=== PATIENT | female | born 1980 | race American Indian/Alaskan Native ===

== ENCOUNTER 2021-11-05 14:17 | Outpatient (REF) | payer OTHER, SELFPAY ==
[2021-11-05 14:33] LABS: MANUAL DIFF FLAG NO
[2021-11-05 15:00] LABS: Basophils Percent Auto 0.4 % (0-2); Eosinophils Absolute Auto 0.1 X10*3/uL (0.0-0.4); Eosinophils Percent Auto 1.6 % (0-4); Hematocrit 37.1 % (37.0-47.0); Hemoglobin 11.9 g/dl (12.0-16.0); Imm Gran Abs Auto 0.01 X10*3/uL (0.00-0.03); Imm Gran Pct Auto 0.1 % (0.0-0.4); Lymphocytes Absolute Auto 2.3 X10*3/uL (1.2-4.9); Lymphocytes Percent Auto 32.8 % (20-40); Mean Corpuscular HGB Conc 32.1 g/dl (31.0-35.0); Mean Corpuscular Hemoglobin 27.5 pg (27.0-33.0); Mean Corpuscular Volume 85.9 fL (80.0-98.0); Mean Platelet Volume 8.7 fL (9.4-12.3); Monocytes Absolute Auto 0.5 X10*3/uL (0.1-1.2); Neutrophils Absolute Auto 4.1 x10*3/uL (2.0-8.3); Neutrophils Percent Auto 58.1 % (45-73); Platelet Count 364 X10*3/uL (160-400); Red Blood Count 4.32 X10*6/uL (4.20-5.50); Red Cell Distribution Width 12.5 % (11.0-16.0)
[2021-11-05 15:28] LABS: Alanine Aminotransferase 18 U/L (0-31); Albumin Level 3.9 g/dL (3.5-5.0); Alkaline Phosphatase 60 U/L (39-117); Anion Gap 13 (12-20); Aspartate Amino Transferase 18 U/L (5-31); Bilirubin Total 0.3 mg/dL (0.0-1.0); Blood Urea Nitrogen 16 mg/dL (9-16); Calcium 9.5 mg/dL (8.4-10.2); Carbon Dioxide 23 mmol/L (22-29); Chloride 106 mmol/L (96-108); Cholesterol 212 mg/dL; Estimated Glomerular Filt Rate > 60; Glucose Fasting 78 mg/dL (60-99); HDL Cholesterol 56 mg/dL; LDL Cholesterol Calculated 119 mg/dl; Potassium 4.4 mmol/L (3.3-5.1); Sodium 138 mmol/L (135-145); Total Protein 7.1 g/dL (6.5-8.0); Triglycerides 185 mg/dL
[2021-11-05 15:41] LABS: TSH reflex Free T4 1.13 uIU/mL (0.32-4.0); Vitamin D 25-OH Total 27.8 ng/mL (>30)
== END 2021-11-05 14:18 | disposition home or self-care (01) ==
LOC: HO.LAB 14:17
PROVIDERS: PCP Internal Medicine; Visit Provider Nurse Practitioner Family
DX: I10 Essential (primary) hypertension (principal); E78.00 Pure hypercholesterolemia, unspecified; F32.A Depression, unspecified; J30.89 Other allergic rhinitis; Z76.89 Persons encountering health services in other specified circumstances; Z86.39 Personal history of other endocrine, nutritional and metabolic disease
CPT/HCPCS: 36415; 80053; 80061; 82306; 84443; 85025

== ENCOUNTER 2022-01-04 12:57 | Outpatient (REF) | payer OTHER, SELFPAY ==
[2022-01-05 04:27] LABS: CT PCR NOT DETECTED (Not Detect.); NG PCR NOT DETECTED (Not Detect.)
[2022-01-05 09:31] LABS: BV Int Neg Control Negative (Negative); BV Int Pos Control Positive (Positive)
[2022-01-10 00:02] LABS: HPV mRNA E6/E7 rflx Not Detected (Not Detected)
== END 2022-01-04 12:58 | disposition home or self-care (01) ==
LOC: HO.LAB 12:57
PROVIDERS: PCP Nurse Practitioner Family; Visit Provider Advanced Practice Midwife
DX: O99.211 Obesity complicating pregnancy, first trimester (principal); E66.01 Morbid (severe) obesity due to excess calories; O34.219 Maternal care for unspecified type scar from previous cesarean delivery; Z11.51 Encounter for screening for human papillomavirus (HPV); Z3A.00 Weeks of gestation of pregnancy not specified; Z64.0 Problems related to unwanted pregnancy
CPT/HCPCS: 81025; 87480; 87491; 87510; 87591; 87624; 87660; 88142; 99202

== ENCOUNTER 2022-01-04 14:53 | Outpatient (REF) | payer OTHER, SELFPAY ==
--- NOTE | ~2022-01-04 | US_ITS ---
EXAMINATION: US OBSTETRICAL ULTRASOUND CLINICAL INFORMATION: Morbid/severe obesity. Frequent and heavy periods. COMPARISON: None. LMP: Not known. Gestational age by maternal dates is not available. Estimated date of delivery by maternal dates is not available. TECHNIQUE: Transabdominal imaging of pelvis is performed. FINDINGS: There is a single intrauterine gestational sac with visible yolk sac, embryo/fetus, and cardiac activity. There is no significant subchorionic hemorrhage or hematoma. HR: 133 beats per minute. CRL (crown rump length): 0.43 cm which corresponds to (6 weeks and 1 day +/- 4 days). YAZ (estimated date of delivery): 08/29/2022 +/- 4 days. MATERNAL ADNEXA: The right maternal ovary measures 2.2 x 2.2 x 2.4 cm. No cyst or solid lesion. The left maternal ovary measures 3.8 x 2.0 x 2.4 cm. No cyst or solid lesion. There is no significant maternal adnexal mass. No maternal pelvic ascites. US/US OB <= 14 weeks fetus IMPRESSION: 1. Single intrauterine gestation with ultrasound gestational age of 6 weeks and 1 day +/- 4 days. 2. Estimated date of delivery is 08/29/2022 +/- 4 days. 3. No maternal adnexal mass or pelvic ascites.
== END 2022-01-04 14:54 | disposition home or self-care (01) ==
LOC: HO.US 14:53
PROVIDERS: PCP Nurse Practitioner Family; Visit Provider Advanced Practice Midwife
DX: O09.511 Supervision of elderly primigravida, first trimester (principal); O26.891 Other specified pregnancy related conditions, first trimester; D25.9 Leiomyoma of uterus, unspecified; O34.219 Maternal care for unspecified type scar from previous cesarean delivery; O99.211 Obesity complicating pregnancy, first trimester; E66.01 Morbid (severe) obesity due to excess calories; Z3A.01 Less than 8 weeks gestation of pregnancy
CPT/HCPCS: 36415; 76801; 84702

== ENCOUNTER 2022-02-21 09:00 | Outpatient (RCR) | payer OTHER, SELFPAY | END 2022-03-07 15:06 | disposition home or self-care (01) | LOC: HO.PT 09:00 | PROVIDERS: Visit Provider Nurse Practitioner Family | DX: M25.561 Pain in right knee (principal); G89.29 Other chronic pain; M25.511 Pain in right shoulder | CPT/HCPCS: 97014; 97033; 97110; 97140; 97162; 97530 ==

== ENCOUNTER 2022-04-22 08:50 | Emergency (ER) | payer OTHER, SELFPAY ==
--- NOTE | ~2022-04-22 | CT_ITS ---
EXAMINATION: CT ABDOMEN AND PELVIS WITHOUT CONTRAST CLINICAL INFORMATION: Left lower quadrant pain COMPARISON: None TECHNIQUE: Multidetector volumetric imaging was performed from the superior aspect of the liver through the pubic symphysis. Sagittal and coronal reformatted images were obtained on the technologist's workstation. This CT examination was performed using dose optimization techniques as appropriate, variously including the following: *Automated exposure control *Adjustment of mA and/or kV according to patient size (this includes techniques or standardized protocols for targeted exams where dose is matched to indication/reason for exam; i.e. extremities or head) *Use of iterative reconstruction technique DLP: 1080 mGy-cm FINDINGS: LUNG BASES: The lung bases are clear. The heart size is normal. LIVER, GALLBLADDER, AND BILIARY TREE: The liver is normal in size, shape, and attenuation. No focal hepatic lesion or biliary ductal dilatation is present. The gallbladder is unremarkable with no evidence of radiopaque gallstones, gallbladder wall thickening, or obvious pericholecystic inflammatory changes. PANCREAS: Unremarkable. SPLEEN: Unremarkable. ADRENAL GLANDS: Unremarkable. KIDNEYS AND URETERS: The kidneys are normal in size, shape, and attenuation. No hydronephrosis, hydroureter, or calculi seen. No perinephric stranding. BLADDER: Unremarkable. GASTROINTESTINAL TRACT: There is diffuse colonic diverticulosis with scattered stool and gas without distention. There is mild perinephric colic fat stranding in the distal descending colon with mild mural thickening suggestive of diverticulitis. There is no free air or air-fluid levels. The small bowel loops are normal caliber. Appendix is not seen. The stomach is nondistended. ABDOMINAL WALL: A small lumbar canal hernia containing fat is noted. LYMPH NODES: Normal. VASCULAR: Unremarkable. PELVIC VISCERA: The uterus Vein appears unremarkable. There is no free fluid. No abnormal lymph nodes. No hernia seen. OSSEOUS STRUCTURES: Unremarkable. CT/CT abdomen pelvis wo con IMPRESSION: Colonic diverticulosis with left descending colon diverticulitis. There is no free air or abscess. No proximal bowel obstruction. Mild constipation. Fleischner guidelines were followed.
[2022-04-22 08:57] VITALS: BP 149/91; PULSE 91; RESP 18; TEMP 36.8; O2SAT 98; BMI 44.6
--- NOTE | 2022-04-22 08:59 | ECG_ITS ---
Test Reason : sharp l side pain Blood Pressure : / mmHG Vent. Rate : 094 BPM Atrial Rate : 094 BPM P-R Int : 150 ms QRS Dur : 080 ms QT Int : 360 ms P-R-T Axes : 021 047 003 degrees QTc Int : 450 ms Normal sinus rhythm with sinus arrhythmia Nonspecific ST and T wave abnormality Borderline ECG No previous ECGs available Referred By: Generic ED Physician Electronically Signed By:NAT JULIO
--- NOTE | 2022-04-22 10:14 | ED.ABDPAIN ---
HPI - Abdominal Pain General Chief Complaint: Abdominal Pain Stated Complaint: sharp pain l rib Time Seen by Provider: 04/22/22 10:01 Source: patient Mode of arrival: ambulatory History of Present Illness HPI narrative: 41-year-old female who presents with left-sided flank pain that is sharp in nature and radiates into the anterior abdomen the patient noted on self palpation that is tender and states that she has chronic urinary frequency but denies pain or burning. Patient does report that she has had some associated nausea as well as a measure temperature 101 degrees last night for which she took an antipyretic. Otherwise she denies shortness of breath/chest pain/palpitations/diarrhea. She has no history of diverticulitis or renal colic. Related Data Previous Rx's Medication Instructions Recorded albuterol sulfate 90 mcg/actuation 2 puff INHALATION Q4-6H PRN #8.5 g 11/20/21 aerosol inhaler cetirizine 10 mg tablet (Zyrtec) 10 mg PO DAILY PRN #90 tab 11/20/21 cholecalciferol (vitamin D3) 25 25 mcg PO DAILY #90 cap 11/20/21 mcg (1,000 unit) capsule famotidine 20 mg tablet 20 mg PO DAILY #90 tab 11/20/21 multivitamin 1 tab PO DAILY #90 tab 11/20/21 vitamin E 200 unit capsule 200 unit PO DAILY #90 cap 11/20/21 benzonatate 100 mg capsule 100 mg PO Q6H PRN #20 cap 02/26/22 bupropion HCl 100 mg tablet,12 hr 100 mg PO DAILY #30 tab 02/26/22 sustained-release (Wellbutrin SR) doxycycline monohydrate 100 mg 100 mg PO BID 7 Days #14 cap 02/26/22 capsule amoxicillin 875 mg-potassium 1 tab PO Q12H 10 Days #20 tab 04/22/22 clavulanate 125 mg tablet Allergies Allergy/AdvReac Type Severity Reaction Status Date / Time bee pollen [BEE STINGS] Allergy Unknown ANAPHYLAXIS Verified 02/26/22 11:45 morphine [MORPHINE] Allergy Unknown ANAPHYLAXIS Verified 02/26/22 11:45 oxycodone [From PERCOCET] Allergy Unknown RASH Verified 02/26/22 11:45 strawberry [STRAWBERRY] Allergy Unknown ANAPHYLAXIS Verified 02/26/22 11:45 Review of Systems Review of Systems Pertinent positives and negatives as stated in HPI 10 point review of systems otherwise negative. [facility] Past Medical History Source: nursing notes reviewed Medical History Fibroid, uterine History of uterine fibroid Polyp of cervix Surgical History History of delivery History of surgery on right wrist Family History Family History Mother No problems noted. Father Mental health disorder Substance use disorder Social History Social History Housing: House Alcohol intake: current Alcohol intake frequency: a few times a month Patient Tobacco Use Status: Former Tobacco user Tobacco use type: Cigarette e-Cigarette/Vaping Use: Never Used Second Hand Smoke Exposure: No Advance Directives: No Advance Directives Information Provided: No Current occupational status: employed Cognitive needs: No Hearing needs: No Vision needs: No Physical Exam ED Vital Signs: Vital Signs - 24 hr 04/22/22 08:57 04/22/22 12:41 Temperature 98.2 F 98.9 F Pulse Rate 91 82 Respiratory Rate 18 16 Blood Pressure 149/91 H 141/80 H Pulse Oximetry 98 98 BMI result Body Mass Index 44.6 VITAL SIGNS: Reviewed. GENERAL: Elevated BMI Well developed, well nourished, in no acute distress. HEAD: Normocephalic/atraumatic EYES: PERRLA, EOMI EARS: Ext canals without abnormality OROPHARYNX: no oral lesions noted, posterior pharynx clear LUNGS: Normal breath sounds. No adventitious sounds or accessory muscle use. SpO2<98> CARDIOVASCULAR: Regular rate and rhythm without noted murmurs ABDOMEN: Soft, left lower quadrant pain, non-distended with bowel sounds. MUSCULOSKELETAL: No tenderness, deformities, or effusions noted on gross inspection. EXTREMITIES: No cyanosis, clubbing or edema. SKIN: Inspection of the skin reveals no rashes NEUROLOGIC: Alert and oriented x 4. Course Course Course Narrative: 41-year-old female with history and clinical presentation suggestive possible diverticulitis given the clinical exam but will evaluate for UTI, ectopic, renal colic. Patient's LMP was February. Review of all investigations with a noted leukocytosis and CT findings consistent with uncomplicated diverticulitis. Patient will receive initial antibiotics here in then be discharged with remaining course and instructions to follow-up with a primary care provider. MDM - Abdominal Pain Lab Data Result diagrams: 04/22/22 10:20 04/22/22 10:20 Labs: Lab Results 04/22/22 04/22/22 04/22/22 Range/Units 10:16 10:16 10:20 WBC 10.8 (4.8-10.8) X10*3/uL RBC 4.42 (4.20-5.50) X10*6/uL Hgb 12.1 (12.0-16.0) g/dl Hct 37.8 (37.0-47.0) % MCV 85.5 (80.0-98.0) fL MCH 27.4 (27.0-33.0) pg MCHC 32.0 (31.0-35.0) g/dl RDW 13.5 (11.0-16.0) % Plt Count 297 (160-400) X10*3/uL MPV 9.0 L (9.4-12.3) fL Absolute Nucleated RBC 0.000 (0.0-0.012) X10*3/uL Nucleated RBC % (auto) 0.0 (0.0-0.2) /100WBC Sodium (135-145) mmol/L Potassium (3.3-5.1) mmol/L Chloride (96-108) mmol/L Carbon Dioxide (22-29) mmol/L Anion Gap (12-20) BUN (9-16) mg/dL Creatinine (0.5-1.4) mg/dL Estim Creat Clear Calc Estimated GFR Random Glucose (60-115) mg/dL Calcium (8.4-10.2) mg/dL Lipase (8-78) U/L Urine Color YELLOW Urine Appearance HAZY Urine pH 6.0 (5.0-8.0) Ur Specific [place] >= 1.030 H (1.005-1.025) Urine Protein TRACE (NEG-TRACE) MG/DL Urine Glucose (UA) NEG (NEG) MG/DL Urine Ketones NEG (NEG) MG/DL Urine Blood NEG (NEG) Urine Nitrite NEG (NEG) Ur Leukocyte Esterase NEG (NEG) Urine Test NEGATIVE (NEGATIVE) COVID-19 (EVE) (Negative) COVID-19 Clin Com 04/22/22 04/22/22 Range/Units 10:20 10:20 WBC (4.8-10.8) X10*3/uL RBC (4.20-5.50) X10*6/uL Hgb (12.0-16.0) g/dl Hct (37.0-47.0) % MCV (80.0-98.0) fL MCH (27.0-33.0) pg MCHC (31.0-35.0) g/dl RDW (11.0-16.0) % Plt Count (160-400) X10*3/uL MPV (9.4-12.3) fL Absolute Nucleated RBC (0.0-0.012) X10*3/uL Nucleated RBC % (auto) (0.0-0.2) /100WBC Sodium 137 (135-145) mmol/L Potassium 4.8 (3.3-5.1) mmol/L Chloride 104 (96-108) mmol/L Carbon Dioxide 24 (22-29) mmol/L Anion Gap 14 (12-20) BUN 18 H (9-16) mg/dL Creatinine 0.89 (0.5-1.4) mg/dL Estim Creat Clear Calc 107.1 Estimated GFR > 60 Random Glucose 102 (60-115) mg/dL Calcium 9.3 (8.4-10.2) mg/dL Lipase 22 (8-78) U/L Urine Color Urine Appearance Urine pH (5.0-8.0) Ur Specific [place] (1.005-1.025) Urine Protein (NEG-TRACE) MG/DL Urine Glucose (UA) (NEG) MG/DL Urine Ketones (NEG) MG/DL Urine Blood (NEG) Urine Nitrite (NEG) Ur Leukocyte Esterase (NEG) Urine Test (NEGATIVE) COVID-19 (EVE) Negative (Negative) COVID-19 Clin [employer] See Note Discharge Plan Discharge Clinical Impression: Diverticulitis Patient Disposition: Home, Self-Care Instructions: Diverticulitis (ED), Diverticulitis Diet (ED) Additional Instructions: 1. Resume all home medications as prescribed. 2. Complete the entire course of antibiotics as prescribed. 3. Recommend [id number] Tylenol/ibuprofen as needed for pain control. 4. Follow-up with your primary care provider in the next 1-2 days for re-evaluation further outpatient management. You will need to follow-up with gastroenterology in 6 weeks for possible colonoscopy. Return to the ER for worsening symptoms. Prescriptions: New amoxicillin-pot clavulanate 875-125 mg tablet 1 tab PO Q12H 10 Days Qty: 20 0RF No Action albuterol sulfate 90 mcg/actuation HFA aerosol inhaler 2 puff inhalation Q4-6H PRN (Reason: shortness of breath or wheezing) Qty: 8.5 3RF cetirizine [Zyrtec] 10 mg tablet 10 mg PO DAILY PRN (Reason: allergy symptoms) Qty: 90 1RF cholecalciferol (vitamin D3) 25 mcg (1,000 unit) capsule 25 mcg PO DAILY Qty: 90 1RF famotidine 20 mg tablet 20 mg PO DAILY Qty: 90 1RF multivitamin Tablet 1 tab PO DAILY Qty: 90 1RF vitamin E 200 unit capsule 200 unit PO DAILY Qty: 90 1RF doxycycline monohydrate 100 mg capsule 100 mg PO BID 7 Days Qty: 14 0RF benzonatate 100 mg capsule 100 mg PO Q6H PRN (Reason: cough) Qty: 20 0RF bupropion HCl [Wellbutrin SR] 100 mg tablet sustained-release 12 hr 100 mg PO DAILY Qty: 30 0RF Referrals: Consuelo Bolaños FNP-C [Primary Care Provider] -
[2022-04-22 10:24] LABS: Hematocrit 37.8 % (37.0-47.0); Hemoglobin 12.1 g/dl (12.0-16.0); Mean Corpuscular Hemoglobin 27.4 pg (27.0-33.0); Mean Corpuscular Volume 85.5 fL (80.0-98.0); Platelet Count 297 X10*3/uL (160-400); Red Blood Count 4.42 X10*6/uL (4.20-5.50); Red Cell Distribution Width 13.5 % (11.0-16.0); White Blood Count 10.8 X10*3/uL (4.8-10.8)
[2022-04-22 10:26] LABS: Appearance Urine HAZY; Color Urine YELLOW; Glucose Urine UA NEG (NEG); Leukocyte Esterase Urine NEG (NEG); Nitrite Urine NEG (NEG); Specific Gravity - Urine >= 1.030 (1.005-1.025); Urine Blood NEG (NEG); Urine Ketones NEG (NEG); Urine Protein TRACE MG/DL (NEG-TRACE)
[2022-04-22 10:28] LABS: UPreg QC Valid YES; Urine Pregnancy NEGATIVE (NEGATIVE)
[2022-04-22 10:53] LABS: Anion Gap 14 (12-20); Blood Urea Nitrogen 18 mg/dL (9-16); Calcium 9.3 mg/dL (8.4-10.2); Carbon Dioxide 24 mmol/L (22-29); Chloride 104 mmol/L (96-108); Creatinine Clr Calc Pharmacy 107.1; Estimated Glomerular Filt Rate > 60; Glucose Random 102 mg/dL (60-115); Lipase 22 U/L (8-78); Potassium 4.8 mmol/L (3.3-5.1); Sodium 137 mmol/L (135-145)
[2022-04-22 10:56] LABS: COVID-19 Test Negative (Negative); IDNOW Serial# 16C4AD1C
[2022-04-22 12:41] VITALS: BP 141/80; PULSE 82; RESP 16; TEMP 37.2; O2SAT 98
[2022-04-22] MEDS: Amoxicillin/Potassium Clav 875 MG TABLET PO (13:51)
== END 2022-04-22 13:58 | disposition home or self-care (01) ==
PROVIDERS: Emergency Provider Student in an Organized Health Care Education/Training Program; PCP Nurse Practitioner Family
DX: K57.92 Diverticulitis of intestine, part unspecified, without perforation or abscess without bleeding (principal); Z20.822 Contact with and (suspected) exposure to COVID-19
CPT/HCPCS: 74176; 80048; 81003; 81025; 83690; 85027; 87635; 93005; 99284

== ENCOUNTER 2022-05-06 10:56 | Outpatient (REF) | payer OTHER, SELFPAY ==
[2022-05-08 01:41] LABS: Lyme Abs Screen <0.90 index
== END 2022-05-06 10:57 | disposition home or self-care (01) ==
LOC: HO.LAB 10:56
PROVIDERS: PCP Nurse Practitioner Family; Visit Provider Nurse Practitioner Family
DX: M25.50 Pain in unspecified joint (principal); T14.8XXA Other injury of unspecified body region, initial encounter; W57.XXXA Bitten or stung by nonvenomous insect and other nonvenomous arthropods, initial encounter
CPT/HCPCS: 36415; 86617; 86618

== ENCOUNTER 2022-05-08 11:00 | Outpatient (REF) | payer OTHER, SELFPAY ==
--- NOTE | ~2022-05-08 | XR_ITS ---
EXAMINATION: XR KNEE, RIGHT CLINICAL INFORMATION: M25.561 - Pain in right knee COMPARISON: None TECHNIQUE: AP and lateral views of the right knee. FINDINGS: No fracture, dislocation, destructive process. No joint narrowing or erosive change or chondrocalcinosis. Normal bony mineralization. No periostitis. There is questionable small suprapatellar effusion. Hoffa's fat pad appears normal. There are 3 small benign-appearing circumscribed calcifications anterior medial soft tissues 6 cm proximal to the joint, outside the area expected for suprapatellar bursa. XR/XR knee RT 2V IMPRESSION: -Question small suprapatellar effusion. -No fracture, joint narrowing, or erosive change.
== END 2022-05-08 11:01 | disposition home or self-care (01) ==
LOC: HO.XRAY 11:00
PROVIDERS: PCP Nurse Practitioner Family; Visit Provider Internal Medicine
DX: M25.561 Pain in right knee (principal)
CPT/HCPCS: 73560

== ENCOUNTER 2022-05-29 00:07 | Emergency (ER) | payer OTHER, SELFPAY ==
[2022-05-29 01:47] VITALS: BP 111/85; PULSE 108; RESP 22; TEMP 37.7; O2SAT 97; BMI 43.7
[2022-05-29 02:01] LABS: Hematocrit 34.8 % (37.0-47.0); Hemoglobin 11.4 g/dl (12.0-16.0); Mean Corpuscular HGB Conc 32.8 g/dl (31.0-35.0); Mean Corpuscular Hemoglobin 27.3 pg (27.0-33.0); Mean Corpuscular Volume 83.5 fL (80.0-98.0); Mean Platelet Volume 8.5 fL (9.4-12.3); Platelet Count 321 X10*3/uL (160-400); Red Blood Count 4.17 X10*6/uL (4.20-5.50); Red Cell Distribution Width 13.2 % (11.0-16.0); White Blood Count 11.7 X10*3/uL (4.8-10.8)
[2022-05-29 02:14] LABS: COVID-19 Test Negative (Negative); IDNOW Serial# 16C4AD1C; Influenza A Negative (Negative); Influenza B2 Negative (Negative)
[2022-05-29 02:27] LABS: Alanine Aminotransferase 19 U/L (0-31); Albumin Level 3.9 g/dL (3.5-5.0); Alkaline Phosphatase 82 U/L (39-117); Anion Gap 12 (12-20); Aspartate Amino Transferase 22 U/L (5-31); Bilirubin Total 0.3 mg/dL (0.0-1.0); Blood Urea Nitrogen 14 mg/dL (9-16); Calcium 9.1 mg/dL (8.4-10.2); Carbon Dioxide 22 mmol/L (22-29); Chloride 104 mmol/L (96-108); Creatinine Clr Calc Pharmacy 97.2; Estimated Glomerular Filt Rate > 60; Glucose Random 118 mg/dL (60-115); Lipase 38 U/L (8-78); Potassium 4.4 mmol/L (3.3-5.1); Sodium 134 mmol/L (135-145); Total Protein 7.1 g/dL (6.5-8.0)
== END 2022-05-29 06:42 | disposition left against medical advice (07) ==
PROVIDERS: Emergency Provider Emergency Medicine
DX: R50.9 Fever, unspecified (principal); Z20.822 Contact with and (suspected) exposure to COVID-19; R11.2 Nausea with vomiting, unspecified; R19.7 Diarrhea, unspecified; E66.01 Morbid (severe) obesity due to excess calories; Z68.41 Body mass index [BMI] 40.0-44.9, adult
CPT/HCPCS: 36415; 80053; 83690; 85027; 87502; 87635; 99281; 99283

== ENCOUNTER 2022-07-02 15:49 | Outpatient (REF) | payer OTHER, SELFPAY ==
[2022-07-02 17:18] LABS: TSH reflex Free T4 1.02 uIU/mL (0.32-4.0); Vitamin D 25-OH Total 32.5 ng/mL (>30)
[2022-07-02 17:30] LABS: Folate 10.5 ng/mL (> or = 4.0); Vitamin B12 388 pg/mL (200-900)
== END 2022-07-02 15:50 | disposition home or self-care (01) ==
LOC: HO.LAB 15:49
PROVIDERS: PCP Nurse Practitioner Family; Visit Provider Nurse Practitioner Family
DX: F32.A Depression, unspecified (principal)
CPT/HCPCS: 36415; 82306; 82607; 82746; 84443

== ENCOUNTER 2022-11-26 11:23 | Outpatient (REF) | payer OTHER, SELFPAY ==
--- NOTE | ~2022-11-26 | XR_ITS ---
EXAMINATION: XR FOOT, RIGHT CLINICAL INFORMATION: M79.671 - Pain in right foot COMPARISON: Radiographs right foot/great toe 07/25/2018 TECHNIQUE: AP, lateral, and oblique views of the right foot. FINDINGS: No visible acute or healing fracture, dislocation, destructive process. Subtalar joint unremarkable. There are bulky posterior and small plantar calcaneal spurs. There is mild dorsal spurring from the first metatarsal head. The midfoot and forefoot shows no focal joint narrowing or erosive change. XR/XR foot RT min 3V IMPRESSION: -Posterior and plantar calcaneal spurs. -No visible fracture or dislocation or destructive process. -Mild spurring first metatarsal head. No joint narrowing or erosive change.
== END 2022-11-26 11:24 | disposition home or self-care (01) ==
LOC: HO.XRAY 11:23
PROVIDERS: PCP Nurse Practitioner Family; Visit Provider Nurse Practitioner Family
DX: M79.671 Pain in right foot (principal)
CPT/HCPCS: 73630

== ENCOUNTER 2023-02-11 09:00 | Outpatient (RCR) | payer OTHER, SELFPAY ==
--- NOTE | 2022-12-26 16:17 | MHC.PT.EP ---
[facility] [place] [facility] [place] Office [place] Office [address] [phone] F: [phone] F: [phone] F: [phone] F: [phone] Physical Therapy Plan of Care Date of Evaluation: Date of Surgery: Diagnosis: RIGHT knee pain (MD Dx) Right knee bursitis (PT Dx) Assessment: Patient is a 42 y.o. who is referred to PT by CARLOS Walsh with Dx of RIGHT knee pain. PT diagnosis is right knee bursitis due to areas of calcifications seen on imaging. Patient impairments include pain, limited ROM, weakness. Patient current functional limitations are running, squatting, asencd/descend stairs. Patient will benefit from skilled PT to address aforementioned impairments and functional limitations to meet established goals. Frequency and Duration: The patient will be seen 2x/week for 4 weeks Short Term Goals: 2 weeks Patient demonstrates consistency and independence with HEP to self manage symptoms. Patient presents with increased R ankle DF 0 degrees to normalize gait pattern. Sterilization Technician Goals: 4 weeks Patient presents with increased R knee flexion 115 degrees to be able to perform sit to stand from low surfaces. Patient presents with increased R knee extension 5/5 to be able to ascend/descend stairs. Treatment Plan: Modalities to reduce pain, spasms and effusion. Manual therapy to restore motion and function. Therapeutic exercise to improve strength and flexibility. Neuromuscular re-education for posture and balance. Therapeutic activities to return to functional activities of daily living. Electronically signed by: Mariann Diaz, PT, DPT Please sign and return to therapist. Thank you for your referral.
--- NOTE | 2023-03-26 10:51 | MHC.PT.DC ---
[facility] [place] Office [place] Office [place] Office [address] Fermin Levin [address] [phone] F: [phone] F: [phone] F: [phone] F: [phone] Physical Therapy Discharge Report Diagnosis: RIGHT knee pain (MD Dx) Right knee bursitis (PT Dx) Date of Surgery: Date of Evaluation: 12/26/22 Date of Discharge: 02/11/23 Treatments to Date: 6 Cancellations to Date: 2 No Shows to Date: 2 Discharge Status: Visit Non-compliance Discharge Summary: Pt last treatment assessment, Pt with decreased antalgic gait today, reported some relief from taping last session. Pt with some increased abd cramping today so having decreased brayden for exercises d/t increased pain. She ceased attending PT on her own accord and is discharged at this time. Electronically signed by: Mariann Diaz, PT, DPT Please sign and return to therapist. Thank you for your referral.
== END 2023-03-26 10:51 | disposition home or self-care (01) ==
LOC: HO.PT 09:00
PROVIDERS: PCP Nurse Practitioner Family; Visit Provider Nurse Practitioner Family
DX: M25.561 Pain in right knee (principal)
CPT/HCPCS: 97110; 97112; 97140; 97161

== ENCOUNTER 2023-02-22 09:40 | Emergency (ER) | payer OTHER, SELFPAY ==
--- NOTE | ~2023-02-22 | CT_ITS ---
EXAMINATION: CT abdomen pelvis w IV con CLINICAL INFORMATION: Reason for Exam RLQ pain COMPARISON: No prior CT available for comparison. TECHNIQUE: Multidetector volumetric imaging was performed from the superior aspect of the liver through the pubic symphysis 85 mL of Omnipaque 350 injected Sagittal and coronal reformatted images were obtained on the technologist's workstation. This CT examination was performed using dose optimization techniques as appropriate, variously including the following: *Automated exposure control *Adjustment of mA and/or kV according to patient size (this includes techniques or standardized protocols for targeted exams where dose is matched to indication/reason for exam; i.e. extremities or head) *Use of iterative reconstruction technique DLP: 1159 mGy-cm FINDINGS: LOWER THORAX: Included lung bases are clear. HEPATOBILIARY: No focal hepatic lesions. No biliary ductal dilatation. GALLBLADDER: Gallbladder unremarkable. SPLEEN: Spleen is normal in size. PANCREAS: No focal mass or ductal dilatation. STOMACH AND GASTROINTESTINAL TRACT: There is fullness at the the gastroesophageal junction although nonspecific, commonly found to be nondistended sliding hiatal hernia, this can be further evaluated with barium esophagogram if clinically indicated. Stomach is grossly unremarkable. There is no bowel distention or thickening. Proximal portion of the appendix is normal, the tip of the appendix is in the pelvis obscured by fat stranding/adnexal fluid, this could be sequela of recently ruptured ovarian follicle, cannot entirely rule out the possibility of appendicitis. ADRENALS: No adrenal nodules. KIDNEYS/URETERS: No hydronephrosis, stones or solid mass lesions. URINARY BLADDER: Partially decompressed. PELVIC VISCERA: Uterus is bulky, there is possibly thickening of the endometrium and/or endometrial mass 2.7 cm, [place] image,, these were not well visualized by CT scan. There is also fluid/fat stranding around the right adnexa and small periadnexal fluid. These may require correlation with follow-up ultrasound. PERITONEUM: No free air or fluid. LYMPH NODES: No lymphadenopathy. VASCULAR:Abdominal aorta normal in size, no aneurysm found. BONES, ABDOMINAL WALL AND SOFT TISSUES: Small anterior abdominal wall periumbilical hernia containing fat only. Age-appropriate changes of the spine and skeletal system, no destructive osteolytic or osteosclerotic bone lesion found CT/CT abdomen pelvis w IV con IMPRESSION: * The proximal portion of the appendix is normal, the tip of the appendix is in the pelvis obscured by fat stranding/adnexal fluid, this could be sequela of recently ruptured ovarian follicle, ovarian or adnexal inflammatory or infection process, and although less likely cannot entirely rule out the possibility of appendicitis. Surgical evaluation and follow-up recommended. * Bulky uterus, there is possibly thickening of the endometrium and/or ENDOMETRIAL MASS, these were not well visualized by CT scan. Attention to follow-up more advanced imaging with pelvic ultrasound and/or contrast-enhanced pelvic MRI. * Fullness at the gastroesophageal junction probably a hiatal hernia. * Anterior abdominal wall periumbilical hernia containing fat only. (Referring physician staff is being called, by physician staff assistance, to be alerted of the above critical findings and recommendations.) LUCY 02/22/2023 1:06 PM
--- NOTE | ~2023-02-22 | US_ITS ---
EXAMINATION:US pelvic ovarian doppler, US pelvic and transvaginal CLINICAL INFORMATION: Reason for Exam right pelvic pain, abnormal CT COMPARISON: No priors available. LMP: 02/08/2023 FINDINGS: UTERUS: The uterus is anteverted. Size: 12 x 7 x 8 cm. Uterine mass: There are no uterine fibroids. Cervix: Grossly unremarkable. Endometrium: There is a complex solid vascular heterogeneously echogenic mass within the endometrium measures 3.8 x 2.9 x 2.8 cm concerning for possible large polyp versus endometrial carcinoma among other pathologic processes. ADNEXA: There is a free fluid around the right ovary and in the right adnexa. Right ovary: Multiple follicles the largest 3 x 2 x 2.7 cm an exophytic cyst 1.6 x 1.7 x 2 cm. Left ovary: There are multiple follicles. Doppler exam: Normal Doppler flow identified in both ovaries. OTHER FINDINGS: None US/US pelvic and transvaginal IMPRESSION: * Ultrasound confirm heterogeneous solid vascular mass within the endometrium 3.8 x 2.9 x 2.8 cm concerning for possible large polyp versus neoplasm such as endometrial carcinoma among other pathologic processes. 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 * There are multiple bilateral ovarian follicles, simple cystic structure in the right ovary, in this patient age group considered physiologic. No follow-up would be required. * There is free fluid around the right ovary and in the right adnexa uncertain etiology. (Referring physician staff is being called, by physician staff assistance, to be alerted of the above critical findings and recommendations.) 02/22/2023 5:02 PM
--- NOTE | ~2023-02-22 | US_ITS ---
EXAMINATION:US pelvic ovarian doppler, US pelvic and transvaginal CLINICAL INFORMATION: Reason for Exam right pelvic pain, abnormal CT COMPARISON: No priors available. LMP: 02/08/2023 FINDINGS: UTERUS: The uterus is anteverted. Size: 12 x 7 x 8 cm. Uterine mass: There are no uterine fibroids. Cervix: Grossly unremarkable. Endometrium: There is a complex solid vascular heterogeneously echogenic mass within the endometrium measures 3.8 x 2.9 x 2.8 cm concerning for possible large polyp versus endometrial carcinoma among other pathologic processes. ADNEXA: There is a free fluid around the right ovary and in the right adnexa. Right ovary: Multiple follicles the largest 3 x 2 x 2.7 cm an exophytic cyst 1.6 x 1.7 x 2 cm. Left ovary: There are multiple follicles. Doppler exam: Normal Doppler flow identified in both ovaries. OTHER FINDINGS: None US/US pelvic ovarian doppler IMPRESSION: * Ultrasound confirm heterogeneous solid vascular mass within the endometrium 3.8 x 2.9 x 2.8 cm concerning for possible large polyp versus neoplasm such as endometrial carcinoma among other pathologic processes. 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 * There are multiple bilateral ovarian follicles, simple cystic structure in the right ovary, in this patient age group considered physiologic. No follow-up would be required. * There is free fluid around the right ovary and in the right adnexa uncertain etiology. (Referring physician staff is being called, by physician staff assistance, to be alerted of the above critical findings and recommendations.) 02/22/2023 5:02 PM
--- NOTE | 2023-02-22 10:05 | ED.ABDPAIN ---
HPI - Abdominal Pain General Chief Complaint: Abdominal Pain Stated Complaint: right side abd pain Time Seen by Provider: 02/22/23 09:48 Source: patient and RN notes reviewed Mode of arrival: ambulatory Limitations: no limitations History of Present Illness HPI narrative: This is a 42-year-old female, with a past medical history of asthma, diverticulitis, and anxiety who presents emergency department today with right lower quadrant abdominal pain x4 days. Patient reports she initially felt her right lower quadrant pain develop while she was cleaning in her home four days ago. She reports that the pain was intermittent but reports since last night the pain has been constant and more severe. She reports intermittent nausea and vomited once yesterday morning as well as once this morning. No fevers, chills, diarrhea. She reports today is day 15 of her menses, reports that this is typical of her menses, she has had an uterine ablation and a tubal ligation in November. She is followed by her REFRIGERATOR TESTER, Dr. Levy at [facility]. She has had a , no other abdominal surgeries. No other complaints or concerns at this time. MD elicited complaint: abdominal pain Onset (ago): day(s) Pain Consistency: intermittent Location: RLQ Severity: moderate Quality: aching Radiation: none Migration to: no migration Exacerbating factors: nothing Relieving factors: nothing Associated symptoms: nausea and vomiting Related Data Home Medications Medication Instructions Recorded Confirmed ibuprofen 800 mg tablet 0 mg PO 07/02/22 11/26/22 Previous Rx's Medication Instructions Recorded albuterol sulfate 90 mcg/actuation 2 puff inhalation Q4-6H PRN 11/20/21 aerosol inhaler shortness of breath or wheezing #8.5 grams multivitamin 1 tab PO DAILY #90 tabs 11/20/21 vitamin E 200 unit capsule 200 unit PO DAILY #90 caps 11/20/21 epinephrine 0.3 mg/0.3 mL 0.3 mg (0.3 mL) IM Q10M PRN 04/29/22 injection, auto-injector (EpiPen) anaphylaxis #2 ea famotidine 20 mg tablet 20 mg PO BID 90 days #180 tabs 04/29/22 ondansetron HCl 4 mg tablet 4 mg PO Q12H PRN nausea and 07/02/22 vomiting #10 tabs simethicone 80 mg chewable tablet 80 mg PO TID-QID PRN abdominal 07/02/22 (Gas Relief (simethicone)) distention #20 tabs cetirizine 10 mg tablet (Zyrtec) 10 mg PO DAILY PRN allergy 11/01/22 symptoms #90 tabs prednisone 20 mg tablet 40 mg PO DAILY 5 days #10 tabs 11/26/22 trazodone 50 mg tablet 25 mg PO BEDTIME PRN insomnia #30 11/26/22 tabs hydromorphone 2 mg tablet 2 mg PO Q6H PRN severe pain (scale 02/22/23 score 7-10) #7 tabs ibuprofen 600 mg tablet 600 mg PO Q6H PRN pain #45 tabs 02/22/23 Allergies Allergy/AdvReac Type Severity Reaction Status Date / Time bee pollen [BEE STINGS] Allergy Unknown ANAPHYLAXIS Verified 11/26/22 10:14 morphine [MORPHINE] Allergy Unknown ANAPHYLAXIS Verified 11/26/22 10:14 oxycodone [From PERCOCET] Allergy Unknown RASH Verified 11/26/22 10:14 strawberry [STRAWBERRY] Allergy Unknown ANAPHYLAXIS Verified 11/26/22 10:14 Review of Systems Review of Systems Yes all other systems are reviewed and are negative [facility] Past Medical History Medical History (Updated 02/22/23 @ 17:44 by YU Palumbo) COVID-19 Fibroid, uterine History of uterine fibroid Polyp of cervix test positive Tick bite Unplanned unwanted Surgical History History of delivery History of surgery on right wrist Family History Family History Mother No problems noted. Father Mental health disorder Substance use disorder Social History Social History Housing: House Alcohol intake: current Alcohol intake frequency: a few times a month Patient Tobacco Use Status: Former Tobacco user Tobacco use type: Cigarette e-Cigarette/Vaping Use: Never Used Second Hand Smoke Exposure: No Advance Directives: No Advance Directives Information Provided: Yes Current occupational status: employed Cognitive needs: No Hearing needs: No Vision needs: No Physical Exam ED Vital Signs: Vital Signs - 24 hr 02/22/23 10:18 02/22/23 11:59 02/22/23 14:06 Temperature 97.3 F Pulse Rate 83 65 60 Respiratory Rate 18 16 14 Blood Pressure 146/91 H 135/80 143/75 H Pulse Oximetry 99 100 98 Oxygen Delivery Method Room Air Room Air Room Air BMI result Body Mass Index 45.1 Appearance: Alert. Oriented X3. No acute distress. Eyes: Pupils equal, round and reactive to light. EOMI ENT: Pharynx normal. Moist mucus membranes. Neck: Normal inspection. Neck supple. CVS: Normal heart rate and rhythm. Pulses normal. S1S2 regular. Respiratory: No respiratory distress. Breath sounds normal. Lungs clear to auscultation bilaterally, no wheezes rhonchi or rales Abdomen: Obese abdomen is soft, nondistended, with tenderness palpation in the right lower quadrant with rebound tenderness. Right lower suprapubic tenderness with palpation. +BS x4 Skin: Skin warm and dry. Normal skin color. Normal skin turgor. No rashes. Extremities: No lower extremity edema. Neuro: Oriented X 3. No motor deficit. No sensory deficit. Course Reevaluation(s) Reevaluation #1: No leukocytosis, H&H . UA reveals moderate blood and RBCs, patient currently has her menses. CT abdomen pending. Time: 11:24 Reevaluation #2: CT abdomen returns, revealing a normal proximal portion of the appendix, tip of the appendix is obscured by fat stranding/adnexal fluid, could be sequela of recent ruptured ovarian follicule, ovarian or adenexal inflammatory or infection process. Cannot entirely rule out the possibility of appendicitis. Bulky uterus, there is possibly thickening of the endometrium and/or endometrial mass. Fullness at the GE junction a probable hiatal hernia. Anterior abdominal wall periumbilical hernia containing fat only. No leukocytosis. Will obtain pelvis ultrasound for better visualization. VSS, patient remains stable. Patient reporting continued RLQ pain, Toradol 30mg IV ordered. Time: 13:52 Reevaluation #3: US revealed a heterogeneous solid vascular mass within the endometrium 3.8 x 2.9 x 2.8 cm concerning for possible large polyp versus neoplasm such as endometrial carcinoma among other pathologic processes. CANDY COUNTER CLERK EVALUATION RECOMMENDED, CORRELATION WITH TISSUE BIOPSY. There are multiple bilateral ovarian follicles, simple cystic structure in the right ovary, in this patient age group considered physiologic. Free fluid around the right ovary and in the right adnexa uncertain etiology. Patient had some improvement with Toradol, rating her pain a persistent 6/[address] Faria, from surgery regarding patient's presentation and CT findings and US report. Discussed that due to the duration of her symptoms, she likely would have leukocytosis, fevers, and other signs of ruptured appendicitis. Her symptoms are likely due to the CANDY COUNTER CLERK findings on the reports. Discussed these results with patient. Urged the importance of following up with her REFRIGERATOR TESTER Dr. Levy as she likely will need to pursue an endometrial biopsy for further evaluation and management. Patient has significant reactions with morphine and oxycodone, but has tolerated Dilaudid without any reaction. Due to these reactions, only given several tablets of dilaudid to be taken for severe pain only. Discussed that if any of her symptoms worsen or change to immediately return to the emergency department. 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 Time: 18:12 Medical Decision Making Medical Decision Making [facility] Narrative: 42-year-old female presenting for evaluation of right lower quadrant pain x4 days. tenderness to palpation the right lower quadrant and right suprapubic region with rebound. Hypertensive at 146/91, all other VSS. Plan: Labs, UA, CT abdomen and pelvis w/ contrast. Pt declines pain medication and anti-emetics at this time. Differential Diagnosis Differential Diagnoses: The differential diagnosis associated with the presentation includes appendicitis, diverticulitis, diverticulosis, UTI Consult Healthcare Provider Management of the patient was discussed with: Rugby League Footballer Dr. Faria Lab Data [facility] Lab Attestation statement: I reviewed the patient's lab results. 02/22/23 10:40 02/22/23 10:40 Labs: Lab Results 02/22/23 02/22/23 02/22/23 Range/Units 10:24 10:40 10:40 WBC 7.0 (4.8-10.8) X10*3/uL RBC 4.34 (4.20-5.50) X10*6/uL Hgb 11.1 L (12.0-16.0) g/dl Hct 35.0 L (37.0-47.0) % MCV 80.6 (80.0-98.0) fL MCH 25.6 L (27.0-33.0) pg MCHC 31.7 (31.0-35.0) g/dl RDW 14.1 (11.0-16.0) % Plt Count 343 (160-400) X10*3/uL MPV 8.6 L (9.4-12.3) fL Immature Gran % (Auto) 0.1 (0.0-0.4) % Neut % (Auto) 65.8 (45-73) % Lymph % (Auto) 25.2 (20-40) % Bell % (Auto) 6.9 (2-11) % Eos % (Auto) 1.4 (0-4) % Baso % (Auto) 0.6 (0-2) % Lymph # (Auto) 1.8 (1.2-4.9) X10*3/uL Bell # (Auto) 0.5 (0.1-1.2) X10*3/uL Eos # (Auto) 0.1 (0.0-0.4) X10*3/uL Baso # (Auto) 0.0 (0.0-0.2) X10*3/uL Abs Immat Gran (auto) 0.01 (0.00-0.03) X10*3/uL Absolute Neuts (auto) 4.6 (2.0-8.3) x10*3/uL Absolute Nucleated RBC 0.000 (0.0-0.012) X10*3/uL Nucleated RBC % (auto) 0.0 (0.0-0.2) /100WBC Sodium 137 (135-145) mmol/L Potassium 4.7 (3.3-5.1) mmol/L Chloride 106 (96-108) mmol/L Carbon Dioxide 25 (22-29) mmol/L Anion Gap 11 L (12-20) BUN 13 (9-16) mg/dL Creatinine 0.69 (0.5-1.4) mg/dL Estim Creat Clear Calc 137.8 Estimated GFR > 60 Random Glucose 102 (60-115) mg/dL Calcium 9.1 (8.4-10.2) mg/dL Magnesium 1.8 (1.6-2.6) mg/dL Total Bilirubin 0.4 (0.0-1.0) mg/dL Direct Bilirubin < 0.2 (0.0-0.5) mg/dL AST 17 (5-31) U/L ALT 13 (0-31) U/L Alkaline Phosphatase 56 (39-117) U/L Total Protein 6.3 L (6.5-8.0) g/dL Albumin 3.5 (3.5-5.0) g/dL Lipase 47 (8-78) U/L Urine Color Yellow Urine Appearance Clear Urine pH 6.0 (5.0-9.0) Ur Specific [place] 1.020 (1.005-1.025) Urine Protein Negative (Neg-Trace) mg/dL Urine Glucose (UA) Negative (Negative) mg/dL Urine Ketones Negative (Negative) mg/dL Urine Blood Moderate (2+) H (Negative) Urine Nitrite Negative (Negative) Ur Leukocyte Esterase Negative (Negative) Urine RBC >20 H (0-2) /HPF Urine WBC 0-5 (0-5) /HPF Ur Squamous Epith Cells 0-2 (0-2) /HPF Urine Bacteria None Seen (None Seen) Hyaline Casts 0-2 (0-2) /LPF Urine Test (NEGATIVE) 02/22/23 Range/Units 10:40 WBC (4.8-10.8) X10*3/uL RBC (4.20-5.50) X10*6/uL Hgb (12.0-16.0) g/dl Hct (37.0-47.0) % MCV (80.0-98.0) fL MCH (27.0-33.0) pg MCHC (31.0-35.0) g/dl RDW (11.0-16.0) % Plt Count (160-400) X10*3/uL MPV (9.4-12.3) fL Immature Gran % (Auto) (0.0-0.4) % Neut % (Auto) (45-73) % Lymph % (Auto) (20-40) % Bell % (Auto) (2-11) % Eos % (Auto) (0-4) % Baso % (Auto) (0-2) % Lymph # (Auto) (1.2-4.9) X10*3/uL Bell # (Auto) (0.1-1.2) X10*3/uL Eos # (Auto) (0.0-0.4) X10*3/uL Baso # (Auto) (0.0-0.2) X10*3/uL Abs Immat Gran (auto) (0.00-0.03) X10*3/uL Absolute Neuts (auto) (2.0-8.3) x10*3/uL Absolute Nucleated RBC (0.0-0.012) X10*3/uL Nucleated RBC % (auto) (0.0-0.2) /100WBC Sodium (135-145) mmol/L Potassium (3.3-5.1) mmol/L Chloride (96-108) mmol/L Carbon Dioxide (22-29) mmol/L Anion Gap (12-20) BUN (9-16) mg/dL Creatinine (0.5-1.4) mg/dL Estim Creat Clear Calc Estimated GFR Random Glucose (60-115) mg/dL Calcium (8.4-10.2) mg/dL Magnesium (1.6-2.6) mg/dL Total Bilirubin (0.0-1.0) mg/dL Direct Bilirubin (0.0-0.5) mg/dL AST (5-31) U/L ALT (0-31) U/L Alkaline Phosphatase (39-117) U/L Total Protein (6.5-8.0) g/dL Albumin (3.5-5.0) g/dL Lipase (8-78) U/L Urine Color Urine Appearance Urine pH (5.0-9.0) Ur Specific [place] (1.005-1.025) Urine Protein (Neg-Trace) mg/dL Urine Glucose (UA) (Negative) mg/dL Urine Ketones (Negative) mg/dL Urine Blood (Negative) Urine Nitrite (Negative) Ur Leukocyte Esterase (Negative) Urine RBC (0-2) /HPF Urine WBC (0-5) /HPF Ur Squamous Epith Cells (0-2) /HPF Urine Bacteria (None Seen) Hyaline Casts (0-2) /LPF Urine Test NEGATIVE (NEGATIVE) Independent Interpretation I performed an independent interpretation of an: Ultrasound and CT Scan Radiology Impression Discussion of test interpretation with radiology: I have reviewed the radiologist's reading. Radiologist Impression: FINDINGS: UTERUS: The uterus is anteverted. Size: 12 x 7 x 8 cm. Uterine mass: There are no uterine fibroids. Cervix: Grossly unremarkable. Endometrium: There is a complex solid vascular heterogeneously echogenic mass within the endometrium measures 3.8 x 2.9 x 2.8 cm concerning for possible large polyp versus endometrial carcinoma among other pathologic processes. ADNEXA: There is a free fluid around the right ovary and in the right adnexa. Right ovary: Multiple follicles the largest 3 x 2 x 2.7 cm an exophytic cyst 1.6 x 1.7 x 2 cm. Left ovary: There are multiple follicles. Doppler exam: Normal Doppler flow identified in both ovaries. OTHER FINDINGS: None US/US pelvic and transvaginal IMPRESSION: ? *? Ultrasound confirm heterogeneous solid vascular mass within the endometrium 3.8 x 2.9 x 2.8 cm concerning for possible large polyp versus neoplasm such as endometrial carcinoma among other pathologic processes. CANDY COUNTER CLERK EVALUATION RECOMMENDED, CORRELATION WITH TISSUE BIOPSY. ? *? There are multiple bilateral ovarian follicles, simple cystic structure in the right ovary, in this patient age group considered physiologic. No follow-up would be required. ? *? There is free fluid around the right ovary and in the right adnexa uncertain etiology. ? (Referring physician staff is being called, by physician staff assistance, to be alerted of the above critical findings and recommendations.) 02/22/2023 5:02 PM Dictated By: Tabatha Karimi MD EXAMINATION: CT abdomen pelvis w IV con CLINICAL INFORMATION: Reason for Exam RLQ pain COMPARISON: No prior CT available for comparison. TECHNIQUE: Multidetector volumetric imaging was performed from the superior aspect of the liver through the pubic symphysis 85 mL of Omnipaque 350 injected? Sagittal and coronal reformatted images were obtained on the technologist's workstation. ? This CT examination was performed using dose optimization techniques as appropriate, variously including the following: *Automated exposure control *Adjustment of mA and/or kV according to patient size (this includes techniques or standardized protocols for targeted exams where dose is matched to indication/reason for exam; i.e. extremities or head) *Use of iterative reconstruction technique DLP: 1159 mGy-cm FINDINGS: LOWER THORAX: Included lung bases are clear. HEPATOBILIARY: No focal hepatic lesions. No biliary ductal dilatation. GALLBLADDER: Gallbladder unremarkable. SPLEEN: Spleen is normal in size. PANCREAS: No focal mass or ductal dilatation. STOMACH AND GASTROINTESTINAL TRACT: There is fullness at the the gastroesophageal junction although nonspecific, commonly found to be nondistended sliding hiatal hernia, this can be further evaluated with barium esophagogram if clinically indicated. Stomach is grossly unremarkable. There is no bowel distention or thickening. Proximal portion of the appendix is normal, the tip of the appendix is in the pelvis obscured by fat stranding/adnexal fluid, this could be sequela of recently ruptured ovarian follicle, cannot entirely rule out the possibility of appendicitis. ADRENALS: No adrenal nodules. KIDNEYS/URETERS: No hydronephrosis, stones or solid mass lesions. URINARY BLADDER: Partially decompressed. PELVIC VISCERA: Uterus is bulky, there is possibly thickening of the endometrium and/or endometrial mass 2.7 cm, [place] image,, these were not well visualized by CT scan. There is also fluid/fat stranding around the right adnexa and small periadnexal fluid. These may require correlation with follow-up ultrasound. PERITONEUM: No free air or fluid. LYMPH NODES: No lymphadenopathy. VASCULAR:Abdominal aorta normal in size, no aneurysm found. BONES, ABDOMINAL WALL AND SOFT TISSUES: Small anterior abdominal wall periumbilical hernia containing fat only. Age-appropriate changes of the spine and skeletal system, no destructive osteolytic or osteosclerotic bone lesion found CT/CT abdomen pelvis w IV con IMPRESSION: ? *? The proximal portion of the appendix is normal, the tip of the appendix is in the pelvis obscured by fat stranding/adnexal fluid, this could be sequela of recently ruptured ovarian follicle, ovarian or adnexal inflammatory or infection process, and although less likely cannot entirely rule out the possibility of appendicitis. Surgical evaluation and follow-up recommended. ? *? Bulky uterus, there is possibly thickening of the endometrium and/or ENDOMETRIAL MASS, these were not well visualized by CT scan. Attention to follow-up more advanced imaging with pelvic ultrasound and/or contrast-enhanced pelvic MRI. ? *? Fullness at the gastroesophageal junction probably a hiatal hernia. ? *? Anterior abdominal wall periumbilical hernia containing fat only. ? (Referring physician staff is being called, by physician staff assistance, to be alerted of the above critical findings and recommendations.) 02/22/2023 1:06 PM ? Dictated By: Tabatha Karimi MD Prescription Management I considered prescription management with: Pain Medication Medications Administered Discontinued Medications Generic Name Dose Route Start Last Admin Trade Name Freq PRN Reason Stop Dose Admin Famotidine 20 mg 02/22/23 16:26 02/22/23 16:33 Famotidine 20 Mg Tablet PO 02/22/23 16:27 20 mg ONCE ONE Administration Iohexol 100 ml 02/22/23 11:39 02/22/23 11:40 Iohexol 350 Mg/Ml 100 Ml Infus..Btl IV 02/22/23 11:40 85 ml ONCE ONE Administration Ketorolac Tromethamine 30 mg 02/22/23 13:34 02/22/23 14:02 Ketorolac Tromethamine 30 Mg/Ml Vial IVPUSH 02/22/23 13:35 30 mg ONCE ONE Administration Discharge Plan Discharge Clinical Impression: Abdominal pain Patient Disposition: Home, Self-Care Instructions: Abdominal Pain (ED) Additional Instructions: It is very important to follow up with your OBGYN regarding this visit. ONLY TAKE HYDROMORPHONE FOR SEVERE PAIN ONLY. Be aware this can cause drowsiness, do not drink alcohol or drive while taking this medication. Take Ibuprofen for mild to moderate pain. Please rest and drink plenty of fluids. If any new or worsening symptoms occur, including but not limited to fevers, chills, worsening abdominal pain, please return for re-evaluation. Prescriptions: New hydromorphone 2 mg tablet 2 mg PO Q6H PRN (Reason: severe pain (scale score 7-10)) Qty: 7 0RF Rx Instructions: Partial Fill upon patient request. ibuprofen 600 mg tablet 600 mg PO Q6H PRN (Reason: pain) Qty: 45 0RF No Action albuterol sulfate 90 mcg/actuation HFA aerosol inhaler 2 puff inhalation Q4-6H PRN (Reason: shortness of breath or wheezing) Qty: 8.5 3RF multivitamin Tablet 1 tab PO DAILY Qty: 90 1RF vitamin E 200 unit capsule 200 unit PO DAILY Qty: 90 1RF famotidine 20 mg tablet 20 mg PO BID 90 Days Qty: 180 0RF cetirizine [Zyrtec] 10 mg tablet 10 mg PO DAILY PRN (Reason: allergy symptoms) Qty: 90 1RF ibuprofen 800 mg tablet 0 mg PO ondansetron HCl 4 mg tablet 4 mg PO Q12H PRN (Reason: nausea and vomiting) Qty: 10 0RF simethicone [Gas Relief (simethicone)] 80 mg tablet,chewable 80 mg PO TID-QID PRN (Reason: abdominal distention) Qty: 20 0RF prednisone 20 mg tablet 40 mg PO DAILY 5 Days Qty: 10 0RF trazodone 50 mg tablet 25 mg PO BEDTIME PRN (Reason: insomnia) Qty: 30 0RF epinephrine [EpiPen] 0.3 mg/0.3 mL auto-injector 0.3 mg IM Q10M PRN (Reason: anaphylaxis) Qty: 2 0RF Rx Instructions: for 2 doses Interventions: ED Discharge Assessment Last Done: 02/22/23 18:11 Discharge Date/Time: 02/22/23 18:12
[2023-02-22 10:18] VITALS: BP 146/91; PULSE 83; RESP 18; TEMP 36.3; O2SAT 99; BMI 45.1
[2023-02-22 10:45] LABS: MANUAL DIFF FLAG NO
[2023-02-22 10:47] LABS: Basophils Percent Auto 0.6 % (0-2); Eosinophils Absolute Auto 0.1 X10*3/uL (0.0-0.4); Eosinophils Percent Auto 1.4 % (0-4); Hemoglobin 11.1 g/dl (12.0-16.0); Imm Gran Abs Auto 0.01 X10*3/uL (0.00-0.03); Imm Gran Pct Auto 0.1 % (0.0-0.4); Lymphocytes Absolute Auto 1.8 X10*3/uL (1.2-4.9); Lymphocytes Percent Auto 25.2 % (20-40); Mean Corpuscular HGB Conc 31.7 g/dl (31.0-35.0); Mean Corpuscular Hemoglobin 25.6 pg (27.0-33.0); Mean Corpuscular Volume 80.6 fL (80.0-98.0); Mean Platelet Volume 8.6 fL (9.4-12.3); Monocytes Absolute Auto 0.5 X10*3/uL (0.1-1.2); Monocytes Percent Auto 6.9 % (2-11); Neutrophils Absolute Auto 4.6 x10*3/uL (2.0-8.3); Neutrophils Percent Auto 65.8 % (45-73); Platelet Count 343 X10*3/uL (160-400); Red Blood Count 4.34 X10*6/uL (4.20-5.50); Red Cell Distribution Width 14.1 % (11.0-16.0)
[2023-02-22 10:57] LABS: UPreg QC Valid YES; Urine Pregnancy NEGATIVE (NEGATIVE)
[2023-02-22 10:58] LABS: Appearance Urine Clear; Color Urine Yellow; Glucose Urine UA Negative (Negative); Leukocyte Esterase Urine Negative (Negative); Nitrite Urine Negative (Negative); UMIC TRIGGER UACC YES; Urine Blood Moderate (2+) (Negative); Urine Ketones Negative (Negative); Urine Protein Negative (Neg-Trace)
[2023-02-22 11:00] LABS: Bacteria Urine None Seen (None Seen); Hyaline Casts Urine 0-2 /LPF (0-2); RBC Urine >20 /HPF (0-2); Squamous Epithelial Cell Urine 0-2 /HPF (0-2); WBC Urine 0-5 /HPF (0-5)
[2023-02-22 11:04] LABS: Alanine Aminotransferase 13 U/L (0-31); Albumin Level 3.5 g/dL (3.5-5.0); Alkaline Phosphatase 56 U/L (39-117); Anion Gap 11 (12-20); Aspartate Amino Transferase 17 U/L (5-31); Bilirubin Direct < 0.2 mg/dL (0.0-0.5); Bilirubin Total 0.4 mg/dL (0.0-1.0); Blood Urea Nitrogen 13 mg/dL (9-16); Calcium 9.1 mg/dL (8.4-10.2); Carbon Dioxide 25 mmol/L (22-29); Chloride 106 mmol/L (96-108); Creatinine Clr Calc Pharmacy 137.8; Estimated Glomerular Filt Rate > 60; Glucose Random 102 mg/dL (60-115); Lipase 47 U/L (8-78); Magnesium 1.8 mg/dL (1.6-2.6); Potassium 4.7 mmol/L (3.3-5.1); Sodium 137 mmol/L (135-145); Total Protein 6.3 g/dL (6.5-8.0)
[2023-02-22] MEDS: iohexoL 350 MG/ML 100 ML INFUS..BTL IV (11:40)
[2023-02-22 11:59] VITALS: BP 135/80; PULSE 65; RESP 16; O2SAT 100
[2023-02-22] MEDS: Ketorolac Tromethamine 30 MG/ML VIAL IVPUSH (14:02)
[2023-02-22 14:06] VITALS: BP 143/75; PULSE 60; RESP 14; O2SAT 98
[2023-02-22] MEDS: Famotidine 20 MG TABLET PO (16:33)
== END 2023-02-22 18:12 | disposition home or self-care (01) ==
PROVIDERS: Physician Assistant Medical; Emergency Provider Emergency Medicine
DX: R10.31 Right lower quadrant pain (principal); R19.03 Right lower quadrant abdominal swelling, mass and lump
CPT/HCPCS: 36415; 74177; 76830; 76856; 80048; 80076; 81001; 81025; 83690; 83735; 85025; 93975; 96374; 99284; J1885; Q9967

== ENCOUNTER 2023-06-03 09:42 | Outpatient (AMB) | payer OTHER, SELFPAY ==
[2023-06-03 09:43] VITALS: BP 142/86; PULSE 112; O2SAT 98
--- NOTE | 2023-06-03 09:43 | MHC.PC.OV ---
Vital Signs 06/03/23 09:43 Height 5 ft 4 in BMI Reason not done Patient refused/unable BP 142/86 H Blood Pressure Location Lt brachial Position Sitting Pulse 112 H Pulse Source Pulse Oximeter Temp Source Skin Pulse Oximetry (%) 98 Oxygen Delivery Method Room Air Intake Visit Reasons: Ongoing cough Intake Note: pt here for on going cough and SOB Respooler Required: No Allergies bee pollen [BEE STINGS] Allergy (Unknown, Verified 06/03/23 09:53) ANAPHYLAXIS morphine [MORPHINE] Allergy (Unknown, Verified 06/03/23 09:53) ANAPHYLAXIS oxycodone [From PERCOCET] Allergy (Unknown, Verified 06/03/23 09:53) RASH strawberry [STRAWBERRY] Allergy (Unknown, Verified 06/03/23 09:53) ANAPHYLAXIS Medication List - Last Reconciled 06/03/23 by CARLOS Walsh albuterol sulfate 90 mcg/actuation (Ventolin HFA) 2 puffs inhalation Q4-6H PRN cetirizine 10 mg PO DAILY PRN epinephrine (EpiPen) 0.3 mg (0.3 mL) IM Q10M PRN famotidine 20 mg PO DAILY hydromorphone 2 mg PO Q6H PRN ibuprofen 600 mg PO Q6H PRN ibuprofen 0 mg PO montelukast (Singulair) 10 mg PO DAILY multivitamin 1 tab PO DAILY ondansetron HCl 4 mg PO Q12H PRN simethicone (Gas Relief (simethicone)) 80 mg PO TID-QID PRN trazodone 50 mg PO BEDTIME PRN triamcinolone acetonide (Nasacort Allergy) 2 sprays intranasal DAILY vitamin E 200 units PO DAILY Tobacco use date assessed: 06/03/23 HPI Ongoing cough HPI Details Patient is a 42-year-old female who presents today for an office visit due to ongoing cough with green sputum production for the past 1 week. Medical history significant for intermittent asthma, acid reflux, anxiety, low back pain among others. Patient also reports shortness of breath and wheezing. She reports using albuterol inhaler with no much improvement. Reports negative COVID test x2 7 days ago and 4 days ago. No fever or chills. Also reports throat irritation from coughing. [facility] Medical History Allergic rhinitis COVID-19 Fibroid, uterine History of uterine fibroid Polyp of cervix test positive Tick bite Unplanned unwanted Surgical History History of delivery History of surgery on right wrist Family History Mother No problems noted. Father Mental health disorder Substance use disorder Social History Housing: House Alcohol intake: current Alcohol intake frequency: a few times a month Patient Tobacco Use Status: Former Tobacco user Tobacco use type: Cigarette e-Cigarette/Vaping Use: Never Used Second Hand Smoke Exposure: No Current occupational status: employed Cognitive needs: No Hearing needs: No Vision needs: No Female Reproductive History Menstrual Age of Menarche: 14 Questionnaire Thrive Questionnaire Date Thrive assessed: 11/26/22 AUDIT C Alcohol Use Questionnaire (AUDIT-C) 1. How often do you have a drink containing alcohol?: 2-4 times a month 2. How many drinks containing alcohol do you have on a typical day when you are drinking?: 1 or 2 3. How often do you have six or more drinks on one occasion?: Never Total Score: 2 Score Reviewed/Action Taken: Yes (reviewed, no action needed) JASSI-7 AMB Questionnaire JASSI-7 Date JASSI - 7 assessed: 11/26/22 (pt seeing therapist ) Source: Developed by Drs. Vishnu Ashton, Susana Walters, Freddy Og and colleagues, with an educational yaneth from [employer]. Review of Systems Const Denies body aches, Denies chills, Denies fever(s) and Denies headache(s) Eyes Denies change in vision ENT Denies dizziness, Denies otalgia, Denies headache(s), Denies nasal discharge, Denies sinus pain and Denies sore throat Card Denies chest pain, Denies edema, Denies lightheadedness and Reports dyspnea Resp Reports cough, Reports dyspnea and Reports wheezing GI Denies abdominal pain Denies dysuria Musc Denies myalgias Skin/Breast Denies rash Neuro Denies dizziness and Denies headache(s) Aller/Immun Reports wheezing Physical exam (Primary Care) Vital Signs: Last Vital Signs Pulse 112 H 06/03/23 09:43 BP 142/86 H 06/03/23 09:43 Pulse Ox 98 06/03/23 09:43 Oxygen Delivery Method Room Air 06/03/23 09:43 Tobacco/Smoking Status: Tobacco use Status Tobacco use date assessed 06/03/23 06/03/23 09:44 Patient Tobacco Use Status Former Tobacco user 06/03/23 09:44 Tobacco use type Cigarette 06/03/23 09:44 e-Cigarette/Vaping Use Never Used 06/03/23 09:44 Thrive Assessment: Date of Thrive Assessment Date Thrive assessed 11/26/22 06/03/23 09:44 Const General: cooperative and no acute distress Orientation/consciousness: patient oriented x3 HENMT Head: Yes normocephalic and Yes atraumatic Ears: TM's normal bilaterally Face and sinus: Yes sinuses nontender Mouth: oropharynx normal and moist mucous membranes Throat: Yes posterior oropharynx normal Eyes General: appearance normal, both eyes and all related structures Neck Neck: Yes normal visual inspection, Yes full ROM and Yes no lymphadenopathy Resp Effort & Inspection: audible wheezes and Actively coughing Quality: actively coughing Auscultation: no crackles, no rales, no rhonchi and wheezes (Fine throughout) Cardio Rate: regular rate Rhythm: regular rhythm Heart sounds: S1 normal heart sound present, S2 normal heart sound present and no murmurs GI Auscultation: normal bowel sounds Skin General skin exam: no rashes or lesions noted Neuro General: patient oriented x3 Gait exam (Neuro): Normal gait present Extrem General: Yes full ROM and No edema Assessment and Plan Assessment & Plan (1) Asthma exacerbation: Code(s): J45.901 - Unspecified asthma with (acute) exacerbation Plan: Patient presents with asthma exacerbation for the past 1 week. No much improvement with albuterol inhaler. Will treat with prednisone and Z-Truman. Will provide patient with albuterol nebulizer treatments p.r.n.. Follow-up if no improvement after finishing treatment. Signs and symptoms reviewed when to notify provider or go to the emergency department. Patient agreed with the plan. After nebulizer treatment in the office, wheezes slightly improved. Medications: New miscellaneous medical supply nebulizer machine with tubing 1 ea miscellaneous DAILY 1 ea 0RF J45.901 - Unspecified asthma with (acute) exacerbation albuterol sulfate 2.5 mg (3 mL) inhalation Q4-6H PRN 180 mL 0RF shortness of breath or wheezing J45.901 - Unspecified asthma with (acute) exacerbation prednisone 40 mg (2 x 20 mg) PO DAILY 10 tabs 0RF 5 days J45.901 - Unspecified asthma with (acute) exacerbation azithromycin take 500 mg today (day 1), then 250 mg for 4 days (days 2-5) PO 6 tabs 0RF J45.901 - Unspecified asthma with (acute) exacerbation Coding Level of Care Code Est Pt Level 3 (91429) Diagnoses Asthma exacerbation J45.901
== END 2023-06-03 11:02 | disposition home or self-care (01) ==
PROVIDERS: PCP Nurse Practitioner Family; Visit Provider Nurse Practitioner Family
DX: J45.901 Unspecified asthma with (acute) exacerbation (principal)
CPT/HCPCS: 99213

== ENCOUNTER 2023-07-10 10:55 | Outpatient (AMB) | payer OTHER, SELFPAY ==
--- NOTE | 2023-07-10 11:08 | A.OFFPC_ITS ---
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: No Accompanied by: Self / Same As Patient Allergies bee pollen [BEE STINGS] Allergy (Unknown, Verified 07/10/23 11:18) ANAPHYLAXIS morphine [MORPHINE] Allergy (Unknown, Verified 07/10/23 11:18) ANAPHYLAXIS oxycodone [From PERCOCET] Allergy (Unknown, Verified 07/10/23 11:18) RASH strawberry [STRAWBERRY] Allergy (Unknown, Verified 07/10/23 11:18) ANAPHYLAXIS Medication List - Last Reconciled 07/10/23 by CARLOS Walsh albuterol sulfate 90 mcg/actuation (Ventolin HFA) 2 puffs inhalation Q4-6H PRN albuterol sulfate 2.5 mg (3 mL) inhalation Q4-6H PRN cetirizine 10 mg PO DAILY PRN epinephrine (EpiPen) 0.3 mg (0.3 mL) IM Q10M PRN hydromorphone 2 mg PO Q6H PRN ibuprofen 600 mg PO Q6H PRN miscellaneous medical supply 1 ea miscellaneous DAILY montelukast (Singulair) 10 mg PO DAILY multivitamin 1 tab PO DAILY omeprazole 20 mg PO DAILY ondansetron HCl 4 mg PO Q12H PRN simethicone (Gas Relief (simethicone)) 80 mg PO TID-QID PRN trazodone 50 mg PO BEDTIME PRN triamcinolone acetonide (Nasacort Allergy) 2 sprays intranasal DAILY vitamin E 200 units PO DAILY Tobacco use date assessed: 06/03/23 Dental Screening Dental Screen Date: 07/10/23 Did you have a dental visit in the last 12 months?: Yes Did you have a dental problem in the last 6 months where you did not have access to dental care?: No Was dental information given to patient?: Patient has dentist HPI PE HPI Details Patient is a 42-year-old female who presents today for physical exam. Medical history significant for moderate depressive disorder, asthma, obesity uterine fibroids-followed by gynecology at [facility] - reports plan for hysterectomy, low back pain, insomnia, anxiety, allergic rhinitis. Pap smear normal 12/2021 with [facility]. Patient is due for mammogram, she will talk about this to her gynecology. Patient reports tetanus vaccine in the last 10 years. Colonoscopy 12/2022 with multiple diverticula-was done by Dr. Bess at [facility]. In regards to asthma patient reports shortness of breath and wheezing worse in the morning, she has intermittent dry cough for over 1 month now, she reports she was on 3 rounds of prednisone recently. Reports using albuterol inhaler couple times per day. Will hold off on pneumonia vaccine until patient feels better. She reports right cheek increased pigmentation area which have been increasing in size-interested in dermatology referral. No chest pain. In regard to obesity, patient is not interested in gastric surgery, she reports eating healthy and exercising, still unable to lose weight, will do a trial of wegovy injection. Denies eye problems, does not see eye doctor. Reports dental exam in the past year. [facility] Medical History (Updated 07/10/23 @ 12:50 by CARLOS Walsh) Allergic rhinitis COVID-19 Delivery with history of Encounter to establish care Fibroid, uterine History of uterine fibroid Polyp of cervix test positive Tick bite Unplanned unwanted Surgical History (Updated 07/10/23 @ 12:43 by CARLOS Walsh) History of delivery History of colonoscopy History of surgery on right wrist Family History Mother No problems noted. Father Mental health disorder Substance use disorder Social History Housing: House Alcohol intake: current Alcohol intake frequency: a few times a month Patient Tobacco Use Status: Former Tobacco user Tobacco use type: Cigarette e-Cigarette/Vaping Use: Never Used Second Hand Smoke Exposure: No service: No Current occupational status: employed Current occupational exposures/hazards: No Cognitive needs: No Hearing needs: No Vision needs: No Female Reproductive History Menstrual Age of Menarche: 14 Questionnaire Thrive Questionnaire Date Thrive assessed: 11/26/22 JASSI-7 AMB Questionnaire JASSI-7 Date JASSI - 7 assessed: 11/26/22 (pt seeing therapist ) Source: Developed by Susana Delacruz B.W. Romeo, Freddy Og and colleagues, with an educational yaneth from [employer]. Review of Systems Const Denies body aches, Denies chills, Denies fever(s) and Denies headache(s) Eyes Denies change in vision ENT Denies dizziness, Denies otalgia, Denies headache(s), Denies nasal discharge, Denies sinus pain and Denies sore throat Card Denies chest pain, Denies edema, Denies lightheadedness and Reports dyspnea Resp Reports as per HPI, Reports cough, Reports dyspnea and Reports wheezing GI Denies abdominal pain Denies dysuria Musc Denies myalgias Skin/Breast Reports as per HPI and Denies rash Neuro Denies dizziness and Denies headache(s) Aller/Immun Reports wheezing Physical exam (Primary Care) Vital Signs: Last Vital Signs Pulse 78 07/10/23 11:10 BP 130/90 H 07/10/23 11:10 Pulse Ox 97 07/10/23 11:10 Oxygen Delivery Method Room Air 07/10/23 11:10 BMI result Body Mass Index 47.5 Tobacco/Smoking Status: Tobacco use Status Tobacco use date assessed 06/03/23 07/10/23 11:14 Patient Tobacco Use Status Former Tobacco user 07/10/23 11:14 Tobacco use type Cigarette 07/10/23 11:14 e-Cigarette/Vaping Use Never Used 07/10/23 11:14 Thrive Assessment: Date of Thrive Assessment Date Thrive assessed 11/26/22 07/10/23 11:14 Const General: cooperative and no acute distress Orientation/consciousness: patient oriented x3 HENMT Head: Yes normocephalic and Yes atraumatic Ears: TM's normal bilaterally Face and sinus: Yes sinuses nontender Mouth: oropharynx normal and moist mucous membranes Throat: Yes posterior oropharynx normal Eyes General: appearance normal, both eyes and all related structures Pupils: Equal, round and reactive pupils present EOM: EOMs intact bilaterally Neck Neck: Yes normal visual inspection, Yes full ROM and Yes no lymphadenopathy Thyroid: Thyroid normal Resp Effort & Inspection: normal respiratory effort, able to speak in complete sentences and Actively coughing Quality: dry Auscultation: clear to auscultation bilaterally, no crackles, no rales, no rhonchi and no wheezes Cardio Rate: regular rate Rhythm: regular rhythm Heart sounds: S1 normal heart sound present, S2 normal heart sound present and no murmurs GI Palpation (GI): Soft to palpation, not firm, nontender, no guarding, not rigid and no hepatosplenomegaly Auscultation: normal bowel sounds General: No CVA tenderness Back/Spine/Pelvis Back: No CVA tenderness Skin Other: R cheek with flat increased pigmentation area about 1cm, no signs of infection noted Neuro General: patient oriented x3 Cranial nerves: Yes Equal, round and reactive pupils present Gait exam (Neuro): Normal gait present Extrem General: Yes full ROM and No edema Assessment and Plan Assessment & Plan (1) Skin lesion of cheek: Code(s): L98.9 - Disorder of the skin and subcutaneous tissue, unspecified Plan: Dermatology referral for an evaluation and treatment (2) Adult general medical exam: Comment: Tetanus Iz w/in 10 years. Code(s): Z00.00 - Encounter for general adult medical examination without abnormal findings Plan: Repeat in 1 year (3) Obesity, morbid, BMI 40.0-49.9: Code(s): E66.01 - Morbid (severe) obesity due to excess calories Plan: Recent blood work from 02/2023 reviewed with the patient Will check lipid panel and thyroid Patient is to continue healthy food choices and exercise as tolerated Start wegovy injection weekly on-possible adverse reactions reviewed with the patient when to notify provider Patient is not interested in gastric surgery (4) Acid reflux: Code(s): K21.9 - Gastro-esophageal reflux disease without esophagitis Plan: Continue omeprazole 20 mg daily Avoid GERD trigger foods Do not lay down 2-3 hours after evening meal (5) Intermittent asthma: Code(s): J45.20 - Mild intermittent asthma, uncomplicated Plan: Asthma is not well controlled Start Flovent 1 puff b.i.d.-patient is to rinse mouth after use Continue albuterol inhaler p.r.n. Continue montelukast daily Follow-up in 3 months or sooner as needed (6) Environmental and seasonal allergies: Code(s): J30.89 - Other allergic rhinitis Plan: Continue montelukast and cetirizine (7) Screening for breast cancer: Code(s): Z12.39 - Encounter for other screening for malignant neoplasm of breast Plan: Patient will talk to her gynecology in regards to mammogram, [facility] at [facility]. Plan Follow-up in 3 months or sooner as needed Orders: Orders Vitamin B12 and Folate Today Z00.00 - Encounter for general adult medical examination without abnormal findings Lipid Panel Today Z00.00 - Encounter for general adult medical examination without abnormal findings TSH reflex Free T4 Today Z00.00 - Encounter for general adult medical exam ination without abnormal findings Vitamin D 25-OH Total Today Z00.00 - Encounter for general adult medical examination without abnormal findings Referrals Dermatology Referral L98.9 - Disorder of the skin and subcutaneous tissue, unspecified Medications: New semaglutide (weight loss) (Wegovy) administer weeks 1 through 4 of therapy 0.25 mg (0.5 mL) subcut QWEEK 2 mL 0RF E66.01 - Morbid (severe) obesity due to excess calories fluticasone propionate 44 mcg/actuation (Flovent HFA) administer with spacer 1 puff inhalation BID 10.6 grams 1RF J45.20 - Mild intermittent asthma, uncomplicated Coding Level of Care Code Est Pt Prev Care 40-64y(35131) Diagnoses Skin lesion of cheek L98.9 Adult general medical exam Z00.00 Obesity, morbid, BMI 40.0-49.9 E66.01 Acid reflux K21.9 Intermittent asthma J45.20 Environmental and seasonal allergies J30.89 Screening for breast cancer Z12.39
[2023-07-10 11:10] VITALS: BP 130/90; PULSE 78; O2SAT 97; BMI 47.5
== END 2023-07-10 11:57 | disposition home or self-care (01) ==
PROVIDERS: PCP Nurse Practitioner Family; Visit Provider Nurse Practitioner Family
DX: Z00.00 Encounter for general adult medical examination without abnormal findings (principal); E66.01 Morbid (severe) obesity due to excess calories; Z68.42 Body mass index [BMI] 45.0-49.9, adult; J45.20 Mild intermittent asthma, uncomplicated; L98.9 Disorder of the skin and subcutaneous tissue, unspecified
CPT/HCPCS: 99396

== ENCOUNTER 2023-07-18 12:48 | Outpatient (REF) | payer OTHER, SELFPAY ==
[2023-07-18 14:43] LABS: Cholesterol 187 mg/dL (<200); HDL Cholesterol 64 mg/dL (>40); LDL Cholesterol Calculated 89 mg/dL (<100); Triglycerides 171 mg/dL (<150)
[2023-07-18 15:07] LABS: TSH reflex Free T4 1.81 uIU/mL (0.32-4.0); Vitamin D 25-OH Total 36.1 ng/mL (>30)
[2023-07-18 15:08] LABS: Folate 10.5 ng/mL (> or = 4.0); Vitamin B12 577 pg/mL (200-900)
== END 2023-07-18 12:49 | disposition home or self-care (01) ==
LOC: HO.LAB 12:48
PROVIDERS: PCP Nurse Practitioner Family; Visit Provider Nurse Practitioner Family
DX: Z00.00 Encounter for general adult medical examination without abnormal findings (principal)
CPT/HCPCS: 36415; 80061; 82306; 82607; 82746; 84443

== ENCOUNTER 2023-10-29 11:27 | Observation (INO) | payer OTHER, SELFPAY ==
--- NOTE | ~2023-10-29 | XR_ITS ---
EXAMINATION: XR CHEST CLINICAL INFORMATION: Cough COMPARISON: 02/04/2019 TECHNIQUE: 2 views of the chest were obtained. FINDINGS: The lung volumes are low. The heart size is normal. There is no gross pneumothorax. No pleural effusion. No focal consolidation to suggest pneumonia. Mild degenerative changes in the thoracic spine. XR/XR chest 2V IMPRESSION: Low lung volumes. No evidence of pneumonia.
--- NOTE | 2023-10-29 11:41 | ED.URI ---
HPI - URI/Sore Throat General Chief Complaint: Upper Respiratory Symptoms Stated Complaint: Upper resp infection Time Seen by Provider: 10/29/23 12:34 Source: patient Mode of arrival: ambulatory Limitations: no limitations History of Present Illness HPI Narrative: Patient is a 42 year old assigned female at with a history of asthma presenting to the emergency department today with a cough and persistent wheezing. Patient states that she has been sick for the last week, was given a zpack and prednisone that she finished yesterday and has not improved, only worsened. Patient states that she has been using her home inhaler and nebulizers but has not improved. Patient denies any dizziness, lightheadedness, abdominal pain, nausea, vomiting, fever, chills, blurry vision, double vision, loss of vision, chest pain, back pain, night sweats, pain with urination, increased urinary frequency, increased urinary urgency, blood in her urine or stool, syncope or a near syncopal episode, recent trauma or falls, bowel incontinence, bladder incontinence, bowel retention, bladder retention, or any other complaints at this time. MD elicited complaint: cough Pertinent past history: asthma Onset (ago): week(s) (1) Consistency: constant Severity: moderate Able to tolerate fluids by mouth: Yes Exacerbating factors: nothing Associated symptoms: cough Related Data Home Medications Medication Instructions Recorded Confirmed omeprazole 20 mg capsule,delayed 20 mg PO DAILY 07/10/23 07/10/23 release Previous Rx's Medication Instructions Recorded multivitamin 1 tab PO DAILY #90 tabs 11/20/21 vitamin E 200 unit capsule 200 unit PO DAILY #90 caps 11/20/21 epinephrine 0.3 mg/0.3 mL 0.3 mg (0.3 mL) IM Q10M PRN 04/29/22 injection, auto-injector (EpiPen) anaphylaxis #2 ea ondansetron HCl 4 mg tablet 4 mg PO Q12H PRN nausea and 07/02/22 vomiting #10 tabs simethicone 80 mg chewable tablet 80 mg PO TID-QID PRN abdominal 07/02/22 (Gas Relief (simethicone)) distention #20 tabs hydromorphone 2 mg tablet 2 mg PO Q6H PRN severe pain (scale 02/22/23 score 7-10) #7 tabs ibuprofen 600 mg tablet 600 mg PO Q6H PRN pain #45 tabs 02/22/23 montelukast 10 mg tablet 10 mg PO DAILY #30 tabs 02/25/23 (Singulair) trazodone 50 mg tablet 50 mg PO BEDTIME PRN insomnia #30 03/11/23 tabs triamcinolone acetonide 55 mcg 2 spray intranasal DAILY #16.9 mL 03/11/23 nasal spray aerosol (Nasacort Allergy) albuterol sulfate 90 mcg/actuation 2 puff inhalation Q4-6H PRN 03/23/23 aerosol inhaler (Ventolin HFA) shortness of breath or wheezing #8.5 grams cetirizine 10 mg tablet 10 mg PO DAILY PRN allergies #90 05/06/23 tabs albuterol sulfate 2.5 mg/3 mL 2.5 mg (3 mL) inhalation Q4-6H PRN 06/03/23 (0.083 %) solution for nebulization shortness of breath or wheezing #180 mL miscellaneous medical supply 1 ea miscellaneous DAILY #1 ea 06/03/23 fluticasone propionate 44 1 puff inhalation BID #10.6 grams 07/10/23 mcg/actuation HFA aerosol inhaler (Flovent HFA) semaglutide (weight loss) 0.25 0.25 mg (0.5 mL) subcut QWEEK #2 mL 07/10/23 mg/0.5 mL subcutaneous pen injector (Mariam) azithromycin 250 mg tablet See Rx Instructions PO .COMPLEX #6 10/22/23 tabs prednisone 20 mg tablet 40 mg (2 x 20 mg) PO DAILY 5 days 10/22/23 #10 tabs Allergies Allergy/AdvReac Type Severity Reaction Status Date / Time bee pollen [BEE STINGS] Allergy Unknown ANAPHYLAXIS Verified 10/29/23 11:42 morphine [MORPHINE] Allergy Unknown ANAPHYLAXIS Verified 07/10/23 11:18 oxycodone [From PERCOCET] Allergy Unknown RASH Verified 10/29/23 11:42 strawberry [STRAWBERRY] Allergy Unknown ANAPHYLAXIS Verified 07/10/23 11:18 Review of Systems Constitutional: Constitutional: Reports no additional constitutional complaints, Denies chills, Denies fever(s) and Denies night sweats Eyes: Eyes: Reports no additional eye complaints, Denies blurry vision, Denies change in vision, Denies diplopia, Denies eye discharge, Denies loss of vision and Denies eye pain ENT: Denies dizziness Cardiovascular: Cardiovascular: Reports no additional cardiovascular complaints, Denies chest pain, Denies lightheadedness and Denies Loss of Consciousness Respiratory: Respiratory: Reports no additional respiratory complaints, Reports cough and Reports wheezing Gastrointestinal: Gastrointestinal: Reports no additional gastrointestinal complaints, Denies abdominal pain, Denies melena, Denies hematochezia, Denies change in bowel habits and Denies change in stool character Genitourinary: Genitourinary: Denies hematuria, Denies urinary frequency, Denies dysuria, Denies urinary incontinence, Denies urinary hesitancy and Denies urinary urgency Musculoskeletal: Musculoskeletal: Reports no additional musculoskeletal complaints, Denies numbness and Denies tingling Neurologic: Denies dizziness, Denies loss of vision, Denies numbness and Denies tingling Psychiatric: Psychiatric: Reports no additional psychiatric complaints Endocrine: Endocrine: Reports no additional endocrine complaints Hematologic/Lymphatic: Hematologic/Lymphatic: Reports no additional hematologic/lymphatic complaints Allergic/Immunologic: Allergic/Immunologic: Reports no additional allergic/immunologic complaints and Reports wheezing PMFSH Past Medical History Attestation statement: The following information was validated with the patient. Source: old records reviewed and nursing notes reviewed Medical History Allergic rhinitis COVID-19 Tick bite Unplanned unwanted Delivery with history of test positive Polyp of cervix Fibroid, uterine History of uterine fibroid Encounter to establish care Surgical History History of colonoscopy History of surgery on right wrist History of delivery Family History Family History Mother No problems noted. Father Mental health disorder Substance use disorder Social History Social History Housing: House Alcohol intake: current Alcohol intake frequency: a few times a month Patient Tobacco Use Status: Former Tobacco user Tobacco use type: Cigarette e-Cigarette/Vaping Use: Never Used Second Hand Smoke Exposure: No Advance Directives: No Advance Directives Information Provided: No service: No Current occupational status: employed Current occupational exposures/hazards: No Cognitive needs: No Hearing needs: No Vision needs: No Physical Exam Vital Signs: Vital Signs: Last Vital Signs Temp 97.7 F 10/29/23 11:42 Pulse 87 10/29/23 12:27 Resp 20 10/29/23 12:27 BP 157/92 H 10/29/23 11:42 Pulse Ox 98 10/29/23 11:42 O2 Del Method Room Air 10/29/23 11:42 BMI result Body Mass Index 52.9 Const: General: cooperative, no acute distress, alert and awake Nutritional Appearance: well nourished Orientation/consciousness: patient oriented x3 Limitations: no limitations HEENT: Head: Yes normal to inspection and Yes atraumatic Ears: hearing grossly normal bilaterally and external ears normal General nose exam: Normal external nose present, no nasal discharge noted and no epistaxis Face and sinus: Yes normal facial exam, No abrasion and No laceration Mouth: Normal oral and palatal mucosa present, no drooling and no muffled voice Eyes: General: appearance normal, both eyes and all related structures Periorbital: periorbital findings normal Eyelids: Yes eyelids normal Conjunctivae: conjunctivae normal Pupils: Equal, round and reactive pupils present EOM: EOMs intact bilaterally Neck: Neck: Yes normal visual inspection, Yes full ROM and Yes no lymphadenopathy Chest: Chest palpation & inspection: normal inspection of the chest Resp: Effort & Inspection: able to speak in complete sentences and labored Auscultation: clear to auscultation bilaterally and wheezes scattered wheezes Cardio: Rate: regular rate Rhythm: regular rhythm GI: Inspection: Yes normal to inspection Palpation (GI): Soft to palpation, not firm, nontender and no guarding Neuro: General: patient oriented x3 and moves all extremities Cranial nerves: Yes Equal, round and reactive pupils present Cognition (Neuro): normal cognition Motor exam (neuro): 5/5 motor strength present throughout Sensory Exam: Normal double simultaneous stimulation for sensation Coordination: [id number] test normal Extrem: General: Yes normal to inspection, Yes full ROM and Yes capillary refill normal Psych: Appearance: grossly normal Mental Status: mental status grossly normal Affect: normal affect Attitude: cooperative Thought process: Normal thought process present Thought content: Normal thought content present Insight: Good insight present (Psych) Course Course Course Narrative: RME: 42-year-old female with past medical history sinusitis, insomnia, asthma, complaining of productive cough, SOB, wheezing, chest discomfort w/cough x1 week. Took Zpak and Prednisone which she finished yesterday Rx by PCP, sent to ED for further eval diffuse expiratory wheeze and persistent cough noted Viral testing, CXR, ED bronch protocol ordered Full HPI, ROS and PE to be performed by primary ED provider. Medications Administered Discontinued Medications Generic Name Dose Route Start Last Admin Trade Name Freq PRN Reason Stop Dose Admin Albuterol Sulfate 8 puff 10/29/23 12:23 10/29/23 12:26 Albuterol Sulfate 90 Mcg 8 Gm Inhaler INHALE 10/29/23 12:24 8 puff ONCE ONE Administration Magnesium Sulfate/Dextrose 1 gm in 100 mls @ 100 mls/hr 10/29/23 12:40 10/29/23 13:30 Magnesium Sulfate/D5w IV 10/29/23 13:39 100 mls/hr ONCE ONE Administration Methylprednisolone Sodium Succinate 60 mg 10/29/23 12:40 10/29/23 13:30 Methylprednisolone Sod Succ 125 Mg/2 Ml Vial IVPUSH 10/29/23 12:41 60 mg ONCE ONE Administration Medical Decision Making Medical Decision Making [facility] Narrative: Patient is a 42 year old assigned female at with a history of asthma presenting to the emergency department today with a cough and worsening shortness of breath. Patient's physical exam was as noted in the physical exam portion of this note. Patient's blood work was unremarkable. Patient's EKG was unremarkable. Patient's chest x-ray showed no acute process. Given the patient is failing outpatient management for asthma, patient will be admitted. Spoke to the hospitalist who agreed to admission. I explained my physical exam findings as well as all test results to the patient. I answered all questions asked by the patient. Patient verbalized agreement and understanding with this treatment plan and admission. Differential Diagnosis Differential Diagnoses: The differential diagnosis associated with the presentation includes Asthma exacerbation URI Admission/Observation Consideration of admission/observation: Escalation of care including admission/observation considered Patient to be admitted. Consult Healthcare Provider Management of the patient was discussed with: Hospitalist (Agreed to admission.) Lab Data [facility] Lab Attestation statement: I reviewed the patient's lab results. My interpretation of these studies and their corresponding values is that they are grossly normal. 10/29/23 13:02 10/29/23 13:02 Labs: Lab Results 10/29/23 10/29/23 Range/Units 12:03 13:02 WBC 11.3 H (4.8-10.8) X10*3/uL RBC 4.51 (4.20-5.50) X10*6/uL Hgb 12.5 (12.0-16.0) g/dl Hct 37.9 (37.0-47.0) % MCV 84.0 (80.0-98.0) fL MCH 27.7 (27.0-33.0) pg MCHC 33.0 (31.0-35.0) g/dl RDW 12.8 (11.0-16.0) % Plt Count 413 H (160-400) X10*3/uL MPV 8.4 L (9.4-12.3) fL Immature Gran % (Auto) 0.5 H (0.0-0.4) % Neut % (Auto) 59.4 (45-73) % Lymph % (Auto) 31.9 (20-40) % [place] % (Auto) 6.3 (2-11) % Eos % (Auto) 1.5 (0-4) % Baso % (Auto) 0.4 (0-2) % Lymph # (Auto) 3.6 (1.2-4.9) X10*3/uL [place] # (Auto) 0.7 (0.1-1.2) X10*3/uL Eos # (Auto) 0.2 (0.0-0.4) X10*3/uL Baso # (Auto) 0.0 (0.0-0.2) X10*3/uL Abs Immat Gran (auto) 0.06 H (0.00-0.03) X10*3/uL Absolute Neuts (auto) 6.7 (2.0-8.3) x10*3/uL Absolute Nucleated RBC 0.000 (0.0-0.012) X10*3/uL Nucleated RBC % (auto) 0.0 (0.0-0.2) /100WBC Sodium 139 (135-145) mmol/L Potassium 3.8 (3.3-5.1) mmol/L Chloride 102 (96-108) mmol/L Carbon Dioxide 28 (22-29) mmol/L Anion Gap 13 (12-20) BUN 15 (9-16) mg/dL Creatinine 0.74 (0.5-1.4) mg/dL Estim Creat Clear Calc 126.8 Estimated GFR > 60 Random Glucose 94 (60-115) mg/dL Calcium 9.9 D (8.4-10.2) mg/dL Magnesium 2.0 (1.6-2.6) mg/dL Total Bilirubin 0.4 (0.0-1.0) mg/dL AST 17 (5-31) U/L ALT 22 (0-31) U/L Alkaline Phosphatase 65 (39-117) U/L Troponin I High Sens < 2.7 (<3.5-17.0) ng/L Total Protein 7.4 (6.5-8.0) g/dL Albumin 3.9 (3.5-5.0) g/dL COVID-19 (EVE) Negative (Negative) COVID-19 Clin Com See Note Influenza Type A (ADITYA) Negative (Negative) Influenza Type B (ADITYA) Negative (Negative) Influenza A & B Note See Note Independent Interpretation I performed an independent interpretation of an: EKG and Plain X-Ray Interpretation: My interpretation is in agreement with the radiologist's impression of this imaging study. EXAMINATION: XR CHEST CLINICAL INFORMATION: Cough COMPARISON: 02/04/2019 TECHNIQUE: 2 views of the chest were obtained. FINDINGS: The lung volumes are low. The heart size is normal. There is no gross pneumothorax. No pleural effusion. No focal consolidation to suggest pneumonia. Mild degenerative changes in the thoracic spine. XR/XR chest 2V IMPRESSION: Low lung volumes. No evidence of pneumonia. Dictated By: Melissa Abel MD Signed By: Electronically signed by Melissa Abel MD 10/29/23 1330 Vent. Rate: 083 BPM Atrial Rate: 083 BPM P-R Int: 168 ms QRS Dur: 084 ms QT Int: 384 ms P-R-T Axes: 044 032 015 degrees QTc Int: 451 ms Normal sinus rhythm Low voltage QRS Cannot rule out Anterior infarct , age undetermined Abnormal ECG When compared with ECG of 22-APR-2022 08:56, No significant change was found DD/ 1253 Radiology Impression Discussion of test interpretation with radiology: I have reviewed the radiologist's reading. Chronic Conditions Patient?s care impacted by: Other (asthma) Critical Care Time Critical Care Time Critical Care Time: Yes Total Critical Care Time: 35 Attestation: I spent 35 minutes of Critical Care Time with this patient. This does not include time spent on separately reported billable procedures. Discharge Plan Discharge Clinical Impression: Asthma exacerbation Patient Disposition: Admitted As Inpatient Prescriptions: No Action multivitamin Tablet 1 tab PO DAILY Qty: 90 1RF vitamin E 200 unit capsule 200 unit PO DAILY Qty: 90 1RF montelukast [Singulair] 10 mg tablet 10 mg PO DAILY Qty: 30 0RF albuterol sulfate [Ventolin HFA] 90 mcg/actuation HFA aerosol inhaler 2 puff inhalation Q4-6H PRN (Reason: shortness of breath or wheezing) Qty: 8.5 3RF cetirizine 10 mg tablet 10 mg PO DAILY PRN (Reason: allergies) Qty: 90 2RF prednisone 20 mg tablet 40 mg PO DAILY 5 Days Qty: 10 0RF azithromycin 250 mg tablet See Rx Instructions PO .COMPLEX Qty: 6 0RF Rx Instructions: take 500 mg today (day 1), then 250 mg for 4 days (days 2-5) PO hydromorphone 2 mg tablet 2 mg PO Q6H PRN (Reason: severe pain (scale score 7-10)) Qty: 7 0RF Rx Instructions: Partial Fill upon patient request. ibuprofen 600 mg tablet 600 mg PO Q6H PRN (Reason: pain) Qty: 45 0RF ondansetron HCl 4 mg tablet 4 mg PO Q12H PRN (Reason: nausea and vomiting) Qty: 10 0RF simethicone [Gas Relief (simethicone)] 80 mg tablet,chewable 80 mg PO TID-QID PRN (Reason: abdominal distention) Qty: 20 0RF epinephrine [EpiPen] 0.3 mg/0.3 mL auto-injector 0.3 mg IM Q10M PRN (Reason: anaphylaxis) Qty: 2 0RF Rx Instructions: for 2 doses trazodone 50 mg tablet 50 mg PO BEDTIME PRN (Reason: insomnia) Qty: 30 0RF triamcinolone acetonide [Nasacort Allergy] 55 mcg aerosol,spray 2 spray intranasal DAILY Qty: 16.9 0RF Rx Instructions: administer into each nostril omeprazole 20 mg capsule,delayed release(DR/EC) 20 mg PO DAILY [place] 0.25 mg/0.5 mL pen injector 0.25 mg subcut QWEEK Qty: 2 0RF Rx Instructions: administer weeks 1 through 4 of therapy fluticasone propionate [Flovent HFA] 44 mcg/actuation HFA aerosol inhaler 1 puff inhalation BID Qty: 10.6 1RF Rx Instructions: administer with spacer miscellaneous medical supply Misc 1 ea miscellaneous DAILY Qty: 1 0RF Rx Instructions: nebulizer machine with tubing albuterol sulfate 2.5 mg /3 mL (0.083 %) solution for nebulization 2.5 mg inhalation Q4-6H PRN (Reason: shortness of breath or wheezing) Qty: 180 0RF
[2023-10-29 11:42] VITALS: BP 157/92; PULSE 98; RESP 20; TEMP 36.5; O2SAT 98; BMI 52.9
[2023-10-29] MEDS: Albuterol Sulfate 90 MCG 8 GM INHALER 8 PUFF INHALE (12:26)
[2023-10-29 12:27] VITALS: PULSE 87; RESP 20; O2SAT 98
[2023-10-29 12:28] LABS: COVID-19 Test Negative (Negative); IDNOW Serial# 08D9AD1C; IDNOW Serial# BCCEAD1C; Influenza A Negative (Negative); Influenza B2 Negative (Negative)
--- NOTE | 2023-10-29 12:40 | ECG_ITS ---
Test Reason : SOB Blood Pressure : / mmHG Vent. Rate : 083 BPM Atrial Rate : 083 BPM P-R Int : 168 ms QRS Dur : 084 ms QT Int : 384 ms P-R-T Axes : 044 032 015 degrees QTc Int : 451 ms Normal sinus rhythm Low voltage QRS Cannot rule out Anterior infarct , age undetermined Abnormal ECG When compared with ECG of 22-APR-2022 08:56, No significant change was found Referred By: Marta Spencer Electronically Signed By:Anibal Capone
[2023-10-29 13:07] LABS: MANUAL DIFF FLAG NO
[2023-10-29 13:10] LABS: Basophils Percent Auto 0.4 % (0-2); Eosinophils Absolute Auto 0.2 X10*3/uL (0.0-0.4); Eosinophils Percent Auto 1.5 % (0-4); Hematocrit 37.9 % (37.0-47.0); Hemoglobin 12.5 g/dl (12.0-16.0); Imm Gran Abs Auto 0.06 X10*3/uL (0.00-0.03); Imm Gran Pct Auto 0.5 % (0.0-0.4); Lymphocytes Absolute Auto 3.6 X10*3/uL (1.2-4.9); Lymphocytes Percent Auto 31.9 % (20-40); Mean Corpuscular Hemoglobin 27.7 pg (27.0-33.0); Mean Platelet Volume 8.4 fL (9.4-12.3); Monocytes Absolute Auto 0.7 X10*3/uL (0.1-1.2); Monocytes Percent Auto 6.3 % (2-11); Neutrophils Absolute Auto 6.7 x10*3/uL (2.0-8.3); Neutrophils Percent Auto 59.4 % (45-73); Platelet Count 413 X10*3/uL (160-400); Red Blood Count 4.51 X10*6/uL (4.20-5.50); Red Cell Distribution Width 12.8 % (11.0-16.0); White Blood Count 11.3 X10*3/uL (4.8-10.8)
[2023-10-29 13:24] LABS: Alanine Aminotransferase 22 U/L (0-31); Albumin Level 3.9 g/dL (3.5-5.0); Alkaline Phosphatase 65 U/L (39-117); Anion Gap 13 (12-20); Aspartate Amino Transferase 17 U/L (5-31); Bilirubin Total 0.4 mg/dL (0.0-1.0); Blood Urea Nitrogen 15 mg/dL (9-16); Calcium 9.9 mg/dL (8.4-10.2); Carbon Dioxide 28 mmol/L (22-29); Chloride 102 mmol/L (96-108); Creatinine Clr Calc Pharmacy 126.8; Estimated Glomerular Filt Rate > 60; Glucose Random 94 mg/dL (60-115); Potassium 3.8 mmol/L (3.3-5.1); Sodium 139 mmol/L (135-145); Total Protein 7.4 g/dL (6.5-8.0)
[2023-10-29] MEDS: Magnesium Sulfate/D5W 1 GM/100 ML PIGGYBACK IV (13:30)
[2023-10-29] MEDS: methylPREDNISolone Sod Succ 125 MG/2 ML VIAL 60 MG IVPUSH ×2 (13:30→20:24)
[2023-10-29 13:34] LABS: Troponin-I High Sensitivity < 2.7 ng/L (<3.5-17.0)
--- NOTE | 2023-10-29 14:54 | P.HPHOSP_ITS ---
History of Present Illness Date of Service: 10/29/23 Attending physician on admission: Kali Herrera Chief Complaint: Persistent cough, wheezing Pt is a 42-year-old female with a PMH significant for?mild persistent asthma, GERD, IBS, and chronic pelvic pain who presents to the ED with?worsening SOB, cough, and wheezing for the past 10 days. Patient states she has been experiencing chronic cough since May. Was put on a nebulizer and occasionally prednisone, reports cough initially improved but never completely went away, gets especially bad whenever she gets sick. Patient notes she tested positive for COVID around [place] and was starting to feel better when her daughter past on a cold to her approximately 10 days ago. Patient had URI-type symptoms -- increased cough, congestion, SOB -- and called her PCP who prescribed her a z-pack and prednisone which she finished 2 days ago. Patient said symptoms worsened during the course of treatment, which is why she presented to the emergency department today. Reports some chest pain associated with cough. Denies chest pressure or palpitations. No fever, chills, nausea, vomiting, diarrhea, abd pain. She is a former smoker who quit 8 years ago. In the ED pt was afebrile but hypertensive at 157/92, satting at 98% RA. Labs were significant for mild leukocytosis of 11.3 otherwise grossly unremarkable. Stable H&H. Electrolytes WNL. Hepatic and renal function WNL. Negative troponin. Respiratory panel pending. CXR showed low lung volumes but no evidence of pneumonia. EKG demonstrated normal sinus rhythm evidence of significant ST elevations or depressions. Pt was treated with Solu-Medrol, Mag sulfate, and DuoNebs. Pt will be admitted to the hospital under observation for treatment and further evaluation asthma exacerbation. Review of Systems 2 Review of Systems: Worsening cough, SOB, wheezing x10 days Chest pain associated with coughing No chest pressure, palpiations [facility] Medical History Allergic rhinitis COVID-19 Tick bite Unplanned unwanted Delivery with history of test positive Polyp of cervix Fibroid, uterine History of uterine fibroid Encounter to establish care Family History Mother No problems noted. Father Mental health disorder Substance use disorder Surgical History History of colonoscopy History of surgery on right wrist History of delivery Social History Housing: House Alcohol intake: current Alcohol intake frequency: a few times a month Patient Tobacco Use Status: Former Tobacco user Tobacco use type: Cigarette e-Cigarette/Vaping Use: Never Used Second Hand Smoke Exposure: No Advance Directives: No Advance Directives Information Provided: No service: No Current occupational status: employed Current occupational exposures/hazards: No Cognitive needs: No Hearing needs: No Vision needs: No Meds Allergies Allergy/AdvReac Type Severity Reaction Status Date / Time bee pollen [BEE STINGS] Allergy Unknown ANAPHYLAXIS Verified 10/29/23 11:42 morphine [MORPHINE] Allergy Unknown ANAPHYLAXIS Verified 07/10/23 11:18 oxycodone [From PERCOCET] Allergy Unknown RASH Verified 10/29/23 11:42 strawberry [STRAWBERRY] Allergy Unknown ANAPHYLAXIS Verified 07/10/23 11:18 Home Medications Medication Instructions Recorded Confirmed Last Taken Type omeprazole 20 mg capsule,delayed 20 mg PO DAILY 07/10/23 10/29/23 Unknown History release cetirizine 10 mg tablet 10 mg PO DAILY allergies 10/29/23 10/29/23 10/29/23 History Physical Exam 2 Vital Signs and Narrative: Vital Signs: Last Vital Signs Temp 97.7 F 10/29/23 11:42 Pulse 87 10/29/23 12:27 Resp 20 10/29/23 12:27 BP 157/92 H 10/29/23 11:42 Pulse Ox 98 10/29/23 11:42 O2 Del Method Room Air 10/29/23 11:42 BMI result Body Mass Index 52.9 General: AOx3, no acute distress Resp: Diffuse expiratory wheezing CVS: S1, S2, RRR GI: +BS, NT, no distention Skin: Warm, dry Neuro: Cranial nerves II-XII grossly intact bilaterally. Motor grossly intact bilaterally Extremities: No edema Psych: Appropriate affect Results Labs 10/29/23 13:02 10/29/23 13:02 Labs: Laboratory Results - last 24 hr 10/29/23 10/29/23 12:03 13:02 MCV 84.0 MCH 27.7 MCHC 33.0 RDW 12.8 Plt Count 413 H MPV 8.4 L Immature Gran % (Auto) 0.5 H Neut % (Auto) 59.4 Lymph % (Auto) 31.9 [place] % (Auto) 6.3 Eos % (Auto) 1.5 Baso % (Auto) 0.4 Lymph # (Auto) 3.6 [place] # (Auto) 0.7 Eos # (Auto) 0.2 Baso # (Auto) 0.0 Abs Immat Gran (auto) 0.06 H Absolute Neuts (auto) 6.7 Absolute Nucleated RBC 0.000 Nucleated RBC % (auto) 0.0 Anion Gap 13 Estim Creat Clear Calc 126.8 Estimated GFR > 60 Random Glucose 94 Calcium 9.9 D Magnesium 2.0 Total Bilirubin 0.4 AST 17 ALT 22 Alkaline Phosphatase 65 Total Protein 7.4 Albumin 3.9 COVID-19 (EVE) Negative COVID-19 Clin Com See Note Influenza Type A (ADITYA) Negative Influenza Type B (ADITYA) Negative Influenza A & B Note See Note Imaging Radiologist's Impressions: Impressions Chest X-Ray 10/29/23 11:52 IMPRESSION: Low lung volumes. No evidence of pneumonia. Assessment and Plan (1) Asthma exacerbation: Status: Acute Plan Pt is a 42-year-old female with a PMH significant for?mild persistent asthma, GERD, IBS, and chronic pelvic pain who presents to the ED with?worsening SOB, cough, and wheezing for the past 10 days. Pt will be admitted to the hospital under observation for treatment and further evaluation asthma exacerbation. Acute mild persistent asthma exacerbation Patient with increased SOB, dyspnea, and cough x10 days despite z-pack and prednisone prescribed by PCP Patient with continued OWEN and wheezing on exam despite multiple DuoNebs, IV steroids, and Mag sulfate in ED Patient not hypoxic, satting at 98% on RA Will treat with DuoNebs, IV steroids, guaifenesin Continue home maintenance inhalers, cetirizine Monitor respiratory status Chronic pelvic pain Secondary to uterine fibroids Patient scheduled for hysterectomy next month Continue home analgesics GERD/IBS Continue PPI, ondansetron, simethicone Obesity class III Weight loss encouraged Full Code Attending:?Dr. Herrera DVT Prophylaxis: Pt ambulatory Patient admitted to the hospital under observation for treatment further evaluation of asthma exacerbation. Quality Stroke Does the patient have a stroke diagnosis?: No VTE Prior VTE?: No VTE Risk Level:: Medical - moderate - high VTE Device Contraindication: Treatment Not Indicated VTE Drug Contraindication: Treatment Not Indicated
[2023-10-29 15:17] LABS: Adenovirus PCR Not Detected (Not Detect.); Bordetella parapertussis PCR Not Detected (Not Detect.); Bordetella pertussis PCR Not Detected (Not Detect.); Chlamydia pneumoniae PCR Not Detected (Not Detect.); Coronavirus 229E PCR Not Detected (Not Detect.); Coronavirus HKU1 PCR Not Detected (Not Detect.); Coronavirus NL63 PCR Not Detected (Not Detect.); Coronavirus OC43 PCR Not Detected (Not Detect.); Human metapneumovirus PCR Not Detected (Not Detect.); Influenza A PCR Not Detected (Not Detect.); Influenza B PCR Not Detected (Not Detect.); Mycoplasma pneumoniae PCR Not Detected (Not Detect.); Parainfluenza 1 PCR Not Detected (Not Detect.); Parainfluenza 2 PCR Not Detected (Not Detect.); Parainfluenza 3 PCR Not Detected (Not Detect.); Parainfluenza 4 PCR Not Detected (Not Detect.); RSV PCR Not Detected (Not Detect.); Rhino/Enterovirus PCR Detected (Not Detect.); SARS-CoV-2 PCR Not Detected (Not Detect.)
--- NOTE | 2023-10-29 15:23 | PHA.MEDREC ---
Pharmacy Consult ? Medication Reconciliation Pharmacy has completed the medication reconciliation. Patient report medications. Report using dilaudid for her period pains, last filled in February 2023. Jenna Vieira, HernandezD
[2023-10-29 16:22] VITALS: BP 153/98; PULSE 88; TEMP 36.6; O2SAT 98
--- NOTE | 2023-10-29 17:25 | PC.NURSE ---
[id number] arrived- bringing pt up. no distress. regular respirations. talking well. resting
[2023-10-29 17:59] VITALS: BP 145/92; PULSE 82; RESP 18; TEMP 36.1; O2SAT 96
[2023-10-29] MEDS: Acetaminophen 325 MG TABLET 650 MG PO (18:00)
[2023-10-29 18:50] LABS: Appearance Urine Clear; Color Urine Yellow; Glucose Urine UA Negative (Negative); Leukocyte Esterase Urine Negative (Negative); Nitrite Urine Negative (Negative); PH 7.5 (5.0-9.0); Urine Blood Negative (Negative); Urine Ketones Negative (Negative); Urine Protein Negative (Neg-Trace)
[2023-10-29 19:10] VITALS: BP 140/79; PULSE 82; RESP 18; TEMP 36.1; O2SAT 98
[2023-10-29] MEDS: Albuterol/Iprat 2.5/0.5MG 3 ML AMPUL.NEB INHALE (19:55)
[2023-10-29 19:58] VITALS: PULSE 82; RESP 18; O2SAT 98
[2023-10-29] MEDS: 0.9 % Sodium Chloride Flush 3 ML SYRINGE IVFLUSH (20:23)
[2023-10-30] MEDS: methylPREDNISolone Sod Succ 125 MG/2 ML VIAL 60 MG IVPUSH ×2 (00:52→07:29)
[2023-10-30 03:31] VITALS: BP 124/72; PULSE 87; RESP 18; TEMP 36.7; O2SAT 98
[2023-10-30] MEDS: 0.9 % Sodium Chloride Flush 3 ML SYRINGE IVFLUSH (07:29)
[2023-10-30 07:59] VITALS: BP 129/85; PULSE 77; RESP 17; TEMP 36.1; O2SAT 94
[2023-10-30] MEDS: Albuterol/Iprat 2.5/0.5MG 3 ML AMPUL.NEB INHALE ×2 (08:18→12:01)
[2023-10-30 08:22] VITALS: PULSE 88; RESP 16; O2SAT 99
[2023-10-30] MEDS: Omeprazole 20 MG CAPSULE.DR PO (10:50)
[2023-10-30 12:02] VITALS: PULSE 108; RESP 16; O2SAT 98
--- NOTE | 2023-10-30 12:08 | PM.DS ---
DS: Providers Provider Date of Service: 10/30/23 Date of admission: 10/29/23 15:35 Date of discharge: 10/30/23 Primary care physician: CARLOS Walsh Attending physician on discharge: Forrest Winkler Discharging clinician: Syeda Mckeon DS: Diagnosis Discharge Diagnosis (1) Asthma exacerbation: Status: Acute (2) Rhinovirus: Status: Acute DS: Summary Hospital Course Hospital Course: From H&P on the day of admission Pt is a 42-year-old female with a PMH significant for?mild persistent asthma, GERD, IBS, and chronic pelvic pain who presents to the ED with?worsening SOB, cough, and wheezing for the past 10 days. Patient states she has been experiencing chronic cough since May. Was put on a nebulizer and occasionally prednisone, reports cough initially improved but never completely went away, gets especially bad whenever she gets sick. Patient notes she tested positive for COVID around [facility] and was starting to feel better when her daughter past on a cold to her approximately 10 days ago. Patient had URI-type symptoms -- increased cough, congestion, SOB -- and called her PCP who prescribed her a z-pack and prednisone which she finished 2 days ago. Patient said symptoms worsened during the course of treatment, which is why she presented to the emergency department today. Reports some chest pain associated with cough. Denies chest pressure or palpitations. No fever, chills, nausea, vomiting, diarrhea, abd pain. She is a former smoker who quit 8 years ago. In the ED pt was afebrile but hypertensive at 157/92, satting at 98% RA. Labs were significant for mild leukocytosis of 11.3 otherwise grossly unremarkable. Stable H&H. Electrolytes WNL. Hepatic and renal function WNL. Negative troponin. Respiratory panel pending. CXR showed low lung volumes but no evidence of pneumonia. EKG demonstrated normal sinus rhythm evidence of significant ST elevations or depressions. Pt was treated with Solu-Medrol, Mag sulfate, and DuoNebs. Pt will be admitted to the hospital under observation for treatment and further evaluation asthma exacerbation. Acute asthma exacerbation secondary to rhino virus patient improved significantly with system steroids. respiratory pathogen panel returned positive for rhino virus. Chest x-ray did not show any evidence of pneumonia. She was treated with systemic steroids and breathing treatments and improved significantly as above. She is feeling much better and is able to ambulate without dyspnea and has not had any documented episodes of hypoxia.. She is eager to return home and will be discharged home to complete course of steroids. Recommend outpatient follow-up with PCP. Time Attestation Discharge coordination time: Greater than 30 minutes Quality: Safe Use of Opioids Does Pt have an Active Cancer Diagnosis on the Problem List?: No Quality: Stroke Does the patient have a stroke diagnosis?: No Physical Exam Vital Signs: Vital Signs: Last Vital Signs Temp 96.9 F 10/30/23 07:59 Pulse 108 H 10/30/23 12:02 Resp 16 10/30/23 12:02 BP 129/85 10/30/23 07:59 Pulse Ox 94 10/30/23 07:59 O2 Del Method Room Air 10/30/23 07:59 BMI result Body Mass Index 52.9 Const: General: cooperative, comfortable, no acute distress and awake Nutritional Appearance: overweight Orientation/consciousness: patient oriented x3 Resp: Other: no wheezing; diminished breath sounds Effort & Inspection: normal respiratory effort, able to speak in complete sentences, no respiratory distress and no use of accessory muscles Cardio: Rate: regular rate Neuro: General: patient oriented x3 DS: Data Data Completed and Pending Labs on day of discharge: Laboratory Results - last 24 hr 10/29/23 10/29/23 10/29/23 12:03 13:02 18:36 WBC 11.3 H RBC 4.51 Hgb 12.5 Hct 37.9 MCV 84.0 MCH 27.7 MCHC 33.0 RDW 12.8 Plt Count 413 H MPV 8.4 L Immature Gran % (Auto) 0.5 H Neut % (Auto) 59.4 Lymph % (Auto) 31.9 Harper % (Auto) 6.3 Eos % (Auto) 1.5 Baso % (Auto) 0.4 Lymph # (Auto) 3.6 Harper # (Auto) 0.7 Eos # (Auto) 0.2 Baso # (Auto) 0.0 Abs Immat Gran (auto) 0.06 H Absolute Neuts (auto) 6.7 Absolute Nucleated RBC 0.000 Nucleated RBC % (auto) 0.0 Sodium 139 Potassium 3.8 Chloride 102 Carbon Dioxide 28 Anion Gap 13 BUN 15 Creatinine 0.74 Estim Creat Clear Calc 126.8 Estimated GFR > 60 Random Glucose 94 Calcium 9.9 D Magnesium 2.0 Total Bilirubin 0.4 AST 17 ALT 22 Alkaline Phosphatase 65 Troponin I High Sens < 2.7 Total Protein 7.4 Albumin 3.9 Urine Color Yellow Urine Appearance Clear Urine pH 7.5 Ur Specific [place] 1.010 Urine Protein Negative Urine Glucose (UA) Negative Urine Ketones Negative Urine Blood Negative Urine Nitrite Negative Ur Leukocyte Esterase Negative Respiratory Panel Harrison See Note Adenovirus (Rapid PCR) Not Detected B.pert (TEM-PCR) Not Detected B.parapertussis DNA PCR Not Detected C. pneumoniae DNA (PCR) Not Detected Coronavirus OC43 (PCR) Not Detected Coronavirus HKU1 (PCR) Not Detected Coronavirus 229E (PCR) Not Detected COVID-19 (EVE) Negative COVID-19 Clin Com See Note Coronavirus NL63 (PCR) Not Detected Human Metapneumovir PCR Not Detected Influenza Type A (ADITYA) Negative Influenza A (RT-PCR) Not Detected Influenza Type B (ADITYA) Negative Influenza B (RT-PCR) Not Detected Influenza A & B Note See Note M. pneumoniae (PCR) Not Detected Parainfluenza 1 (PCR) Not Detected Parainfluenza 2 (PCR) Not Detected Parainfluenza 3 (PCR) Not Detected Parainfluenza 4 (PCR) Not Detected RSV (PCR) Not Detected Entero/Rhino (PCR) Detected A SARS-CoV-2 RNA (RT-PCR) Not Detected Discharge Plan Discharge Anticipated Discharge Date/Time: 10/30/23 12:02 Patient Disposition: Home, Self-Care Discharge Diagnosis: asthma exacerbation rhinovirus Referrals: Swati Jimenez FNP [Primary Care Provider] - 1 Week Discharge Medications: New prednisone 20 mg tablet 40 mg PO DAILY 5 Days Qty: 10 0RF Continued multivitamin Tablet 1 tab PO DAILY Qty: 90 1RF albuterol sulfate [Ventolin HFA] 90 mcg/actuation HFA aerosol inhaler 2 puff inhalation Q4-6H PRN (Reason: shortness of breath or wheezing) Qty: 8.5 3RF hydromorphone 2 mg tablet 2 mg PO Q6H PRN (Reason: severe pain (scale score 7-10)) Qty: 7 0RF Rx Instructions: Partial Fill upon patient request. ibuprofen 600 mg tablet 600 mg PO Q6H PRN (Reason: pain) Qty: 45 0RF cetirizine 10 mg tablet 10 mg PO DAILY ondansetron HCl 4 mg tablet 4 mg PO Q12H PRN (Reason: nausea and vomiting) Qty: 10 0RF simethicone [Gas Relief (simethicone)] 80 mg tablet,chewable 80 mg PO TID-QID PRN (Reason: abdominal distention) Qty: 20 0RF epinephrine [EpiPen] 0.3 mg/0.3 mL auto-injector 0.3 mg IM Q10M PRN (Reason: anaphylaxis) Qty: 2 0RF Rx Instructions: for 2 doses omeprazole 20 mg capsule,delayed release(DR/EC) 20 mg PO DAILY fluticasone propionate [Flovent HFA] 44 mcg/actuation HFA aerosol inhaler 1 puff inhalation BID Qty: 10.6 1RF Rx Instructions: administer with spacer albuterol sulfate 2.5 mg /3 mL (0.083 %) solution for nebulization 2.5 mg inhalation Q4-6H PRN (Reason: shortness of breath or wheezing) Qty: 180 0RF Discharge Orders: Discharge Order (Routine); Ordered 10/30/23 Ordered By: Syeda Mckeon Activity on Discharge: As tolerated Stand Alone Forms: Patient Portal Discharge page Care Plan Goals: see below Health Concerns: asthma exacerbation due to rhinovirus Plan of Treatment: complete course of steroids rhinovirus is common cold virus and does not need any specific treatment, will improve gradually on its own. can continue to have cough for several weeks after virus no pneumonia seen on xray continue to use inhalers/breathing treatments call to schedule follow up appointment with PCP Assessment: see above
== END 2023-10-30 14:14 | disposition home or self-care (01) ==
LOC: HO.ED 14:52 → HO.EDOVER 15:52 → HO.S3 17:05 → HO.EDOVER 11-03 10:31
PROVIDERS: Physician Assistant; Physician Assistant Medical; Admitting Provider Student in an Organized Health Care Education/Training Program; Emergency Provider Student in an Organized Health Care Education/Training Program; PCP Nurse Practitioner Family; Visit Provider Physician Assistant Medical
DX: J45.901 Unspecified asthma with (acute) exacerbation (principal); B34.8 Other viral infections of unspecified site; R05.9 Cough, unspecified; R07.89 Other chest pain; K21.9 Gastro-esophageal reflux disease without esophagitis; R10.2 Pelvic and perineal pain; E66.01 Morbid (severe) obesity due to excess calories; Z68.43 Body mass index [BMI] 50.0-59.9, adult; Z11.52 Encounter for screening for COVID-19
CPT/HCPCS: 36415; 71046; 80053; 81003; 83735; 84484; 85025; 87502; 87633; 87635; 93005; 94640; 96365; 96366; 96375; 96376; 99221; 99285; J2930; J3475

== ENCOUNTER → 2023-10-29 12:40 | Outpatient (BNV) | payer OTHER, SELFPAY | PROVIDERS: Admitting Provider Student in an Organized Health Care Education/Training Program; Emergency Provider Student in an Organized Health Care Education/Training Program; PCP Nurse Practitioner Family; Visit Provider Internal Medicine Cardiovascular Disease | DX: R94.31 Abnormal electrocardiogram [ECG] [EKG] (principal) | CPT/HCPCS: 93010 ==

== ENCOUNTER → 2023-10-29 15:35 | Outpatient (BNV) | payer OTHER, SELFPAY | PROVIDERS: Admitting Provider Student in an Organized Health Care Education/Training Program; Emergency Provider Student in an Organized Health Care Education/Training Program; PCP Nurse Practitioner Family; Visit Provider Physician Assistant Medical | DX: J45.901 Unspecified asthma with (acute) exacerbation (principal); B34.8 Other viral infections of unspecified site | CPT/HCPCS: 99222; 99239 ==

== ENCOUNTER 2023-11-26 14:08 | Outpatient (AMB) | payer OTHER, SELFPAY ==
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
[2023-11-26 14:19] VITALS: BP 122/70; PULSE 88; O2SAT 96
== END 2023-11-26 16:22 | disposition home or self-care (01) ==
PROVIDERS: PCP Nurse Practitioner Family; Visit Provider Physician Assistant
DX: J45.40 Moderate persistent asthma, uncomplicated (principal); E66.01 Morbid (severe) obesity due to excess calories
CPT/HCPCS: 99215

== ENCOUNTER 2024-03-09 09:08 | Outpatient (AMB) | payer OTHER, SELFPAY ==
--- NOTE | 2024-03-09 09:30 | MHC.PC.OV ---
Vital Signs 03/09/24 09:32 Height 5 ft 4 in BMI Reason not done Patient refused/unable BP 120/64 Blood Pressure Location Lt brachial Position Sitting Pulse 104 H Pulse Source Pulse Oximeter Pulse Oximetry (%) 96 Oxygen Delivery Method Room Air Intake Visit Reasons: f/u Intake Note: Patient is here to follow up on Asthma, JASSI, Low back pain. Resource Development Director Required: No It Network Architect: Not Required per policy Accompanied by: Self / Same As Patient Allergies morphine [MORPHINE] Allergy (Unknown, Verified 03/09/24 17:43) ANAPHYLAXIS oxycodone [From PERCOCET] Allergy (Unknown, Verified 03/09/24 17:43) RASH strawberry [STRAWBERRY] Allergy (Unknown, Verified 03/09/24 17:43) ANAPHYLAXIS Medication List - Last Reconciled 03/09/24 by Migel Hannon MD albuterol sulfate 90 mcg/actuation (Ventolin HFA) 2 puffs inhalation Q4-6H PRN albuterol sulfate 2.5 mg (3 mL) inhalation Q4-6H PRN cetirizine 10 mg PO DAILY epinephrine (EpiPen) 0.3 mg (0.3 mL) IM Q10M PRN fluticasone propion-salmeterol 250-50 mcg/dose (Advair Diskus) 1 inh inhalation BID fluticasone propionate 50 mcg/actuation (Flonase Allergy Relief) 1 spray intranasal BID ibuprofen 600 mg PO Q6H PRN montelukast 10 mg PO DAILY multivitamin 1 tab PO DAILY omeprazole 20 mg PO DAILY ondansetron HCl 4 mg PO Q12H PRN prednisone 60 mg PO DAILY simethicone (Gas Relief (simethicone)) 80 mg PO TID-QID PRN Tobacco use date assessed: 03/09/24 Dental Screening Dental Screen Date: 11/26/23 HPI f/u HPI Details 43 yr old female presents to the office to discuss her medical conditions. I will be assuming her care, as her PCP has left the practice. Patient has been having chronic respiratory issues in the past few months. She is now under the care of a hot end operator. She is currently taking prednisone and an inhaler. Quit smoking a few years ago. Currently unemployed. Pt also had a hystrectomy with ovarian sparing for menorrhagia. [facility] Medical History Allergic rhinitis COVID-19 Tick bite Unplanned unwanted Delivery with history of test positive Polyp of cervix Fibroid, uterine History of uterine fibroid Encounter to establish care Surgical History History of hysterectomy History of colonoscopy History of surgery on right wrist History of delivery Family History Mother No problems noted. Father Mental health disorder Substance use disorder Social History Household Members: Family Housing: House Do you presently have visiting nurse or other home services: No Alcohol intake: current Alcohol intake frequency: a few times a month Patient Tobacco Use Status: Former Tobacco user Tobacco use type: Cigarette e-Cigarette/Vaping Use: Never Used Second Hand Smoke Exposure: No service: No Current occupational status: employed Current occupational exposures/hazards: No Cognitive needs: No Hearing needs: No Vision needs: No Female Reproductive History Menstrual Age of Menarche: 14 Questionnaire Thrive Questionnaire Date Thrive assessed: 11/26/23 JASSI-7 AMB Questionnaire JASSI-7 Date JASSI - 7 assessed: 11/26/23 (pt seeing therapist ) Source: Developed by Drs. Vishnu Ashton, Susana Walters, Freddy Og and colleagues, with an educational yaneth from [employer]. Physical exam (Primary Care) Vital Signs: Last Vital Signs Pulse 104 H 03/09/24 09:32 BP 120/64 03/09/24 09:32 Pulse Ox 96 03/09/24 09:32 Oxygen Delivery Method Room Air 03/09/24 09:32 Tobacco/Smoking Status: Tobacco use Status Tobacco use date assessed 03/09/24 03/09/24 09:46 Patient Tobacco Use Status Former Tobacco user 03/09/24 09:46 Tobacco use type Cigarette 03/09/24 09:46 e-Cigarette/Vaping Use Never Used 03/09/24 09:46 Thrive Assessment: Date of Thrive Assessment Date Thrive assessed 11/26/23 03/09/24 09:46 Assessment and Plan Assessment & Plan (1) Moderate persistent asthma: Code(s): J45.40 - Moderate persistent asthma, uncomplicated Plan: Continue care from hot end operator. Coding Level of Care Code Est Pt Level 3 (89238) Diagnoses Moderate persistent asthma J45.40
[2024-03-09 09:32] VITALS: BP 120/64; PULSE 104; O2SAT 96
== END 2024-03-09 11:17 | disposition home or self-care (01) ==
PROVIDERS: PCP Internal Medicine; Visit Provider Internal Medicine
DX: J45.40 Moderate persistent asthma, uncomplicated (principal)
CPT/HCPCS: 99213

== ENCOUNTER 2024-06-15 14:28 | Outpatient (AMB) | payer OTHER, SELFPAY ==
[2024-06-15 14:30] VITALS: BP 122/68; PULSE 68; O2SAT 97
--- NOTE | 2024-06-15 14:30 | MHC.PC.OV ---
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/tingling with no relief Horticulturalist Required: No Allergies morphine [MORPHINE] Allergy (Unknown, Verified 06/15/24 15:07) ANAPHYLAXIS oxycodone [From PERCOCET] Allergy (Unknown, Verified 06/15/24 15:07) RASH strawberry [STRAWBERRY] Allergy (Unknown, Verified 06/15/24 15:07) ANAPHYLAXIS Medication List - Last Reconciled 06/15/24 by Migel Hannon MD albuterol sulfate 90 mcg/actuation (Ventolin HFA) 2 puffs inhalation Q4-6H PRN albuterol sulfate 2.5 mg (3 mL) inhalation Q4-6H PRN cetirizine 10 mg PO DAILY cyclobenzaprine 10 mg PO BEDTIME epinephrine (EpiPen) 0.3 mg (0.3 mL) IM Q10M PRN fluticasone propion-salmeterol 250-50 mcg/dose (Advair Diskus) 1 inh inhalation BID fluticasone propionate 50 mcg/actuation (Flonase Allergy Relief) 1 spray intranasal BID meloxicam 15 mg PO DAILY montelukast 10 mg PO DAILY multivitamin 1 tab PO DAILY omeprazole 20 mg PO DAILY ondansetron HCl 4 mg PO Q12H PRN prednisone 60 mg PO DAILY simethicone (Gas Relief (simethicone)) 80 mg PO TID-QID PRN Tobacco use date assessed: 03/09/24 Dental Screening Dental Screen Date: 11/26/23 HPI Neck pain/ numbness HPI Details 43-year-old female presents to the office for a sick visit. Patient is reporting neck and shoulder pain for the past few months. She has history of chronic neck pain. Patient reports she had an MRI 15 years ago that showed a bulging disc in the cervical vertebrae. She had last physical therapy a few years ago. History of tingling sensation in her forearms leading to carpal tunnel surgery. Patient reports that she is having pain and stiffness in the muscles of her neck radiating down both arms. Weakness in both hands. [facility] Medical History Allergic rhinitis COVID-19 Tick bite Unplanned unwanted Delivery with history of test positive Polyp of cervix Fibroid, uterine History of uterine fibroid Encounter to establish care Surgical History History of hysterectomy History of colonoscopy History of surgery on right wrist History of delivery Family History Mother No problems noted. Father Mental health disorder Substance use disorder Social History Household Members: Family Housing: House Do you presently have visiting nurse or other home services: No Alcohol intake: current Alcohol intake frequency: a few times a month Patient Tobacco Use Status: Former Tobacco user Tobacco use type: Cigarette e-Cigarette/Vaping Use: Never Used Second Hand Smoke Exposure: No service: No Current occupational status: employed Current occupational exposures/hazards: No Cognitive needs: No Hearing needs: No Vision needs: No Female Reproductive History Menstrual Age of Menarche: 14 Questionnaire Thrive Questionnaire Date Thrive assessed: 11/26/23 JASSI-7 AMB Questionnaire JASSI-7 Date JASSI - 7 assessed: 11/26/23 (pt seeing therapist ) Source: Developed by Drs. Vishnu Ashton, Susana Walters, Freddy Og and colleagues, with an educational yanteh from [employer]. Physical exam (Primary Care) Vital Signs: Last Vital Signs Pulse 68 06/15/24 14:30 BP 122/68 06/15/24 14:30 Pulse Ox 97 06/15/24 14:30 Oxygen Delivery Method Room Air 06/15/24 14:30 Tobacco/Smoking Status: Tobacco use Status Tobacco use date assessed 03/09/24 06/15/24 14:37 Patient Tobacco Use Status Former Tobacco user 06/15/24 14:37 Tobacco use type Cigarette 06/15/24 14:37 e-Cigarette/Vaping Use Never Used 06/15/24 14:37 Thrive Assessment: Date of Thrive Assessment Date Thrive assessed 01/10/24 07/30/24 14:37 Const General: cooperative and healthy appearing Nutritional Appearance: well nourished Orientation/consciousness: patient oriented x3 Limitations: no limitations HENMT Head: Yes normal to inspection Eyes General: appearance normal, both eyes and all related structures Neck Other: Neck: No spinal tenderness. No paraspinal spasm. Minimal discomfort over right and left trapezius. Power 5 x 5 in both upper extremities Neck: Yes normal visual inspection Chest Chest palpation & inspection: normal palpation of entire chest wall Resp Effort & Inspection: normal respiratory effort Neuro General: patient oriented x3 Assessment and Plan Assessment & Plan (1) Neck pain: Code(s): M54.2 - Cervicalgia Plan: Symptoms are mostly muscular in etiology. Will try a combination of anti-inflammatories and muscle relaxant. Physical therapy to be tried again. Should patient not benefit from any above the above, MRI of the spine will be ordered. Orders: Orders PT Evaluation and Treatment Today M54.2 - Cervicalgia Medications: New cyclobenzaprine 10 mg PO BEDTIME 14 tabs 0RF meloxicam 15 mg PO DAILY 14 tabs 0RF Discontinued ibuprofen Discontinued Reason: Doctor's Order 600 mg PO Q6H PRN 45 tabs 0RF pain Coding Level of Care Code Est Pt Level 4 (29956) Complex EM visit Add On G2211 Diagnoses Neck pain M54.2
== END 2024-06-15 15:57 | disposition home or self-care (01) ==
PROVIDERS: PCP Internal Medicine; Visit Provider Internal Medicine
DX: M54.2 Cervicalgia (principal)
CPT/HCPCS: 99214; G2211

== ENCOUNTER 2024-07-26 09:29 | Outpatient (AMB) | payer OTHER, SELFPAY ==
[2024-07-26 09:32] VITALS: BP 138/90; PULSE 76; O2SAT 97; BMI 47.0
--- NOTE | 2024-07-26 09:32 | A.OFFPC_ITS ---
Vital Signs 07/26/24 09:32 Height 5 ft 4 in Weight 274 lb 0.2 oz BMI 47.0 BP 138/90 H Blood Pressure Location Lt brachial Position Sitting Pulse 76 Pulse Source Pulse Oximeter Pulse Oximetry (%) 97 Oxygen Delivery Method Room Air Intake Visit Reasons: annual exam/ ayleen Hannon Fulfillment Coordinator Required: No Allergies morphine [MORPHINE] Allergy (Unknown, Verified 07/26/24 09:46) ANAPHYLAXIS oxycodone [From PERCOCET] Allergy (Unknown, Verified 07/26/24 09:46) RASH strawberry [STRAWBERRY] Allergy (Unknown, Verified 07/26/24 09:46) ANAPHYLAXIS Medication List - Last Reconciled 07/26/24 by Preethi Mcintosh PA-C albuterol sulfate 90 mcg/actuation (Ventolin HFA) 2 puffs inhalation Q4-6H PRN albuterol sulfate 2.5 mg (3 mL) inhalation Q4-6H PRN cetirizine 10 mg PO DAILY epinephrine (EpiPen) 0.3 mg (0.3 mL) IM Q10M PRN fluticasone propionate 50 mcg/actuation (Flonase Allergy Relief) 1 spray intranasal BID meloxicam 15 mg PO DAILY montelukast 10 mg PO DAILY multivitamin 1 tab PO DAILY omalizumab (Xolair) 300 mg subcut Q4W omeprazole 20 mg PO DAILY simethicone (Gas Relief (simethicone)) 80 mg PO TID-QID PRN Tobacco use date assessed: 03/09/24 Dental Screening Dental Screen Date: 07/26/24 Did you have a dental visit in the last 12 months?: No Did you have a dental problem in the last 6 months where you did not have access to dental care?: No Was dental information given to patient?: Patient has dentist HPI annual exam/ ayleen Riddhi HPI Details 43-year-old female with past medical his tory of depression, HSV, asthma, diabetes mellitus, generalized anxiety disorder, insomnia last seen by Dr. Hannon coming in for annual visit. Mammogram completed 10/2023 BIRADS 1 follow up in one year. She regularly sees counselor and is not currently on med ication for anxiety or depression. She was seen last month for shoulder pain and was sent to PT and states she was having more shoulder pain than neck pain. She continues to have this shoulder pain primarily at work due to repetitive movements. She also mentions she has been gaining weight and has been unable to lose the weight which is very frustrating. She has never used and form of weight loss medication or supplement. She does have IBS which makes dieting very tough for her. She also mentioned she has been having increased anxiety and depression and does not feel the counselor alone is managing her symptoms. [facility] Medical History Allergic rhinitis COVID-19 Tick bite Unplanned unwanted Delivery with history of test positive Polyp of cervix Fibroid, uterine History of uterine fibroid Encounter to establish care Surgical History History of hysterectomy History of colonoscopy History of surgery on right wrist History of delivery Family History Mother No problems noted. Father Mental health disorder Substance use disorder Social History Household Members: Family Housing: House Do you presently have visiting nurse or other home services: No Alcohol intake: current Alcohol intake frequency: a few times a month Patient Tobacco Use Status: Former Tobacco user Tobacco use type: Cigarette e-Cigarette/Vaping Use: Never Used Second Hand Smoke Exposure: No service: No Current occupational status: employed Current occupational exposures/hazards: No Cognitive needs: No Hearing needs: No Vision needs: No Female Reproductive History Menstrual Age of Menarche: 14 Questionnaire PHQ-9 Over the last 2 weeks, how often have you been bothered by any of the following problems? 1. Little interest or pleasure in doing things: several days 2. Feeling down, depressed, or hopeless: several days 3. Trouble falling or staying asleep, or sleeping too much: nearly every day 4. Feeling tired or having little energy: several days 5. Poor appetite or overeating: more than half the days 6. Feeling bad about yourself - or that you are a failure or have let yourself or your family down: not at all 7. Trouble concentrating on things, such as reading the newspaper or watching television: not at all 8. Moving or speaking so slowly that other people could have noticed. Or the opposite - being so fidgety or restless that you have been moving around a lot more than usual: not at all 9. Thoughts that you would be better off or of hurting yourself in some way: not at all Total score: 8 Source: Developed by Drs. Vishnu Ashton, Susana Walters, Freddy Og and colleagues, with an educational yaneth from [employer]. Thrive Questionnaire Date Thrive assessed: 07/20/24 I am a: Patient What is your living situation today?: I have a steady place to live Within the past 12 months, did the food you bought not last and you didn't have the money to get more?: Never true Within the past 12 months, did you worry whether your food would run out before you got money to buy more?: Never true Do you have trouble paying for medicines?: No Do you have trouble getting transportation to medical appointments?: No Do you have trouble paying your heating and electricity bill?: No Do you have trouble taking care of your child, family member or friend?: No Do you have trouble with day-to-day activities such as bathing, preparing meals, shopping, managing finances, etc.?: No Are you currently unemployed and looking for a job?: No Are you interested in more education?: Yes Please select the resources that you would like help with: None THRIVE Score: 0 AUDIT C Alcohol Use Questionnaire (AUDIT-C) 1. How often do you have a drink containing alcohol?: 2-3 times a week 2. How many drinks containing alcohol do you have on a typical day when you are drinking?: 3 or 4 3. How often do you have six or more drinks on one occasion?: Less than monthly Total Score: 5 JASSI-7 AMB Questionnaire JASSI-7 Date JASSI - 7 assessed: 11/26/23 (pt seeing therapist ) Feeling nervous, anxious, or on edge: 0 = Not at all Not being able to stop or control worryin = Not at all Worrying too much about different things: 0 = Not at all Trouble relaxin = Not at all Being so restless that it is hard to sit still: 0 = Not at all Becoming easily annoyed or irritable: 1 = Several days Feeling afraid as if something awful might happen: 0 = Not at all Total JASSI-7 score (0-4 normal; 5-9 mild; 10-14 moderate; 15-21 severe): 1 Source: Developed by Drs. Vishnu Ashton, Susana Walters, Freddy Og and colleagues, with an educational yaneth from [employer]. JASSI-7 Assessment Billing JASSI-7 Assessment Tool: JASSI-7 Assessment 96336 Review of Systems Const Denies body aches, Denies fatigue, Denies fever(s), Denies frequent falls, Denies headache(s), Denies weakness and Reports weight gain Eyes Reports no additional complaints and Denies change in vision ENT Denies dysphagia, Denies dizziness, Denies facial pain, Denies headache(s), Denies nasal congestion and Denies odynophagia Card Denies chest pain, Denies syncope, Denies irregular heart rhythm, Denies leg edema, Denies lightheadedness and Denies dyspnea Resp Denies cough and Denies dyspnea GI Denies constipation, Denies dysphagia, Denies dyspepsia, Reports diarrhea, Denies nausea, Denies odynophagia and Denies vomiting Denies urinary frequency, Denies dysuria, Denies urinary hesitancy and Denies urinary urgency Musc Reports as per HPI, Denies back pain and Denies myalgias Skin/Breast Reports system reviewed and no additional complaints, except as documented Neuro Denies dizziness, Denies syncope, Denies frequent falls, Denies headache(s) and Denies weakness Psych Reports no additional complaints Endo Denies fatigue Physical exam (Primary Care) Vital Signs: Last Vital Signs Pulse 76 07/26/24 09:32 BP 138/90 H 07/26/24 09:32 Pulse Ox 97 07/26/24 09:32 Oxygen Delivery Method Room Air 07/26/24 09:32 BMI result Body Mass Index 47.0 Tobacco/Smoking Status: Tobacco use Status Tobacco use date assessed 03/09/24 07/26/24 09:43 Patient Tobacco Use Status Former Tobacco user 07/26/24 09:43 Tobacco use type Cigarette 07/26/24 09:43 e-Cigarette/Vaping Use Never Used 07/26/24 09:43 PHQ-9: PHQ-9 Score PHQ-9: Total score 8 07/26/24 09:49 Thrive Assessment: Date of Thrive Assessment Date Thrive assessed 07/20/24 07/26/24 09:43 Const General: cooperative, healthy appearing, comfortable and no acute distress Orientation/consciousness: patient oriented x3 HENMT Head: Yes normocephalic Ears: hearing grossly normal bilaterally General nose exam: Normal external nose present Eyes General: appearance normal, both eyes and all related structures Conjunctivae: conjunctivae normal Neck Neck: Yes full ROM and Yes no lymphadenopathy Resp Effort & Inspection: normal respiratory effort Auscultation: clear to auscultation bilaterally, no crackles, no rales, no rhonchi and no wheezes Cardio Rate: regular rate Rhythm: regular rhythm Skin General skin exam: no rashes or lesions noted Neuro General: patient oriented x3 Gait exam (Neuro): Normal gait present Extrem Other: Tenderness to palpation over entire shoulder. Range of motion intact however pain with internal rotation, flexion, and abduction. pulses, strength and sensation intact in bilateral upper extremities General: Yes normal to inspection, Yes full ROM and No edema Psych Affect: normal affect Attitude: cooperative Insight: Good insight present (Psych) Judgement: Good judgement present (Psych) Assessment and Plan Assessment & Plan (1) Obesity, morbid, BMI 40.0-49.9: Code(s): E66.01 - Morbid (severe) obesity due to excess calories Plan: Advised patient to exercise regularly and work on a healthy diet. Patient was provided with a low FODMAP diet handout and will be referred to diet and nutrition at her request. We will also trial Ozempic for weight loss and discussed possible side effects. (2) Bilateral shoulder pain: Code(s): M25.511 - Pain in right shoulder; M25.512 - Pain in left shoulder Plan: Patient continues to have bilateral shoulder pain referral placed for physical therapy and lidocaine patch prescribed. (3) Generalized anxiety disorder: Code(s): F41.1 - Generalized anxiety disorder Plan: Patient does regularly see a counselor which she finds very helpful and has been seeing this counseled for several years. She is interested in medications and has been on several different medications in the past and does endorse using some of her friends occasionally. Referral to outpatient psychiatric clinic placed today for medical management. (4) Intermittent asthma: Code(s): J45.20 - Mild intermittent asthma, uncomplicated Plan: Patient is currently on Xolair every 4 weeks and albuterol as needed and feels her med asthma as well managed and denies any nighttime awakenings. She does mentioned this is her allergy season and she has been having use her inhaler more often but this is not typical for her. Continue to avoid triggers such as allergens and smoke. (5) Moderate depressive disorder: Code(s): F32.A - Depression, unspecified Plan: Patient does have a history of depression and has been on medication in the past but is unsure of the names and does endorse using her friend's medications occasionally with good relief. Referral to psychiatric outpatient clinic for medical management. Continue to follow up with her counselor. (6) IBS (irritable bowel syndrome): Code(s): K58.9 - Irritable bowel syndrome without diarrhea Qualifiers: Irritable bowel syndrome type: with diarrhea Qualified Code(s): K58.0 - Irritable bowel syndrome with diarrhea Plan: Patient has a history of IBS primarily with diarrhea and rarely has solid bowel movements. Advised patient to use [id number] fiber supplements to bulk the stools to see if this improves. Also provided patient with a handout of low FODMAP diet. If symptoms continue to worsen we can follow up with GI. Plan This note was constructed using voice recognition software. While every effort has been made to ensure accuracy and strapping machine tender, still areas may have been included sometimes these areas may affect the content or meeting of the given symptoms. Total time spent caring for the patient today was 30 minutes. This includes time spent before the visit reviewing the chart, time spent during the visit, and time spent after the visit and documentation. Orders: Orders PT Evaluation and Treatment Today M25.511 - Pain in right shoulder, M25.512 - Pain in left shoulder Comprehensive Met. Panel Today Z00.00 - Encounter for general adult medical examination without abnormal findings Free T4 (Free Thyroxine) Today Z00.00 - Encounter for general adult medical examination without abnormal findings Complete Blood Count Auto Diff Today Z00.00 - Encounter for general adult medical examination without abnormal findings TSH reflex Free T4 Today Z00.00 - Encounter for general adult medical examination without abnormal findings Lipid Panel Today Z00.00 - Encounter for general adult medical examination without abnormal findings Vitamin B12 and Folate Today Z00.00 - Encounter for general adult medical examination without abnormal findings Vitamin D 25-OH (D2 and D3) Today Z00.00 - Encounter for general adult medical examination without abnormal findings Hemoglobin A1c Today E66.01 - Morbid (severe) obesity due to excess calories Referrals Nutrition/Dietitian Referral E66.01 - Morbid (severe) obesity due to excess calories Psychiatry Outpatient Consultation Service F32.A - Depression, unspecified, F41.1 - Generalized anxiety disorder Medications: New lidocaine 5% leave on most painful area for up to 12 hrs 1 patch topical DAILY 15 ea 0RF semaglutide (Ozempic) for 4 weeks 0.25 mg (0.368 mL) subcut QWEEK 3 mL 0RF Coding Level of Care Code Est Pt Level 4 (94989) Diagnoses Obesity, morbid, BMI 40.0-49.9 E66.01 Bilateral shoulder pain M25.511; M25.512 Generalized anxiety disorder F41.1 Intermittent asthma J45.20 Moderate depressive disorder F32.A Irritable bowel syndrome with diarrhea K58.0 Irritable bowel syndrome type: with diarrhea Additional Codes JASSI-7 Assessment Billing - JASSI-7 Assessment Tool: JASSI-7 Assessment 18253 ([id number])
== END 2024-07-26 11:00 | disposition home or self-care (01) ==
DX: M25.511 Pain in right shoulder (principal); M25.512 Pain in left shoulder; F33.9 Major depressive disorder, recurrent, unspecified; J45.20 Mild intermittent asthma, uncomplicated; K58.0 Irritable bowel syndrome with diarrhea
CPT/HCPCS: 99214

== ENCOUNTER 2024-07-30 09:04 | Outpatient (REF) | payer OTHER, SELFPAY ==
[2024-07-30 09:13] LABS: MANUAL DIFF FLAG NO
[2024-07-30 09:23] LABS: Basophils Absolute Auto 0.1 X10*3/uL (0.0-0.2); Basophils Percent Auto 0.7 % (0-2); Eosinophils Absolute Auto 0.2 X10*3/uL (0.0-0.4); Eosinophils Percent Auto 1.9 % (0-4); Hematocrit 39.9 % (37.0-47.0); Hemoglobin 13.3 g/dl (12.0-16.0); Imm Gran Abs Auto 0.02 X10*3/uL (0.00-0.03); Imm Gran Pct Auto 0.2 % (0.0-0.4); Lymphocytes Absolute Auto 2.4 X10*3/uL (1.2-4.9); Lymphocytes Percent Auto 27.5 % (20-40); Mean Corpuscular HGB Conc 33.3 g/dl (31.0-35.0); Mean Corpuscular Hemoglobin 28.1 pg (27.0-33.0); Mean Corpuscular Volume 84.4 fL (80.0-98.0); Mean Platelet Volume 8.8 fL (9.4-12.3); Monocytes Absolute Auto 0.7 X10*3/uL (0.1-1.2); Monocytes Percent Auto 7.5 % (2-11); Neutrophils Absolute Auto 5.4 x10*3/uL (2.0-8.3); Neutrophils Percent Auto 62.2 % (45-73); Platelet Count 379 X10*3/uL (160-400); Red Blood Count 4.73 X10*6/uL (4.20-5.50); Red Cell Distribution Width 12.8 % (11.0-16.0); White Blood Count 8.8 X10*3/uL (4.8-10.8)
[2024-07-30 09:32] LABS: Estimated Average Glucose 105 mg/dL; Hemoglobin A1c % 5.3 % (<6.0); Total Hemoglobin (HGBA1C) 3337.3951 umol/L
[2024-07-30 09:55] LABS: Alanine Aminotransferase 22 U/L (0-31); Albumin Level 4.1 g/dL (3.5-5.0); Alkaline Phosphatase 68 U/L (39-117); Anion Gap 13 (12-20); Aspartate Amino Transferase 22 U/L (5-31); Bilirubin Total 0.5 mg/dL (0.0-1.0); Blood Urea Nitrogen 21 mg/dL (9-16); Calcium 10.3 mg/dL (8.4-10.2); Carbon Dioxide 24 mmol/L (22-29); Chloride 106 mmol/L (96-108); Cholesterol 221 mg/dL (<200); Estimated Glomerular Filt Rate > 60; Glucose Random 105 mg/dL (60-115); HDL Cholesterol 63 mg/dL (>40); LDL Cholesterol Calculated 112 mg/dL (<100); Potassium 4.4 mmol/L (3.3-5.1); Sodium 139 mmol/L (135-145); Total Protein 7.6 g/dL (6.5-8.0); Triglycerides 232 mg/dL (<150)
[2024-07-30 10:18] LABS: Free T4 (Free Thyroxine) 1.04 ng/dL (0.71-1.85); TSH reflex Free T4 1.13 uIU/mL (0.32-4.0)
[2024-07-30 10:19] LABS: Folate 10.9 ng/mL (> or = 4.0); Vitamin B12 601 pg/mL (200-900)
[2024-08-04 16:44] LABS: Vitamin D 25-OH, D2 <4 ng/mL; Vitamin D 25-OH, D3 33 ng/mL; Vitamin D 25-OH, Total 33 ng/mL (30-100)
== END 2024-07-30 09:05 | disposition home or self-care (01) ==
LOC: HO.LAB 09:04
DX: Z00.00 Encounter for general adult medical examination without abnormal findings (principal); E66.01 Morbid (severe) obesity due to excess calories
CPT/HCPCS: 36415; 80053; 80061; 82306; 82607; 82746; 83036; 84439; 84443; 85025

== ENCOUNTER 2024-08-09 09:09 | Outpatient (AMB) | payer OTHER, SELFPAY ==
[2024-08-09 09:19] VITALS: BMI 47.4
--- NOTE | 2024-08-09 09:19 | A.OFFVIS_ITS ---
VS Expanded 08/09/24 09:19 08/09/24 09:34 Height 5 ft 4 in 5 ft 4 in Weight 276 lb 7.355 oz 276 lb BMI 47.4 47.4 Intake Visit Reasons: Morbid Obesity/LVM Allergies morphine [MORPHINE] Allergy (Unknown, Verified 07/26/24 09:46) ANAPHYLAXIS oxycodone [From PERCOCET] Allergy (Unknown, Verified 07/26/24 09:46) RASH strawberry [STRAWBERRY] Allergy (Unknown, Verified 07/26/24 09:46) ANAPHYLAXIS Nutrition Presentation Details: Pt presents for MNT for obesity. Pt reports having long hx of GI symptoms and has lactose intolerance Reports having 2-3 meals a day, meals vary B: skips or has crackers/breads lunch: rice noodles soup , some veg, no protein dinner: shirmp,sushi food frequency fruits: 0-1/d vex/wk fish : 1x/wk starches > 25 /d dairy- --- reports intolerance to dairy dairy alternative 0-1/d physical activity -- etoh/smoking-- BS Monitoring Most Recent Diabetes Results: Cholesterol 221 mg/dL (<200) H 07/30/24 HDL Cholesterol 63 mg/dL (>40) 07/30/24 Triglycerides 232 mg/dL (<150) H 07/30/24 Creatinine 0.84 mg/dL (0.5-1.4) 07/30/24 Blood Urea Nitrogen 21 mg/dL (9-16) H 07/30/24 Sodium 139 mmol/L (135-145) 07/30/24 Potassium 4.4 mmol/L (3.3-5.1) 07/30/24 Chloride 106 mmol/L (96-108) 07/30/24 Carbon Dioxide 24 mmol/L (22-29) 07/30/24 Calcium 10.3 mg/dL (8.4-10.2) H 07/30/24 AST 22 U/L (5-31) 07/30/24 ALT 22 U/L (0-31) 07/30/24 Total Protein 7.6 g/dL (6.5-8.0) 07/30/24 Albumin 4.1 g/dL (3.5-5.0) 07/30/24 CDF-Powleuo-Pw.Jeor Equation Height: 5 ft 4 in Weight: 276 lb Resting Metabolic Rate: 1903.94 Calculated Activity Level: Sedentary Calories Needed to Maintain Weight: 2284.73 Diagnosis Nutrition problem #1: food nutri know defi As related to (etiology) #1: diagnosis As evidenced by (sign/symptom) #1: knowledge deficit of diet [facility] Medical History Allergic rhinitis COVID-19 Tick bite Unplanned unwanted Delivery with history of test positive Polyp of cervix Fibroid, uterine History of uterine fibroid Encounter to establish care Surgical History History of hysterectomy History of colonoscopy History of surgery on right wrist History of delivery Family History Mother No problems noted. Father Mental health disorder Substance use disorder Social History Household Members: Family Housing: House Do you presently have visiting nurse or other home services: No Alcohol intake: current Alcohol intake frequency: a few times a month Patient Tobacco Use Status: Former Tobacco user Tobacco use type: Cigarette e-Cigarette/Vaping Use: Never Used Second Hand Smoke Exposure: No service: No Current occupational status: employed Current occupational exposures/hazards: No Cognitive needs: No Hearing needs: No Vision needs: No Female Reproductive History Menstrual Age of Menarche: 14 Assessment & Plan Assessment & Plan (1) Obesity, morbid, BMI 40.0-49.9: Code(s): E66.01 - Morbid (severe) obesity due to excess calories Category: Medical Plan: Wt: 125 Kg ( 08/10 ) Est kcal needs as per MSJ: 2300 (40% carb, 30% protein/fat) Est fluid needs as per 25-30 ml/d: 3800 Est prot per day as per 1 g/kg bw: 125 Recommend fiber intake : 8-10 g per day and gradually increase to 25-28 g per day for women and 35-38 g for men or as tolerated Recommend sodium intake per day : less than 2000 mg Educated patient on: ( R = reviewed V = verbalizes understanding N/R = needs review N/A = not applicable * Food sources of carbohydrate, adequate serving sizes and its role in various health conditions: R V N/R * Differences between complex carbohydrates a simple carbohydrates, role of fiber in diet: R V N/R * Lean protein sources of foods: R V NR * Differences between types of fats and role in diet (mono on saturated fat fatty acids, saturated fatty acids, trans fats): R V N/R * Food sources of sodium in salt and healthy modifications for heart health in kidney health: R V R/V * Vitamins and minerals: R V N/R * Healthy plate method concept: R V N/R * Physical activity: Benefits a precaution: R V N/R * Hypoglycemia protocol (rule of 15): R V N/R * Dietary prevention of Hyperglycemia: R V R/V Patient Instructions: following healthy plate method at dinner Have 2 fruits a day replacing starches practice mindful eating strategies gradually reduce on amount of caffeine intake Coding Level of Care Code Nutr Indiv Intake (87441) Diagnoses Obesity, morbid, BMI 40.0-49.9 E66.01 Time Spent (min) 30
[2024-08-09 09:34] VITALS: BMI 47.4
== END 2024-08-09 10:08 | disposition home or self-care (01) ==
PROVIDERS: Visit Provider Dietitian, Registered
DX: E66.01 Morbid (severe) obesity due to excess calories (principal)

== ENCOUNTER → 2024-08-09 09:09 | Outpatient (BNVA) | payer OTHER, SELFPAY | PROVIDERS: Visit Provider Dietitian, Registered | DX: E66.01 Morbid (severe) obesity due to excess calories (principal); Z68.41 Body mass index [BMI] 40.0-44.9, adult; Z71.3 Dietary counseling and surveillance | CPT/HCPCS: 97802 ==

== ENCOUNTER 2024-08-23 11:06 | Outpatient (AMB) | payer OTHER, SELFPAY ==
--- NOTE | 2024-08-23 11:08 | A.OFFPSYCH_ITS ---
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 Allergies morphine [MORPHINE] Allergy (Unknown, Verified 07/26/24 09:46) ANAPHYLAXIS oxycodone [From PERCOCET] Allergy (Unknown, Verified 07/26/24 09:46) RASH strawberry [STRAWBERRY] Allergy (Unknown, Verified 07/26/24 09:46) ANAPHYLAXIS Medication List - Last Reconciled 08/23/24 by Karol Ellis, BLANKA albuterol sulfate 90 mcg/actuation (Ventolin HFA) 2 puffs inhalation Q4-6H PRN albuterol sulfate 2.5 mg (3 mL) inhalation Q4-6H PRN cetirizine 10 mg PO DAILY cyclobenzaprine 10 mg PO BEDTIME epinephrine (EpiPen) 0.3 mg (0.3 mL) IM Q10M PRN fluticasone propionate 50 mcg/actuation (Flonase Allergy Relief) 1 spray intranasal BID lidocaine 5% 1 patch topical DAILY meloxicam 15 mg PO DAILY montelukast 10 mg PO DAILY multivitamin 1 tab PO DAILY omalizumab (Xolair) 300 mg subcut Q4W omeprazole 20 mg PO DAILY semaglutide (Ozempic) 0.25 mg (0.368 mL) subcut QWEEK simethicone (Gas Relief (simethicone)) 80 mg PO TID-QID PRN HPI- Psychiatric Chief Complaint: consultation HPI Narrative: pt referred by PCP for evaluation of depression and medication intervention. Pt is in therapy but feels she needs more help. Pt is 43 yo woman with one 8 yr old child. She tells me her own childhood was very difficult because her father had Bipolar Disorder and was in and out of their lives; she herself describes a history of manic symptoms and periods of depression; Its been about 10 yrs she says since she had a serious manic episode where it caused damage to her personal relationships. She has had some episodes of hypomania in the last 10 yrs but says she has managed with the support of her not to act on her impulses. she has had several medication trilas in past including lithium, zoloft, lexapro, wellbutrin, hydroxyzine, trazodone all of which were either ineffective or caused side effects. She reports a hisotry of inattention, procrastination, distraction, not finishing tasks, easily bored, since childhood. she left high school in 10th grade due to boredom andwent on to complete GED and start college at age 18. she failed math classes in [employer] and also lost credit for a whole year worth of school due to not passing in her final papers. she did finally manage to graduate with a degree in cultural anthropology. she has had trouble keeping jobs since graduating. Past Psychiatric History: one IPLOC at the [facility] age 22 Mental Status Exam Mental Status Exam Patient Appearance: Appropriate Patient Orientation: Person, Place, Time and Situation Level of Consciousness: Awake and Appropriate Patient Behavior: Appropriate and Cooperative Mood Description: Appropriate Affect Description: Appropriate Patient Cognition Impaired: No Ability to Follow Directions: Good Speech Pattern: Clear and Appropriate Memory Description: Intact Hallucinations: None Delusions: Not Present Thought Process: Intact Thought Content: positive for Intact and positive for Goal Oriented Judgement: Good Assessment and Plan Assessment & Plan (1) Bipolar II disorder major depressive with melancholic features: Status: Acute Code(s): F31.81 - Bipolar II disorder Plan rule out ADHD combined type start lamictal 25mg daily x 14 days then 50 mg daily x 14 days then 100mg daily trazodone 100mg at bedtime prn sleep consider trial of vyvanse at next visit Medications: New lamotrigine (Lamictal) 25 mg orally lamictal 25 mg daily x 14 days then 50mg daily in am x 14 days then take 100mg daily in am; 90 tabs 0RF 30 days trazodone take 50mg- 100mg at bedtime as needed for sleep orally bedtime PRN; 60 tabs 2RF sleep Counseling and coordination of Care Pt. Self Management counseling: Maintenance-social rhythm, Mod caffeine/ETOH intake, Sleep hygiene, Behavior activation and General coping skills Medication management counseling: Effectiveness, Side effects, Dosing range, Duration, Drug interaction and Adherence Diagnosis and Prognosis Counseling: Accuracy of diagnosis, Prognosis over time, Impact of diagnosis on life functions and Adequacy of current interventions Details: I spent 75[] minutes reviewing the record, seeing the patient and documenting in the medical record. Counseling provided to the patient/caregiver as outlined below. Addressed patient/caregiver concerns regarding current medication regime including effective adherence. Addressed patient/caregiver concerns regarding diagnosis and prognosis including accuracy of diagnosis, prognosis over time, impact of diagnosis. Addressed patient/caregiver concerns regarding impact of recent stressors. [facility] Medical History Allergic rhinitis COVID-19 Tick bite Unplanned unwanted Delivery with history of test positive Polyp of cervix Fibroid, uterine History of uterine fibroid Encounter to establish care Surgical History History of hysterectomy History of colonoscopy History of surgery on right wrist History of delivery Family History Mother No problems noted. 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 THC edibles periodically for body pain but causes anxiety so not often. in 20s experimented with opiates, hallucinogens and ketamine Trauma History: childhood Coding Level of Care Code Psych Diag Eval w/Med (10339) Diagnoses Bipolar II disorder major depressive with melancholic features F31.81
== END 2024-08-23 12:25 | disposition home or self-care (01) ==
LOC: HO.HOP 11:06
PROVIDERS: Visit Provider Clinical Nurse Specialist Psychiatric/Mental Health
DX: F31.81 Bipolar II disorder (principal)
CPT/HCPCS: 90792

== ENCOUNTER → 2024-08-23 11:06 | Outpatient (BNVA) | payer OTHER, SELFPAY | PROVIDERS: Visit Provider Clinical Nurse Specialist Psychiatric/Mental Health | DX: F31.81 Bipolar II disorder (principal) | CPT/HCPCS: 90792 ==

== ENCOUNTER 2024-09-07 11:24 | Outpatient (AMB) | payer OTHER, SELFPAY ==
--- NOTE | 2024-09-07 11:44 | A.OFFVIS_ITS ---
VS Expanded 09/07/24 11:48 Height 5 ft 4 in Weight 262 lb 12.656 oz BMI 45.1 Intake Visit Reasons: Morbid Obesity Allergies morphine [MORPHINE] Allergy (Unknown, Verified 07/26/24 09:46) ANAPHYLAXIS oxycodone [From PERCOCET] Allergy (Unknown, Verified 07/26/24 09:46) RASH strawberry [STRAWBERRY] Allergy (Unknown, Verified 07/26/24 09:46) ANAPHYLAXIS Nutrition Presentation Details: Pt presents for MNT f/u obesity Pt reports having started ozempic a month ago, goal weight at 215 lbs Pt reports making meals with less fat and increasing in fiber rich foods. Pt c/o nausea, vomiting once/wk or none BS Monitoring Most Recent Diabetes Results: Cholesterol 221 mg/dL (<200) H 07/30/24 HDL Cholesterol 63 mg/dL (>40) 07/30/24 Triglycerides 232 mg/dL (<150) H 07/30/24 Creatinine 0.84 mg/dL (0.5-1.4) 07/30/24 Blood Urea Nitrogen 21 mg/dL (9-16) H 07/30/24 Sodium 139 mmol/L (135-145) 07/30/24 Potassium 4.4 mmol/L (3.3-5.1) 07/30/24 Chloride 106 mmol/L (96-108) 07/30/24 Carbon Dioxide 24 mmol/L (22-29) 07/30/24 Calcium 10.3 mg/dL (8.4-10.2) H 07/30/24 AST 22 U/L (5-31) 07/30/24 ALT 22 U/L (0-31) 07/30/24 Total Protein 7.6 g/dL (6.5-8.0) 07/30/24 Albumin 4.1 g/dL (3.5-5.0) 07/30/24 [facility] Medical History Allergic rhinitis COVID-19 Tick bite Unplanned unwanted Delivery with history of test positive Polyp of cervix Fibroid, uterine History of uterine fibroid Encounter to establish care Surgical History History of hysterectomy History of colonoscopy History of surgery on right wrist History of delivery Family History Mother No problems noted. Father Mental health disorder Substance use disorder Social History Household Members: Family Housing: House Do you presently have visiting nurse or other home services: No Alcohol intake: current Alcohol intake frequency: a few times a month Patient Tobacco Use Status: Former Tobacco user Tobacco use type: Cigarette e-Cigarette/Vaping Use: Never Used Second Hand Smoke Exposure: No service: No Current occupational status: employed Current occupational exposures/hazards: No Cognitive needs: No Hearing needs: No Vision needs: No Female Reproductive History Menstrual Age of Menarche: 14 Assessment & Plan Assessment & Plan (1) Obesity, morbid, BMI 40.0-49.9: Code(s): E66.01 - Morbid (severe) obesity due to excess calories Category: Medical Plan: Wt: 125 Kg ( 08/10 ), 119.5 (09/09) Est kcal needs as per MSJ: 2200 (40% carb, 30% protein/fat) Est fluid needs as per 25-30 ml/d: 3800 Est prot per day as per 1 g/kg bw: 125 Recommend fiber intake : 8-10 g per day and gradually increase to 25-28 g per day for women and 35-38 g for men or as tolerated Recommend sodium intake per day : less than 2000 mg Educated patient on: ( R = reviewed V = verbalizes understanding N/R = needs review N/A = not applicable * Food sources of carbohydrate, adequate serving sizes and its role in various health conditions: R V N/R * Differences between complex carbohydrates a simple carbohydrates, role of fiber in diet: R V N/R * Lean protein sources of foods: R V NR * Differences between types of fats and role in diet (mono on saturated fat fatty acids, saturated fatty acids, trans fats): R V N/R * Food sources of sodium in salt and healthy modifications for heart health in kidney health: R V R/V * Vitamins and minerals: R V N/R * Healthy plate method concept: R * Physical activity: Benefits a precaution: R * Reducing nausea and preventing vomiting episodes * Medications: Discontinued semaglutide for 4 weeks Discontinued Reason: Patient no longer taking 0.25 mg (0.368 mL) subcut QWEEK 3 mL 0RF Patient Instructions: Work on having smaller portions sizes, practicing mindful eating portion sizes Eat food slowly, chew foods well and swallow until applesauce consistency Coding Level of Care Code Nutr Indiv Subseq (14164) Diagnoses Obesity, morbid, BMI 40.0-49.9 E66.01 Time Spent (min) 30
[2024-09-07 11:48] VITALS: BMI 45.1
== END 2024-09-07 12:17 | disposition home or self-care (01) ==
PROVIDERS: Visit Provider Dietitian, Registered
DX: E66.01 Morbid (severe) obesity due to excess calories (principal)

== ENCOUNTER → 2024-09-07 11:24 | Outpatient (BNVA) | payer OTHER, SELFPAY | PROVIDERS: Visit Provider Dietitian, Registered | DX: E66.01 Morbid (severe) obesity due to excess calories (principal); Z68.42 Body mass index [BMI] 45.0-49.9, adult; Z71.3 Dietary counseling and surveillance | CPT/HCPCS: 97803 ==

== ENCOUNTER 2024-10-05 13:36 | Outpatient (AMB) | payer OTHER, SELFPAY ==
--- NOTE | 2024-10-05 14:01 | MHC.OFFVISPS ---
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 Allergies morphine [MORPHINE] Allergy (Unknown, Verified 07/26/24 09:46) ANAPHYLAXIS oxycodone [From PERCOCET] Allergy (Unknown, Verified 07/26/24 09:46) RASH strawberry [STRAWBERRY] Allergy (Unknown, Verified 07/26/24 09:46) ANAPHYLAXIS Medication List - Last Reconciled 10/05/24 by Karol Ellis, BLANKA albuterol sulfate 90 mcg/actuation (Ventolin HFA) 2 puffs inhalation Q4-6H PRN albuterol sulfate 2.5 mg (3 mL) inhalation Q4-6H PRN cetirizine 10 mg PO DAILY cyclobenzaprine 10 mg PO BEDTIME epinephrine (EpiPen) 0.3 mg (0.3 mL) IM Q10M PRN fluticasone propionate 50 mcg/actuation (Flonase Allergy Relief) 1 spray intranasal BID lamotrigine (Lamictal) 25 mg orally lamictal 25 mg daily x 14 days then 50mg daily in am x 14 days then take 100mg daily in am; 30 days lidocaine 5% 1 patch topical DAILY meloxicam 15 mg PO DAILY montelukast 10 mg PO DAILY multivitamin 1 tab PO DAILY omalizumab (Xolair) 300 mg subcut Q4W omeprazole 20 mg PO DAILY ondansetron 4 mg PO Q8H PRN semaglutide 0.5 mg (0.736 mL) subcut QWEEK simethicone (Gas Relief (simethicone)) 80 mg PO TID-QID PRN trazodone take 50mg- 100mg at bedtime as needed for sleep orally bedtime PRN; HPI- Psychiatric Chief Complaint: consultation HPI Narrative: sad, irritable, anxious. taking lamictal - no side effects , no raSH . PT HAVING CONSIDERABLE DIFFICULTITIES WITH ATTENTION AND FOCUS; EASILY [id number]; TROUBLE STAYING ON TAsk ; symptoms effecting her at home and work. Past Psychiatric History: one IPLOC at the [facility] [employer] age 22 Subjective Subjective Subjective Medication Compliance: Yes Side effects from medications: No Review of Systems Medical Review of Systems: unchanged Mental Status Exam Mental Status Exam Patient Appearance: Well Grooomed and Appropriate Patient Orientation: Person, Place, Time and Situation Level of Consciousness: Awake, Appropriate and Alert Patient Behavior: Appropriate, Talkative, Anxious, Distractible and Crying Mood Description: Anxious and Sad Affect Description: Anxious and Sad Patient Cognition Impaired: No Ability to Follow Directions: Good Speech Pattern: Clear Memory Description: Intact Hallucinations: None Delusions: Not Present Thought Process: Distracted Thought Content: positive for Circumstantial and positive for Loose Associations Judgement: Fair Assessment and Plan Assessment & Plan (1) ADHD (attention deficit hyperactivity disorder), combined type: Status: Acute Code(s): F90.2 - Attention-deficit hyperactivity disorder, combined type (2) Bipolar II disorder major depressive with melancholic features: Status: Acute Code(s): F31.81 - Bipolar II disorder Plan increase la,ictal as below start vyvanse Medications: New lisdexamfetamine (Vyvanse) Partial Fill upon patient request. 40 mg PO QAM 30 caps 0RF Karol Ellis APRN lamotrigine (Lamictal) 100 mg orally take 1tablet daily x 14 days then 1 & 1/2 tablets daily; 135 tabs 0RF Karol Ellis APRN Discontinued lamotrigine Discontinued Reason: Doctor's Order 25 mg orally lamictal 25 mg daily x 14 days then 50mg daily in am x 14 days then take 100mg daily in am; 30 days 90 tabs 0RF On Hold semaglutide Hold Comment: Dose Change 0.5 mg (0.736 mL) subcut QWEEK 3 mL 0RF Preethi Mcintosh PA-C Counseling and coordination of Care Pt. Self Management counseling: Exercise, Maintenance-social rhythm, Mod caffeine/ETOH intake, Nutrition education and improvement, Behavior activation, General coping skills and Problem solving Medication management counseling: Effectiveness, Side effects, Dosing range, Duration, Drug interaction and Adherence Diagnosis and Prognosis Counseling: Accuracy of diagnosis, Prognosis over time, Impact of diagnosis on life functions, Impact of family relationship, Problematic behaviors secondary to diagnosis and Adequacy of current interventions Details: I spent 40 minutes reviewing the record, seeing the patient and documenting in the medical record. Counseling provided to the patient/caregiver as outlined below. Addressed patient/caregiver concerns regarding current medication regime including effective adherence. Addressed patient/caregiver concerns regarding diagnosis and prognosis including accuracy of diagnosis, prognosis over time, impact of diagnosis. Addressed patient/caregiver concerns regarding impact of recent stressors. [facility] Medical History Allergic rhinitis COVID-19 Tick bite Unplanned unwanted Delivery with history of test positive Polyp of cervix Fibroid, uterine History of uterine fibroid Encounter to establish care Surgical History History of hysterectomy History of colonoscopy History of surgery on right wrist History of delivery Family History Mother No problems noted. 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 THC edibles periodically for body pain but causes anxiety so not often. in 20s experimented with opiates, hallucinogens and ketamine Trauma History: childhood Coding Level of Care Code Est Pt Level 4 (05381) Diagnoses ADHD (attention deficit hyperactivity disorder), combined type F90.2 Bipolar II disorder major depressive with melancholic features F31.81
== END 2024-10-05 14:29 | disposition home or self-care (01) ==
LOC: HO.HOP 13:36
PROVIDERS: Visit Provider Clinical Nurse Specialist Psychiatric/Mental Health
DX: F90.2 Attention-deficit hyperactivity disorder, combined type (principal); F31.81 Bipolar II disorder
CPT/HCPCS: 99214

== ENCOUNTER → 2024-10-05 13:36 | Outpatient (BNVA) | payer OTHER, SELFPAY | PROVIDERS: Visit Provider Clinical Nurse Specialist Psychiatric/Mental Health | DX: F90.2 Attention-deficit hyperactivity disorder, combined type (principal); F31.81 Bipolar II disorder | CPT/HCPCS: 99212 ==

== ENCOUNTER 2024-10-07 10:04 | Outpatient (REF) | payer OTHER, SELFPAY ==
[2024-10-07 11:49] LABS: Alanine Aminotransferase 24 U/L (0-31); Alkaline Phosphatase 68 U/L (39-117); Anion Gap 10 (12-20); Aspartate Amino Transferase 19 U/L (5-31); Bilirubin Total 0.5 mg/dL (0.0-1.0); Blood Urea Nitrogen 12 mg/dL (9-16); Carbon Dioxide 23 mmol/L (22-29); Chloride 107 mmol/L (96-108); Estimated Glomerular Filt Rate > 60; Glucose Random 114 mg/dL (60-115); Potassium 4.4 mmol/L (3.3-5.1); Sodium 136 mmol/L (135-145); Total Protein 7.3 g/dL (6.5-8.0)
== END 2024-10-07 10:05 | disposition home or self-care (01) ==
LOC: HO.LAB 10:04
DX: Z00.00 Encounter for general adult medical examination without abnormal findings (principal)
CPT/HCPCS: 36415; 80053

== ENCOUNTER 2024-10-19 11:26 | Outpatient (AMB) | payer OTHER, SELFPAY ==
[2024-10-19 11:44] VITALS: BMI 43.1
--- NOTE | 2024-10-19 11:44 | A.OFFVIS_ITS ---
VS Expanded 10/19/24 11:44 Height 5 ft 4 in Weight 251 lb 1.704 oz BMI 43.1 Intake Visit Reasons: monitor Allergies morphine [MORPHINE] Allergy (Unknown, Verified 10/25/24 11:59) ANAPHYLAXIS oxycodone [From PERCOCET] Allergy (Unknown, Verified 10/25/24 11:59) RASH strawberry [STRAWBERRY] Allergy (Unknown, Verified 10/25/24 11:59) ANAPHYLAXIS Nutrition Presentation Details: Pt presents for MNT f/u for obesity. Pt reports working on reducing on portion sizes of foods she enjoys choosing high fiber foods and alternating protein sources (legumes/poultry/cheese), enjoys soups food frequency fruits 3 serving/d dairy 3+/d veg 4serving/d protein : cheese/tofu/beans, poultry est 60 g /d fluids : broth, teas , 16-24 oz/d physical activity:daily life activities etoh: occ BS Monitoring Most Recent Diabetes Results: Cholesterol 221 mg/dL (<200) H 07/30/24 HDL Cholesterol 63 mg/dL (>40) 07/30/24 Triglycerides 232 mg/dL (<150) H 07/30/24 Creatinine 0.75 mg/dL (0.5-1.4) 10/07/24 Blood Urea Nitrogen 12 mg/dL (9-16) 10/07/24 Sodium 136 mmol/L (135-145) 10/07/24 Potassium 4.4 mmol/L (3.3-5.1) 10/07/24 Chloride 107 mmol/L (96-108) 10/07/24 Carbon Dioxide 23 mmol/L (22-29) 10/07/24 Calcium 10.0 mg/dL (8.4-10.2) 10/07/24 AST 19 U/L (5-31) 10/07/24 ALT 24 U/L (0-31) 10/07/24 Total Protein 7.3 g/dL (6.5-8.0) 10/07/24 Albumin 4.0 g/dL (3.5-5.0) 10/07/24 [facility] Medical History Allergic rhinitis COVID-19 Tick bite Unplanned unwanted Delivery with history of test positive Polyp of cervix Fibroid, uterine History of uterine fibroid Encounter to establish care Surgical History History of hysterectomy History of colonoscopy History of surgery on right wrist History of delivery Family History Mother No problems noted. Father Mental health disorder Substance use disorder Social History Household Members: Family Housing: House Do you presently have visiting nurse or other home services: No Alcohol intake: current Alcohol intake frequency: a few times a month Patient Tobacco Use Status: Former Tobacco user Tobacco use type: Cigarette e-Cigarette/Vaping Use: Never Used Second Hand Smoke Exposure: No service: No Current occupational status: employed Current occupational exposures/hazards: No Cognitive needs: No Hearing needs: No Vision needs: No Female Reproductive History Menstrual Age of Menarche: 14 Assessment & Plan Assessment & Plan (1) Obesity, morbid, BMI 40.0-49.9: Code(s): E66.01 - Morbid (severe) obesity due to excess calories Category: Medical Plan: Wt: 125 Kg ( 08/10 ), 119.5 (09/09), 114 kg (11/09) Est kcal needs as per MSJ: 2200 (40% carb, 30% protein/fat) Est fluid needs as per 25-30 ml/d: 3800 Est prot per day as per 1 g/kg bw: 125 Recommend fiber intake : 8-10 g per day and gradually increase to 25-28 g per day for women and 35-38 g for men or as tolerated Recommend sodium intake per day : less than 2000 mg Educated patient on: ( R = reviewed V = verbalizes understanding N/R = needs review N/A = not applicable * Food sources of carbohydrate, adequate serving sizes and its role in various health conditions: R V N/R * Differences between complex carbohydrates a simple carbohydrates, role of fiber in diet: R V N/R * Lean protein sources of foods: R V NR * Differences between types of fats and role in diet (mono on saturated fat fatty acids, saturated fatty acids, trans fats): R * Food sources of sodium in salt and healthy modifications for heart health in kidney health: R V R/V * Vitamins and minerals: R V N/R * Healthy plate method concept: R * Physical activity: Benefits a precaution: R Patient Instructions: engage in physical activity, walk 10 minutes and gradually increase to 30 min or as tolerated , unless otherwise medically advised by MD Coding Level of Care Code Nutr Indiv Subseq (71467) Diagnoses Obesity, morbid, BMI 40.0-49.9 E66.01 Time Spent (min) 20
== END 2024-10-19 12:16 | disposition home or self-care (01) ==
PROVIDERS: Visit Provider Dietitian, Registered
DX: E66.01 Morbid (severe) obesity due to excess calories (principal)

== ENCOUNTER → 2024-10-19 11:26 | Outpatient (BNVA) | payer OTHER, SELFPAY | PROVIDERS: Visit Provider Dietitian, Registered | DX: E66.01 Morbid (severe) obesity due to excess calories (principal); Z71.3 Dietary counseling and surveillance; Z68.43 Body mass index [BMI] 50.0-59.9, adult | CPT/HCPCS: 97803 ==

== ENCOUNTER 2024-10-25 11:18 | Outpatient (AMB) | payer OTHER, SELFPAY ==
--- NOTE | 2024-10-25 11:34 | A.OFFPC_ITS ---
Vital Signs 10/25/24 11:35 Height 5 ft 4 in Weight 255 lb 2 oz BMI 43.8 BP 120/80 Blood Pressure Location Lt brachial Position Sitting Pulse 101 H Pulse Source Pulse Oximeter Pulse Oximetry (%) 98 Oxygen Delivery Method Room Air Intake Visit Reasons: Annual Exam Intake Note: Patient is here today for a physical. Boot Maker Required: No Cod Clerk: Not Required per policy Accompanied by: Self / Same As Patient Allergies morphine [MORPHINE] Allergy (Unknown, Verified 10/25/24 11:59) ANAPHYLAXIS oxycodone [From PERCOCET] Allergy (Unknown, Verified 10/25/24 11:59) RASH strawberry [STRAWBERRY] Allergy (Unknown, Verified 10/25/24 11:59) ANAPHYLAXIS Medication List - Last Reconciled 10/25/24 by Preethi Mcintosh PA-C albuterol sulfate 90 mcg/actuation (Ventolin HFA) 2 puffs inhalation Q4-6H PRN albuterol sulfate 2.5 mg (3 mL) inhalation Q4-6H PRN cetirizine 10 mg PO DAILY cyclobenzaprine 10 mg PO BEDTIME epinephrine (EpiPen) 0.3 mg (0.3 mL) IM Q10M PRN fluticasone propionate 50 mcg/actuation (Flonase Allergy Relief) 1 spray intranasal BID lamotrigine (Lamictal) 100 mg orally take 1tablet daily x 14 days then 1 & 1/2 tablets daily; lidocaine 5% 1 patch topical DAILY lisdexamfetamine (Vyvanse) 40 mg PO QAM meloxicam 15 mg PO DAILY montelukast 10 mg PO DAILY multivitamin 1 tab PO DAILY omalizumab (Xolair) 300 mg subcut Q4W omeprazole 20 mg PO DAILY ondansetron 4 mg PO Q8H PRN semaglutide 1 mg (0.75 mL) subcut QWEEK simethicone (Gas Relief (simethicone)) 80 mg PO TID-QID PRN trazodone take 50mg- 100mg at bedtime as needed for sleep orally bedtime PRN; Vyvanse (lisdexamfetamine) 40 mg PO QAM NS Tobacco use date assessed: 10/25/24 Dental Screening Dental Screen Date: 07/26/24 HPI Annual Exam HPI Details 43-year-old female with past medical his tory of depression, HSV, asthma, diabetes mellitus, generalized anxiety disorder and insomnia last seen July 2024 coming in for annual exam. In review of the notes patient was seen by endocrinology 10/19/2024 for morbid obesity. Patient was seen by outpatient psych 10/18/2024 patient was started on Vyvanse and increase dose of lamotrigine. Patient was seen by pulmonology August 2024 change Ventolin to air supra and we will continue on Anoro and Arnuity with Xolair monthly. Patient states she had a fall a couple weeks ago and did hit her chin on the edge of a table but denies any head strike, loss of consciousness or headache. She has been following with [facility] for bilateral shoulder injections. She has been following with pulmonology for immunotherapy for allergies. She does follow regularly with Gynecology in his up-to-date on Pap smears and is up-to-date on her mammogram as well. [facility] Medical History Allergic rhinitis COVID-19 Tick bite Unplanned unwanted Delivery with history of test positive Polyp of cervix Fibroid, uterine History of uterine fibroid Encounter to establish care Surgical History History of hysterectomy History of colonoscopy History of surgery on right wrist History of delivery Family History Mother No problems noted. Father Mental health disorder Substance use disorder Social History Household Members: Family Housing: House Do you presently have visiting nurse or other home services: No Alcohol intake: current Alcohol intake frequency: a few times a month Patient Tobacco Use Status: Former Tobacco user Tobacco use type: Cigarette e-Cigarette/Vaping Use: Never Used Second Hand Smoke Exposure: No service: No Current occupational status: employed Current occupational exposures/hazards: No Cognitive needs: No Hearing needs: No Vision needs: No Female Reproductive History Menstrual Age of Menarche: 14 Questionnaire Thrive Questionnaire Date Thrive assessed: 07/20/24 I am a: Patient What is your living situation today?: I have a steady place to live Within the past 12 months, did the food you bought not last and you didn't have the money to get more?: Never true Within the past 12 months, did you worry whether your food would run out before you got money to buy more?: Never true Do you have trouble paying for medicines?: No Do you have trouble getting transportation to medical appointments?: No Do you have trouble paying your heating and electricity bill?: No Do you have trouble taking care of your child, family member or friend?: No Do you have trouble with day-to-day activities such as bathing, preparing meals, shopping, managing finances, etc.?: No Are you currently unemployed and looking for a job?: No Are you interested in more education?: Yes Please select the resources that you would like help with: None Currently or been in a relationship where the following occur: No concerns reported THRIVE Score: 0 JASSI-7 AMB Questionnaire JASSI-7 Date JASSI - 7 assessed: 11/26/23 (pt seeing therapist ) Source: Developed by Drs. Vishnu Ashton, Susana Walters, Freddy Og and colleagues, with an educational yaneth from [employer]. Review of Systems Const Denies body aches, Denies fatigue, Denies fever(s), Denies frequent falls, Denies headache(s) and Denies weakness Eyes Reports no additional complaints and Denies change in vision ENT Denies dysphagia, Denies dizziness, Denies facial pain, Denies headache(s), Denies nasal congestion and Denies odynophagia Card Denies chest pain, Denies syncope, Denies irregular heart rhythm, Denies leg edema, Denies lightheadedness and Denies dyspnea Resp Denies cough and Denies dyspnea GI Denies abdominal pain, Denies constipation, Denies dysphagia, Denies dyspepsia, Reports diarrhea (chronic, non-bloody), Denies nausea, Denies odynophagia and Denies vomiting Denies urinary frequency, Denies dysuria, Denies urinary hesitancy and Denies urinary urgency Musc Denies back pain and Denies myalgias Skin/Breast Reports system reviewed and no additional complaints, except as documented Neuro Denies dizziness, Denies syncope, Denies frequent falls, Denies headache(s) and Denies weakness Psych Reports no additional complaints Endo Denies fatigue Physical exam (Primary Care) Vital Signs: Last Vital Signs Pulse 101 H 10/25/24 11:35 BP 120/80 10/25/24 11:35 Pulse Ox 98 10/25/24 11:35 Oxygen Delivery Method Room Air 10/25/24 11:35 BMI result Body Mass Index 43.8 Tobacco/Smoking Status: Tobacco use Status Tobacco use date assessed 10/25/24 10/25/24 11:41 Patient Tobacco Use Status Former Tobacco user 10/25/24 11:41 Tobacco use type Cigarette 10/25/24 11:41 e-Cigarette/Vaping Use Never Used 10/25/24 11:41 Thrive Assessment: Date of Thrive Assessment Date Thrive assessed 07/20/24 10/25/24 11:41 Currently or been in a relationship where the following occur: No concerns reported Const General: cooperative, healthy appearing, comfortable and no acute distress Orientation/consciousness: patient oriented x3 HENMT Head: Yes normocephalic Ears: hearing grossly normal bilaterally, external ears normal, TM's normal bilaterally and EAC's normal General nose exam: Normal external nose present Face and sinus: Yes normal facial exam and Yes sinuses nontender Mouth: Normal oral and palatal mucosa present and tongue normal Throat: Yes posterior oropharynx normal Eyes General: appearance normal, both eyes and all related structures Conjunctivae: conjunctivae normal Pupils: Equal, round and reactive pupils present EOM: EOMs intact bilaterally and No Nystagmus present Neck Neck: Yes normal visual inspection, Yes full ROM and Yes no lymphadenopathy Chest Chest palpation & inspection: normal inspection of the chest Resp Effort & Inspection: normal respiratory effort Auscultation: clear to auscultation bilaterally, no crackles, no rales, no rhonchi, no wheezes and breath sounds present Cardio Rate: regular rate Rhythm: regular rhythm Peripheral pulses: radial pulses present and dorsalis pedis present GI Inspection: Yes normal to inspection and No Abdominal wall edema Palpation (GI): Soft to palpation, not firm and nontender Auscultation: normal bowel sounds Rectal Exam - Female: deferred General: Yes no CVA tenderness Back/Spine/Pelvis Back: no CVA tenderness Skin General skin exam: no rashes or lesions noted Neuro General: patient oriented x3 Cranial nerves: Yes Equal, round and reactive pupils present, Yes Midline tongue present, Yes Ability to bilaterally elevate shoulders present and No Nystagmus present Gait exam (Neuro): Normal gait present Extrem General: Yes normal to inspection, Yes full ROM, No no pedal edema and No edema Psych Speech and movement: Normal speech and movement present Affect: normal affect Insight: Good insight present (Psych) Judgement: Good judgement present (Psych) Coding Level of Care Code Est Pt Prev Care 40-64y(45759) Diagnoses ADHD (attention deficit hyperactivity disorder), combined type F90.2 Bipolar II disorder major depressive with melancholic features F31.81 Irritable bowel syndrome with diarrhea K58.0 Irritable bowel syndrome type: with diarrhea Bilateral shoulder pain M25.511; M25.512 Moderate persistent asthma J45.40 Adult general medical exam Z00.00 Generalized anxiety disorder F41.1 Obesity, morbid, BMI 40.0-49.9 E66.01 Acid reflux K21.9 Assessment & Plan Assessment & Plan (1) ADHD (attention deficit hyperactivity disorder), combined type: Code(s): F90.2 - Attention-deficit hyperactivity disorder, combined type Category: Medical Plan: Currently on Vyvanse and working with outpatient psych clinic. Did discuss with patient this prescription would mean every 3 months prescription renewal. Patient understands and we will also look for outpatient psychiatrist as well (2) Bipolar II disorder major depressive with melancholic features: Code(s): F31.81 - Bipolar II disorder Category: Medical Plan: Continue on lamotrigine as prescribed by outpatient psych clinic. Continue to follow with counselor (3) IBS (irritable bowel syndrome): Code(s): K58.9 - Irritable bowel syndrome, unspecified Category: Medical Qualifiers: Irritable bowel syndrome type: with diarrhea Qualified Code(s): K58.0 - Irritable bowel syndrome with diarrhea Plan: Feels symptoms are well managed at time does have occasional diarrhea. Continue to stay well hydrated and avoid trigger foods (4) Bilateral shoulder pain: Code(s): M25.511 - Pain in right shoulder; M25.512 - Pain in left shoulder Category: Medical Plan: Has been following with [facility] for bilateral shoulder injections. (5) Moderate persistent asthma: Code(s): J45.40 - Moderate persistent asthma, uncomplicated Category: Medical Plan: Continue to follow up with pulmonology. Asthma currently controlled on present medications. Avoid triggers such as allergies. (6) Adult general medical exam: Comment: Tetanus Iz w/in 10 years. Code(s): Z00.00 - Encounter for general adult medical examination without abnormal findings Category: Medical Plan: Patient is up-to-date on all recommended routine screenings and vaccinations for her age. Blood work is up-to-date and we will follow up in 3 months. (7) Generalized anxiety disorder: Code(s): F41.1 - Generalized anxiety disorder Category: Medical Plan: Continue to follow with counselor and continue on current medication regimen. (8) Obesity, morbid, BMI 40.0-49.9: Code(s): E66.01 - Morbid (severe) obesity due to excess calories Category: Medical Plan: Healthy diet and regular exercise is encouraged. Presently on semaglutide 1 mg and doing over this medication has lost 19 lb since July. (9) Acid reflux: Code(s): K21.9 - Gastro-esophageal reflux disease without esophagitis Category: Medical Plan: Avoid trigger foods such as citrus, tomato products, soda, caffeine, spicy foods and other foods that may be irritating to your stomach. Avoid laying flat 3-4 hours after eating and elevate the head of the bed 30 degrees to prevent acid from moving into the esophagus. We will increase omeprazole to 40 mg and follow up in 3 months. Plan This note was constructed using voice recognition software. While every effort has been made to ensure accuracy and inseam trimming machine operator, still areas may have been included sometimes these areas may affect the content or meeting of the given symptoms. Total time spent caring for the patient today was 30 minutes. This includes time spent before the visit reviewing the chart, time spent during the visit, and time spent after the visit and documentation. Medications: New omeprazole 40 mg PO DAILY 60 caps 0RF Refilled lidocaine 5% leave on most painful area for up to 12 hrs 1 patch topical DAILY 15 ea 0RF
[2024-10-25 11:35] VITALS: BP 120/80; PULSE 101; O2SAT 98; BMI 43.8
== END 2024-10-25 12:23 | disposition home or self-care (01) ==
DX: Z00.00 Encounter for general adult medical examination without abnormal findings (principal); F31.81 Bipolar II disorder; E66.01 Morbid (severe) obesity due to excess calories; Z68.41 Body mass index [BMI] 40.0-44.9, adult; F90.2 Attention-deficit hyperactivity disorder, combined type; K58.0 Irritable bowel syndrome with diarrhea; M25.511 Pain in right shoulder; M25.512 Pain in left shoulder; J45.40 Moderate persistent asthma, uncomplicated; F41.1 Generalized anxiety disorder; K21.9 Gastro-esophageal reflux disease without esophagitis

== ENCOUNTER → 2024-10-25 11:18 | Outpatient (BNVA) | payer OTHER, SELFPAY | DX: Z00.00 Encounter for general adult medical examination without abnormal findings (principal); F90.2 Attention-deficit hyperactivity disorder, combined type; F31.81 Bipolar II disorder; K58.0 Irritable bowel syndrome with diarrhea; M25.511 Pain in right shoulder; M25.512 Pain in left shoulder; J45.40 Moderate persistent asthma, uncomplicated; F41.1 Generalized anxiety disorder; E66.01 Morbid (severe) obesity due to excess calories; K21.9 Gastro-esophageal reflux disease without esophagitis | CPT/HCPCS: 99396 ==

== ENCOUNTER 2024-12-07 12:32 | Outpatient (AMB) | payer OTHER, SELFPAY ==
[2024-12-07 12:40] VITALS: BMI 42.5
--- NOTE | 2024-12-07 12:40 | A.OFFVIS_ITS ---
VS Expanded 12/07/24 12:40 Height 5 ft 4 in Weight 247 lb 12.793 oz BMI 42.5 Intake Visit Reasons: Obesity Allergies morphine [MORPHINE] Allergy (Unknown, Verified 10/25/24 11:59) ANAPHYLAXIS oxycodone [From PERCOCET] Allergy (Unknown, Verified 10/25/24 11:59) RASH strawberry [STRAWBERRY] Allergy (Unknown, Verified 10/25/24 11:59) ANAPHYLAXIS Nutrition Presentation Details: Pt present for MNT f/u for morbid obesity Pt is on semaglutide 1mg/wk reports doing well Pt also on Vyvanse 40mg/d Pt reports having reduced appetite in the past month related to sickness, treated by MD food frequency protein foods: fish 1x/wk , beans poultry, eggs,balderas fruits: berries, low acid juices vegetables: varies between starchy and non starchy veg 4servin/gd starches > 20, choosing whole grains , legumes Daisha tea/herbal teas B: overnight oats: oats/fruits/oatmilk, flaxseed, nuts, water L: eggs, ravioli , water dinner: soup: tori/pineapple/coconut milk/sweet potatoes snack: yogurt/ice cream ,smoothies physical activity: walking- keeping track of steps [id number]/d BS Monitoring Most Recent Diabetes Results: Creatinine 0.75 mg/dL (0.5-1.4) 10/07/24 Blood Urea Nitrogen 12 mg/dL (9-16) 10/07/24 Sodium 136 mmol/L (135-145) 10/07/24 Potassium 4.4 mmol/L (3.3-5.1) 10/07/24 Chloride 107 mmol/L (96-108) 10/07/24 Carbon Dioxide 23 mmol/L (22-29) 10/07/24 Calcium 10.0 mg/dL (8.4-10.2) 10/07/24 AST 19 U/L (5-31) 10/07/24 ALT 24 U/L (0-31) 10/07/24 Total Protein 7.3 g/dL (6.5-8.0) 10/07/24 Albumin 4.0 g/dL (3.5-5.0) 10/07/24 [facility] Medical History Allergic rhinitis COVID-19 Tick bite Unplanned unwanted Delivery with history of test positive Polyp of cervix Fibroid, uterine History of uterine fibroid Encounter to establish care Surgical History History of hysterectomy History of colonoscopy History of surgery on right wrist History of delivery Family History Mother No problems noted. Father Mental health disorder Substance use disorder Social History Household Members: Family Housing: House Do you presently have visiting nurse or other home services: No Alcohol intake: current Alcohol intake frequency: a few times a month Patient Tobacco Use Status: Former Tobacco user Tobacco use type: Cigarette e-Cigarette/Vaping Use: Never Used Second Hand Smoke Exposure: No service: No Current occupational status: employed Current occupational exposures/hazards: No Cognitive needs: No Hearing needs: No Vision needs: No Female Reproductive History Menstrual Age of Menarche: 14 Assessment & Plan Assessment & Plan (1) Obesity, morbid, BMI 40.0-49.9: Code(s): E66.01 - Morbid (severe) obesity due to excess calories Category: Medical Plan: Wt: 125 Kg ( 08/10 ), 119.5 (09/09), 114 kg (11/09), 112kg(12/11) Est kcal needs as per MSJ: 7548-7317 (40% carb, 30% protein/fat) Est fluid needs as per 25-30 ml/d: 3400 Est prot per day as per 1 g/kg bw: 112 Recommend fiber intake : 8-10 g per day and gradually increase to 25-28 g per day for women and 35-38 g for men or as tolerated Recommend sodium intake per day : less than 2300 mg Educated patient on: ( R = reviewed V = verbalizes understanding N/R = needs review N/A = not applicable * Food sources of carbohydrate, adequate serving sizes and its role in various health conditions: R * Differences between complex carbohydrates a simple carbohydrates, role of fiber in diet: R * Lean protein sources of foods: R V * Differences between types of fats and role in diet (mono on saturated fat fatty acids, saturated fatty acids, trans fats): R * Food sources of sodium in salt and healthy modifications for heart health in kidney health: R V R/V * Vitamins and minerals: R V * Healthy plate method concept: R * Physical activity: Benefits a precaution: R Patient Instructions: Continue physically active as able, goal 150 minutes/week Keep hydrated by having water, diluted juices with water Continue Including probiotic/prebiotic source of foods in the diet: yogurt,carrots in soups legumes Coding Level of Care Code Nutr Indiv Subseq ([id number]) Diagnoses Obesity, morbid, BMI 40.0-49.9 E66.01 Time Spent (min) 30
--- OUTSIDE RECORDS SUMMARY | 2024-12-07 14:09 | XMS_ITS | Data Portability ---
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 Plan of Treatment Reminders Order Date Submit Date Provider Last Modified By Organization Details Last Modified Time Details Appointments None recorded . Lab culture, tissue (biopsy) 017 12/18/19 17 [email or web address] Not available 7 18:09:20 Referral None recorded . Procedures None recorded . Surgeries None recorded . Imaging XR, foot 017 12/16/19 17 [email or web address] In-Office Order, Internal Use Only DO Not Attach Compendium DO Not Attach Compendium, Do Not Delete/merge, [id number] 7 17:32:39 Medication Orders None recorded . Patient TargetsNo targets recorded. Patient Instructions Encounter Date Encounter Id Patient Instructions Last Modified By Organization Details Last Modified Time 12/16/2016 [id number] plantar warts: care instructions [email or web address] Not available 12/17/2016 19:18:11 discussed left submet 5 lesion -history of foreign body warranted excision and exploration of the area for residual foreign matter -foreign body can innoculate area with virus leading to wart which can present with a well encapsulated, stubborn focal lesion at the area -due to tailors bunion formation of callus and IPK can occur, therefore it is possible that the current lesion is unrelated to the history of foreign body and is instead a deep focal lesion of hyperkeratosis secondary to excess bone pressure and/or prominent plantar condyle. this possiblity is supported by the diffuse light callus submet 5 right foot. The right foot does not possess a focal lesion. recurrence of the lesion after excision will support this. lesion excised and sent for biopsy site was not closed with suture as to allow patient to soak the foot in 3 days time to allow draiange of any residual foreign matter site was flushed with copious sterile saline, dressed with bacitracin, gauze, cling and coban instructed limited weight bearing on the site keep dressing clean, dry, intact for 3 days after 3 days soak the foot in warm water and epsom salt for 15 minutes, flush clean, apply bacitracin and DSD wound will take 3-4 weeks to achieve closure if properly treated discussed signs of local and systemic infection and reporting them immediately should they occur discussed xrays with the patient discussed mild bunion deformity regarding etiology, conservative vs surgical treatment options, and prognosis Not available 12/17/2016 18:30:22 12/30/2016 [id number] wound healing we ll focal bone with reactive changes and volar skin suggestive of calcified aspect of foreign body pt may return to water aerobics as long as she ricardo pthe site cleansed and dressed return in the spring for f/u pt will likely always have a callus in the area Not available 12/30/2016 16:35:08 Reason for Referral None Reported. Results Created Date Observation Date Name Description Value Unit Range Abnormal Flag Note LastModifiedBy Organization Detail LastModifiedTime Result Notes None recorded. Procedures Surgical History Date Name Laterality Status Provider Name and Address Organization Details Recorded Time 12/16/19 17 Mass Excision completed [facility] 12/17/2016 18:30:58 07/21/20 16 [facility] 12/16/2016 15:28:02 11/17/19 06 Cystourethroscopy [facility] 12/16/2016 15:28:28 Imaging Results None recorded. Procedure Notes None recorded. Medical Equipment None Reported. Allergies Allergen ID Allergen Name Allergen Category Reaction Reaction Severity Criticality Documentation Date Start Date Code Code System Note Provider Name and Address Organization Details Recorded Time 11400 morphine medicatio n irregular heart rate severe Not available 12/16/2016 7052 RxNorm Linus Curiel [facility] [employer] [facility] 7 15:26:50 Medications Name Sig Start Date Stop Date Status Note LastModified by Organization Details LastModified Time terconazole 0.4 % vaginal cream active Not Available Not Availa ble Not Available Stool Softener 100 mg capsule active Not Available Not Availab le Not Available terconazole 0.8 % vaginal cream active Not Available Not Availa ble Not Available butalbital-acet aminophen-caffe ine 50 mg-325 mg-40 mg tablet active Not Available Not Availa ble Not Available amoxicillin 500 mg tablet active Not Available Not Available No t Available hydromorphone 2 mg tablet active Not Available Not Available No t Available Deep Sea Nasal 0.65 % spray aerosol active Not Available Not Available Not Available famotidine 20 mg tablet active Not Available Not Available No t Available ferrous sulfate 325 mg (65 mg iron) tablet active Not Available Not Available Not Available ibuprofen 400 mg tablet active Not Available Not Available No t Available fluticasone propionate 50 mcg/actuation nasal spray,suspensio n active Not Available Not Available Not Available amoxicillin 875 mg-potassium clavulanate 125 mg tablet active Not Available Not Available No t Available magnesium 200 mg tablet active Not Available Not Available No t Available All Day Allergy (cetirizine) 10 mg tablet active Not Available Not Available No t Available tranexamic acid 650 mg tablet active Not Available Not Availabl e Not Available vits 96-ferrous fumarate 27 mg iron-folic acid 800 mcg tablet active Not Available Not Availab le Not Available EpiPen 2-Truman 0.3 mg/0.3 mL injection, auto-injector active Not Available Not Availabl e Not Available 19 29 mg iron-1 mg chewable tablet active Not Available Not Availa ble Not Available PrePlus 27 mg iron-1 mg tablet active Not Available Not Available Not Available ProAir RespiClick 90 mcg/actuation breath activated active Not Available Not Available No t Available Vitals Date Recorded Body height Body weight Body mass index (BMI) Provider Name and Address Organization Details Last Updated DateTime 12/16/2016 162.56 cm 996224.06 g 39.1 kg/m2 [facility] 12/16/2016 15:26:04 Date Recorded Body height Provider Name an d Address Organization Details Last Updated DateTime 12/30/2016 162.56 cm Linus Curiel [facility], [facility] 12/30/2016 16:09:39 Social History Question Answer Notes LastModified by Organizat ion Details LastModified Time Tobacco Smoking Status Former Smoker Linus Curiel [facility], [facility] 12/16/2016 15:28:38 What Is Your Level Of Alcohol Consumption? Occasional sdieng Information not available 12/16/2016 Sex: Unknown Functional Status None recorded. Mental Status None recorded. Family History Relationship Description Onset Age of this Age Resolved Age Notes LastModified by Organization Details LastModified Time Father Diabetes mellitus sdieng Not available 2016 15:27:18 Mother Heart disease sdieng Not available 2016 15:27:38 Medical History Condition Response Coronary Artery Disease N Dyslipidemia N Gout N Hernia N Artificial Joints N Thyroid Problems N Lung Disease N Blood Clots N Pacemaker N Edema N Anemia N Back Pain N Headaches/Migraines N Deep Vein Thrombosis N Diabetes N Varicose Veins N Bleeding Disorder N Arthritis N Seizures/Epilepsy N Tuberculosis N AIDS/HIV N Sterling Bite N Cancer N Stroke N Asthma N Leg or Foot Ulcers N Raynaud's Disease N Substance Abuse N Peripheral Vascular Disease N Polio N Hepatitis N Liver Disease N Heart Disease N Organ Transplant N Rheumatoid Arthritis N Pulmonary Embolism N Fibromyalgia N Dialysis N Foot Deformity N Hypertension N Osteoporosis N Kidney Disease N Gynecological HistoryNo gynecological history recorded. Obstetrics History GPAL:G 0 P 0 0 0 0 Past Encounters Encounter ID Performer Location Encounter Start Date Encounter Closed Date Diagnosis/Indication Diagnosis SNOMED-CT Code Diagnosis ICD10 Code Diagnosis Note [id number] [facility] [address] [place] [address] 12/16/2016 14:47:59 12/16/2016 16:07:55 Hallux valgus 038800835 M20.10 Pain in left foot 584589 8316 46658 M79.672 Foreign body of foot 281 469372 Z18.9 Verruca plantaris 997477 08 B07.0 Mass of soft tissue 4449 75044 R22.9 [id number] Tenzin [facility] [address] [place] [address] 12/30/2016 15:49:09 12/30/2016 16:41:34 Pain in left foot [id number] 26009 M79.672 Foreign body of foot 281 569321 Z18.9 Mass of soft tissue 4449 84365 R22.9 Health Concerns Section Related Observation LastModified by Organization Detai ls LastModified Time None Recorded Concern Status LastModified by Organization Details LastModified Time None Recorded Advance Directives Directive None Recorded Payers Encounter Date Sequence Insurance Name Policy Number Policy Calderon Covered Member ID Calderon Member ID Guarantor Name 12/16/2016 1 [employer] [facility] [id number] Rosalina Ramos [id number] Rosalina Thompsona 12/30/2016 1 [employer] [facility] [facility] [id number] Rosalina Ramos [id number] Rosalinarodrigo Ramos Notes Date Note Type Note Provider Name and Address Organization Details Recorded Time 12/16/2016 text/html Pt relates to pa in in the left foot pointing to the submet 5 area.PT has had this pain for years.Recalls getting a splinter in the foot 3-4 years ago and since the site has always been painful.Pt states that the wooden splinter was removed but believes there may be residual splinter in the foot causing the lesion.Pt has attempted scraping and picking the site as well as soaking in epsom salt. Nothing has helped.She has no other prior treatment of the area.Pain is 8/10 most severe when walking and standing on the foot. PT also relates to bunions b/l feet for years. Pt describes the areas as uncomfortable in shoes because of her wide feet and states the areas become red and sore after activity.Pt has not attempted treatment for the bunions. Tenzin sullivan [facility], [facility] 12/17/2016 18:35:02 12/30/2016 text/html present in offic e to follow up for splinter removed from bottom of left foot, pt states that she has not much pain, no swelling, she has been changing the dressing, and soaking it with Epsom salt, and applying bacitracin. Tenzin sullivan [facility], [facility] 12/31/2016 11:29:05 OBGyn Episode No OBEpisode recorded.
== END 2024-12-07 13:03 | disposition home or self-care (01) ==
PROVIDERS: Visit Provider Dietitian, Registered
DX: E66.01 Morbid (severe) obesity due to excess calories (principal)

== ENCOUNTER → 2024-12-07 12:32 | Outpatient (BNVA) | payer OTHER, SELFPAY | PROVIDERS: Visit Provider Dietitian, Registered | DX: E66.01 Morbid (severe) obesity due to excess calories (principal); Z71.3 Dietary counseling and surveillance; Z68.41 Body mass index [BMI] 40.0-44.9, adult | CPT/HCPCS: 97803 ==

== ENCOUNTER 2024-12-09 10:40 | Outpatient (AMB) | payer OTHER, SELFPAY ==
--- NOTE | 2024-12-09 11:12 | MHC.OFFVISPS ---
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: No Allergies morphine [MORPHINE] Allergy (Unknown, Verified 10/25/24 11:59) ANAPHYLAXIS oxycodone [From PERCOCET] Allergy (Unknown, Verified 10/25/24 11:59) RASH strawberry [STRAWBERRY] Allergy (Unknown, Verified 10/25/24 11:59) ANAPHYLAXIS Medication List - Last Reconciled 12/09/24 by Karol Ellis, [employer] albuterol sulfate 90 mcg/actuation (Ventolin HFA) 2 puffs inhalation Q4-6H PRN albuterol sulfate 2.5 mg (3 mL) inhalation Q4-6H PRN cetirizine 10 mg PO DAILY cyclobenzaprine 10 mg PO BEDTIME epinephrine (EpiPen) 0.3 mg (0.3 mL) IM Q10M PRN fluticasone propionate 50 mcg/actuation (Flonase Allergy Relief) 1 spray intranasal BID lamotrigine (Lamictal) 100 mg orally take 1tablet daily x 14 days then 1 & 1/2 tablets daily; lidocaine 5% 1 patch topical DAILY lisdexamfetamine (Vyvanse) 40 mg PO QAM meloxicam 15 mg PO DAILY montelukast 10 mg PO DAILY multivitamin 1 tab PO DAILY nirmatrelvir-ritonavir 300 mg (150 mg x 2)-100 mg (Paxlovid) take TWO 150 mg tablets of nirmatrelvir with ONE 100 mg tablet of ritonavir twice daily for 5 days PO omalizumab (Xolair) 300 mg subcut Q4W omeprazole 40 mg PO DAILY ondansetron 4 mg PO Q8H PRN semaglutide 1 mg (0.75 mL) subcut QWEEK simethicone (Gas Relief (simethicone)) 80 mg PO TID-QID PRN trazodone take 50mg- 100mg at bedtime as needed for sleep orally bedtime PRN; HPI- Psychiatric Chief Complaint: consultation HPI Narrative: Pt reports improvement in ADHD symptoms and its reducing depression and anxiety. She reports more ability to stay on task and get things ddone; able to start and complete projects at home; reports some conflict with primary relationshi whichis causing some distress; she is working on things in therapy and hoping partner will do therapy with her. sleep and appetite intact. no reported side effects; mood more stable. anxiety reduced. no SI or HI Past Psychiatric History: [facility] 22 Subjective Subjective Subjective Medication Compliance: Yes Side effects from medications: No Review of Systems Medical Review of Systems: unchanged Mental Status Exam Mental Status Exam Patient Appearance: Well Grooomed and Appropriate Patient Orientation: Person, Place, Time and Situation Level of Consciousness: Awake, Appropriate and Alert Patient Behavior: Appropriate Mood Description: Sad Affect Description: Sad Patient Cognition Impaired: No Ability to Follow Directions: Good Speech Pattern: Clear and Appropriate Memory Description: Intact Hallucinations: None Delusions: Not Present Thought Process: Intact Thought Content: positive for Intact Judgement: Fair Assessment and Plan Assessment & Plan (1) ADHD (attention deficit hyperactivity disorder), combined type: Status: Acute Code(s): F90.2 - Attention-deficit hyperactivity disorder, combined type (2) Bipolar II disorder major depressive with melancholic features: Status: Acute Code(s): F31.81 - Bipolar II disorder Plan pt had covid in October and is still experiencing some brai fog from but feeling much better overall; vyvanse helping her ADHD symptoms. Medications: Changed From lamotrigine (Lamictal) 100 mg orally take 1tablet daily x 14 days then 1 & 1/2 tablets daily; 135 tabs 0RF To lamotrigine (Lamictal) 100 mg orally take 1 & 1/2 tablets daily; 135 tabs 2RF Refilled lisdexamfetamine (Vyvanse) Partial Fill upon patient request. 40 mg PO QAM 30 caps 0RF trazodone take 50mg- 100mg at bedtime as needed for sleep orally bedtime PRN; 60 tabs 2RF sleep Discontinued nirmatrelvir-ritonavir 300 mg (150 mg x 2)-100 mg (Paxlovid) Discontinued Reason: Patient Completed Course take TWO 150 mg tablets of nirmatrelvir with ONE 100 mg tablet of ritonavir twice daily for 5 days PO 30 ea 0RF Counseling and coordination of Care Pt. Self Management counseling: Maintenance-social rhythm, Mod caffeine/ETOH intake, Nutrition education and improvement and General coping skills Medication management counseling: Effectiveness, Side effects, Dosing range, Duration, Drug interaction, Adherence and Other Diagnosis and Prognosis Counseling: Accuracy of diagnosis, Prognosis over time, Impact of diagnosis on life functions, Impact of family relationship, Problematic behaviors secondary to diagnosis and Adequacy of current interventions Details: I spent 40 minutes reviewing the record, seeing the patient and documenting in the medical record. Counseling provided to the patient/caregiver as outlined below. Addressed patient/caregiver concerns regarding current medication regime including effective adherence. Addressed patient/caregiver concerns regarding diagnosis and prognosis including accuracy of diagnosis, prognosis over time, impact of diagnosis. Addressed patient/caregiver concerns regarding impact of recent stressors. [facility] Medical History Allergic rhinitis COVID-19 Tick bite Unplanned unwanted Delivery with history of test positive Polyp of cervix Fibroid, uterine History of uterine fibroid Encounter to establish care Surgical History History of hysterectomy History of colonoscopy History of surgery on right wrist History of delivery Family History Mother No problems noted. 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 THC edibles periodically for body pain but causes anxiety so not often. in 20s experimented with opiates, hallucinogens and ketamine Trauma History: childhood Coding Level of Care Code Est Pt Level 4 (84241) Diagnoses ADHD (attention deficit hyperactivity disorder), combined type F90.2 Bipolar II disorder major depressive with melancholic features F31.81
== END 2024-12-09 11:36 | disposition home or self-care (01) ==
LOC: HO.HOP 10:40
PROVIDERS: Visit Provider Clinical Nurse Specialist Psychiatric/Mental Health
DX: F90.2 Attention-deficit hyperactivity disorder, combined type (principal); F31.81 Bipolar II disorder
CPT/HCPCS: 99214

== ENCOUNTER → 2024-12-09 10:40 | Outpatient (BNVA) | payer OTHER, SELFPAY | PROVIDERS: Visit Provider Clinical Nurse Specialist Psychiatric/Mental Health | DX: F90.2 Attention-deficit hyperactivity disorder, combined type (principal); F31.81 Bipolar II disorder | CPT/HCPCS: 99212 ==

== ENCOUNTER 2025-01-22 09:22 | Emergency (ER) | payer OTHER, SELFPAY ==
--- NOTE | ~2025-01-22 | MR_ITS ---
CLINICAL HISTORY: large L5 S1 disc extrusion, r o cauda equina MR of the lumbar spine without contrast Comparison: CT/SR - CT LUMBAR SPINE WO IV CON - 01/22/25 15:23 EST CR - XR SACRUM COCCYX MIN 2V - 01/22/25 09:57 EST CR - XR LUMBAR SPINE 2-3V - 01/22/25 09:57 EST Findings: Normal alignment. Mild amount of Modic type 2 change at L4/L5 and L5/S1. No cord expansion or abnormal signal intensity. The conus medullaris terminates at L1, which is normal. The cauda equina is unremarkable. L1/L2: No disc herniation. No facet joint or ligamentum flavum hypertrophy. No central canal stenosis. No lateral recess stenosis. No foraminal stenosis. L2/L3: No disc herniation. No facet joint or ligamentum flavum hypertrophy. No central canal stenosis. No lateral recess stenosis. No foraminal stenosis. L3/L4: 2 mm broad-based disc bulge. Mild facet joint and ligamentum flavum hypertrophy. Mild central canal stenosis. No lateral recess stenosis. No foraminal stenosis. L4/L5: 5 mm broad-based disc bulge. Mild to moderate facet joint and ligamentum flavum hypertrophy. Mild central canal stenosis. Mild bilateral lateral recess stenosis. No foraminal stenosis. L5/S1: Right paracentral disc extrusion measuring 1.4 x 1.2 x 1.9 cm (measured on series 10, image 40 and series 6, image 8). [id number] facet joint and ligamentum flavum hypertrophy. Vcbw-yj-uloswchq central canal stenosis. Severe right and no left lateral recess stenosis. No foraminal stenosis. Impression: 1.9 cm right paracentral disc extrusion causing hfgv-us-jiqzzefu central canal and severe right lateral recess stenosis. This document has been electronically signed by: Sadaf Chapa MD on 01/22/2025 20:04:52
--- NOTE | ~2025-01-22 | CT_ITS ---
CLINICAL HISTORY: fall, R sided pain w radiculopathy CT lumbar spine without contrast Comparison: CR - XR SACRUM COCCYX MIN 2V - 01/22/25 09:57 EST CR - XR LUMBAR SPINE 2-3V - 01/22/25 09:57 EST Findings: Alignment is preserved. No acute fracture. Mild height loss of L1 without a fracture line, chronic There is a right paracentral disc extrusion at L5/S1 measuring 9 mm in anterior-posterior dimension and 14 mm in craniocaudal dimension which causes severe central spinal canal stenosis. No epidural hematoma. No acute soft tissue abnormality or acute findings in the visualized abdomen and pelvis. Impression: No acute fracture. Large right paracentral disc extrusion at L5/S1 causing severe central spinal canal stenosis. Better characterization can be obtained with lumbar spine MR, the urgency of which depends on the clinical picture. This document has been electronically signed by: Sadfa Chapa MD on 01/22/2025 16:10:16
--- NOTE | ~2025-01-22 | XR_ITS ---
CLINICAL HISTORY: fall, pain 4 views lumbar spine Comparison: None Findings: There is a mild superior endplate L1 compression fracture Straightening of the normal lumbar lordosis. No definite additional fractures. Impression: Mild superior endplate compression fracture at L1, age-indeterminate. This document has been electronically signed by: Bj Lara MD on 01/22/2025 10:26:26
--- NOTE | ~2025-01-22 | XR_ITS ---
CLINICAL HISTORY: fall, pain 3 views sacrum and coccyx Comparison: None Findings No acute fractures. No significant degenerative change. No erosions. IMPRESSION: No acute findings This document has been electronically signed by: Bj Lara MD on 01/22/2025 10:27:04
--- NOTE | 2025-01-22 09:33 | ED_ITS ---
HPI - Back Pain/Injury General Chief Complaint: Back Pain/Injury Stated Complaint: R LOW BACK PAIN RAD TO GROIN,FALL T-3 PER EMS Time Seen by Provider: 01/22/25 09:46 Source: patient and EMS Mode of arrival: EMS Limitations: no limitations History of Present Illness ED Provider: Dora Kraft NP HPI Narrative: Patient is a 44-year-old female past medical history of depression, HSV, asthma, diabetes mellitus, anxiety, insomnia who presents emergency department for evaluation of right lower back pain radiating to groin and right lower extremity. she reports 4 days ago she had a mechanical slip and fall outdoors in the mud at school, landing onto her buttock and sliding down a hill. Later that evening she went to a friend's house to try and soak in a hot tub thinking this might help with her pain and she again slipped when getting out of the tub landing onto her buttock yet again. She has been having ongoing pain utilizing ice/ heat, NSAID, massage, TENs unit with some relief. She reports that during the overnight she attempted to get out of bed to go to the bathroom and she had severe excruciating pain radiating from her right lower back into the groin, the right inner buttock and down the medial posterior aspect of her right leg and into the great toe. She reports that at baseline she suffers from intermittent back pain but this is worse than what she has previously experienced. Denies fevers, chills, burning with micturition, urinary frequency/urgency/hesitancy, bladder or bowel dysfunction, numbness or tingling of the perineum or bilateral legs. Denies any recent surgical procedures, any known immune compromising conditions, personal history of cancer, or IV drug usage. MD elicited complaint: back pain Related Data Home Medications ?Medication ?Instructions ?Recorded ?Confirmed cetirizine 10 mg tablet 10 mg PO DAILY allergies 10/29/23 12/09/24 fluticasone propionate 50 1 spray intranasal BID 03/09/24 12/09/24 mcg/actuation nasal spray,suspension (Flonase Allergy Relief) montelukast 10 mg tablet 10 mg PO DAILY 03/09/24 12/09/24 omalizumab 300 mg/2 mL 300 mg subcut Q4W 07/26/24 12/09/24 subcutaneous auto-injector (Xolair) cyclobenzaprine 10 mg tablet 10 mg PO BEDTIME 08/23/24 12/09/24 Previous Rx's ?Medication ?Instructions ?Recorded multivitamin 1 tab PO DAILY #90 tabs 11/20/21 simethicone 80 mg chewable tablet 80 mg PO TID-QID PRN abdominal 07/02/22 (Gas Relief (simethicone)) distention #20 tabs albuterol sulfate 2.5 mg/3 mL 2.5 mg (3 mL) inhalation Q4-6H PRN 11/26/23 (0.083 %) solution for nebulization shortness of breath or wheezing #180 mL albuterol sulfate 90 mcg/actuation 2 puff inhalation Q4-6H PRN 11/26/23 aerosol inhaler (Ventolin HFA) shortness of breath or wheezing #8.5 grams epinephrine 0.3 mg/0.3 mL 0.3 mg (0.3 mL) IM Q10M PRN 04/26/24 injection, auto-injector (EpiPen) anaphylaxis #2 ea meloxicam 15 mg tablet 15 mg PO DAILY #14 tabs 06/15/24 ondansetron 4 mg disintegrating 4 mg PO Q8H PRN nausea and 08/24/24 tablet vomiting #20 tabs lidocaine 5 % topical patch 1 patch topical DAILY #15 ea 10/25/24 omeprazole 40 mg capsule,delayed 40 mg PO DAILY #60 caps 10/25/24 release lamotrigine 100 mg tablet 100 mg PO .COMPLEX #135 tabs 12/09/24 (Lamictal) trazodone 50 mg tablet See Rx Instructions PO BEDTIME PRN 12/09/24 sleep #60 tabs semaglutide 1 mg/dose (4 mg/3 mL) 1 mg (0.75 mL) subcut QWEEK #3 mL 12/23/24 subcutaneous pen injector lisdexamfetamine 50 mg capsule 50 mg PO QAM #30 caps 01/17/25 (Vyvanse) hydromorphone 2 mg tablet 2 mg PO Q6H PRN pain #12 tabs 01/22/25 (Dilaudid) ketorolac 10 mg tablet 10 mg PO Q6H PRN pain #20 tabs 01/22/25 methocarbamol 750 mg tablet 750 mg PO QID PRN pain, moderate 01/22/25 #20 tabs methylprednisolone 4 mg tablets in 4 mg PO QAM #21 ea 01/22/25 a dose pack (Medrol (Truman)) Allergies Allergy/AdvReac Type Severity Reaction Status Date / Time morphine [MORPHINE] Allergy Unknown ANAPHYLAXIS Verified 01/22/25 09:41 oxycodone [From PERCOCET] Allergy Unknown RASH Verified 01/22/25 09:41 strawberry [STRAWBERRY] Allergy Unknown ANAPHYLAXIS Verified 01/22/25 09:41 Review of Systems 2 Review of Systems: Yes all other systems are reviewed and are negative COUNTS INCLUDE 234 BEDS AT THE [facility] Past Medical History Attestation statement: The following information was validated with the patient. Source: old records reviewed Medical History Allergic rhinitis COVID-19 Tick bite Unplanned unwanted Delivery with history of test positive Polyp of cervix Fibroid, uterine History of uterine fibroid Encounter to establish care Surgical History History of hysterectomy History of colonoscopy History of surgery on right wrist History of delivery Family History Family History Mother No problems noted. Father Mental health disorder Substance use disorder Social History Social History Household Members: Family Housing: House Do you presently have visiting nurse or other home services: No Alcohol intake: current Alcohol intake frequency: a few times a week Patient Tobacco Use Status: Former Tobacco user Tobacco use type: Cigarette Smoked in Last 30 Days: No e-Cigarette/Vaping Use: Never Used Second Hand Smoke Exposure: No Substance Use Type: Marijuana Advance Directives: No Advance Directives Information Provided: No Do you have a plan to hurt others: No Plan Patient : No service: No Current occupational status: employed Current occupational exposures/hazards: No Cognitive needs: No Hearing needs: No Vision needs: No Physical Exam 2 Vital Signs: Vital Signs: Last Vital Signs Temp 97.7 F 01/22/25 20:07 Pulse 87 01/22/25 20:07 Resp 18 01/22/25 20:07 BP 148/89 H 01/22/25 20:07 Pulse Ox 97 01/22/25 20:07 O2 Del Method Room Air 01/22/25 20:07 BMI result Body Mass Index 40.3 Appearance: Alert.?Oriented to person, place and time. No acute distress.?Normal affect. Eyes: Pupils equal, round and reactive to light.? ENT: Pharynx normal.?? Neck: Normal inspection.? Neck supple.?? CVS: Heart sounds normal. Normal heart rate and rhythm.? Pulses normal; bilateral radial pulses 2+, bilateral posterior tibial/dorsalis pedis pulses 2+.? Respiratory: No respiratory distress.? Lung sounds clear to auscultation bilaterally?? Abdomen: Soft and non-tender. Normoactive bowel sounds. No pulsatile mass.?? Skin: Skin warm and dry.? Normal skin color.? Normal skin turgor.?? Extremities: No lower extremity edema.? No calf ttp? Back: + moderate paraspinal muscular tenderness from lumbar region to coccyx. No CVA tenderness. No midline spinal tenderness, step-off's, or deformity. Full ROM intact in bilateral lower extremities. Straight leg test Positive on right; Straight leg test negative on left. No rashes, lesions, areas of induration or fluctuance, or signs of infection noted., Neuro: Moves all extremities spontaneously. 5/5 strength in hip extension/flexion, abduction, adduction. Sensation to light touch intact bilaterally. Patellar and Achilles reflex 2+ bilaterally. No ataxia, gait normal and steady.. No focal neuro deficits. Course Reevaluation(s) Reevaluation #1: XR of the sacrum coccyx is negative. XR of the lumbar spine revealing a mild superior endplate compression fracture at L1 age indeterminate, pain distribution pattern into the groin follow associated radiculopathy from this point, motor does not explain radicular pain radiating down the posterior portion of her leg that she is describing.. Pain is unrelieved with Toradol and cyclobenzaprine, with any minimal movement she is yelling out in severe pain sharp shooting pain. will trial diazepam 2.5 mg IM alternatively. Reevaluation #2: Continues to have severe pain with any movement and stretcher. She has an anaphylactic allergy to morphine. Has tolerated hydromorphone in the past. Spoke with my attending Dr. Moyer who advised Dilaudid 2 mg IM and additional Toradol 15 mg IM, unfortunately this provided her with minimal relief, she remains with intractable pain and now has vomiting likely resultant from Dilaudid. Patient receive ondansetron, will obtain basic labs, considering admission for intractable pain. Urinalysis to be obtained. Will trial Dilaudid 1 mg IV in addition to ondansetron 4 mg IV . Will obtain CT of the lumbar spine for further evaluation Reevaluation #3: patient was able to get out of bed assistance though with a great deal of pain and ambulate to the bathroom with a walker. CT showing mild height loss of L1 without a fracture line likely chronic in nature not acute. There is right paracentral disc extrusion at L5-S1 causing severe central spinal canal stenosis. contacting [facility] to speak with Neurosurgery, to determine whether potential for surgical intervention versus medical management for pain management and outpatient follow-up. Time: 16:27 Additional Reevaluation(s): 17:10 - unable to speak with Neurosurgery at [facility] as they are closed transfers, not amenable to phone consultation. Reached out to [facility] and [facility], awaiting a call back from them, imaging and demographics have been sent. 17:30 - nursing staff had advise me at this time that patient had an episode of urinary incontinence in the setting of actively vomiting. She had not previously had any urinary incontinence, was able to ambulate to the bathroom due to her sensation /urge to void earlier as aforementioned. Bladder scan at this time to assure no urinary retention. 17:51 - I spoke with Neurosurgery at [facility] Dr. Atkins who advises obtaining MRI of the lumbar spine for further evaluation and exclude cauda equina. Advised to re-contact after MRI has been obtained, if no emergent findings, and she is ambulatory, she may follow-up outpatient in the Neurosurgery office, if it remains a matter of adequate pain control, they may consider transfer. But again will need to reach out once MRI is obtained 19:10 - patient signed out to [facility] pending MRI and disposition planning I Payal Rojas PA-C have accepted care of the patient at signed out pending MRI results, consultation with Neurosurgery at [facility] and final disposition MRI lumbar spine:Findings: Normal alignment. Mild amount of Modic type 2 change at L4/L5 and L5/S1. No cord expansion or abnormal signal intensity. The conus medullaris terminates at L1, which is normal. The cauda equina is unremarkable. L1/L2: No disc herniation. No facet joint or ligamentum flavum hypertrophy. No central canal stenosis. No lateral recess stenosis. No foraminal stenosis. L2/L3: No disc herniation. No facet joint or ligamentum flavum hypertrophy. No central canal stenosis. No lateral recess stenosis. No foraminal stenosis. L3/L4: 2 mm broad-based disc bulge. Mild facet joint and ligamentum flavum hypertrophy. Mild central canal stenosis. No lateral recess stenosis. No foraminal stenosis. L4/L5: 5 mm broad-based disc bulge. Mild to moderate facet joint and ligamentum flavum hypertrophy. Mild central canal stenosis. Mild bilateral lateral recess stenosis. No foraminal stenosis. L5/S1: Right paracentral disc extrusion measuring 1.4 x 1.2 x 1.9 cm (measured on series 10, image 40 and series 6, image 8). [id number] facet joint and ligamentum flavum hypertrophy. [id number] central canal stenosis. Severe right and no left lateral recess stenosis. No foraminal stenosis. Impression: 1.9 cm right paracentral disc extrusion causing [id number] central canal and severe right lateral recess stenosis. 812 pm, will reach back out to [facility] spoke with Dr. Atkins, relayed MRI findings, he sts she can call office Friday to be seen, or just come to the office mid morning....I will provide the contact information to the patient Medications Administered Discontinued Medications Generic Name Dose Route Start Last Admin Trade Name Roscoeq PRN Reason Stop Dose Admin Cyclobenzaprine HCl 10 mg 01/22/25 09:38 01/22/25 09:47 Cyclobenzaprine Hcl 10 Mg Tablet PO 01/22/25 09:39 10 mg ONCE ONE Administration Diazepam 2.5 mg 01/22/25 10:43 01/22/25 11:00 Diazepam 10 Mg/2 Ml Cartridge IM 01/22/25 10:44 2.5 mg STAT STA Administration Hydromorphone HCl 2 mg 01/22/25 12:40 01/22/25 13:14 Hydromorphone Hcl 2 Mg/Ml Vial IM 01/22/25 12:41 2 mg ONCE ONE Administration Protocol Hydromorphone HCl 1 mg 01/22/25 14:26 01/22/25 14:43 Hydromorphone Hcl 1 Mg/Ml Syringe IVPUSH 01/22/25 14:27 1 mg ONCE ONE Administration Protocol Hydromorphone HCl 1 mg 01/22/25 18:11 01/22/25 18:31 Hydromorphone Hcl 1 Mg/Ml Syringe IVPUSH 01/22/25 18:12 1 mg ONCE ONE Administration Protocol Hydromorphone HCl 2 mg 01/22/25 20:59 01/22/25 21:08 Hydromorphone Hcl 2 Mg Tablet PO 01/22/25 21:00 2 mg ONCE ONE Administration Ketorolac Tromethamine 15 mg 01/22/25 09:38 01/22/25 09:46 Ketorolac Tromethamine 15 Mg/Ml Vial IM 01/22/25 09:39 15 mg ONCE ONE Administration Ketorolac Tromethamine 15 mg 01/22/25 12:40 01/22/25 13:15 Ketorolac Tromethamine 15 Mg/Ml Vial IM 01/22/25 12:41 15 mg ONCE ONE Administration Methocarbamol 750 mg 01/22/25 20:59 01/22/25 21:08 Methocarbamol 750 Mg Tablet PO 01/22/25 21:00 750 mg ONCE ONE Administration Methylprednisolone Sodium Succinate 125 mg 01/22/25 20:27 01/22/25 20:59 Methylprednisolone Sod Succ 125 Mg/2 Ml Vial IVPUSH 01/22/25 20:28 125 mg ONCE ONE Administration Metoclopramide HCl 10 mg 01/22/25 17:29 01/22/25 17:49 Metoclopramide Hcl 10 Mg/2 Ml Vial IVPUSH 01/22/25 17:30 10 mg ONCE ONE Administration Ondansetron HCl 4 mg 01/22/25 14:26 01/22/25 14:43 Ondansetron Hcl 4 Mg/2 Ml Vial IVPUSH 01/22/25 14:27 4 mg ONCE ONE Administration Medical Decision Making Medical Decision Making MDM Narrative: Patient is a 44-year-old female past medical history of depression, HSV, asthma, diabetes mellitus, anxiety, insomnia, hysterectomy who presents emergency department for evaluation of right lower back pain radiating to the groin and down the right lower extremity as per HPI after 2 falls 4 days ago. Obtaining XR of the lumbar spine is was sacrum and coccyx to exclude fracture / subluxation. Will trial Toradol 15 mg IM in addition to cyclobenzaprine 10 mg p.o. for analgesia at this time. Reviewed with patient can not completely exclude herniated disc, XR imaging is not the most ideal modality for this. On exam he has no focal neurological deficits. denies digital rectal examination, denies any bladder bowel dysfunction/incontinence. Appears most consistent with radiculopathy. No radiation down the leg. No recent fevers, unintentional weight loss, history of IVDA, high-risk past medical history, immunosuppression, recent surgery or lumbar puncture to suggest spinal infection, epidural abscess, malignancy. Not consistent with AAA or dissection. No genitourinary symptoms, afebrile, no CVA tenderness, unlikely urinary tract infection, pyelonephritis, renal colic. No history of nephrolithiasis/ureteral calculi. History of hysterectomy, not consistent with / ectopic. Differential Diagnosis Differential Diagnoses: The differential diagnosis associated with the presentation includes ( see narrative above) Admission/Observation Consideration of admission/observation: Escalation of care including admission/observation considered ( see narrative above) Lab Data 01/22/25 14:39 01/22/25 14:39 Labs: Lab Results 01/22/25 01/22/25 Range/Units 14:39 15:58 WBC 7.2 (4.8-10.8) X10*3/uL RBC 4.35 (4.20-5.50) X10*6/uL Hgb 12.9 (12.0-16.0) g/dl Hct 37.2 (37.0-47.0) % MCV 85.5 (80.0-98.0) fL MCH 29.7 (27.0-33.0) pg MCHC 34.7 (31.0-35.0) g/dl RDW 12.7 (11.0-16.0) % Plt Count 306 (160-400) X10*3/uL MPV 8.5 L (9.4-12.3) fL Immature Gran % (Auto) 0.3 (0.0-0.4) % Neut % (Auto) 53.5 (45-73) % Lymph % (Auto) 36.4 (20-40) % [place] % (Auto) 7.7 (2-11) % Eos % (Auto) 1.4 (0-4) % Baso % (Auto) 0.7 (0-2) % Lymph # (Auto) 2.6 (1.2-4.9) X10*3/uL [place] # (Auto) 0.6 (0.1-1.2) X10*3/uL Eos # (Auto) 0.1 (0.0-0.4) X10*3/uL Baso # (Auto) 0.1 (0.0-0.2) X10*3/uL Abs Immat Gran (auto) 0.02 (0.00-0.03) X10*3/uL Absolute Neuts (auto) 3.9 (2.0-8.3) x10*3/uL Absolute Nucleated RBC 0.000 (0.0-0.012) X10*3/uL Nucleated RBC % (auto) 0.0 (0.0-0.2) /100WBC Sodium 140 (135-145) mmol/L Potassium 3.9 (3.3-5.1) mmol/L Chloride 109 H (96-108) mmol/L Carbon Dioxide 24 (22-29) mmol/L Anion Gap 11 L (12-20) BUN 12 (9-16) mg/dL Creatinine 0.72 (0.5-1.4) mg/dL Estim Creat Clear Calc 121.2 Estimated GFR > 60 Random Glucose 92 (60-115) mg/dL Calcium 9.5 (8.4-10.2) mg/dL Urine Color Dark Yellow Urine Appearance Cloudy Urine pH 5.5 (5.0-9.0) Ur Specific [place] 1.020 (1.005-1.025) Urine Protein Trace (Neg-Trace) mg/dL Urine Glucose (UA) Negative (Negative) mg/dL Urine Ketones Trace (Negative) mg/dL Urine Blood Negative (Negative) Urine Nitrite Negative (Negative) Ur Leukocyte Esterase Negative (Negative) Radiology Impression Discussion of test interpretation with radiology: I have reviewed the radiologist's reading. Radiologist Impression: 4 views lumbar spine Comparison: None Findings: There is a mild superior endplate L1 compression fracture Straightening of the normal lumbar lordosis. No definite additional fractures. Impression: Mild superior endplate compression fracture at L1, age-indeterminate. 3 views sacrum and coccyx Comparison: None Findings No acute fractures. No significant degenerative change. No erosions. IMPRESSION: No acute findings Impression: CT lumbar spine without contrast No acute fracture. Large right paracentral disc extrusion at L5/S1 causing severe central spinal canal stenosis. Better characterization can be obtained with lumbar spine MR, the urgency of which depends on the clinical picture. Independent Historian Clinical information obtained from an independent historian. History obtained from or confirmed by: Spouse and EMS External Record Review External record reviewed: Outpatient record Prescription Management I considered prescription management with: Pain Medication Critical Care Time Critical Care Time Critical Care Time: Yes Total Critical Care Time: 50 Attestation: I personally attest to this critical care time spent taking care of the patient exclusive of all other billable procedures was approximately 50 minutes including initial evaluation of patient, ordering tests, x-ray interpretation, Dilaudid IV and re-evaluation, medical consultation, documentation, re- evaluation. Discharge Plan Discharge Clinical Impression: Lumbar disc herniation with radiculopathy Patient Disposition: Home, Self-Care Instructions: Lumbar Disc Herniation (ED) Additional Instructions: See home care instructions for your lumbar disc herniation. I reached out to the neurosurgery service at [facility], Dr. Atkins, he is happy to see you Friday in the office. He advises to call Friday to make an appointment, or come to the office mid morning. [address] Use the Medrol Dosepak, this is a steroid taper, as directed per package instructions Use the ketorolac as directed this is an anti-inflammatory take it with the food Use the methocarbamol as needed for further pain, this is a muscle relaxant, it will cause drowsiness, do not drive or operate machinery while taking this medication Use the Dilaudid as needed for further discomfort, this medication can be habit- forming, use it judiciously. This medication is also constipating, be sure to use a stool softener and MiraLax to help prevent constipation. Prescriptions: New ketorolac 10 mg tablet 10 mg PO Q6H PRN (Reason: pain) Qty: 20 0RF Rx Instructions: maximum total duration of 5 days from all oral, intranasal, or parenteral formulations. The patient received an IV dose of Toradol here in the emergency department methocarbamol 750 mg tablet 750 mg PO QID PRN (Reason: pain, moderate) Qty: 20 0RF methylprednisolone [Medrol (Truman)] 4 mg tablets,dose pack 4 mg PO QAM Qty: 21 0RF Rx Instructions: Use the taper per package instructions hydromorphone [Dilaudid] 2 mg tablet 2 mg PO Q6H PRN (Reason: pain) Qty: 12 0RF Rx Instructions: Partial Fill upon patient request. No Action multivitamin Tablet 1 tab PO DAILY Qty: 90 1RF epinephrine [EpiPen] 0.3 mg/0.3 mL auto-injector 0.3 mg IM Q10M PRN (Reason: anaphylaxis) Qty: 2 0RF Rx Instructions: for 2 doses ondansetron 4 mg tablet,disintegrating 4 mg PO Q8H PRN (Reason: nausea and vomiting) Qty: 20 0RF semaglutide 1 mg/dose (4 mg/3 mL) pen injector 1 mg subcut QWEEK Qty: 3 0RF lisdexamfetamine [Vyvanse] 50 mg capsule 50 mg PO QAM Qty: 30 0RF Rx Instructions: Partial Fill upon patient request. cetirizine 10 mg tablet 10 mg PO DAILY simethicone [Gas Relief (simethicone)] 80 mg tablet,chewable 80 mg PO TID-QID PRN (Reason: abdominal distention) Qty: 20 0RF fluticasone propionate [Flonase Allergy Relief] 50 mcg/actuation spray,suspension 1 spray intranasal BID Rx Instructions: administer into each nostril montelukast 10 mg tablet 10 mg PO DAILY meloxicam 15 mg tablet 15 mg PO DAILY Qty: 14 0RF Xolair 300 mg/2 mL auto-injector 300 mg subcut Q4W albuterol sulfate 2.5 mg /3 mL (0.083 %) solution for nebulization 2.5 mg inhalation Q4-6H PRN (Reason: shortness of breath or wheezing) Qty: 180 0RF albuterol sulfate [Ventolin HFA] 90 mcg/actuation HFA aerosol inhaler 2 puff inhalation Q4-6H PRN (Reason: shortness of breath or wheezing) Qty: 8.5 3RF cyclobenzaprine 10 mg tablet 10 mg PO BEDTIME lidocaine 5 % adhesive patch,medicated 1 patch topical DAILY Qty: 15 0RF Rx Instructions: leave on most painful area for up to 12 hrs omeprazole 40 mg capsule,delayed release(DR/EC) 40 mg PO DAILY Qty: 60 0RF lamotrigine [Lamictal] 100 mg tablet 100 mg PO .COMPLEX Qty: 135 2RF Rx Instructions: 100 mg orally take 1 & 1/2 tablets daily; trazodone 50 mg tablet See Rx Instructions PO BEDTIME PRN (Reason: sleep) Qty: 60 2RF Rx Instructions: take 50mg- 100mg at bedtime as needed for sleep orally bedtime PRN; Print Language: Belizean
[2025-01-22 09:38] VITALS: BP 123/81; BP 132/86; PULSE 93; RESP 18; TEMP 36.5; O2SAT 98; BMI 40.3
[2025-01-22] MEDS: Ketorolac Tromethamine 15 MG/ML VIAL IM ×2 (09:46→13:15)
[2025-01-22] MEDS: Cyclobenzaprine HCl 10 MG TABLET PO (09:47)
--- OUTSIDE RECORDS SUMMARY | 2025-01-22 09:49 | XMS_ITS | Data Portability ---
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 Plan of Treatment [...] DO Not Attach Compendium, Do Not Delete/merge, [id number] 7 17:32:39 Medication Orders None recorded . Patient TargetsNo targets recorded. Patient Instructions Encounter Date Encounter Id Patient Instructions Last Modified By Organization Details Last Modified Time 12/16/2016 [id number] plantar warts: care instructions [id number] Not available 12/17/2016 19:18:11 discussed left submet [...] and prognosis Not available 12/17/2016 18:30:22 12/30/2016 [id number] wound healing we ll focal bone with [...] 12/16/19 17 Mass Excision completed [facility], [facility] 12/17/2016 18:30:58 07/21/20 16 [facility] 12/16/2016 15:28:02 11/17/[address] [facility] 12/16/2016 15:28:28 Imaging Results None recorded. Procedure Notes None recorded. Medical Equipment None Reported. Allergies Allergen ID Allergen Name Allergen Category Reaction Reaction Severity Criticality Documentation Date Start Date Code Code System Note Provider Name and Address Organization Details Recorded Time 72710 morphine medicatio n irregular heart rate severe Not available 12/16/2016 7052 RxNorm Linus Curiel [facility] [employer] [facility], [facility] 7 15:26:50 Medications Name Sig Start Date [...] Details Last Updated DateTime 12/16/2016 162.56 cm 962224.06 g 39.1 kg/m2 Linus Curiel [facility], [facility] 12/16/2016 15:26:04 Date Recorded Body height Provider Name an d Address Organization Details Last Updated DateTime 12/30/2016 162.56 cm Linus Curiel [facility], [facility] 12/30/2016 16:09:39 Social History Question Answer Notes LastModified by Organizat ion Details LastModified Time Tobacco Smoking Status Former Smoker Linus Curiel [facility], [facility] 12/16/2016 15:28:38 What Is Your Level Of [...] N Artificial Joints N Thyroid Problems N Blood Clots N Lung Disease N Pacemaker N Anemia N Edema N Back Pain N Headaches/Migraines N Deep Vein Thrombosis N Varicose Veins N Diabetes N Bleeding Disorder N Arthritis N Seizures/Epilepsy N Tuberculosis N AIDS/HIV N Sterling Bite N Cancer N Stroke N Asthma N Leg or Foot Ulcers N Raynaud's Disease N Substance Abuse N Peripheral Vascular Disease N Polio N Hepatitis N Liver Disease N Organ Transplant N Heart Disease N Rheumatoid Arthritis N Pulmonary Embolism N Fibromyalgia N Foot Deformity N Dialysis N Hypertension N Osteoporosis N Kidney Disease N Gynecological HistoryNo gynecological history recorded. Obstetrics History GPAL:G 0 P 0 0 0 0 Past Encounters Encounter ID Performer Location Encounter Start Date Encounter Closed Date Diagnosis/Indication Diagnosis SNOMED-CT Code Diagnosis ICD10 Code Diagnosis Note [id number] Tenzin [facility] [address] [place] [address] 12/16/2016 14:47:59 12/16/2016 16:07:55 Hallux valgus 088920021 M20.10 Pain in left foot 738688 1369 44211 M79.672 Foreign body of foot 281 137320 Z18.9 Verruca plantaris 467773 08 B07.0 Mass of soft tissue 4449 95874 R22.9 [id number] Tenzin [facility] [address] [place] [address] 12/30/2016 15:49:09 12/30/2016 16:41:34 Pain in left foot [id number] 78615 M79.672 Foreign body of foot 281 134638 Z18.9 Mass of soft tissue 4449 44896 R22.9 Health Concerns Section Related Observation LastModified by Organization Detai ls LastModified Time None Recorded Concern Status LastModified by Organization Details LastModified Time None Recorded Advance Directives Directive None Recorded Payers Encounter Date Sequence Insurance Name Policy Number Policy Calderon Covered Member ID Calderon Member ID Guarantor Name 12/16/2016 1 [employer] H[employer] OF [facility] [id number] Rosalina Ramos [id number] Rosalina Thompsona 12/30/2016 1 [employer] H[employer] OF [facility] [id number] Rosalina Ramos [id number] Rosalinarodrigo Ramos Notes Date Note Type Note [...] attempted treatment for the bunions. Tenzin sullivan [facility], [facility] 12/17/2016 18:35:02 12/30/2016 text/html present in offic e to follow up for splinter removed from bottom of left foot, pt states that she has not much pain, no swelling, she has been changing the dressing, and soaking it with Epsom salt, and applying bacitracin. Tenzin sullivan [facility], [facility] 12/31/2016 11:29:05 OBGyn Episode No OBEpisode recorded.
[2025-01-22 10:30] VITALS: BP 144/72; PULSE 74; RESP 16; O2SAT 100
[2025-01-22] MEDS: diazePAM 10 MG/2 ML CARTRIDGE 2.5 MG IM (11:00)
--- NOTE | 2025-01-22 11:01 | PC.NURSE ---
pt medicated for pain per order
[2025-01-22] MEDS: HYDROmorphone HCl 2 MG/ML VIAL IM (13:14)
[2025-01-22] MEDS: ondansetron HCL 4 MG/2 ML VIAL IVPUSH (14:43)
[2025-01-22] MEDS: HYDROmorphone HCl 1 MG/ML SYRINGE IVPUSH ×2 (14:43→18:31)
[2025-01-22 14:44] LABS: MANUAL DIFF FLAG NO
[2025-01-22 14:46] LABS: Basophils Absolute Auto 0.1 X10*3/uL (0.0-0.2); Basophils Percent Auto 0.7 % (0-2); Eosinophils Absolute Auto 0.1 X10*3/uL (0.0-0.4); Eosinophils Percent Auto 1.4 % (0-4); Hematocrit 37.2 % (37.0-47.0); Hemoglobin 12.9 g/dl (12.0-16.0); Imm Gran Abs Auto 0.02 X10*3/uL (0.00-0.03); Imm Gran Pct Auto 0.3 % (0.0-0.4); Lymphocytes Absolute Auto 2.6 X10*3/uL (1.2-4.9); Lymphocytes Percent Auto 36.4 % (20-40); Mean Corpuscular HGB Conc 34.7 g/dl (31.0-35.0); Mean Corpuscular Hemoglobin 29.7 pg (27.0-33.0); Mean Corpuscular Volume 85.5 fL (80.0-98.0); Mean Platelet Volume 8.5 fL (9.4-12.3); Monocytes Absolute Auto 0.6 X10*3/uL (0.1-1.2); Monocytes Percent Auto 7.7 % (2-11); Neutrophils Absolute Auto 3.9 x10*3/uL (2.0-8.3); Neutrophils Percent Auto 53.5 % (45-73); Platelet Count 306 X10*3/uL (160-400); Red Blood Count 4.35 X10*6/uL (4.20-5.50); Red Cell Distribution Width 12.7 % (11.0-16.0); White Blood Count 7.2 X10*3/uL (4.8-10.8)
[2025-01-22 15:11] LABS: Anion Gap 11 (12-20); Blood Urea Nitrogen 12 mg/dL (9-16); Calcium 9.5 mg/dL (8.4-10.2); Carbon Dioxide 24 mmol/L (22-29); Chloride 109 mmol/L (96-108); Creatinine Clr Calc Pharmacy 121.2; Estimated Glomerular Filt Rate > 60; Glucose Random 92 mg/dL (60-115); Potassium 3.9 mmol/L (3.3-5.1); Sodium 140 mmol/L (135-145)
[2025-01-22 16:07] LABS: Appearance Urine Cloudy; Color Urine Dark Yellow; Glucose Urine UA Negative (Negative); Leukocyte Esterase Urine Negative (Negative); Nitrite Urine Negative (Negative); PH 5.5 (5.0-9.0); Urine Blood Negative (Negative); Urine Ketones Trace mg/dL (Negative); Urine Protein Trace mg/dL (Neg-Trace)
[2025-01-22 16:11] VITALS: BP 122/77; PULSE 61; RESP 14; TEMP 36.7; O2SAT 98
[2025-01-22] MEDS: Metoclopramide HCl 10 MG/2 ML VIAL IVPUSH (17:49)
--- NOTE | 2025-01-22 18:34 | PC.NURSE ---
pt medicated for pain, mri form faxed
--- NOTE | 2025-01-22 19:51 | MHC.EDTECH ---
This tech took over care of pt at 1900, pt is in MRI at this time
[2025-01-22 20:07] VITALS: BP 148/89; PULSE 87; RESP 18; TEMP 36.5; O2SAT 97
[2025-01-22] MEDS: methylPREDNISolone Sod Succ 125 MG/2 ML VIAL IVPUSH (20:59)
[2025-01-22] MEDS: methocarbamoL 750 MG TABLET PO (21:08)
[2025-01-22] MEDS: HYDROmorphone HCl 2 MG TABLET PO (21:08)
[2025-01-22 21:59] VITALS: BP 148/89; PULSE 87; RESP 18; TEMP 36.5; O2SAT 97
== END 2025-01-22 21:30 | disposition home or self-care (01) ==
PROVIDERS: Nurse Practitioner Family; Emergency Provider Emergency Medicine
DX: M51.16 Intervertebral disc disorders with radiculopathy, lumbar region (principal); Z79.899 Other long term (current) drug therapy; Z87.891 Personal history of nicotine dependence
CPT/HCPCS: 36415; 72100; 72131; 72148; 72220; 80048; 81003; 85025; 96372; 96374; 96375; 96376; 99284; 99285; J1171; J1885; J2405; J2765; J2919; J3360

== ENCOUNTER → 2025-01-22 09:38 | Outpatient (BNV) | payer OTHER, SELFPAY | PROVIDERS: Emergency Provider Emergency Medicine; Visit Provider Radiology Vascular & Interventional Radiology | DX: M51.26 Other intervertebral disc displacement, lumbar region (principal); M48.02 Spinal stenosis, cervical region; M54.50 Low back pain, unspecified; W19.XXXA Unspecified fall, initial encounter | CPT/HCPCS: 72100; 72131; 72148; 72220 ==

== ENCOUNTER 2025-01-23 13:47 | Emergency (ER) | payer OTHER, SELFPAY ==
[2025-01-23 14:05] VITALS: BP 133/79; PULSE 98; RESP 18; TEMP 36.4; O2SAT 100; BMI 40.3
--- NOTE | 2025-01-23 14:12 | ED_ITS ---
HPI - General Adult General Chief complaint: Back Pain/Injury Stated complaint: numbness in leg Time Seen by Provider: 01/23/25 20:41 Source: patient Limitations: no limitations History of Present Illness ED Provider: Payal Rojas PA-C HPI narrative: 44-year-old female past medical history of depression, HSV, asthma, diabetes mellitus, anxiety, insomnia who presents emergency department for evaluation of right lower back pain radiating to groin and right lower extremity. Associated paresthesia with numbness at times. Patient has a known herniated disc, she was neurosurgery consult pending tomorrow. Related Data Home Medications ?Medication ?Instructions ?Recorded ?Confirmed cetirizine 10 mg tablet 10 mg PO DAILY allergies 10/29/23 12/09/24 fluticasone propionate 50 1 spray intranasal BID 03/09/24 12/09/24 mcg/actuation nasal spray,suspension (Flonase Allergy Relief) montelukast 10 mg tablet 10 mg PO DAILY 03/09/24 12/09/24 omalizumab 300 mg/2 mL 300 mg subcut Q4W 07/26/24 12/09/24 subcutaneous auto-injector (Xolair) cyclobenzaprine 10 mg tablet 10 mg PO BEDTIME 08/23/24 12/09/24 Previous Rx's ?Medication ?Instructions ?Recorded multivitamin 1 tab PO DAILY #90 tabs 11/20/21 simethicone 80 mg chewable tablet 80 mg PO TID-QID PRN abdominal 07/02/22 (Gas Relief (simethicone)) distention #20 tabs albuterol sulfate 2.5 mg/3 mL 2.5 mg (3 mL) inhalation Q4-6H PRN 11/26/23 (0.083 %) solution for nebulization shortness of breath or wheezing #180 mL albuterol sulfate 90 mcg/actuation 2 puff inhalation Q4-6H PRN 11/26/23 aerosol inhaler (Ventolin HFA) shortness of breath or wheezing #8.5 grams epinephrine 0.3 mg/0.3 mL 0.3 mg (0.3 mL) IM Q10M PRN 04/26/24 injection, auto-injector (EpiPen) anaphylaxis #2 ea meloxicam 15 mg tablet 15 mg PO DAILY #14 tabs 07/30/24 ondansetron 4 mg disintegrating 4 mg PO Q8H PRN nausea and 08/24/24 tablet vomiting #20 tabs lidocaine 5 % topical patch 1 patch topical DAILY #15 ea 10/25/24 omeprazole 40 mg capsule,delayed 40 mg PO DAILY #60 caps 10/25/24 release lamotrigine 100 mg tablet 100 mg PO .COMPLEX #135 tabs 12/09/24 (Lamictal) trazodone 50 mg tablet See Rx Instructions PO BEDTIME PRN 12/09/24 sleep #60 tabs semaglutide 1 mg/dose (4 mg/3 mL) 1 mg (0.75 mL) subcut QWEEK #3 mL 12/23/24 subcutaneous pen injector lisdexamfetamine 50 mg capsule 50 mg PO QAM #30 caps 01/17/25 (Vyvanse) ketorolac 10 mg tablet 10 mg PO Q6H PRN pain #20 tabs 01/22/25 methocarbamol 750 mg tablet 750 mg PO QID PRN pain, moderate 01/22/25 #20 tabs methylprednisolone 4 mg tablets in 4 mg PO QAM #21 ea 01/22/25 a dose pack (Medrol (Truman)) hydromorphone 4 mg tablet 4 mg PO Q8H PRN pain #10 tabs 01/23/25 (Dilaudid) naloxone 4 mg/actuation nasal 4 mg intranasal Q2M PRN opioid 01/23/25 spray (Narcan) overdose #2 ea Allergies Allergy/AdvReac Type Severity Reaction Status Date / Time morphine [MORPHINE] Allergy Unknown ANAPHYLAXIS Verified 01/23/25 14:07 oxycodone [From PERCOCET] Allergy Unknown RASH Verified 01/23/25 14:07 strawberry [STRAWBERRY] Allergy Unknown ANAPHYLAXIS Verified 01/23/25 14:07 Review of Systems Review of Systems: Yes all other systems are reviewed and are negative Constitutional: Constitutional: Denies fatigue and Denies fever(s) Cardiovascular: Cardiovascular: Denies chest pain and Denies dyspnea Respiratory: Respiratory: Denies dyspnea Gastrointestinal: Gastrointestinal: Denies abdominal pain Musculoskeletal: Musculoskeletal: Reports back pain, Denies muscle weakness, Reports numbness, Reports radiating pain into limb and Reports tingling Neurologic: Reports numbness and Reports tingling Endocrine: Endocrine: Denies fatigue PMFSH Past Medical History Attestation statement: The following information was validated with the patient. Medical History Allergic rhinitis COVID-19 Tick bite Unplanned unwanted Delivery with history of test positive Polyp of cervix Fibroid, uterine History of uterine fibroid Encounter to establish care Surgical History History of hysterectomy History of colonoscopy History of surgery on right wrist History of delivery Family History Family History Mother No problems noted. Father Mental health disorder Substance use disorder Social History Social History Household Members: Family Housing: House Do you presently have visiting nurse or other home services: No Alcohol intake: current Alcohol intake frequency: a few times a week Patient Tobacco Use Status: Former Tobacco user Tobacco use type: Cigarette e-Cigarette/Vaping Use: Never Used Second Hand Smoke Exposure: No Substance Use Type: Marijuana service: No Current occupational status: employed Current occupational exposures/hazards: No Cognitive needs: No Hearing needs: No Vision needs: No Physical Exam ED Vital Signs: Vital Signs - 24 hr 01/23/25 23:44 Temperature 0 F L Pulse Rate 0 L Respiratory Rate 0 L Blood Pressure 0/0 L Pulse Oximetry 0 L BMI result Body Mass Index 40.3 Const Other: Alert Orientation/consciousness: patient oriented x3 Resp Effort & Inspection: normal respiratory effort Cardio Other: Normal peripheral perfusion Skin Other: Warm dry no rash Neuro Other: Antalgic gait General: patient oriented x3, gait normal, no focal motor deficits and CN's II- XI intact bilaterally Extrem Other: Strength equal bilateral extremity Psych Other: Cooperative Course Course Course Narrative: RME: 44 yold female with pmh of lumbar radiculopathy/disc herniation. Patient states right leg feels numbess. strenght of extremities intact. NIH 0. lumbar spine tendneress. MRI done last night. Patient to be evlauted in the ED Medical Decision Making Medical Decision Making MDM Narrative: 44-year-old female past medical history of depression, HSV, asthma, diabetes mellitus, anxiety, insomnia who presents emergency department for evaluation of right lower back pain radiating to groin and right lower extremity. Associated paresthesia with numbness at times. Patient has a known herniated disc, she was neurosurgery consult pending tomorrow. The patient is back in the emergency department, she was seen yesterday, had an extensive workup, she has multiple pain medications and anti-inflammatories, she has neurosurgery consult pending for tomorrow. She is here because she did not realize having numbness tingling, is an expected symptom with her disc herniation. Discharge Plan Discharge Clinical Impression: Herniated lumbar intervertebral disc Patient Disposition: Home, Self-Care Additional Instructions: It is expected that you will have numbness and tingling in the lower extremities secondary to your known herniated disc. Keep your appointment with the neurosurgeon that is scheduled for tomorrow, again, they advised that you present to the office mid morning. See home care instructions for your lumbar disc herniation. I reached out to the neurosurgery service at [facility], Dr. Atkins, he is happy to see you Friday in the office. He advises to call Friday to make an appointment, or come to the office mid morning. [address] Use the Medrol Dosepak, this is a steroid taper, as directed per package instructions Use the ketorolac as directed this is an anti-inflammatory take it with the food Use the methocarbamol as needed for further pain, this is a muscle relaxant, it will cause drowsiness, do not drive or operate machinery while taking this medication Use the Dilaudid as needed for further discomfort, this medication can be habit- forming, use it judiciously. This medication is also constipating, be sure to use a stool softener and MiraLax to help prevent constipation. Prescriptions: No Action multivitamin Tablet 1 tab PO DAILY Qty: 90 1RF epinephrine [EpiPen] 0.3 mg/0.3 mL auto-injector 0.3 mg IM Q10M PRN (Reason: anaphylaxis) Qty: 2 0RF Rx Instructions: for 2 doses ondansetron 4 mg tablet,disintegrating 4 mg PO Q8H PRN (Reason: nausea and vomiting) Qty: 20 0RF semaglutide 1 mg/dose (4 mg/3 mL) pen injector 1 mg subcut QWEEK Qty: 3 0RF lisdexamfetamine [Vyvanse] 50 mg capsule 50 mg PO QAM Qty: 30 0RF Rx Instructions: Partial Fill upon patient request. cetirizine 10 mg tablet 10 mg PO DAILY ketorolac 10 mg tablet 10 mg PO Q6H PRN (Reason: pain) Qty: 20 0RF Rx Instructions: maximum total duration of 5 days from all oral, intranasal, or parenteral formulations. The patient received an IV dose of Toradol here in the emergency department methocarbamol 750 mg tablet 750 mg PO QID PRN (Reason: pain, moderate) Qty: 20 0RF methylprednisolone [Medrol (Truman)] 4 mg tablets,dose pack 4 mg PO QAM Qty: 21 0RF Rx Instructions: Use the taper per package instructions hydromorphone [Dilaudid] 4 mg tablet 4 mg PO Q8H PRN (Reason: pain) Qty: 10 0RF Rx Instructions: Partial Fill upon patient request. naloxone [Narcan] 4 mg/actuation spray,non-aerosol 4 mg intranasal Q2M PRN (Reason: opioid overdose) Qty: 2 0RF Rx Instructions: spray 1 dose into ONE nostril; alternate nostrils w each dose until help arrives simethicone [Gas Relief (simethicone)] 80 mg tablet,chewable 80 mg PO TID-QID PRN (Reason: abdominal distention) Qty: 20 0RF fluticasone propionate [Flonase Allergy Relief] 50 mcg/actuation spray,suspension 1 spray intranasal BID Rx Instructions: administer into each nostril montelukast 10 mg tablet 10 mg PO DAILY meloxicam 15 mg tablet 15 mg PO DAILY Qty: 14 0RF Xolair 300 mg/2 mL auto-injector 300 mg subcut Q4W albuterol sulfate 2.5 mg /3 mL (0.083 %) solution for nebulization 2.5 mg inhalation Q4-6H PRN (Reason: shortness of breath or wheezing) Qty: 180 0RF albuterol sulfate [Ventolin HFA] 90 mcg/actuation HFA aerosol inhaler 2 puff inhalation Q4-6H PRN (Reason: shortness of breath or wheezing) Qty: 8.5 3RF cyclobenzaprine 10 mg tablet 10 mg PO BEDTIME lidocaine 5 % adhesive patch,medicated 1 patch topical DAILY Qty: 15 0RF Rx Instructions: leave on most painful area for up to 12 hrs omeprazole 40 mg capsule,delayed release(DR/EC) 40 mg PO DAILY Qty: 60 0RF lamotrigine [Lamictal] 100 mg tablet 100 mg PO .COMPLEX Qty: 135 2RF Rx Instructions: 100 mg orally take 1 & 1/2 tablets daily; trazodone 50 mg tablet See Rx Instructions PO BEDTIME PRN (Reason: sleep) Qty: 60 2RF Rx Instructions: take 50mg- 100mg at bedtime as needed for sleep orally bedtime PRN; Interventions: ED Discharge Assessment Last Done: 01/23/25 23:44 Discharge Date/Time: 01/23/25 23:45 Print Language: Romanian
[2025-01-23 23:44] VITALS: BP 0/0; PULSE 0; RESP 0; TEMP -17.7; TEMP 0; O2SAT 0
== END 2025-01-23 23:45 | disposition home or self-care (01) ==
PROVIDERS: Emergency Provider Emergency Medicine Emergency Medical Services
DX: M51.26 Other intervertebral disc displacement, lumbar region (principal); R10.31 Right lower quadrant pain; R20.0 Anesthesia of skin; Z87.891 Personal history of nicotine dependence; Z79.899 Other long term (current) drug therapy
CPT/HCPCS: 99283; 99284

== ENCOUNTER 2025-01-27 09:07 | Outpatient (RCR) | payer OTHER, SELFPAY | END 2025-03-22 08:51 | disposition home or self-care (01) | LOC: HO.PT 09:07 | PROVIDERS: Absent Provider Physical Medicine & Rehabilitation Sports Medicine | DX: M25.511 Pain in right shoulder (principal); M25.512 Pain in left shoulder | CPT/HCPCS: 97110; 97140; 97161; 97530 ==

== ENCOUNTER 2025-01-27 11:00 | Outpatient (AMB) | payer OTHER, SELFPAY ==
--- NOTE | 2025-01-27 11:12 | A.OFFPSYCH_ITS ---
Intake Intake Visit Reasons: consultation Plug Wirer Required: No Allergies morphine [MORPHINE] Allergy (Unknown, Verified 01/23/25 14:07) ANAPHYLAXIS oxycodone [From PERCOCET] Allergy (Unknown, Verified 01/23/25 14:07) RASH strawberry [STRAWBERRY] Allergy (Unknown, Verified 01/23/25 14:07) ANAPHYLAXIS Medication List - Last Reconciled 01/27/25 by Karol Ellis, TANK REFINISHER albuterol sulfate 90 mcg/actuation (Ventolin HFA) 2 puffs inhalation Q4-6H PRN albuterol sulfate 2.5 mg (3 mL) inhalation Q4-6H PRN cetirizine 10 mg PO DAILY cyclobenzaprine 10 mg PO BEDTIME epinephrine (EpiPen) 0.3 mg (0.3 mL) IM Q10M PRN fluticasone propionate 50 mcg/actuation (Flonase Allergy Relief) 1 spray intranasal BID hydromorphone (Dilaudid) 4 mg PO Q8H PRN ketorolac 10 mg PO Q6H PRN lamotrigine (Lamictal) 100 mg orally take 1 & 1/2 tablets daily; lidocaine 5% 1 patch topical DAILY lisdexamfetamine (Vyvanse) 50 mg PO QAM meloxicam 15 mg PO DAILY methocarbamol 750 mg PO QID PRN methylprednisolone (Medrol (Truman)) 4 mg PO QAM montelukast 10 mg PO DAILY multivitamin 1 tab PO DAILY naloxone 4 mg/actuation (Narcan) 4 mg intranasal Q2M PRN omalizumab (Xolair) 300 mg subcut Q4W omeprazole 40 mg PO DAILY ondansetron 4 mg PO Q8H PRN semaglutide 1 mg (0.75 mL) subcut QWEEK simethicone (Gas Relief (simethicone)) 80 mg PO TID-QID PRN trazodone take 50mg- 100mg at bedtime as needed for sleep orally bedtime PRN; HPI- Psychiatric Chief Complaint: consultation HPI Narrative: pt seen for follow up re: ADHD, Bipolar II depression. Pt struggling with more depression since injuring her back las t week; she needs spinal surgey. she is in significant pain. she has had consultation at [facility] and likely will have surgery next week; she reports she has good support from family and friends who will help her with her surgery ,recovery and helping with her children. Pt reports she is on her way to [place] today to participate in a study for depressi on. this is her first appt for the studay and she will let me know what the study entails when she learns more; does not want to change meds today. she denies SI or HI. Ptreports she feels she had poor experince in ED on Friday her 2nd visit in 24 hours . TW listened to pt concerns and gave her phone number for complaints and concerns as well as the address to write a letter about her concerns to administration (taken form [facility] website) I encouraged her to voice her concerns. Past Psychiatric History[facility] 22 Subjective Subjective Subjective Medication Compliance: Yes Side effects from medications: No Review of Systems Medical Review of Systems: unchanged Mental Status Exam Mental Status Exam Patient Appearance: Well Grooomed Patient Orientation: Person, Place, Time and Situation Level of Consciousness: Awake and Appropriate Patient Behavior: Appropriate and Cooperative Mood Description: Anxious and Sad Affect Description: Anxious and Sad Patient Cognition Impaired: No Ability to Follow Directions: Good Speech Pattern: Clear Memory Description: Intact Hallucinations: None Delusions: Not Present Thought Process: Intact Thought Content: positive for Intact Judgement: Good Telehealth Telehealth Telehealth Platform: Other (please specify) ([email or web address]) Location of provider rendering services: practice address Location of patient: address on file Patient Identification confirmed using: Name, : Yes Telehealth method: video Patient verbally consented to treatment: Yes Patient verbally consented to billing insurance company: Yes Patient informed of any privacy concerns related to visit: Yes Minutes spent on Phone/Video with Pt.: 20 Assessment and Plan Assessment & Plan (1) ADHD (attention deficit hyperactivity disorder), combined type: Status: Acute Code(s): F90.2 - Attention-deficit hyperactivity disorder, combined type (2) Bipolar II disorder major depressive with melancholic features: Status: Acute Code(s): F31.81 - Bipolar II disorder Plan continue meds per below follow up in 2 months Medications: Refilled lisdexamfetamine (Vyvanse) Partial Fill upon patient request. 50 mg PO QAM 30 caps 0RF trazodone take 50mg- 100mg at bedtime as needed for sleep orally bedtime PRN; 60 tabs 2RF sleep lamotrigine (Lamictal) 100 mg orally take 1 & 1/2 tablets daily; 135 tabs 2RF Counseling and coordination of Care Pt. Self Management counseling: Maintenance-social rhythm, Sleep hygiene and General coping skills Medication management counseling: Effectiveness, Side effects, Dosing range, Duration, Drug interaction and Adherence Diagnosis and Prognosis Counseling: Accuracy of diagnosis, Prognosis over time, Impact of diagnosis on life functions, Impact of family relationship, Problematic behaviors secondary to diagnosis and Adequacy of current interventions Details: I spent 35 minutes reviewing the record, seeing the patient and documenting in the medical record. Counseling provided to the patient/caregiver as outlined below. Addressed patient/caregiver concerns regarding current medication regime including effective adherence. Addressed patient/caregiver concerns regarding diagnosis and prognosis including accuracy of diagnosis, prognosis over time, impact of diagnosis. Addressed patient/caregiver concerns regarding impact of recent stressors. [facility] Medical History Allergic rhinitis COVID-19 Tick bite Unplanned unwanted Delivery with history of test positive Polyp of cervix Fibroid, uterine History of uterine fibroid Encounter to establish care Surgical History History of hysterectomy History of colonoscopy History of surgery on right wrist History of delivery Family History Mother No problems noted. Father Mental health disorder Substance use disorder Social History Household Members: Family Housing: House Do you presently have visiting nurse or other home services: No Alcohol intake: current Alcohol intake frequency: a few times a week Patient Tobacco Use Status: Former Tobacco user Tobacco use type: Cigarette e-Cigarette/Vaping Use: Never Used Second Hand Smoke Exposure: No Substance Use Type: Marijuana service: No Current occupational status: employed Current occupational exposures/hazards: No Cognitive needs: No Hearing needs: No Vision needs: No Social History: lives 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 THC edibles periodically for body pain but causes anxiety so not often. in 20s experimented with opiates, hallucinogens and ketamine Trauma History: childhood Coding Level of Care Code Tele Est Pt Level 3 (62918) Diagnoses ADHD (attention deficit hyperactivity disorder), combined type F90.2 Bipolar II disorder major depressive with melancholic features F31.81
--- OUTSIDE RECORDS SUMMARY | 2025-01-28 17:43 | XMS_ITS | Encounter Summary ---
Author Organization [facility] Address [address] [place] [address] Care Team Providers Care Dermatology Procedural Physician Name Role Phone Patient, Has No Pcp Or Ref Primary Care Provider Unavailable Encounter Details Date Type Department Care Team (Late st Contact Info) Description 01/22/2025 Orders Only [facility] - External Imaging [address] [place] [phone] Radiology, External [address] [place] [phone] Social History Tobacco Use Types Packs/Day Years Used Date Smoking Tobacco: Never Assessed Comments Unknown Sex and Gender Information Value Date Recorded Sex Assigned at Female 01/24/2025 10:47 AM EDT Legal Sex Female 5:16 PM EST Gender Identity Female 01/26/2025 10:15 AM EDT Sexual Orientation Queer 01/26/2025 10 :15 AM EDT documented as of this encounter Plan of Treatment Upcoming Encounters Date Type Department Care Team (Late st Contact Info) Description 01/31/2025 3:00 PM EDT Follow-Up [facility] Neurosurgery [address] [place] [phone] Minerva Atkins MD [address] [place] [phone] Pending Results Name Type Priority Associated Diagnoses Date /Time MRI Transfer of Outside Films L-Spine Imaging [place] Routine 01/25/2025 2:53 PM EDT Scheduled Orders Name Type Priority Associated Diagnoses Orde r Schedule MRI Transfer of Outside Films L-Spine Imaging [place] Routine 1 Occurrences starting 01/25/2025 until 02/25/2026 documented as of this encounter Visit Diagnoses Not on filedocumented in this encounter Care Teams Dermatology Procedural Physician Relationship Specialty Start Date End Date Patient, Has No Pcp Or Ref DO NOT EDIT THIS RECORD VIA PROVIDER ON THE FLY PCP - General Embedded Nurse 01/24/25 documented as of this encounter
--- OUTSIDE RECORDS SUMMARY | 2025-01-28 17:43 | XMS_ITS | Encounter Summary ---
Author Organization [facility] Address [address] [place] [address] Care Team Providers Care Seed Corn Production Manager Name Role Phone Patient, Has No Pcp Or Ref Primary Care Provider Unavailable Encounter Details Date Type Department Care Team (Late Contact Info) Description 01/24/2025 Telephone [facility] Neurosurgery [address] [place] [address] Bebe Arriola MA Social History Tobacco Use Types Packs/Day Years Used Date Smoking Tobacco: Never Smokeless Tobacco: Never Alcohol Use Standard Drinks/Week Comments Yes 0 (1 standard drink = 0.6 oz pur e alcohol) social Comments Unknown Sex and Gender Information Value Date Recorded Sex Assigned at Female 01/24/2025 10:47 AM EDT Legal Sex Female 5:16 PM EST Gender Identity Female 01/26/2025 10:15 AM EDT Sexual Orientation Queer 01/26/2025 10 :15 AM EDT documented as of this encounter Miscellaneous Notes * Telephone Encounter - Bebe Arriola MA - 01/24/2025 3:43 PM EDT Called the patient she has it on discand will bring it tommrow documented in this encounter Plan of Treatment Upcoming Encounters Date Type Department Care Team (Late Contact Info) Description 01/31/2025 3:00 PM EDT Follow-Up [facility] Neurosurgery [address] [place] [phone] Minerva Atkins MD [address] [place] [address] documented as of this encounter Visit Diagnoses Not on filedocumented in this encounter Care Teams Seed Corn Production Manager Relationship Specialty Start Date End Date Patient, Has No Pcp Or Ref DO NOT EDIT THIS RECORD VIA PROVIDER ON THE FLY PCP - General Assistant Professor Of Religion 01/24/25 documented as of this encounter
--- OUTSIDE RECORDS SUMMARY | 2025-01-28 17:43 | XMS_ITS | Encounter Summary ---
Author Organization [facility] Address [address] [place] [address] Care Team Providers Care Director Labor Standards Name Role Phone Patient, Has No Pcp Or Ref Primary Care Provider Unavailable Reason for Visit * Reason Onset Date Comments Med Refill 01/25/2025 Encounter Details Date Type Department Care Team (Late Contact Info) Description 01/25/2025 Refill [facility] Neurosurgery [address] [place] [phone] Gabby Greer, CCMA Lumbar disc herniation with radiculopathy (Primary Dx) Social History Tobacco Use Types Packs/Day Years [...] Info) Description 01/31/2025 3:00 PM EDT Follow-Up [facility] Neurosurgery [address] [place] [phone] Minerva Atkins MD [address] [place] [address] [phone] documented as of this encounter Visit Diagnoses Diagnosis Lumbar disc herniation with radiculopathy- Primary Displacement of lumbar intervertebral disc without myelopathy documented in this encounter Care Teams Director Labor Standards Relationship Specialty Start Date End Date Patient, Has No Pcp Or Ref DO NOT EDIT THIS RECORD VIA PROVIDER ON THE FLY PCP - General Software Computer Specialist 01/24/25 documented as of this encounter
--- OUTSIDE RECORDS SUMMARY | 2025-01-28 17:43 | XMS_ITS | Encounter Summary ---
Author Organization [facility] Address [address] [place] [address] Care Team Providers Care Certified Breastfeeding Educator Name Role Phone Patient, Has No Pcp Or Ref Primary Care Provider Unavailable Encounter Details Date Type Department Care Team (Late Contact Info) Description 01/24/2025 Orders Only [facility] Neurosurgery [address] [place] [phone] ProviderEkta MD [address] [place], [place] [phone] Social History Tobacco Use Types Packs/Day Years [...] Info) Description 01/31/2025 3:00 PM EDT Follow-Up [facility] Neurosurgery [address] [place] [address] Minerva Atkins MD [address] [place] [phone] documented as of this encounter Visit Diagnoses Not on filedocumented in this encounter Care Teams Certified Breastfeeding Educator Relationship Specialty Start Date End Date Patient, Has No Pcp Or Ref DO NOT EDIT THIS RECORD VIA PROVIDER ON THE FLY PCP - General Toolroom Helper 01/24/25 documented as of this encounter
--- OUTSIDE RECORDS SUMMARY | 2025-01-28 17:43 | XMS_ITS | Clinical Summary ---
Author Organization [facility] Address [address] [place] [address] Care Team Providers Care Per Assessment Nurse Name Role Phone Patient, Has No Pcp Or Ref Primary Care Provider Unavailable Allergies Active Allergy Reactions Criticality Noted Date Comments Morphine Anaphylaxis,Dyspnea, Nausea And Vomiting,Palpitations High 07/04/2014 Medications albuterol 2.5 mg/3 mL (0.083%) nebulizer solution Inhale 2.5 mg by mouth every 6 hours as needed. Active Ventolin HFA 90 mcg/actuation inhaler Inhale 1 puff by mouth once a day. 05/25/20 24 Active cyclobenzaprine (FLEXERIL) 10 mg tablet Take 10 mg by mouth 2 times a day as needed for muscle spasms. 06/15/20 24 Active fluticasone furoate (Arnuity Ellipta) 200 mcg/actuation blister with device Inhale 1 puff by mouth daily. 12/10/19 25 Active ketorolac (TORADOL) 10 mg tablet Take 10 mg by mouth as needed. 01/24/20 25 Active lamoTRIgine (LaMICtal) 100 mg tablet Take 150 mg by mouth once a day. 10/05/20 24 Active lidocaine (LIDODERM) 5% patch Apply 1 patch topically to the affected area as needed. 07/26/20 24 Active HYDROmorphone (DILAUDID) 4 mg tabletIndications :Lumbar disc herniation with radiculopathy Take 0.5 tablets (2 mg total) by mouth every 8 hours as needed for pain for up to 7 days. Max Daily Amount: 6 mg 11 tablet 01/26/20 25 025 Active HYDROmorphone (DILAUDID) 4 mg tablet Take 4 mg by mouth as needed. 01/24/20 25 025 Discontinued HYDROmorphone (DILAUDID) 2 mg tablet Take 1 tablet (2 mg total) by mouth 3 times a day as needed for pain for up to 7 days. Max Daily Amount: 6 mg 21 tablet 01/26/20 25 025 Discontinued Encounters Date Type Department Care Team Description 01/28/2025 Orders Only [facility] Neurosurgery [address] [place] [phone] Provider, MD Ekta 01/25/2025 12:00 PM EDT Office Visit [facility] Neurosurgery [address] [place] [phone] Brian Mortensen PA Lumbar radiculopathy (Primary Dx) 01/25/2025 Refill [facility] Neurosurgery [address] [place] [phone] Gabby Greer CCMA Lumbar disc herniation with radiculopathy (Primary Dx) 01/25/2025 Telephone [facility] Neurosurgery [address] [place] [phone] Gabby Greer CCMA pharmacy requesting a new script 01/25/2025 Telephone [facility] Neurosurgery [address] [place] [phone] Brian Mortensen PA 01/25/2025 Orders Only [facility] Neurosurgery [address] [place] [phone] Brian Mortensen PA 01/24/2025 Telephone [facility] Neurosurgery [address] [place] [phone] Bebe Arriola MA 01/24/2025 Orders Only [facility] Neurosurgery [address] [place] [address] Provider, MD Ekta 01/22/2025 Orders Only [facility] - External Imaging [address] [place] [address] Radiology, External 01/22/2025 Orders Only [facility] - External Imaging [address] [place] [address] Radiology, External 01/22/2025 Orders Only [facility] - External Imaging [address] [place] [address] Radiology, External 01/22/2025 Orders Only [facility] - External Imaging [address] [place] [address] Radiology, External from Last 3 Months Social History Tobacco Use Types Packs/Day Years Used Date Smoking Tobacco: Never Smokeless Tobacco: Never Tobacco Cessation:Counseling Given: Not Answered Alcohol Use Standard Drinks/Week Comments Yes 0 (1 standard drink = 0.6 oz pur e alcohol) social Comments Unknown Sex and Gender Information Value Date Recorded Sex Assigned at Female 01/24/2025 10:47 AM EDT Legal Sex Female 5:16 PM EST Gender Identity Female 01/26/2025 10:15 AM EDT Sexual Orientation Queer 01/26/2025 10 :15 AM EDT Last Filed Vital Signs Vital Sign Reading Time Taken Comments Blood Pressure - - Pulse - - Temperature - - Respiratory Rate - - Oxygen Saturation - - Inhaled Oxygen Concentration - - Weight 106.6 kg (235 lb) 01/24/2025 10:56 AM EDT Height - - Body Mass Index - - Plan of Treatment Upcoming Encounters Date Type Department Care Team (Late st Contact Info) Description 01/31/2025 3:00 PM EDT Follow-Up [facility] Neurosurgery [address] [place] [address] Minerva Atkins MD [address] [place] [address] Health Maintenance Due Date Last Done Comments Cervical Cancer Screening 1982 HIV Screening 1982 HPV and Pap Smear 1982 Pap Smear 1982 Varicella Vaccines (1 of 2 - 13+ 2-dose series) 1995 Hepatitis B Vaccines (1 of 3 - 19+ 3-dose series) 2001 Pneumococcal Vaccine: Pediat leatha (0-5 Years) and At-Risk Patients (6-50 Years) (1 of 2 - PCV) 2001 COVID-19 Vaccine ( - 2023-2 5 season) 2024 Alcohol/Substance Use Screening 11/17/2024 Depression Screening and Follow-Up 11/17/2024 Social Drivers of Health [place] ual Screening 11/17/2024 Mammogram 10/20/2025 10/20/2023, 10/20/2023 DTaP,Tdap,and Td Vaccines (4 - Td or Tdap) 05/07/2026 05/07/2016, 12/08/2012, 11/29/2001 RSV Vaccine (60+ years old a nd patients) (1 - 1-dose 75+ series) 2057 Hepatitis C Screening Completed 11/06/2015 Influenza Vaccine Completed 10/20/2024, , 08/21/2020, Additional history exists Procedures * Due to [employer] law, this organization might not be sharing negative HIV tests. Procedure Name Priority Date/Time Associated Diagnosis Comments AMB EXTERNAL MRI LUMBAR SPINE, OUTSIDE RESULT Routine 01/22/2025 9:38 AM EST AMB EXTERNAL CT L-SPINE, OUTSIDE RESULT Routine 01/22/2025 9:36 AM EST AMB EXTERNAL XR L-SPINE, OUTSIDE RESULT Routine 01/22/2025 9:35 AM EST from Last 3 Months Results * Due to [place] [employer] law, this organization might not be sharing negative HIV tests. * MRI Lumbar Spine, Outside Result (01/22/2025 9:38 AM EST) Anatomical Region Laterality Modality Other us Unknown Provider MD MILES EXTERNAL RESULT PROCEDUR ES Final Result * CT L-Spine, Outside Result (01/22/2025 9:36 AM EST) Anatomical Region Laterality Modality Other us Unknown Provider MD MILES EXTERNAL RESULT PROCEDUR ES Final Result * XR L-Spine, Outside Result (01/22/2025 9:35 AM EST) Anatomical Region Laterality Modality Other us Unknown Provider MD MILES EXTERNAL RESULT PROCEDUR ES Final Result from Last 3 Months Insurance [facility] MEDICAID Care Teams Per Assessment Nurse Relationship Specialty Start Date End Date Patient, Has No Pcp Or Ref DO NOT EDIT THIS RECORD VIA PROVIDER ON THE FLY PCP - General Lead Android Developer 01/24/25
--- OUTSIDE RECORDS SUMMARY | 2025-01-28 17:43 | XMS_ITS | Encounter Summary ---
Author Organization [facility] Address [address] [place] [address] Care Team Providers Care Belt Press Operator Name Role Phone Patient, Has No Pcp Or Ref Primary Care Provider Unavailable Encounter Details Date Type Department Care Team (Late st Contact Info) Description 01/22/2025 Orders Only [facility] - External Imaging [address] [place] [phone] Radiology, External [address] [place] [phone] Social History Tobacco Use Types Packs/Day Years [...] Info) Description 01/31/2025 3:00 PM EDT Follow-Up [facility] Neurosurgery [address] [place] [phone] Minerva Atkins MD [address] [place] [phone] Pending Results Name Type Priority Associated Diagnoses Date /Time XR Transfer of Outside Films L-Spine Imaging Routine 01/25/2025 2:52 PM EDT Scheduled Orders Name Type Priority Associated Diagnoses Orde r Schedule XR Transfer of Outside Films L-Spine Imaging Routine Expected: 2024, Expires: 03/27/2026 documented as of this encounter Visit Diagnoses Not on filedocumented in this encounter Care Teams Belt Press Operator Relationship Specialty Start Date End Date Patient, Has No Pcp Or Ref DO NOT EDIT THIS RECORD VIA PROVIDER ON THE FLY PCP - General Elevator Troubleshooter 01/24/25 documented as of this encounter
--- OUTSIDE RECORDS SUMMARY | 2025-01-28 17:43 | XMS_ITS | Encounter Summary ---
Author Organization [facility] Address [address] [place] [address] Care Team Providers Care Manager Search Engine Name Role Phone Patient, Has No Pcp Or Ref Primary Care Provider Unavailable Encounter Details Date Type Department Care Team (Late st Contact Info) Description 01/22/2025 Orders Only [facility] - External Imaging [address] [place] [phone] Radiology, External [address] [place] [phone] Social History Tobacco Use Types Packs/Day Years [...] Info) Description 01/31/2025 3:00 PM EDT Follow-Up [facility] Neurosurgery [address] [place] [phone] Minerva Atkins MD [address] [place] [phone] Pending Results Name Type Priority Associated Diagnoses Date /Time XR Transfer of Outside Films L-Spine Imaging Routine 01/25/2025 2:54 PM EDT Scheduled Orders Name Type Priority Associated Diagnoses Orde r Schedule XR Transfer of Outside Films L-Spine Imaging Routine Expected: 2024, Expires: 03/27/2026 documented as of this encounter Visit Diagnoses Not on filedocumented in this encounter Care Teams Manager Search Engine Relationship Specialty Start Date End Date Patient, Has No Pcp Or Ref DO NOT EDIT THIS RECORD VIA PROVIDER ON THE FLY PCP - General Arts Administrator Or Manager 01/24/25 documented as of this encounter
--- OUTSIDE RECORDS SUMMARY | 2025-01-28 17:43 | XMS_ITS | Data Portability ---
Author Organization [facility] [employer], [place] [address] Care Team Providers Care Respite Provider Name Role Phone ALAN HARVEY Primary Care [...] DO Not Attach Compendium, Do Not Delete/merge, [id number] 7 17:32:39 Medication Orders None recorded . Patient TargetsNo targets recorded. Patient Instructions Encounter Date Encounter Id Patient Instructions Last Modified By Organization Details Last Modified Time 12/16/2016 [id number] plantar warts: care instructions [email or web address] Not available 12/17/2016 19:18:11 discussed left submet [...] and prognosis Not available 12/17/2016 18:30:22 12/30/2016 [id number] wound healing we ll focal bone with [...] 12/16/19 17 Mass Excision completed [facility], [facility] 12/17/2016 18:30:58 07/21/20 [facility] 12/16/2016 15:28:02 11/17/19 06 [facility]opy [facility] 12/16/2016 15:28:28 Imaging Results None recorded. Procedure Notes None recorded. Medical Equipment None Reported. Allergies Allergen ID Allergen Name Allergen Category Reaction Reaction Severity Criticality Documentation Date Start Date Code Code System Note Provider Name and Address Organization Details Recorded Time 84101 morphine medicatio n irregular heart rate severe Not available 12/16/2016 7052 RxNorm Linus Curiel [facility] 7 15:26:50 Medications Name Sig [...] Details Last Updated DateTime 12/16/2016 162.56 cm 085294.06 g 39.1 kg/m2 Linus Curiel [facility], [facility] 12/16/2016 15:26:04 Date Recorded Body height Provider Name an d Address Organization Details Last Updated DateTime 12/30/2016 162.56 cm Linus Curiel [facility], [facility] 12/30/2016 16:09:39 Social History Question Answer Notes LastModified by Organizat ion Details LastModified Time Tobacco Smoking Status Former Smoker Linus Curiel [facility], [facility] 12/16/2016 15:28:38 What Is Your [...] SNOMED-CT Code Diagnosis ICD10 Code Diagnosis Note [id number] Tenzin [facility] [address] [place] [address] 12/16/2016 14:47:59 12/16/2016 16:07:55 Hallux valgus 003043672 M20.10 Pain in left foot 164250 6820 99623 M79.672 Foreign body of foot 281 576905 Z18.9 Verruca plantaris 391048 08 B07.0 Mass of soft tissue 4449 60666 R22.9 [id number] Tenzin [facility] [address] [place] [address] 12/30/2016 15:49:09 12/30/2016 16:41:34 Pain in left foot [id number] 06313 M79.672 Foreign body of foot 281 825513 Z18.9 Mass of soft tissue 4449 63058 R22.9 Health Concerns Section Related Observation LastModified by Organization Detai ls LastModified Time None Recorded Concern Status LastModified by Organization Details LastModified Time None Recorded Advance Directives Directive None Recorded Payers Encounter Date Sequence Insurance Name Policy Number Policy Calderon Covered Member ID Calderon Member ID Guarantor Name 12/16/2016 1 [employer] [facility] [id number] Rosalina Ramos [id number] Rosalina Thompsona 12/30/2016 1 [employer] [facility] [id number] Rosalina Ramos [id number] Rosalinarodrigo Ramos Notes Date Note Type Note [...] attempted treatment for the bunions. Tenzin sullivan [facility], [facility] 12/17/2016 18:35:02 12/30/2016 text/html present in offic e to follow up for splinter removed from bottom of left foot, pt states that she has not much pain, no swelling, she has been changing the dressing, and soaking it with Epsom salt, and applying bacitracin. Tenzin sullivan [facility], [facility] 12/31/2016 11:29:05 OBGyn Episode No OBEpisode recorded.
--- OUTSIDE RECORDS SUMMARY | 2025-01-28 17:43 | XMS_ITS | Encounter Summary ---
Author Organization [facility] Address [address] [place] [address] Care Team Providers Care Java J2Ee Technical Lead Name Role Phone Patient, Has No Pcp Or Ref Primary Care Provider Unavailable Reason for Visit * Reason Onset Date Comments pharmacy requesting a new script 01/25/2025 Encounter Details Date Type Department Care Team (Late st Contact Info) Description 01/25/2025 Telephone [facility] Neurosurgery [address] [place] [address] Gabby Greer CCMA pharmacy requesting a new script Social History Tobacco Use Types Packs/Day Years [...] encounter Miscellaneous Notes * Telephone Encounter - JOSEPH Simpson - 01/25/2025 1:18 PM EDT Patient had a script sent over for hydromorphone today, the pharmacy called and stated they only have 4 mg tablets. A new script needs to be sent over. Brian made aware through chat documented in this encounter Plan of Treatment Upcoming Encounters Date Type Department Care Team (Late st Contact Info) Description 01/31/2025 3:00 PM EDT Follow-Up [facility] Neurosurgery [address] [place] [address] Minerva Atkins MD [address] [place] [address] documented as of this encounter Visit Diagnoses Not on filedocumented in this encounter Care Teams Java J2Ee Technical Lead Relationship Specialty Start Date End Date Patient, Has No Pcp Or Ref DO NOT EDIT THIS RECORD VIA PROVIDER ON THE FLY PCP - General Grievance Manager 01/24/25 documented as of this encounter
--- OUTSIDE RECORDS SUMMARY | 2025-01-28 17:43 | XMS_ITS | Encounter Summary ---
Author Organization [facility] Address [address] [place] [address] Care Team Providers Care Receiving Manager Name Role Phone Patient, Has No Pcp Or Ref Primary Care Provider Unavailable Reason for Referral * Physical Therapy (Routine) - Closed Specialty Diagnoses / Procedures Referred By Xena dumont Referred To Contact Physical Therapy Diagnoses Lumbar radiculopathy Brian Mortensen PA [address] [place] [address] Phone: tel: fax: Referral ID Status Reason Start Date Expiration Date V isits Requested Visits Authorized [id number] Closed Specialty Services Required 01/25/2025 07/27/2026 6 6 Encounter Details Date Type Department Care Team (Latest Contact Info) Description 01/25/2025 12:00 PM EDT Office Visit [facility] Neurosurgery [address] [place] [address] Brian Mortensen PA [address] [place] [address] Lumbar radiculopathy (Primary Dx) Social History Tobacco Use [...] AM EDT documented as of this encounter Progress Notes * YU Bill - 01/25/2025 2:20 PM EDT Date: 01/25/2025 MR#: [id number] Patient: Wayne Ramos DATE OF SERVICE: 01/25/2025 Referred by: Patient, Has No Pcp Or * Reason for visit: No chief complaint on file. HPI: This patient presents today with a chief complaint of back pain and right lower extremity radiculopathy. The patient tells me that last Friday on 01/18/2025 she was walking outside she slipped on somemud awkwardly. She felt a twinge in her back. Friday morning she woke up and had tremendous pain in her right lower extremity. She states the pain was severe and debilitating. The pain starts in her back close to her buttock, posterior thigh and posterior calf to her ankle. She also tells me thather foot and toes are numb. She went to her local emergency department where they treated her with Dilaudid, Robaxin and a Medrol Dosepak. He also performed an MRI of her lumbar spine which reportedly shows a disc herniation at L5-S1. Today she tells me that her pain is still quite severe. She is 3days into a Medrol Dosepak and has not noticed a reduction in her pain thus far. She appears to be very uncomfortable. She does not think she has a weakness. We will review her lumbar MRI. The following portions of the patient's history were reviewed and updated as appropriate: allergies, current medications, past family history, past medical history, past social history, past surgicalhistory and problem list . No past medical history on file. No family history on file. Social History[1] Medications: Current Outpatient Medications Medication Sig Dispense Refill albuterol 2.5 mg/3 mL (0.083%) nebulizer solution Inhale 2.5 mg by mouth every 6 hours as needed. cyclobenzaprine (FLEXERIL) 10 mg tablet Take 10 mg by mouth 2 times a day as needed for muscle spasms. fluticasone furoate (Arnuity Ellipta) 200 mcg/actuation blister with device Inhale 1 puff by mouth daily. ketorolac (TORADOL) 10 mg tablet Take 10 mg by mouth as needed. lamoTRIgine (LaMICtal) 100 mg tablet Take 150 mg by mouth once a day. lidocaine (LIDODERM) 5% patch Apply 1 patch topically to the affected area as needed. Ventolin HFA 90 mcg/actuation inhaler Inhale 1 puff by mouth once a day. No current facility-administered medications for this visit. Review of Systems : Constitutional: Negative. HENT: Negative. Eyes: Negative. Respiratory: Negative. Cardiovascular: Negative. Musculoskeletal: Negative. Allergic/Immunologic: Negative. Neurological: Negative. Hematological: Negative. Psychiatric/Behavioral: Negative. Except: All other systems reviewed and negative OBJECTIVE: Physical Exam: Constitutional: Well-developed and well-nourished. Not in apparent distress. Weight: Wt Readings from Last 1 Encounters: 01/24/25 106.6 kg (235 lb) Skin: Skin is warm and dry. Psychiatric: Normal mood and affect. Normal behavior, judgment and thought content. HENT: Normocephalic and atraumatic. Face symmetric, Neurological: The patient is awake, alert and oriented x3 Extra-ocular movements are normal. Pupils are equal, round, and reactive to light bilaterally. Cranial nerves II through XII are grossly intact. Musculoskeletal: No edema, tenderness or deformity. ROM: Neck normal range of motion Lower back reduced range of motion secondary to pain Gait, stance and posture: Severely antalgic gait Motor strength is normal at 5 out of 5 bilaterally. Strait leg raising is positive on the right to 75 degrees Reflexes are trace at the patella bilaterally Jacob Sign is negative bilaterally Toes are equivocal bilaterally Sensory examination is normal to light touch bilaterally. IMAGING: MRI lumbar spine 1.9 cm right paracentral disc extrusion causing mild to moderate central canal and severe right lateral recess stenosis ASSESSMENT AND PLAN: This patient presents with a chief complaint of back pain and right lower extremity pain through her buttock posterior thigh and posterior calf. A review of her MRI shows a significant disc herniation at L5-S1 eccentric to the right. She is currently midway through a Medrol Dosepak but has not noted any reduction in her radiculopathy. I have provided her with a refill of Dilaudid 2 mg p.o. every 8 hours. Dispense 21 tablets. I have also provided her with a referral for physical therapy althoughin her current condition I think she is in a have a very difficult time participating. I would liketo bring her back next Friday to see Dr. Atkins to see if he thinks that the best option for herwould be surgical. The patient and her are in agreement and happy with this plan. I spent a total of 46 minutes on the date of encounter, which included: ?? Preparing to see the patient (e.g., review of test results) ?? Obtaining and/or reviewing separately obtained history ?? Performing a medically appropriate exam and/or evaluation ?? Counseling and educating the patient/family/caregiver ?? Ordering medications, tests, procedures ?? Referring and communicating with other healthcare professionals, when not separately reported ?? Documenting clinical information in the health record ?? Independently interpreting results (not separately reported) and communicating results to the patient/family/caregiver Brian Cheatham PA-C This note is completed by using voice recognition software. Please, excuse any typographical grammatical errors. [1] Social History Socioeconomic History Marital status: Spouse name: Not on file Number of children: Not on file Years of education: Not on file Highest education level: Not on file Occupational History Not on file Tobacco Use Smoking status: Never Smokeless tobacco: Never Vaping Use Vaping status: Never Used Substance and Sexual Activity Alcohol use: Yes Comment: social Drug use: Yes Types: Marijuana Comment: gummies for pain less than monthly Sexual activity: Defer Other Topics Concern Not on file Social History Narrative Not on file documented in this encounter Plan of Treatment Upcoming Encounters Date Type Department Care Team (Late st Contact Info) Description 01/31/2025 3:00 PM EDT Follow-Up [facility] Neurosurgery [address] [place] [address] Minerva Atkins MD [address] [place] [address] Scheduled Referrals Name Type Priority Associated Diagnoses Orde r Schedule Ambulatory referral to Physical Therapy Outpatient Referral Routine Lumbar radiculopathy Expected: 01/25/2025, Expires: 07/28/2025 documented as of this encounter Visit Diagnoses Diagnosis Lumbar radiculopathy- Primary Thoracic or lumbosacral neuritis or radiculitis, unspecified documented in this encounter Care Teams Receiving Manager Relationship Specialty Start Date End Date Patient, Has No Pcp Or Ref DO NOT EDIT THIS RECORD VIA PROVIDER ON THE FLY PCP - General Manager Plan 01/24/25 documented as of this encounter
--- OUTSIDE RECORDS SUMMARY | 2025-01-28 17:43 | XMS_ITS | Referral Summary ---
Author Organization [facility] Address [address] [place] [address] Care Team Providers Care Nut Tightener Name Role Phone Patient, Has No Pcp Or Ref Primary Care Provider Unavailable Encounters Date Type Department Care Team Description 01/28/2025 Orders Only [facility] Neurosurgery [address] [place] [address] Provider, Unknown, 01/25/2025 Refill [facility] Neurosurgery [address] [place] [address] Gabby Greer CCMA Lumbar disc herniation with radiculopathy (Primary Dx) 01/25/2025 Telephone [facility] Neurosurgery [address] [place] [address] Gabby Greer CCMA pharmacy requesting a new script 01/25/2025 Telephone [facility] Neurosurgery [address] [place] [address] Brian Mortensen PA 01/25/2025 Orders Only [facility] Neurosurgery [address] [place] [address] Brian Mortensen PA 01/25/2025 12:00 PM EDT Office Visit [facility] Neurosurgery [address] [place] [address] 327[address] Brian Mortensen PA Lumbar radiculopathy (Primary Dx) 01/24/2025 Telephone [facility] Neurosurgery [address] [place] [address] SamburgBebe childress ND 01/24/2025 Orders Only [facility] Neurosurgery [address] [place] [address] Provider, MD Ekta 01/22/2025 Orders Only [facility] - External Imaging [address] [place] [address] Radiology, External 01/22/2025 Orders Only [facility] - External Imaging [address] [place] [address] Radiology, External 01/22/2025 Orders Only [facility] - External Imaging [address] [place] [address] Radiology, External 01/22/2025 Orders Only [facility] - External Imaging [address] [place] [address] Radiology, External from Last 3 Months Allergies Active Allergy Reactions Criticality Noted Date [...] mg 21 tablet 01/26/20 25 025 Discontinued Social History Tobacco Use Types Packs/Day Years [...] Info) Description 01/31/2025 3:00 PM EDT Follow-Up [facility] Neurosurgery [address] [place] [address] Minerva Atkins MD [address] [place] [address] Procedures * Due to [place] state law, this organization might not be sharing negative HIV tests. Procedure Name Priority Date/Time Associated Diagnosis Comments AMB EXTERNAL MRI LUMBAR SPINE, OUTSIDE RESULT Routine 01/22/2025 9:38 AM EST AMB EXTERNAL CT L-SPINE, OUTSIDE RESULT Routine 01/22/2025 9:36 AM EST AMB EXTERNAL XR L-SPINE, OUTSIDE RESULT Routine 01/22/2025 9:35 AM EST from Last 3 Months Results * Due to [place] state law, this organization might not be sharing [...] Final Result from Last 3 Months Insurance [employer] Care Teams Nut Tightener Relationship Specialty Start Date End Date Patient, Has No Pcp Or Ref DO NOT EDIT THIS RECORD VIA PROVIDER ON THE FLY PCP - General Remnant Sorter 01/24/25
--- OUTSIDE RECORDS SUMMARY | 2025-01-28 17:43 | XMS_ITS | Encounter Summary ---
Author Organization [facility] Address [address] [place] [address] Care Team Providers Care Lab Analyst Name Role Phone Patient, Has No Pcp Or Ref Primary Care Provider Unavailable Encounter Details Date Type Department Care Team (Late st Contact Info) Description 01/25/2025 Telephone [facility] Neurosurgery [address] [place] [address] Brian Mortensen, PA [address] [address] Social History Tobacco Use Types Packs/Day Years [...] encounter Miscellaneous Notes * Telephone Encounter - Marilee Gonsalez - 01/25/2025 1:12 PM EDT Emailed PT order to patient. Eff 01/25/25 documented in this encounter Plan of Treatment Upcoming Encounters Date Type Department Care Team (Late st Contact Info) Description 01/31/2025 3:00 PM EDT Follow-Up [facility] Neurosurgery [address] [place] [address] Minerva Atkins MD [address] [place] [address] documented as of this encounter Visit Diagnoses Not on filedocumented in this encounter Care Teams Lab Analyst Relationship Specialty Start Date End Date Patient, Has No Pcp Or Ref DO NOT EDIT THIS RECORD VIA PROVIDER ON THE FLY PCP - General Stores Laborer 01/24/25 documented as of this encounter
--- OUTSIDE RECORDS SUMMARY | 2025-01-28 17:43 | XMS_ITS | Encounter Summary ---
Author Organization [facility] Address [address] [place] [address] Care Team Providers Care Warp Yarn Sorter Name Role Phone Patient, Has No Pcp Or Ref Primary Care Provider Unavailable Encounter Details Date Type Department Care Team (Late Contact Info) Description 01/28/2025 Orders Only [facility] Neurosurgery [address] [place] [address] ProviderEkta MD [address] [place], [place] [phone] Social History Tobacco Use Types Packs/Day Years [...] Info) Description 01/31/2025 3:00 PM EDT Follow-Up [facility] Neurosurgery [address] [place] [address] Minerva Atkins MD [address] [place] [address] documented as of this encounter Procedures * Due to [place] [employer] law, this organization might not be sharing negative HIV tests. Procedure Name Priority Date/Time Associated Diagnosis Comments AMB EXTERNAL MRI LUMBAR SPINE, OUTSIDE RESULT Routine 01/22/2025 9:38 AM EST AMB EXTERNAL CT L-SPINE, OUTSIDE RESULT Routine 01/22/2025 9:36 AM EST AMB EXTERNAL XR L-SPINE, OUTSIDE RESULT Routine 01/22/2025 9:35 AM EST documented in this encounter Results * Due to [place] [employer] law, this organization might not be sharing [...] MILES EXTERNAL RESULT PROCEDUR ES Final Result documented in this encounter Visit Diagnoses Not on filedocumented in this encounter Care Teams Warp Yarn Sorter Relationship Specialty Start Date End Date Patient, Has No Pcp Or Ref DO NOT EDIT THIS RECORD VIA PROVIDER ON THE FLY PCP - General Forge Hand 01/24/25 documented as of this encounter
--- OUTSIDE RECORDS SUMMARY | 2025-01-28 17:43 | XMS_ITS | Encounter Summary ---
Author Organization [facility] Address [address] [place] [address] Care Team Providers Care Audio Engineer Name Role Phone Patient, Has No Pcp Or Ref Primary Care Provider Unavailable Encounter Details Date Type Department Care Team (Late Contact Info) Description 01/25/2025 Orders Only [facility] Neurosurgery [address] [place] [address] Brian Mortensen PA [address] [place] [address] Social History Tobacco Use Types Packs/Day Years [...] Info) Description 01/31/2025 3:00 PM EDT Follow-Up [facility] Neurosurgery [address] [place] [address] Minerva Atkins MD [address] [place] [address] documented as of this encounter Visit Diagnoses Not on filedocumented in this encounter Care Teams Audio Engineer Relationship Specialty Start Date End Date Patient, Has No Pcp Or Ref DO NOT EDIT THIS RECORD VIA PROVIDER ON THE FLY PCP - General Launch Manager 01/24/25 documented as of this encounter
--- OUTSIDE RECORDS SUMMARY | 2025-01-28 17:43 | XMS_ITS | Encounter Summary ---
Author Organization [facility] Address [address] [place] [address] Care Team Providers Care Epic Willow Analyst Name Role Phone Patient, Has No Pcp Or Ref Primary Care Provider Unavailable Encounter Details Date Type Department Care Team (Late st Contact Info) Description 01/22/2025 Orders Only [facility] - External Imaging [address] [place] [address] Radiology, External [address] [place] [address] Social History Tobacco Use Types Packs/Day Years [...] Info) Description 01/31/2025 3:00 PM EDT Follow-Up [facility] Neurosurgery [address] [place] [address] Minerva Atkins MD [address] [place] [address] Pending Results Name Type Priority Associated Diagnoses Date /Time CT Transfer of Outside Films L-Spine Imaging Routine 01/25/2025 2:54 PM EDT Scheduled Orders Name Type Priority Associated Diagnoses Orde r Schedule CT Transfer of Outside Films L-Spine Imaging Routine [address] arting 01/25/2025 until 03/27/2026 documented as of this encounter Visit Diagnoses Not on filedocumented in this encounter Care Teams Epic Willow Analyst Relationship Specialty Start Date End Date Patient, Has No Pcp Or Ref DO NOT EDIT THIS RECORD VIA PROVIDER ON THE FLY PCP - General Access Services Librarian 01/24/25 documented as of this encounter
== END 2025-01-27 11:30 | disposition home or self-care (01) ==
PROVIDERS: Visit Provider Clinical Nurse Specialist Psychiatric/Mental Health
DX: F31.81 Bipolar II disorder (principal); F90.2 Attention-deficit hyperactivity disorder, combined type
CPT/HCPCS: 99213

== ENCOUNTER → 2025-01-27 11:00 | Outpatient (BNVA) | payer OTHER, SELFPAY | PROVIDERS: Visit Provider Clinical Nurse Specialist Psychiatric/Mental Health | DX: F90.2 Attention-deficit hyperactivity disorder, combined type (principal); F31.81 Bipolar II disorder ==

== ENCOUNTER → 2025-01-28 17:41 | Outpatient (BNVA) | payer OTHER, SELFPAY | PROVIDERS: Visit Provider Clinical Nurse Specialist Psychiatric/Mental Health | DX: F90.2 Attention-deficit hyperactivity disorder, combined type (principal); F31.81 Bipolar II disorder ==

== ENCOUNTER 2025-02-11 08:32 | Outpatient (AMB) | payer OTHER, SELFPAY ==
--- NOTE | 2025-02-11 08:37 | MHC.PC.OV ---
Vital Signs 02/11/25 08:38 Height 5 ft 4 in Weight 235 lb BMI 40.3 BP 130/70 Blood Pressure Location Lt brachial Position Sitting Pulse 78 Pulse Source Pulse Oximeter Temp 96.9 F Temp Source Temporal Artery Scan Pulse Oximetry (%) 96 Oxygen Delivery Method Room Air Intake Visit Reasons: f/u obesit Intake Note: Patient is here to follow up on Obesity. Material Mixer Required: No Irrigation Laborer: Not Required per policy Accompanied by: Self / Same As Patient Allergies morphine [MORPHINE] Allergy (Unknown, Verified 02/11/25 09:00) ANAPHYLAXIS oxycodone [From PERCOCET] Allergy (Unknown, Verified 02/11/25 09:00) RASH strawberry [STRAWBERRY] Allergy (Unknown, Verified 02/11/25 09:00) ANAPHYLAXIS Medication List - Last Reconciled 02/11/25 by Preethi Mcintosh PA-C albuterol sulfate 90 mcg/actuation (Ventolin HFA) 2 puffs inhalation Q4-6H PRN albuterol sulfate 2.5 mg (3 mL) inhalation Q4-6H PRN cetirizine 10 mg PO DAILY epinephrine (EpiPen) 0.3 mg (0.3 mL) IM Q10M PRN fluticasone propionate 50 mcg/actuation (Flonase Allergy Relief) 1 spray intranasal BID ketorolac 10 mg PO Q6H PRN lamotrigine (Lamictal) 100 mg orally take 1 & 1/2 tablets daily; lidocaine 5% 1 patch topical DAILY lisdexamfetamine (Vyvanse) 50 mg PO QAM meloxicam 15 mg PO DAILY methylprednisolone (Medrol (Truman)) 4 mg PO QAM montelukast 10 mg PO DAILY multivitamin 1 tab PO DAILY naloxone 4 mg/actuation (Narcan) 4 mg intranasal Q2M PRN omalizumab (Xolair) 300 mg subcut Q4W omeprazole 40 mg PO DAILY ondansetron 4 mg PO Q8H PRN semaglutide 1 mg (0.75 mL) subcut QWEEK simethicone (Gas Relief (simethicone)) 80 mg PO TID-QID PRN trazodone take 50mg- 100mg at bedtime as needed for sleep orally bedtime PRN; Tobacco use date assessed: 03/28/25 Dental Screening Dental Screen Date: 02/11/25 Did you have a dental visit in the last 12 months?: Yes Did you have a dental problem in the last 6 months where you did not have access to dental care?: No Was dental information given to patient?: Patient has dentist TRESSA f/u kylah HPI Details 44-year-old female with past medical history of depression, HSV, asthma, diabetes mellitus, generalized anxiety disorder and insomnia last seen 10/2024 coming in for follow up.? In review of the notes, patient was seen by outpatient psychiatry 01/27/2025 diagnosed with bipolar and ADHD started on Vyvanse, trazodone and lamotrigine advised to follow up in 2 months.? Patient was seen in [facility] ED 01/23/2025 for back pain related to herniated disc advised to follow up with Neurosurgery the following day. Presenting for post-surgical follow-up for a lumbar herniated disc. Three days prior, she underwent surgery following a fall earlier this month, which required immediate attention. Post-operatively, she is managing with pain control medications, though she reports significant constipation as a side effect. Additionally, she has experienced issues with sleep, largely attributable to post-surgical discomfort and environmental factors involving her living situation. Her psychiatric history includes ADHD and CPTSD, with past treatment efforts including psychotherapy and medication adjustments due to mood dysregulation and insomnia. Recent evaluation revealed no current signs of infection, though she has been limited in activity and advised against certain physical exertions. Her pain management involves opioid medications, which have further compounded constipation issues. Patient has noted intentional 10 lb weight loss since November. She does also mentioned ED visit yesterday for dark emesis workup was negative in the ED and patient was discharged home. [facility] Medical History Allergic rhinitis COVID-19 Tick bite Unplanned unwanted Delivery with history of test positive Polyp of cervix Fibroid, uterine History of uterine fibroid Encounter to establish care Surgical History History of back surgery History of hysterectomy History of colonoscopy History of surgery on right wrist History of delivery Family History Mother No problems noted. Father Mental health disorder Substance use disorder Social History Household Members: Family Housing: House Do you presently have visiting nurse or other home services: No Alcohol intake: current Alcohol intake frequency: a few times a week Patient Tobacco Use Status: Former Tobacco user Tobacco use type: Cigarette e-Cigarette/Vaping Use: Never Used Second Hand Smoke Exposure: Yes Substance Use Type: Marijuana service: No Current occupational status: employed Current occupational exposures/hazards: No Cognitive needs: Yes (Cane) Hearing needs: No Vision needs: No Female Reproductive History Menstrual Age of Menarche: 14 Questionnaire PHQ-9 Over the last 2 weeks, how often have you been bothered by any of the following problems? 1. Little interest or pleasure in doing things: not at all 2. Feeling down, depressed, or hopeless: not at all 3. Trouble falling or staying asleep, or sleeping too much: not at all 4. Feeling tired or having little energy: not at all 5. Poor appetite or overeating: not at all 6. Feeling bad about yourself - or that you are a failure or have let yourself or your family down: not at all 7. Trouble concentrating on things, such as reading the newspaper or watching television: not at all 8. Moving or speaking so slowly that other people could have noticed. Or the opposite - being so fidgety or restless that you have been moving around a lot more than usual: not at all 9. Thoughts that you would be better off or of hurting yourself in some way: not at all Total score: 0 Depression Screening Interpretation: Negative Depression Screening Done: Yes Source: Developed by Drs. Vishnu Ashton, Susana Walters, Freddy Og and colleagues, with an educational yaneth from [employer]. Thrive Questionnaire Date Thrive assessed: 02/11/25 AUDIT C Alcohol Use Questionnaire (AUDIT-C) 1. How often do you have a drink containing alcohol?: 2-3 times a week 2. How many drinks containing alcohol do you have on a typical day when you are drinking?: 1 or 2 Total Score: 3 JASSI-7 AMB Questionnaire JASSI-7 Date JASSI - 7 assessed: 02/11/25 (pt seeing therapist ) Feeling nervous, anxious, or on edge: 0 = Not at all Not being able to stop or control worryin = Not at all Worrying too much about different things: 0 = Not at all Trouble relaxin = Not at all Being so restless that it is hard to sit still: 0 = Not at all Becoming easily annoyed or irritable: 0 = Not at all Feeling afraid as if something awful might happen: 0 = Not at all Total JASSI-7 score (0-4 normal; 5-9 mild; 10-14 moderate; 15-21 severe): 0 Source: Developed by Drs. Vishnu Ashton, Susana Walters, Freddy Og and colleagues, with an educational yaneth from [employer]. Review of Systems Const Denies body aches, Denies chills, Denies fever(s), Denies headache(s) and Denies poor appetite Eyes Reports no additional complaints ENT Denies dizziness and Denies headache(s) Card Denies chest pain and Denies lightheadedness Resp Denies cough GI Denies abdominal pain, Reports constipation, Denies nausea and Reports vomiting Reports no additional complaints Musc Reports no additional complaints and Denies abnormal gait Skin/Breast Reports system reviewed and no additional complaints, except as documented Neuro Denies abnormal gait, Denies dizziness and Denies headache(s) Psych Reports no additional complaints Physical exam (Primary Care) Vital Signs: Last Vital Signs Temp 96.9 F 02/11/25 08:38 Pulse 78 02/11/25 08:38 BP 130/70 02/11/25 08:38 Pulse Ox 96 02/11/25 08:38 Oxygen Delivery Method Room Air 02/11/25 08:38 BMI result Body Mass Index 40.3 Tobacco/Smoking Status: Tobacco use Status Tobacco use date assessed 02/11/25 02/11/25 08:45 Patient Tobacco Use Status Former Tobacco user 02/11/25 08:45 Tobacco use type Cigarette 02/11/25 08:45 e-Cigarette/Vaping Use Never Used 02/11/25 08:45 PHQ-9: PHQ-9 Score PHQ-9: Total score 0 02/11/25 08:45 Depression Screening Interpretation: Negative Thrive Assessment: Date of Thrive Assessment Date Thrive assessed 02/11/25 02/11/25 08:45 Const General: cooperative, healthy appearing, comfortable and no acute distress Orientation/consciousness: patient oriented x3 HENMT Head: Yes normocephalic Ears: hearing grossly normal bilaterally General nose exam: Normal external nose present Eyes General: appearance normal, both eyes and all related structures Conjunctivae: conjunctivae normal Neck Neck: Yes full ROM and Yes no lymphadenopathy Resp Effort & Inspection: normal respiratory effort Auscultation: clear to auscultation bilaterally, no crackles, no rales, no rhonchi and no wheezes Cardio Rate: regular rate Rhythm: regular rhythm Skin General skin exam: no rashes or lesions noted Neuro General: patient oriented x3 Gait exam (Neuro): Normal gait present Extrem General: Yes normal to inspection, Yes full ROM and No edema Psych Affect: normal affect Attitude: cooperative Insight: Good insight present (Psych) Judgement: Good judgement present (Psych) Coding Level of Care Code Est Pt Level 3 (19068) Diagnoses ADHD (attention deficit hyperactivity disorder), combined type F90.2 Bipolar II disorder major depressive with melancholic features F31.81 Generalized anxiety disorder F41.1 Obesity, morbid, BMI 40.0-49.9 E66.01 Moderate depressive disorder F32.A Constipation K59.00 Assessment & Plan Assessment & Plan (1) ADHD (attention deficit hyperactivity disorder), combined type: Code(s): F90.2 - Attention-deficit hyperactivity disorder, combined type Category: Medical Plan: Continue to follow with outpatient psych clinic and counselor. (2) Bipolar II disorder major depressive with melancholic features: Code(s): F31.81 - Bipolar II disorder Category: Medical Plan: Continue to follow with outpatient psych clinic and counselor. (3) Generalized anxiety disorder: Code(s): F41.1 - Generalized anxiety disorder Category: Medical Plan: Continue to follow with outpatient psych clinic and counselor. (4) Obesity, morbid, BMI 40.0-49.9: Code(s): E66.01 - Morbid (severe) obesity due to excess calories Category: Medical Plan: Healthy diet and regular exercise is encouraged. Plan to increase Ozempic to 1.7 mg injection and follow up in 3 months. Patient has noted 10 lb weight loss since November and noted 40 lb weight loss since starting the injection. (5) Moderate depressive disorder: Code(s): F32.A - Depression, unspecified Category: Medical Plan: Currently following with counselor and outpatient psych clinic. She is currently looking to change counselors and is working on this independently does not need a referral at this time. (6) Constipation: Code(s): K59.00 - Constipation, unspecified Category: Medical Plan: Patient reporting increased constipation despite the use of guwj-erv-ljgvnlt laxatives. Advised patient to use dxzp-poz-dkcueqj enema for constipation and reach out to the patient if she does not have a bowel movement in the next few days. Plan This note was constructed using voice recognition software. While every effort has been made to ensure accuracy and pig lead melter helper, still areas may have been included sometimes these areas may affect the content or meeting of the given symptoms. Total time spent caring for the patient today was 20 minutes. This includes time spent before the visit reviewing the chart, time spent during the visit, and time spent after the visit and documentation. Patient was informed and verbally consented to the use of an ambient scribe for clinic note documentation during this visit. Medications: New semaglutide (weight loss) administer weeks 13 through 16 of therapy 1.7 mg (0.75 mL) subcut QWEEK 3 mL 0RF Discontinued semaglutide Discontinued Reason: Patient no longer taking 1 mg (0.75 mL) subcut QWEEK 3 mL 0RF
[2025-02-11 08:38] VITALS: BP 130/70; PULSE 78; TEMP 36.1; O2SAT 96; BMI 40.3
== END 2025-02-11 09:22 | disposition home or self-care (01) ==
LOC: HO.HMCH 08:32
DX: F41.1 Generalized anxiety disorder (principal); F31.81 Bipolar II disorder; E66.01 Morbid (severe) obesity due to excess calories; Z68.41 Body mass index [BMI] 40.0-44.9, adult; F90.2 Attention-deficit hyperactivity disorder, combined type; F32.A Depression, unspecified; K59.00 Constipation, unspecified

== ENCOUNTER → 2025-02-11 08:32 | Outpatient (BNVA) | payer OTHER, SELFPAY | DX: F90.2 Attention-deficit hyperactivity disorder, combined type (principal); F31.81 Bipolar II disorder; F41.1 Generalized anxiety disorder; E66.01 Morbid (severe) obesity due to excess calories; Z68.41 Body mass index [BMI] 40.0-44.9, adult; K59.00 Constipation, unspecified; Z71.3 Dietary counseling and surveillance | CPT/HCPCS: 99212 ==

== ENCOUNTER 2025-03-15 12:53 | Outpatient (AMB) | payer OTHER, SELFPAY ==
--- NOTE | 2025-03-15 13:05 | A.OFFVIS_ITS ---
VS Expanded 03/15/25 13:10 03/15/25 13:25 Height 5 ft 4 in 5 ft 4 in Weight 238 lb 8.642 oz 239 lb BMI 40.9 41.0 Intake Visit Reasons: Obesity/appt confirmed w/pt. Allergies morphine [MORPHINE] Allergy (Unknown, Verified 03/18/25 09:14) ANAPHYLAXIS oxycodone [From PERCOCET] Allergy (Unknown, Verified 03/18/25 09:14) RASH strawberry [STRAWBERRY] Allergy (Unknown, Verified 03/18/25 09:14) ANAPHYLAXIS Nutrition Presentation Details: Pt presents for MNT for obesity Pt reports insurance no longer covering ozempic Pt on vivance Physical activity lessening due to recent back surgery (5 wks ago) Pt c/o hair loss Typical meal intake coffee 16 oz /day no sugar added 1 cup overnight oat with nuts/ seed and fruits added snack on nuts/seeds or whole grain bread/crackers with cheese dinner: quinoa or rice or potatoes with eggs and spinach/artichokes BS Monitoring Most Recent Diabetes Results: No Data to Display GPJ-Lwamcec-Et.Jeor Equation Height: 5 ft 4 in Weight: 239 lb Resting Metabolic Rate: 1731.36 Calculated Activity Level: Sedentary Calories Needed to Maintain Weight: 2077.63 [facility] Medical History Allergic rhinitis COVID-19 Tick bite Unplanned unwanted Delivery with history of test positive Polyp of cervix Fibroid, uterine History of uterine fibroid Encounter to establish care Surgical History History of back surgery History of hysterectomy History of colonoscopy History of surgery on right wrist History of delivery Family History Mother No problems noted. Father Mental health disorder Substance use disorder Social History Household Members: Family Housing: House Do you presently have visiting nurse or other home services: No Alcohol intake: current Alcohol intake frequency: a few times a week Patient Tobacco Use Status: Former Tobacco user Tobacco use type: Cigarette e-Cigarette/Vaping Use: Never Used Second Hand Smoke Exposure: Yes Substance Use Type: Marijuana service: No Current occupational status: employed Current occupational exposures/hazards: No Cognitive needs: Yes (Cane) Hearing needs: No Vision needs: No Female Reproductive History Menstrual Age of Menarche: 14 Assessment & Plan Assessment & Plan (1) Obesity, morbid, BMI 40.0-49.9: Code(s): E66.01 - Morbid (severe) obesity due to excess calories Category: Medical Plan: Wt: 125 Kg ( 08/10 ), 119.5 (09/09), 114 kg (11/09), 112kg(12/11), 108 kg (03/11) Est kcal needs as per MSJ: 5368-3144 (40% carb, 30% protein/fat) Est fluid needs as per 25-30 ml/d: 3400 Est prot per day as per 1 g/kg bw: 112 Recommend fiber intake : 8-10 g per day and gradually increase to 25-28 g per day for women and 35-38 g for men or as tolerated Recommend sodium intake per day : less than 2300 mg Educated patient on: ( R = reviewed V = verbalizes understanding N/R = needs review N/A = not applicable * Food sources of carbohydrate, adequate serving sizes and its role in various health conditions: R * Differences between complex carbohydrates a simple carbohydrates, role of fiber in diet: R * Lean protein sources of foods: R V * Differences between types of fats and role in diet (mono on saturated fat fatty acids, saturated fatty acids, trans fats): R * Food sources of sodium in salt and healthy modifications for heart health in kidney health: R V R/V * Vitamins and minerals: R V * Healthy plate method concept: R * Physical activity: Benefits a precaution: R * RECOMMEND MONITORING FOR B vitamin deficiencies and Vit D, Zinc related to c/o hair loss Patient Instructions: Work on having 3-4 small meals per day Work on consuming 60-80 g of lean protein per day Be mindful of high fats/hidden fats (butter/cream, sour cream, oils, seeds.nuts, even healthy fat have calories) keep hydrated by having wtawer with meals Coding Level of Care Code Nutr Indiv Subseq (41354) Diagnoses Obesity, morbid, BMI 40.0-49.9 E66.01 Time Spent (min) 20
[2025-03-15 13:10] VITALS: BMI 40.9
--- OUTSIDE RECORDS SUMMARY | 2025-03-15 14:45 | XMS_ITS | Encounter Summary ---
Author Organization [facility] Address [address] [place] [address] Care Team Providers Care Real Estate Accountant Name Role Phone Patient, Has No Pcp Or Ref Primary Care Provider Unavailable Encounter Details Date Type Department Care Team ([facility] Contact Info) Description 02/13/2025 myChart Message [facility] Neurosurgery [address] [place] [id number] Brian Mortensen, PA [address] [place] [phone] Tingling in leg Social History Tobacco Use Types Packs/Day Years [...] Department Care Team (Late Contact Info) Description 04/04/2025 11:30 AM EDT Follow-Up [facility] Neurosurgery [address] [place] [id number] Brian MortensenYU [address] [id number] documented as of this encounter Visit Diagnoses Not on filedocumented in this encounter Care Teams Real Estate Accountant Relationship Specialty Start Date End Date Patient, Has No Pcp Or Ref DO NOT EDIT THIS RECORD VIA PROVIDER ON THE FLY PCP - General Director Of Compensation 01/24/25 documented as of this encounter
--- OUTSIDE RECORDS SUMMARY | 2025-03-15 14:45 | XMS_ITS | Clinical Summary ---
Author Organization [facility] Address [address] [place] [address] Care Team Providers Care Critical Power Technician Name Role Phone Patient, Has No Pcp Or Ref Primary Care Provider Unavailable Allergies Active Allergy Reactions Criticality Noted Date Comments Morphine Anaphylaxis,Dyspnea, Nausea And Vomiting,Palpitations High 07/04/2014 Medications albuterol 2.5 mg/3 mL (0.083%) nebulizer solution Inhale 2.5 mg by mouth every 6 hours as needed. Active Ventolin HFA 90 mcg/actuation inhaler Inhale 1 puff by mouth once a day. 4 Active fluticasone furoate (Arnuity Ellipta) 200 mcg/actuation blister with device Inhale 1 puff by mouth daily. 5 Active lamoTRIgine (LaMICtal) 100 mg tablet Take 150 mg by mouth once a day. 4 Active lidocaine (LIDODERM) 5% patch Apply 1 patch topically to the affected area as needed. 4 Active methocarbamoL (ROBAXIN) 500 mg tablet Take 500 mg by mouth daily as needed. 5 Active cyclobenzaprin e (FLEXERIL) 10 mg tablet Take 10 mg by mouth 2 times a day as needed for muscle spasms. 4 02/23/20 25 Discontinue d(Discontin ued by Patient) ketorolac (TORADOL) 10 mg tablet Take 10 mg by mouth as needed. 5 02/23/20 25 Discontinue d(Discontin ued by Patient) HYDROmorphone (Dilaudid) 4 mg tabletIndicati ons:S/P lumbar discectomy Take 0.5 tablets (2 mg total) by mouth every 8 hours as needed for pain (take 1/2 tablet every 8 hours as needed for pain) for up to 7 days. Max Daily Amount: 6 mg 11 tablet 5 02/20/20 25 Encounters Date Type Department Care Team Description 02/22/2025 12:30 PM EDT Follow-Up [facility] Neurosurgery [address] [place] [id number] Brian Mortensen, PA Status post lumbar discectomy (Primary Dx) 02/22/2025 Orders Only [facility] Neurosurgery [address] [place] [address] [phone] Brian Mortensen PA S/P lumbar discectomy (Primary Dx) 02/13/2025 myChart Message [facility]surgery [address] [place] [address] [phone] Brian Mortensen PA Tingling in leg 02/10/2025 Orders Only [facility] [address] [place] [address] [phone] Bala Oneal PA S/P lumbar discectomy 02/09/2025 Refill [facility] [address] [place] [address] [phone] Gabby Greer CCMA S/P lumbar discectomy (Primary Dx) 02/09/2025 Erroneous Telephone Encounter [facility] [address] [place] [address] [phone] Bebe Arriola MA ERRONEOUS ENCOUNTER--DISREGARD (Primary Dx) 02/08/2025 Telephone [facility] [address] [place] [address] [phone] Bebe Arriola MA 02/04/2025 Refill [facility] [address] [place] [address] [phone] Brian Mortensen PA 02/04/2025 Orders Only [facility] [address] [place] [address] [phone] Brian Mortensen PA 02/04/2025 Telephone [facility] [address] [place] [address] [phone] Brian Mortensen PA 02/02/2025 Telephone [facility] [address] [place] [address] [phone] Minerva Atkins MD 02/01/2025 Telephone [facility] [address] [place] [address] [phone] Bebe Arriola [place] 01/31/2025 12:15 PM EDT Follow-Up [facility] [address] [place] [address] [phone] Minerva Atkins MD Lumbar disc disease with radiculopathy (Primary Dx) 01/28/2025 Orders Only [facility] [address] [place] [address] [phone] ProviderEkta MD 01/25/2025 12:00 PM EDT Office Visit [facility] [address] [place] [address] [phone] Brian Mortensen, PA Lumbar radiculopathy (Primary Dx) 01/25/2025 Refill [facility] [address] [place] [address] [phone] Gabby Greer CCMA Lumbar disc herniation with radiculopathy (Primary Dx) 01/25/2025 Telephone [facility] [address] [place] [address] [phone] Gabby Greer, [facility] pharmacy requesting a new script 01/25/2025 Telephone [facility] [address] [place] [address] [phone] Brian Mortensen PA 01/25/2025 Orders Only [facility] [address] [place] [address] [phone] Brian Mortensen PA 01/24/2025 Telephone [facility] [address] [place] [address] [phone] Bebe Arriola PR 01/24/2025 Orders Only [facility] [address] [place] [address] [phone] Provider, MD Ekta 01/22/2025 Orders Only [facility] [address] [place] [address] Radiology, External 01/22/2025 Orders Only [facility] [address] [place] [address] Radiology, External 01/22/2025 Orders Only [facility] [address] [place] [address] Radiology, External 01/22/2025 Orders Only [facility] [address] [place] [address] Radiology, External from Last 3 Months Social [...] Care Team (Late st Contact Info) Description 04/04/2025 11:30 AM EDT Follow-Up [facility]surgery [address] [place] [address] Brian Mortensen PA [address] [facility] [address] [place] [address] Health Maintenance Due Date Last Done Comments Cervical Cancer Screening 1982 HIV Screening 1982 HPV and Pap Smear 1982 Pap Smear 1982 Varicella Vaccines (1 of 2 - 13+ 2-dose series) 1995 Hepatitis B Vaccines (1 of 3 - 19+ 3-dose series) 2001 Pneumococcal Vaccine: Pediat leatha (0-5 Years) and At-Risk Patients (6-50 Years) (1 of 2 - PCV) 2001 COVID-19 Vaccine (1 - 2023-2 5 season) 2024 Alcohol/Substance Use Screening 11/17/2024 Depression Screening and Follow-Up 11/17/2024 Social Drivers of Health [place] ual Screening 11/17/2024 DTaP,Tdap,and Td Vaccines (4 - Td or Tdap) 05/07/2026 05/07/2016, 12/08/2012, 11/29/2001 Mammogram 02/10/2027 02/10/2025, 1202/2023, 10/20/2023 RSV Vaccine (60+ years old a nd patients) (1 - 1-dose 75+ series) 2057 Hepatitis C Screening Completed 11/06/2015 Influenza Vaccine Completed 10/20/2024, , 08/21/2020, Additional history exists Procedures * Due to [place] state law, this organization might not be sharing negative HIV tests. Procedure Name Priority Date/Time Associated Diagnosis Comments AMB EXTERNAL MRI LUMBAR SPINE, OUTSIDE RESULT Routine 01/22/2025 9:38 AM EST AMB EXTERNAL CT L-SPINE, OUTSIDE RESULT Routine 01/22/2025 9:36 AM EST AMB EXTERNAL XR L-SPINE, OUTSIDE RESULT Routine 01/22/2025 9:35 AM EST from Last 3 Months Results * Due to [place] state law, this organization might not be [...] Final Result from Last 3 Months Insurance [facility] MEDICAID Care Teams Critical Power Technician Relationship Specialty Start Date End Date Patient, Has No Pcp Or Ref DO NOT EDIT THIS RECORD VIA PROVIDER ON THE FLY PCP - General Breeder Hen Service Technician 01/24/25
--- OUTSIDE RECORDS SUMMARY | 2025-03-15 14:45 | XMS_ITS | Data Portability ---
Author Organization [facility], [place] [address] Care Team Providers Care Baggage Handler Name Role Phone ALAN HARVEY Primary Care Provider ALAN HARVEY Referring Provider [phone] Assessment No assessment recorded. Plan of Treatment [...] DO Not Attach Compendium, Do Not Delete/merge, 18784 7 17:32:39 Medication Orders None recorded . Patient TargetsNo targets recorded. Patient Instructions Encounter Date Encounter Id Patient Instructions Last Modified By Organization Details Last Modified Time 12/16/2016 [id number] plantar warts: care instructions Not available 12/17/2016 19:18:11 discussed left submet [...] and prognosis Not available 12/17/2016 18:30:22 12/30/2016 [id number] wound healing we ll focal bone with [...] 12/16/19 17 Mass Excision completed [facility] 12/17/2016 18:30:58 07/21/20 16 completed [facility] 12/16/2016 15:28:02 11/17/19 06 Cystourethroscopy [facility] 12/16/2016 15:28:28 Imaging Results None recorded. Procedure Notes None recorded. Medical Equipment None Reported. Allergies Allergen ID Allergen Name Allergen Category Reaction Reaction Severity Criticality Documentation Date Start Date Code Code System Note Provider Name and Address Organization Details Recorded Time 06092 morphine medicatio n irregular heart rate severe Not available 12/16/2016 7052 RxNorm Linus Curiel [facility] 7 15:26:50 Medications Name Sig [...] Details Last Updated DateTime 12/16/2016 162.56 cm 138166.06 g 39.1 kg/m2 [facility] 12/16/2016 15:26:04 Date Recorded Body height Provider Name an d Address Organization Details Last Updated DateTime 12/30/2016 162.56 cm Linus Curiel [facility], [facility] 12/30/2016 16:09:39 Social History Question Answer Notes LastModified by Organizat ion Details LastModified Time Tobacco Smoking Status Former Smoker Linus Curiel [facility], [facility] 12/16/2016 15:28:38 What Is Your [...] SNOMED-CT Code Diagnosis ICD10 Code Diagnosis Note [id number] Tenzin [facility] [address] [place] [address] 12/16/2016 14:47:59 12/16/2016 16:07:55 Hallux valgus 432834017 M20.10 Pain in left foot 525415 9983 15699 M79.672 Foreign body of foot 281 114873 Z18.9 Verruca plantaris 497210 08 B07.0 Mass of soft tissue 4449 87035 R22.9 05294 Tenzin [facility] [address] [place] [address] 12/30/2016 15:49:09 12/30/2016 16:41:34 Pain in left foot 7151407250 99403 M79.672 Foreign body of foot 281 000106 Z18.9 Mass of soft tissue 4449 39801 R22.9 Health Concerns Section Related Observation LastModified by Organization Detai ls LastModified Time None Recorded Concern Status LastModified by Organization Details LastModified Time None Recorded Advance Directives Directive None Recorded Payers Encounter Date Sequence Insurance Name Policy Number Policy Calderon Covered Member ID Calderon Member ID Guarantor Name 12/16/2016 1 [employer] OF [facility] [id number] Rosalina Ramos [id number] Rosalina Thompsona 12/30/2016 1 [employer] OF [facility] ([facility] [id number] Rosalina Ramos [id number] Rosalinarodrigo Ramos Notes Date Note Type Note [...] attempted treatment for the bunions. Tenzin sullivan [facility], [facility] 12/17/2016 18:35:02 12/30/2016 text/html present in offic e to follow up for splinter removed from bottom of left foot, pt states that she has not much pain, no swelling, she has been changing the dressing, and soaking it with Epsom salt, and applying bacitracin. Tenzin sullivan [facility], [facility] 12/31/2016 11:29:05 OBGyn Episode No OBEpisode recorded.
--- OUTSIDE RECORDS SUMMARY | 2025-03-15 14:45 | XMS_ITS | Referral Summary ---
Author Organization [facility] Address [address] [place] [address] Care Team Providers Care Forge Tender Name Role Phone Patient, Has No Pcp Or Ref Primary Care Provider Unavailable Encounters Date Type Department Care Team Description 02/22/2025 Orders Only [facility] Neurosurgery [address] [place] [address] 09205 Brian Mortensen PA S/P lumbar discectomy (Primary Dx) 02/22/2025 12:30 PM EDT Follow-Up [facility] Neurosurgery [address] [place] [address] 72381 Brian Mortensen PA Status post lumbar discectomy (Primary Dx) 02/13/2025 myChart Message [facility] Neurosurgery [address] [place] [address] 98103 Brian Mortensen PA Tingling in leg 02/10/2025 Orders Only [facility] Neurosurgery [address] [place] [address] 92152 Bala Oneal PA S/P lumbar discectomy 02/09/2025 Refill [facility] Neurosurgery [address] [place] [address] 87963 Gabby Greer CCMA S/P lumbar discectomy (Primary Dx) 02/09/2025 Erroneous Telephone Encounter [facility] Neurosurgery [address] [place] [address] 33344 Bebe Arriola MA ERRONEOUS ENCOUNTER--DISREGARD (Primary Dx) 02/08/2025 Telephone [facility] Neurosurgery [address] [place] [address] 12429 Bebe Arriola MA 02/04/2025 Refill [facility] Neurosurgery [address] [place] [address] 11391 Brian Mortensen, PA 02/04/2025 Orders Only [facility] Neurosurgery [address] [place] [address] 53886 Brian Mortensen PA 02/04/2025 Telephone [facility] Neurosurgery [address] [place] [address] 20621 Brian Mortensen PA 02/02/2025 Telephone [facility] Neurosurgery [address] [place] [address] 50826 Minerva Aktins MD 02/01/2025 Telephone [facility] Neurosurgery [address] [place] [address] 10836 Bebe Arriola MA 01/31/2025 12:15 PM EDT Follow-Up [facility] Neurosurgery [address] [place] [address] 10859 Minerva Atkins MD Lumbar disc disease with radiculopathy (Primary Dx) 01/28/2025 Orders Only [facility] Neurosurgery [address] [place] [address] 76015 Ekta Castro MD 01/25/2025 Refill [facility] Neurosurgery [address] [place] [address] 12668 Gabby Greer, [facility] Lumbar disc herniation with radiculopathy (Primary Dx) 01/25/2025 Telephone [facility] Neurosurgery [address] [place] [address] 55268 Gabby Greer, [facility] pharmacy requesting a new script 01/25/2025 Telephone [facility] Neurosurgery [address] [place] [address] 00379 Brian Mortensen PA 01/25/2025 Orders Only [facility] Neurosurgery [address] [place] [address] 69913 Brian Mortensen PA 01/25/2025 12:00 PM EDT Office Visit [facility] Neurosurgery [address] [place] [address] 90241 Brian Mortensen PA Lumbar radiculopathy (Primary Dx) 01/24/2025 Telephone [facility] Neurosurgery [address] [place] [address] 25734 Bebe Arriola [place] 01/24/2025 Orders Only [facility] Neurosurgery [address] [place] [address] 31385 Provider, MD Ekta 01/22/2025 Orders Only [facility] - External Imaging [address] [place] [address] Radiology, External 01/22/2025 Orders Only [facility] - External Imaging [address] [place] [address] Radiology, External 01/22/2025 Orders Only [facility] - External Imaging [address] [place] [address] Radiology, External 01/22/2025 Orders Only [facility] - External Imaging [address] [place] [address] Radiology, External from Last 3 Months Allergies [...] as needed for muscle spasms. 4 02/23/20 Discontinue d(Discontin ued by Patient) ketorolac (TORADOL) 10 mg tablet Take 10 mg by mouth as needed. 5 02/23/20 Discontinue d(Discontin ued by Patient) HYDROmorphone (Dilaudid) 4 mg tabletIndicati ons:S/P lumbar discectomy Take 0.5 tablets (2 mg total) by mouth every 8 hours as needed for pain (take 1/2 tablet every 8 hours as needed for pain) for up to 7 days. Max Daily Amount: 6 mg 11 tablet 5 02/20/20 Social History Tobacco Use Types Packs/Day Years [...] Upcoming Encounters Date Type Department Care Team ([facility] st Contact Info) Description 04/04/2025 11:30 AM EDT Follow-Up [facility] Neurosurgery [address] [place] [address] Brian Mortensen PA [address] [facility] [address] [place] [address] Procedures * Due to [place] [employer] law, this organization might not be sharing negative HIV tests. Procedure Name Priority Date/Time Associated Diagnosis Comments AMB EXTERNAL MRI LUMBAR SPINE, OUTSIDE RESULT Routine 01/22/2025 9:38 AM EST AMB EXTERNAL CT L-SPINE, OUTSIDE RESULT Routine 01/22/2025 9:36 AM EST AMB EXTERNAL XR L-SPINE, OUTSIDE RESULT Routine 01/22/2025 9:35 AM EST from Last 3 Months Results * Due to [place] [employer] law, this organization might not be sharing negative HIV tests. * MRI Lumbar Spine, Outside Result (01/22/2025 9:38 AM EST) Anatomical Region Laterality Modality Other us Unknown Provider MD GINGER EXTERNAL RESULT PROCEDUR ES Final Result * CT L-Spine, Outside Result (01/22/2025 9:36 AM EST) Anatomical Region Laterality Modality Other us Unknown Provider MD AMB EXTERNAL RESULT PROCEDUR ES Final Result * XR L-Spine, Outside Result (01/22/2025 9:35 AM EST) Anatomical Region Laterality Modality Other us Unknown Provider MD AMB EXTERNAL RESULT PROCEDUR ES Final Result from Last 3 Months Insurance [facility] [place] [address] Care Teams Forge Tender Relationship Specialty Start Date End Date Patient, Has No Pcp Or Ref DO NOT EDIT THIS RECORD VIA PROVIDER ON THE FLY PCP - General Group Therapist 01/24/25
[2025-03-22 21:05] VITALS: BMI 41.0
== END 2025-03-15 13:46 | disposition home or self-care (01) ==
LOC: HO.ENCR 12:54
PROVIDERS: Visit Provider Dietitian, Registered
DX: E66.01 Morbid (severe) obesity due to excess calories (principal)

== ENCOUNTER → 2025-03-15 12:53 | Outpatient (BNVA) | payer OTHER, SELFPAY | PROVIDERS: Visit Provider Dietitian, Registered | DX: E66.01 Morbid (severe) obesity due to excess calories (principal); Z71.3 Dietary counseling and surveillance; Z68.41 Body mass index [BMI] 40.0-44.9, adult | CPT/HCPCS: 97803 ==

== ENCOUNTER 2025-03-18 09:07 | Outpatient (AMB) | payer OTHER, SELFPAY ==
--- NOTE | 2025-03-18 09:14 | MHC.PC.OV ---
Intake Visit Reasons: med discussion Template Checker Required: No Triple Valve Mechanic: Not Required per policy Accompanied by: Self / Same As Patient Allergies morphine [MORPHINE] Allergy (Unknown, Verified 03/18/25 09:14) ANAPHYLAXIS oxycodone [From PERCOCET] Allergy (Unknown, Verified 03/18/25 09:14) RASH strawberry [STRAWBERRY] Allergy (Unknown, Verified 03/18/25 09:14) ANAPHYLAXIS Medication List - Last Reconciled 03/18/25 by Preethi Mcintosh PA-C albuterol sulfate 90 mcg/actuation (Ventolin HFA) 2 puffs inhalation Q4-6H PRN albuterol sulfate 2.5 mg (3 mL) inhalation Q4-6H PRN cetirizine 10 mg PO DAILY epinephrine (EpiPen) 0.3 mg (0.3 mL) IM Q10M PRN fluticasone propionate 50 mcg/actuation (Flonase Allergy Relief) 1 spray intranasal BID ketorolac 10 mg PO Q6H PRN lamotrigine (Lamictal) 100 mg orally take 1 & 1/2 tablets daily; lidocaine 5% 1 patch topical DAILY lisdexamfetamine (Vyvanse) 50 mg PO QAM meloxicam 15 mg PO DAILY methylprednisolone (Medrol (Truman)) 4 mg PO QAM montelukast 10 mg PO DAILY multivitamin 1 tab PO DAILY naloxone 4 mg/actuation (Narcan) 4 mg intranasal Q2M PRN omalizumab (Xolair) 300 mg subcut Q4W omeprazole 40 mg PO DAILY ondansetron 4 mg PO Q8H PRN simethicone (Gas Relief (simethicone)) 80 mg PO TID-QID PRN tirzepatide (weight loss) (Zepbound) 2.5 mg (0.5 mL) subcut QWEEK trazodone take 50mg- 100mg at bedtime as needed for sleep orally bedtime PRN; Tobacco use date assessed: 03/18/25 Dental Screening Dental Screen Date: 02/11/25 HPI med discussion HPI Details 44-year-old female with past medical history of depression, HSV, asthma, diabetes mellitus, generalized anxiety disorder and insomnia last seen 01/2025 presenting via telehealth for review of medications. Patient reports hair loss having more noticeable clumps of hair come out while brushing her hair. She is unsure if this is a side effect of her antiseizure medications, vitamin deficiency or possibly due to age hormone changes. She has started taking biotin more recently and has not noticed difference. She also mentions having difficulty with insurance covering her Wegovy and she would like to try Zepbound as she has had friends and family have good success with this medication. [facility] Medical History Allergic rhinitis COVID-19 Tick bite Unplanned unwanted Delivery with history of test positive Polyp of cervix Fibroid, uterine History of uterine fibroid Encounter to establish care Surgical History History of back surgery History of hysterectomy History of colonoscopy History of surgery on right wrist History of delivery Family History Mother No problems noted. Father Mental health disorder Substance use disorder Social History Household Members: Family Housing: House Do you presently have visiting nurse or other home services: No Alcohol intake: current Alcohol intake frequency: a few times a week Patient Tobacco Use Status: Former Tobacco user Tobacco use type: Cigarette e-Cigarette/Vaping Use: Never Used Second Hand Smoke Exposure: Yes Substance Use Type: Marijuana service: No Current occupational status: employed Current occupational exposures/hazards: No Cognitive needs: Yes (Cane) Hearing needs: No Vision needs: No Female Reproductive History Menstrual Age of Menarche: 14 Questionnaire Thrive Questionnaire Date Thrive assessed: 02/11/25 JASSI-7 AMB Questionnaire JASSI-7 Date JASSI - 7 assessed: 02/11/25 Source: Developed by Drs. Vishnu Ashton, Susana Walters, Freddy Og and colleagues, with an educational yaneth from [employer]. Review of Systems Const Denies body aches, Denies chills, Denies fever(s), Denies headache(s) and Denies poor appetite Eyes Reports no additional complaints ENT Denies dizziness and Denies headache(s) Card Denies chest pain and Denies dyspnea Resp Denies dyspnea Musc Reports no additional complaints and Denies abnormal gait Skin/Breast Reports as per HPI Neuro Denies abnormal gait, Denies dizziness and Denies headache(s) Psych Reports no additional complaints Physical exam (Primary Care) Vital Signs: Vital signs and physical exam not performed due to nature of telehealth visit Tobacco/Smoking Status: Tobacco use Status Tobacco use date assessed 03/18/25 03/18/25 09:16 Patient Tobacco Use Status Former Tobacco user 03/18/25 09:16 Tobacco use type Cigarette 03/18/25 09:16 e-Cigarette/Vaping Use Never Used 03/18/25 09:16 Thrive Assessment: Date of Thrive Assessment Date Thrive assessed 02/11/25 03/18/25 09:16 Telehealth Telehealth Telehealth Platform: Telephone Location of provider rendering services: practice address Location of patient: address on file Patient Identification confirmed using: Name, : Yes Telehealth method: voice only Patient verbally consented to treatment: Yes Patient verbally consented to billing insurance company: Yes Patient informed of any privacy concerns related to visit: Yes Coding Level of Care Code Est Pt Level 3 (30230) Diagnoses Hair thinning L65.9 Obesity, morbid, BMI 40.0-49.9 E66.01 Assessment & Plan Assessment & Plan (1) Hair thinning: Code(s): L65.9 - Nonscarring hair loss, unspecified Category: Medical Plan: Plan to offer blood work including hormonal labs and vitamin labs to check for deficiencies. Referral was placed to Dermatology for further evaluation. Advised patient she may use qlwx-[id number] biotin in conjunction with minoxidil for hair loss. (2) Obesity, morbid, BMI 40.0-49.9: Code(s): E66.01 - Morbid (severe) obesity due to excess calories Category: Medical Plan: Healthy diet and regular exercise is encouraged. Plan to trial Zepbound in substitution for Wegovy to see if insurance will cover this. I did discuss with patient unlikely this will be covered by insurance and plan to referral to weight management if denied. Plan This note was constructed using voice recognition software. While every effort has been made to ensure accuracy and animal cruelty investigator, still areas may have been included sometimes these areas may affect the content or meeting of the given symptoms. Total time spent caring for the patient today was 20 minutes. This includes time spent before the visit reviewing the chart, time spent during the visit, and time spent after the visit and documentation. Orders: Orders TSH reflex Free T4 Today Z00.00 - Encounter for general adult medical examination without abnormal findings Testosterone, Free/Total Today L65.9 - Nonscarring hair loss, unspecified IRON PROFILE Today L65.9 - Nonscarring hair loss, unspecified Follicle Stimulating Hormone Today L65.9 - Nonscarring hair loss, unspecified Referrals Dermatology Referral L65.9 - Nonscarring hair loss, unspecified Medications: New tirzepatide (weight loss) (Zepbound) for 4 weeks 2.5 mg (0.5 mL) subcut QWEEK 2 mL 0RF Discontinued semaglutide (weight loss) administer weeks 13 through 16 of therapy Discontinued Reason: Patient no longer taking 1.7 mg (0.75 mL) subcut QWEEK 3 mL 0RF
--- OUTSIDE RECORDS SUMMARY | 2025-03-18 09:43 | XMS_ITS | Referral Summary ---
Author Organization [facility] Address [address] [place] [address] Care Team Providers Care Nurse Reviewer Name Role Phone Patient, Has No Pcp Or Ref Primary Care Provider Unavailable Encounters Date Type Department Care Team Description 02/22/2025 Orders Only [facility] Neurosurgery [address] [place] [address] 11428 Brian Mortensen PA S/P lumbar discectomy (Primary Dx) 02/22/2025 12:30 PM EDT Follow-Up [facility] Neurosurgery [address] [place] [address] 62838 Brian Mortensen PA Status post lumbar discectomy (Primary Dx) 02/13/2025 myChart Message [facility] Neurosurgery [address] [place] [address] 71982 Brian Mortensen PA Tingling in leg 02/10/2025 Orders Only [facility] Neurosurgery [address] [place] [address] 00267 Bala Oneal PA S/P lumbar discectomy 02/09/2025 Refill [facility] Neurosurgery [address] [place] [address] 48869 Gabby Greer CCMA S/P lumbar discectomy (Primary Dx) 02/09/2025 Erroneous Telephone Encounter [facility] Neurosurgery [address] [place] [address] 86484 Bebe Arriola MA ERRONEOUS ENCOUNTER--DISREGARD (Primary Dx) 02/08/2025 Telephone [facility] Neurosurgery [address] [place] [address] 06986 Bebe Arriola MA 02/04/2025 Refill [facility] Neurosurgery [address] [place] [address] 13586 Brian Mortensen, PA 02/04/2025 Orders Only [facility] Neurosurgery [address] [place] [address] 37565 Brian Mortensen PA 02/04/2025 Telephone [facility]surgery [address] [place] [address] 93101 Brian Mortensen PA 02/02/2025 Telephone [facility]surgery [address] [place] [address] 75295 Minerva Atkins MD 02/01/2025 Telephone [facility] Neurosurgery [address] [place] [address] 89980 Bebe Arriola MA 01/31/2025 12:15 PM EDT Follow-Up [facility] Neurosurgery [address] [place] [address] 79591 Minerva Atkins MD Lumbar disc disease with radiculopathy (Primary Dx) 01/28/2025 Orders Only [facility] Neurosurgery [address] [place] [address] 40386 Ekta Castro MD 01/25/2025 Refill [facility]surgery [address] [place] [address] 64857 Gabby Greer, [facility] Lumbar disc herniation with radiculopathy (Primary Dx) 01/25/2025 Telephone [facility] Neurosurgery [address] [place] [address] 25705 Gabby Greer, [facility] pharmacy requesting a new script 01/25/2025 Telephone [facility]surgery [address] [place] [address] 17599 Brian Mortensen PA 01/25/2025 Orders Only [facility]surgery [address] [place] [address] 80434 Brian Mortensen PA 01/25/2025 12:00 PM EDT Office Visit [facility]surgery [address] [place] [address] 88774 Brian Mortensen PA Lumbar radiculopathy (Primary Dx) 01/24/2025 Telephone [facility]surgery [address] [place] [address] 35467 Bebe Arriola [place] 01/24/2025 Orders Only [facility]surgery [address] [place] [address] 80052 Provider, MD Ekta 01/22/2025 Orders Only [facility] - External Imaging [address] [place] [address] Radiology, External 01/22/2025 Orders Only [facility] - External Imaging [address] [place] [address] Radiology, External 01/22/2025 Orders Only [facility] - External Imaging [address] [place] [address] Radiology, External 01/22/2025 Orders Only [facility] - External Imaging [address] [place] [address] Radiology, External from Last 3 Months Allergies [...] Upcoming Encounters Date Type Department Care Team ([facility] st Contact Info) Description 04/04/2025 11:30 AM EDT Follow-Up [facility] Neurosurgery [address] [place] [address] Brian Mortensen PA [address] [facility] [address] [place] [address] Procedures * Due to [place] [employer] law, this organization might not be sharing negative HIV tests. Procedure Name Priority Date/Time Associated Diagnosis Comments AMB EXTERNAL MRI LUMBAR SPINE, OUTSIDE RESULT Routine 01/22/2025 9:38 AM EST AMB EXTERNAL CT L-SPINE, OUTSIDE RESULT Routine 01/22/2025 9:36 AM EST AMB EXTERNAL XR L-SPINE, OUTSIDE RESULT Routine 01/22/2025 9:35 AM EST from Last 3 Months Results * Due to [place] [employer] law, this organization might not be sharing [...] Final Result from Last 3 Months Insurance [facility] [place] [address] Care Teams Nurse Reviewer Relationship Specialty Start Date End Date Patient, Has No Pcp Or Ref DO NOT EDIT THIS RECORD VIA PROVIDER ON THE FLY PCP - General Mobile Therapist 01/24/25
--- OUTSIDE RECORDS SUMMARY | 2025-03-18 09:43 | XMS_ITS | Encounter Summary ---
Author Organization [facility] Address [address] [place] [address] Care Team Providers Care Pipe Puller Name Role Phone Patient, Has No Pcp Or Ref Primary Care Provider Unavailable Encounter Details Date Type Department Care Team ([facility] Contact Info) Description 02/13/2025 myChart Message [facility] Neurosurgery [address] [place] [phone] Brian Mortensen, PA [address] [place] [address] [phone] Tingling in leg Social History Tobacco Use [...] Info) Description 04/04/2025 11:30 AM EDT Follow-Up [facility] Neurosurgery [address] [place] [address] 99104 Brian MortensenYU [address] [address] documented as of this encounter Visit Diagnoses Not on filedocumented in this encounter Care Teams Pipe Puller Relationship Specialty Start Date End Date Patient, Has No Pcp Or Ref DO NOT EDIT THIS RECORD VIA PROVIDER ON THE FLY PCP - General Keeper Helper 01/24/25 documented as of this encounter
--- OUTSIDE RECORDS SUMMARY | 2025-03-18 09:43 | XMS_ITS | Clinical Summary ---
Author Organization [facility] Address [address] [place] [address] Care Team Providers Care Contact Officer Name Role Phone Patient, Has No Pcp [...] Team Description 02/22/2025 12:30 PM EDT Follow-Up [facility] Neurosurgery [address] [place] [address] 51533 Brian Mortensen, PA Status post lumbar discectomy (Primary Dx) 02/22/2025 Orders Only [facility] Neurosurgery [address] [place] [address] 11330 Brian Mortensen PA S/P lumbar discectomy (Primary Dx) 02/13/2025 myChart Message [facility] Neurosurgery [address] [place] [address] 04721 Brian Mortensen PA Tingling in leg 02/10/2025 Orders Only [facility] Neurosurgery [address] [place] [address] 20794 Bala Onela PA S/P lumbar discectomy 02/09/2025 Refill [facility]surgery [address] [place] [address] 46142 Gabby Greer CCMA S/P lumbar discectomy (Primary Dx) 02/09/2025 Erroneous Telephone Encounter [facility] Neurosurgery [address] [place] [address] 72106 Bebe Arriola [place] ERRONEOUS ENCOUNTER--DISREGARD (Primary Dx) 02/08/2025 Telephone [facility] Neurosurgery [address] [place] [address] 60727 Bebe Arriola MA 02/04/2025 Refill [facility]surgery [address] [place] [address] 39007 Brian Mortensen PA 02/04/2025 Orders Only [facility] Neurosurgery [address] [place] [address] 60538 Brian Mortensen PA 02/04/2025 Telephone [facility]surgery [address] [place] [address] 94149 Brian Mortensen PA 02/02/2025 Telephone [facility]surgery [address] [place] [address] 94505 Minerva Atkins MD 02/01/2025 Telephone [facility]surgery [address] [place] [address] 49607 Bebe Arriola [place] 01/31/2025 12:15 PM EDT Follow-Up [facility] Neurosurgery [address] [place] [address] 93145 Minerva Atkins MD Lumbar disc disease with radiculopathy (Primary Dx) 01/28/2025 Orders Only [facility] Neurosurgery [address] [place] [address] 33294 ProviderEkta MD 01/25/2025 12:00 PM EDT Office Visit [facility]surgery [address] [place] [address] 08948 Brian Mortensen, PA Lumbar radiculopathy (Primary Dx) 01/25/2025 Refill [facility]surgery [address] [place] [address] 77740 Gabby Greer CCMA Lumbar disc herniation with radiculopathy (Primary Dx) 01/25/2025 Telephone [facility] Neurosurgery [address] [place] [address] 11203 Gabby Greer, [facility] pharmacy requesting a new script 01/25/2025 Telephone [facility]surgery [address] [place] [address] 93766 Brian Mortensen PA 01/25/2025 Orders Only [facility]surgery [address] [place] [address] 82682 Brian Mortensen PA 01/24/2025 Telephone [facility]surgery [address] [place] [address] 13937 Bebe Arirola [place] 01/24/2025 Orders Only [facility] Neurosurgery [address] [place] [address] 56243 Provider, MD Ekta 01/22/2025 Orders Only [facility] - External Imaging [address] [place] [address] Radiology, External 01/22/2025 Orders Only [facility] - External Imaging [address] [place] [address] Radiology, External 01/22/2025 Orders Only [facility] - External Imaging [address] [place] [address] Radiology, External 01/22/2025 Orders Only [facility] - External Imaging [address] [place] [address] Radiology, External from Last 3 Months Social [...] Info) Description 04/04/2025 11:30 AM EDT Follow-Up [facility] Neurosurgery [address] [place] [address] Brian Mortensen PA [address] [facility] [address] [place] [address] Health Maintenance Due Date Last Done Comments [...] Additional history exists Procedures * Due to [place] state law, this organization might not be sharing negative HIV tests. Procedure Name Priority Date/Time Associated Diagnosis Comments AMB EXTERNAL MRI LUMBAR SPINE, OUTSIDE RESULT Routine 01/22/2025 9:38 AM EST AMB EXTERNAL CT L-SPINE, OUTSIDE RESULT Routine 01/22/2025 9:36 AM EST AMB EXTERNAL XR L-SPINE, OUTSIDE RESULT Routine 01/22/2025 9:35 AM EST from Last 3 Months Results * Due to [place] state law, this organization might not be [...] Final Result from Last 3 Months Insurance [facility] MEDICAID Care Teams Contact Officer Relationship Specialty Start Date End Date Patient, Has No Pcp Or Ref DO NOT EDIT THIS RECORD VIA PROVIDER ON THE FLY PCP - General Candy Rolling Machine Operator 01/24/25
--- OUTSIDE RECORDS SUMMARY | 2025-03-18 09:43 | XMS_ITS | Data Portability ---
Author Organization [facility] [employer], [place] [address] Care Team Providers Care Sliver Lap Tender Name Role Phone ALAN HARVEY Primary Care [...] DO Not Attach Compendium, Do Not Delete/merge, [id number] 17:32:39 Medication Orders None recorded . Patient TargetsNo targets recorded. Patient Instructions Encounter Date Encounter Id Patient Instructions Last Modified By Organization Details Last Modified Time 12/16/2016 [id number] plantar warts: care instructions [email or web address] Not available 12/17/2016 19:18:11 discussed left submet [...] and prognosis Not available 12/17/2016 18:30:22 12/30/2016 [id number] wound healing we ll focal bone with [...] 12/16/19 17 Mass Excision completed [facility] 12/17/2016 18:30:58 07/21/20 16 [facility] 12/16/2016 15:28:02 11/17/19 06 Cystourethroscopy completed [facility] 12/16/2016 15:28:28 Imaging Results None recorded. Procedure Notes None recorded. Medical Equipment None Reported. Allergies Allergen ID Allergen Name Allergen Category Reaction Reaction Severity Criticality Documentation Date Start Date Code Code System Note Provider Name and Address Organization Details Recorded Time 87054 morphine medicatio n irregular heart rate severe Not available 12/16/2016 7052 RxNorm Linus Curiel [facility], [facility] 7 15:26:50 [...] Details Last Updated DateTime 12/16/2016 162.56 cm 274281.06 g 39.1 kg/m2 Linus [facility], [facility] 12/16/2016 15:26:04 Date Recorded Body height Provider Name an d Address Organization Details Last Updated DateTime 12/30/2016 162.56 cm Linus Curiel [facility], [facility] 12/30/2016 16:09:39 Social History Question Answer Notes LastModified by Organizat ion Details LastModified Time Tobacco Smoking Status Former Smoker Linus Curiel [facility], [facility] 12/16/2016 15:28:38 What [...] History Condition Response Coronary Artery Disease N Gout N Hernia N Blood Clots N Lung Disease N Pacemaker N Edema N Headaches/Migraines N Deep Vein Thrombosis N Varicose Veins N Arthritis N Sterling Bite N Cancer N Stroke N Leg or Foot Ulcers N Raynaud's Disease N Polio N Liver Disease N Organ Transplant N Rheumatoid Arthritis N Fibromyalgia N Foot Deformity N Dialysis N Kidney Disease N Dyslipidemia N Artificial Joints N Thyroid Problems N Anemia N Back Pain N Diabetes N Bleeding Disorder N Seizures/Epilepsy N Tuberculosis N AIDS/HIV N Asthma N Substance Abuse N Peripheral Vascular Disease N Hepatitis N Heart Disease N Pulmonary Embolism N Hypertension N Osteoporosis N Gynecological HistoryNo gynecological history recorded. Obstetrics History GPAL:G 0 P 0 0 0 0 Past Encounters Encounter ID Performer Location Encounter Start Date Encounter Closed Date Diagnosis/Indication Diagnosis SNOMED-CT Code Diagnosis ICD10 Code Diagnosis Note [id number] [facility] [address] [place] [address] 12/16/2016 14:47:59 12/16/2016 16:07:55 Hallux valgus 628899578 M20.10 Pain in left foot 500681 1344 80372 M79.672 Foreign body of foot 281 002661 Z18.9 Verruca plantaris 720861 08 B07.0 Mass of soft tissue 4449 77436 R22.9 [id number] [facility] [address] [place] [address] 12/30/2016 15:49:09 12/30/2016 16:41:34 Pain in left foot 8805377944 16137 M79.672 Foreign body of foot 281 860741 Z18.9 Mass of soft tissue 4449 57204 R22.9 Health Concerns Section Related Observation LastModified by Organization Detai ls LastModified Time None Recorded Concern Status LastModified by Organization Details LastModified Time None Recorded Advance Directives Directive None Recorded Payers Encounter Date Sequence Insurance Name Policy Number Policy Calderon Covered Member ID Calderon Member ID Guarantor Name 12/16/2016 1 [employer] [facility] [place] [id number] Rosalina Ramos [id number] Rosalina Thompsona 12/30/2016 1 [employer] [facility] [facility] [place] [place] [id number] Rosalina Ramos [id number] Rosalinarodrigo Ramos Notes Date Note Type Note [...] attempted treatment for the bunions. Tenzin sullivan [facility], [facility] 12/17/2016 18:35:02 12/30/2016 text/html present in offic e to follow up for splinter removed from bottom of left foot, pt states that she has not much pain, no swelling, she has been changing the dressing, and soaking it with Epsom salt, and applying bacitracin. Tenzin sullivan [facility], [facility] 12/31/2016 11:29:05 OBGyn Episode No OBEpisode recorded.
== END 2025-03-18 10:00 | disposition home or self-care (01) ==
LOC: HO.HMCH 09:07
DX: L65.9 Nonscarring hair loss, unspecified (principal); E66.01 Morbid (severe) obesity due to excess calories

== ENCOUNTER 2025-03-22 11:16 | Outpatient (REF) | payer OTHER, SELFPAY ==
[2025-03-22 12:17] LABS: Iron 85 mcg/dL (30-160); Percent Iron Saturation 28 % (15-50); Total Iron Binding Capacity 306 mcg/dL (228-428); Unsaturated Iron Binding 221 ug/dL
[2025-03-22 12:33] LABS: TSH reflex Free T4 1.61 uIU/mL (0.32-4.0)
--- OUTSIDE RECORDS SUMMARY | 2025-03-22 13:07 | XMS_ITS | Referral Summary ---
Author Organization [facility] Address [address] [place] [address] Care Team Providers Care Machine Operator Cane Cutter Name Role Phone Patient, Has No Pcp Or Ref Primary Care Provider Unavailable Encounters Date Type Department Care Team Description 02/22/2025 Orders Only [facility] Neurosurgery [address] [place] [address] 47157 Brian Mortensen PA S/P lumbar discectomy (Primary Dx) 02/22/2025 12:30 PM EDT Follow-Up [facility]surgery [address] [place] [address] 85670 Brian Mortensen PA Status post lumbar discectomy (Primary Dx) 02/13/2025 myChart Message [facility]surgery [address] [place] [address] 20112 Brian Mortensen PA Tingling in leg 02/10/2025 Orders Only [facility] [address] [place] [address] 33211 Bala Oneal PA S/P lumbar discectomy 02/09/2025 Refill [facility] [address] [place] [address] 88779 Gabby Greer CCMA S/P lumbar discectomy (Primary Dx) 02/09/2025 Erroneous Telephone Encounter [facility]surgery [address] [place] [address] 10959 Bebe Arriola [place] ERRONEOUS ENCOUNTER--DISREGARD (Primary Dx) 02/08/2025 Telephone [facility]surgery [address] [place] [address] 48710 Bebe Arriola MA 02/04/2025 Refill [facility] [address] [place] [address] 89246 Brian Mortensen, PA 02/04/2025 Orders Only [facility] [address] [place] [address] 80344 Brian Mortensen PA 02/04/2025 Telephone [facility] [address] [place] [address] 46976 Brian Mortensen PA 02/02/2025 Telephone [facility] [address] [place] [address] 03594 Minerva Atkins MD 02/01/2025 Telephone [facility] [address] [place] [address] 94136 Bebe Arriola MA 01/31/2025 12:15 PM EDT Follow-Up [facility] [address] [place] [address] 08296 Minerva Atkins MD Lumbar disc disease with radiculopathy (Primary Dx) 01/28/2025 Orders Only [facility]surgery [address] [place] [address] 32540 Ekta Castro MD 01/25/2025 Refill [facility] [address] [place] [address] 62371 [facility] Lumbar disc herniation with radiculopathy (Primary Dx) 01/25/2025 Telephone [facility] [address] [place] [address] 93674 Gabby Greer, [facility] pharmacy requesting a new script 01/25/2025 Telephone [facility] [address] [place] [address] 25624 Brian Mortensen PA 01/25/2025 Orders Only [facility] [address] [place] [address] 85654 Brian Mortensen PA 01/25/2025 12:00 PM EDT Office Visit [facility] [address] [place] [address] 34147 Brian Mortensen PA Lumbar radiculopathy (Primary Dx) 01/24/2025 Telephone [facility]surgery [address] [place] [address] 80819 Bebe Arriola [place] 01/24/2025 Orders Only [facility]surgery [address] [place] [address] 27030 Provider, MD Ekta 01/22/2025 Orders Only [facility] - External Imaging [address] [place] [address] Radiology, External 01/22/2025 Orders Only [facility] - External Imaging [address] [place] [address] Radiology, External 01/22/2025 Orders Only [facility] - External Imaging [address] [place] [address] Radiology, External 01/22/2025 Orders Only [facility] - External Imaging [address] [place] [address] Radiology, External from Last 3 Months Allergies [...] by mouth daily as needed. 5 Active cyclobenzaprine (FLEXERIL) 10 mg tablet Take 10 mg by mouth 2 times a day as needed for muscle spasms. 4 02/23/20 Discontinu ed(Discont inued by Patient) ketorolac (TORADOL) 10 mg tablet Take 10 mg by mouth as needed. 5 02/23/20 Discontinu ed(Discont inued by Patient) Social History Tobacco Use Types Packs/Day Years [...] Info) Description 04/04/2025 11:30 AM EDT Follow-Up [address] [address] Brian Mortensen PA 67 [facility] [address] [place] [address] Procedures * Due to [place] [employer] law, this organization might not be sharing negative HIV tests. Procedure Name Priority Date/Time Associated Diagnosis Comments AMB EXTERNAL MRI LUMBAR SPINE, OUTSIDE RESULT Routine 01/22/2025 9:38 AM EST AMB EXTERNAL CT L-SPINE, OUTSIDE RESULT Routine 01/22/2025 9:36 AM EST AMB EXTERNAL XR L-SPINE, OUTSIDE RESULT Routine 01/22/2025 9:35 AM EST from Last 3 Months Results * Due to [place] [employer] law, this organization might not be sharing [...] GINGER EXTERNAL RESULT PROCEDUR ES Final Result from Last 3 Months Insurance [facility] [place] [address] Care Teams Machine Operator Cane Cutter Relationship Specialty Start Date End Date Patient, Has No Pcp Or Ref DO NOT EDIT THIS RECORD VIA PROVIDER ON THE FLY PCP - General Camera Engineer 01/24/25
--- OUTSIDE RECORDS SUMMARY | 2025-03-22 13:07 | XMS_ITS | Data Portability ---
Author Organization [facility] [employer], [place] [address] Care Team Providers Care Wincher Name Role Phone ALAN HARVEY Primary Care Provider ALAN HARVEY Referring Provider [phone] Assessment No assessment recorded. Plan of Treatment [...] DO Not Attach Compendium, Do Not Delete/merge, 54226 7 17:32:39 Medication Orders None recorded . Patient TargetsNo targets recorded. Patient Instructions Encounter Date Encounter Id Patient Instructions Last Modified By Organization Details Last Modified Time 12/16/2016 [id number] plantar warts: care instructions [email or web address] Not available 12/17/2016 19:18:11 discussed left submet [...] and prognosis Not available 12/17/2016 18:30:22 12/30/2016 [id number] wound healing we ll focal bone with [...] 12/16/19 17 Mass Excision completed [facility], [facility] 12/17/2016 18:30:58 07/21/20 16 [facility] 12/16/2016 15:28:02 11/17/19 06 Cystourethroscopy completed [facility] 12/16/2016 15:28:28 Imaging Results None recorded. Procedure Notes None recorded. Medical Equipment None Reported. Allergies Allergen ID Allergen Name Allergen Category Reaction Reaction Severity Criticality Documentation Date Start Date Code Code System Note Provider Name and Address Organization Details Recorded Time 70314 morphine medicatio n irregular heart rate severe Not available 12/16/2016 7052 RxNorm Linus Curiel [facility] [employer] [facility], [facility] 7 15:26:50 Medications Name Sig Start [...] Details Last Updated DateTime 12/16/2016 162.56 cm 494867.06 g 39.1 kg/m2 Linus Cur[facility], [facility] 12/16/2016 15:26:04 Date Recorded Body height Provider Name an d Address Organization Details Last Updated DateTime 12/30/2016 162.56 cm Lnius Curiel [facility], [facility] 12/30/2016 16:09:39 Social History Question Answer Notes LastModified by Organizat ion Details LastModified Time Tobacco Smoking Status Former Smoker Linus Curiel [facility], [facility] 12/16/2016 15:28:38 What Is Your Level [...] SNOMED-CT Code Diagnosis ICD10 Code Diagnosis Note [id number] [facility] [address] [place] [address] 12/16/2016 14:47:59 12/16/2016 16:07:55 Hallux valgus 301822021 M20.10 Pain in left foot 892755 6386 16493 M79.672 Foreign body of foot 281 293015 Z18.9 Verruca plantaris 348214 08 B07.0 Mass of soft tissue 4449 17388 R22.9 [id number] [facility] [address] [place] [address] 12/30/2016 15:49:09 12/30/2016 16:41:34 Pain in left foot 9013123080 50552 M79.672 Foreign body of foot 281 796313 Z18.9 Mass of soft tissue 4449 00878 R22.9 Health Concerns Section Related Observation LastModified by Organization Detai ls LastModified Time None Recorded Concern Status LastModified by Organization Details LastModified Time None Recorded Advance Directives Directive None Recorded Payers Encounter Date Sequence Insurance Name Policy Number Policy Calderon Covered Member ID Calderon Member ID Guarantor Name 12/16/2016 1 [employer] [facility] [facility] [place] [place] [id number] Rosalina Ramos [id number] Rosalina Thompsona 12/30/2016 1 [employer] [facility] [place] [place] [id number] Rosalina Ramos [id number] Rosalinarodrigo Ramos Notes Date Note Type Note [...] attempted treatment for the bunions. Tenzin sullivan [facility], [facility] 12/17/2016 18:35:02 12/30/2016 text/html present in offic e to follow up for splinter removed from bottom of left foot, pt states that she has not much pain, no swelling, she has been changing the dressing, and soaking it with Epsom salt, and applying bacitracin. Tenzin sullivan [facility], [facility] 12/31/2016 11:29:05 OBGyn Episode No OBEpisode recorded.
--- OUTSIDE RECORDS SUMMARY | 2025-03-22 13:07 | XMS_ITS | Clinical Summary ---
Author Organization [facility] Address [address] [place] [address] Care Team Providers Care Dietetic Assistant Name Role Phone Patient, Has No Pcp [...] 5 02/23/20 Discontinu ed(Discont inued by Patient) Encounters Date Type Department Care Team Description 02/22/2025 12:30 PM EDT Follow-Up [facility] Neurosurgery [address] [place] [address] [phone] Brian Mortensen PA Status post lumbar discectomy (Primary Dx) 02/22/2025 Orders Only [facility] Neurosurgery [address] [place] [address] [phone] Brian Mortensen PA S/P lumbar discectomy (Primary Dx) 02/13/2025 myChart Message [facility]surgery [address] [place] [address] [phone] Brian Mortensen PA Tingling in leg 02/10/2025 Orders Only [facility] Neurosurgery [address] [place] [address] [phone] Bala Oneal PA S/P lumbar discectomy 02/09/2025 Refill [facility]surgery [address] [place] [address] [phone] Gabby Greer CCMA S/P lumbar discectomy (Primary Dx) 02/09/2025 Erroneous Telephone Encounter [facility] Neurosurgery [address] [place] [address] [phone] Bebe Arriola MA ERRONEOUS ENCOUNTER--DISREGARD (Primary Dx) 02/08/2025 Telephone [facility] Neurosurgery [address] [place] [address] [phone] Bebe Arriola MA 02/04/2025 Refill [facility]surgery [address] [place] [address] [phone] Brian Mortensen PA 02/04/2025 Orders Only [facility] Neurosurgery [address] [place] [address] [phone] Brian Mortensen PA 02/04/2025 Telephone [facility]surgery [address] [place] [address] [phone] Brian Mortensen PA 02/02/2025 Telephone [facility]surgery [address] [place] [address] [phone] Minerva Atkins MD 02/01/2025 Telephone [facility]surgery [address] [place] [address] [phone] Bebe Arriola [place] 01/31/2025 12:15 PM EDT Follow-Up [facility] Neurosurgery [address] [place] [address] [phone] Minerva Atkins MD Lumbar disc disease with radiculopathy (Primary Dx) 01/28/2025 Orders Only [facility]surgery [address] [place] [address] [phone] ProviderEkta MD 01/25/2025 12:00 PM EDT Office Visit [facility]surgery [address] [place] [address] [phone] Brian Mortensen, YU Lumbar radiculopathy (Primary Dx) 01/25/2025 Refill [facility] [address] [place] [address] [phone] Gabby Greer CCMA Lumbar disc herniation with radiculopathy (Primary Dx) 01/25/2025 Telephone [facility]surgery [address] [place] [address] [phone] Gabby Greer CCMA pharmacy requesting a new script 01/25/2025 Telephone [facility]surgery [address] [place] [address] [phone] Brian Mortensen PA 01/25/2025 Orders Only [facility]surgery [address] [place] [address] [phone] Brian Mortensen PA 01/24/2025 Telephone [facility]surgery [address] [place] [address] [phone] Bebe Arriola MA 01/24/2025 Orders Only [facility]surgery [address] [place] [address] [phone] Provider, MD Ekta 01/22/2025 Orders Only [facility] [address] [place] [address] Radiology, External 01/22/2025 Orders Only [facility] - [facility] [address] [place] [address] Radiology, External 01/22/2025 Orders Only [facility] - [facility] [address] [place] [address] Radiology, External 01/22/2025 Orders Only [facility] - [facility] Imaging [address] [place] [address] Radiology, External from Last 3 Months Social [...] Info) Description 04/04/2025 11:30 AM EDT Follow-Up [facility] Neurosurgery [address] [place] [address] [phone] Brian Mortensen, PA [address] [facility] [address] [place] [address] Health Maintenance Due Date Last Done Comments [...] 05/07/2026 05/07/2016, 12/08/2012, 11/29/2001 Mammogram 02/10/2027 02/10/2025, 02/2023, 10/20/2023 RSV Vaccine (60+ years old a nd patients) (1 - 1-dose 75+ series) 2057 Hepatitis C Screening Completed 11/06/2015 Influenza Vaccine Completed 10/20/2024, , 08/21/2020, Additional history exists Procedures * Due to [place] SSEV law, this organization might not be sharing negative HIV tests. Procedure Name Priority Date/Time Associated Diagnosis Comments AMB EXTERNAL MRI LUMBAR SPINE, OUTSIDE RESULT Routine 01/22/2025 9:38 AM EST AMB EXTERNAL CT L-SPINE, OUTSIDE RESULT Routine 01/22/2025 9:36 AM EST AMB EXTERNAL XR L-SPINE, OUTSIDE RESULT Routine 01/22/2025 9:35 AM EST from Last 3 Months Results * Due to [place] SSEV law, this organization might not be sharing [...] 3 Months Insurance [employer] Care Teams Dietetic Assistant Relationship Specialty Start Date End Date Patient, Has No Pcp Or Ref DO NOT EDIT THIS RECORD VIA PROVIDER ON THE FLY PCP - General Lemon Picker 01/24/25
[2025-03-23 06:07] LABS: Follicle Stimulating Hormone 2.6 mIU/mL
[2025-03-26 13:33] LABS: Testosterone, Free 1.1 pg/mL (0.1-6.4); Testosterone, Total 12 ng/dL (2-45)
== END 2025-03-22 11:17 | disposition home or self-care (01) ==
LOC: HO.LAB 11:16
DX: Z00.00 Encounter for general adult medical examination without abnormal findings (principal); L65.9 Nonscarring hair loss, unspecified
CPT/HCPCS: 36415; 83001; 83540; 84402; 84403; 84443

== ENCOUNTER → 2025-04-13 11:34 | Outpatient (BNVA) | payer OTHER, SELFPAY | PROVIDERS: Visit Provider Physician Assistant Surgical ==

== ENCOUNTER 2025-04-29 07:58 | Outpatient (AMB) | payer OTHER, SELFPAY ==
--- NOTE | 2025-04-29 08:10 | A.OFFVIS_ITS ---
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 Allergies morphine [MORPHINE] Allergy (Unknown, Verified 04/29/25 08:10) ANAPHYLAXIS oxycodone [From PERCOCET] Allergy (Unknown, Verified 04/29/25 08:10) RASH strawberry [STRAWBERRY] Allergy (Unknown, Verified 04/29/25 08:10) ANAPHYLAXIS BEES Allergy (Severe, Uncoded 04/29/25 08:10) Anaphylaxis Medication List - Last Reconciled 04/29/25 by Tin Morrison MD albuterol sulfate 2.5 mg (3 mL) inhalation Q4-6H PRN albuterol sulfate 90 mcg/actuation (Ventolin HFA) 2 puffs inhalation Q4-6H PRN cetirizine 10 mg PO DAILY epinephrine (EpiPen) 0.3 mg (0.3 mL) IM Q10M PRN fluticasone propionate 50 mcg/actuation (Flonase Allergy Relief) 1 spray intranasal BID ibuprofen 600 mg PO Q6H PRN lidocaine 5% 1 patch topical DAILY lisdexamfetamine (Vyvanse) 50 mg PO QAM montelukast 10 mg PO DAILY multivitamin 1 tab PO DAILY naloxone 4 mg/actuation (Narcan) 4 mg intranasal Q2M PRN omalizumab (Xolair) 300 mg subcut Q4W omeprazole 40 mg PO DAILY ondansetron 4 mg PO Q8H PRN trazodone take 50mg- 100mg at bedtime as needed for sleep orally bedtime PRN; HPI HPI 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: Details: Start time: 7.59am, End time: 8.44am ?I spent 40 minutes speaking with the patient on the phone plus an additional 5 minutes reviewing and updating records for a total of 45 minutes HPI Comments Details: Previous weight loss efforts: Ozempic (9 mths: 40lbs weight loss) Wakes up:9am, Sleeps: 1am Breakfast: 10am (oats, cottage cheese, Indonesian yogurt) Lunch: 2pm (fruits, nuts, hummus, sandwich) Dinner: 8pm (soups, protein and vegetables) Snacks: none Exercise: none Beverages: Coffee: (2-4 cups/d, black), tea: none, soda: none, juice: none, ETOH: (vodka with [place]: up to 10 glasses per week) [facility] Medical History (Updated 04/29/25 @ 08:32 by Tin Morrison MD) Morbid obesity Allergic rhinitis COVID-19 Tick bite Unplanned unwanted Delivery with history of test positive Polyp of cervix Fibroid, uterine History of uterine fibroid Encounter to establish care Surgical History (Updated 04/13/25 @ 11:49 by Eri Ozuna CMA) Hx of dilation and curettage History of back surgery History of hysterectomy History of colonoscopy History of surgery on right wrist History of delivery Family History Mother No problems noted. Father Mental health disorder Substance use disorder Social History (Updated 04/13/25 @ 11:50 by Eri Ozuna CMA) Household Members: Family Housing: House Do you presently have visiting nurse or other home services: No Alcohol intake: current Alcohol intake frequency: a few times a week Patient Tobacco Use Status: Former Tobacco user Tobacco use type: Cigarette e-Cigarette/Vaping Use: Never Used Second Hand Smoke Exposure: Yes Substance Use Type: Marijuana service: No Current occupational status: employed Current occupational exposures/hazards: No Cognitive needs: Yes (Cane) Hearing needs: No Vision needs: No Female Reproductive History Menstrual Age of Menarche: 14 Telehealth Telehealth Telehealth Platform: Telephone Location of provider rendering services: practice address Location of patient: address on file Patient Identification confirmed using: Name, : Yes Telehealth method: voice only Patient verbally consented to treatment: Yes Patient verbally consented to billing insurance company: Yes Patient informed of any privacy concerns related to visit: Yes Minutes spent on Phone/Video with Pt.: 45 Assessment & Plan Assessment & Plan (1) Morbid obesity: Code(s): E66.01 - Morbid (severe) obesity due to excess calories Category: Medical Plan: 1. Start Phentermine daily at 11am. We discussed the potential side-effects of the Phentermine such as irritability, dry mouth, difficulty sleeping, dizziness, numbness in feet and high blood pressure. I asked her to get a blood pressure monitor and measure the blood pressure daily in the morning and evening. She needs to send the blood pressure readings daily and to call the office for blood pressure over 140/80 and she understands that. 2. Buy a blood pressure monitor and start measuring your blood pressure daily in the morning and let me know the readings 3. Use a calorie-counting marcela to track your daily calories to create a calorie deficit with a target of consuming 1500 calories per day. 4. Do aerobic exercise (outside walking, or treadmill, or elliptical or stationary bike) and do 150 minutes of aerobic exercise per week, or 22 minutes per day. 5. Goal is to lose at least 1.5-2lbs per week 6. Goal to lose at least 10% of your weight, which is about 25lbs. Minimum weight goal: 210lbs Medications: New phentermine must administer 30 minutes before or 1-2 hours after breakfast 37.5 mg PO DAILY 30 caps 0RF E66.01 - Morbid (severe) obesity due to excess calories
[2025-04-29 08:38] VITALS: BMI 40.4
== END 2025-04-29 08:44 | disposition home or self-care (01) ==
LOC: HO.HBS 07:58
PROVIDERS: Visit Provider Surgery
DX: E66.01 Morbid (severe) obesity due to excess calories (principal); Z68.41 Body mass index [BMI] 40.0-44.9, adult
CPT/HCPCS: 98010

== ENCOUNTER 2025-05-02 14:39 | Outpatient (REF) | payer OTHER, SELFPAY ==
[2025-05-02 17:01] LABS: Magnesium 1.9 mg/dL (1.6-2.6)
[2025-05-02 17:23] LABS: Folate 7.1 ng/mL (> or = 4.0); Vitamin B12 457 pg/mL (200-900)
[2025-05-06 07:13] LABS: Vitamin B6 15.3 ng/mL (2.1-21.7)
[2025-05-06 15:24] LABS: Vitamin D 25-OH, D2 <4 ng/mL; Vitamin D 25-OH, D3 28 ng/mL; Vitamin D 25-OH, Total 28 ng/mL (30-100)
[2025-05-06 15:44] LABS: Vitamin B1 11 nmol/L (8-30)
== END 2025-05-02 14:40 | disposition home or self-care (01) ==
LOC: HO.LAB 14:39
PROVIDERS: Visit Provider Clinical Nurse Specialist Psychiatric/Mental Health
DX: L65.9 Nonscarring hair loss, unspecified (principal); F31.81 Bipolar II disorder; K59.00 Constipation, unspecified; F90.2 Attention-deficit hyperactivity disorder, combined type
CPT/HCPCS: 36415; 82306; 82607; 82746; 83735; 84207; 84425; 99212

== ENCOUNTER 2025-05-02 14:39 | Outpatient (AMB) | payer OTHER, SELFPAY ==
--- NOTE | 2025-05-02 14:44 | MHC.OFFVISPS ---
Intake Intake Visit Reasons: follow up Chair Required: No Allergies morphine [MORPHINE] Allergy (Unknown, Verified 04/29/25 08:10) ANAPHYLAXIS oxycodone [From PERCOCET] Allergy (Unknown, Verified 04/29/25 08:10) RASH strawberry [STRAWBERRY] Allergy (Unknown, Verified 04/29/25 08:10) ANAPHYLAXIS BEES Allergy (Severe, Uncoded 04/29/25 08:10) Anaphylaxis Medication List - Last Reconciled 05/02/25 by Karol Ellis, BLANKA albuterol sulfate 2.5 mg (3 mL) inhalation Q4-6H PRN albuterol sulfate 90 mcg/actuation (Ventolin HFA) 2 puffs inhalation Q4-6H PRN cetirizine 10 mg PO DAILY epinephrine (EpiPen) 0.3 mg (0.3 mL) IM Q10M PRN fluticasone propionate 50 mcg/actuation (Flonase Allergy Relief) 1 spray intranasal BID ibuprofen 600 mg PO Q6H PRN lidocaine 5% 1 patch topical DAILY lisdexamfetamine (Vyvanse) 50 mg PO QAM montelukast 10 mg PO DAILY multivitamin 1 tab PO DAILY naloxone 4 mg/actuation (Narcan) 4 mg intranasal Q2M PRN omalizumab (Xolair) 300 mg subcut Q4W omeprazole 40 mg PO DAILY ondansetron 4 mg PO Q8H PRN phentermine 37.5 mg PO DAILY trazodone take 50mg- 100mg at bedtime as needed for sleep orally bedtime PRN; HPI- Psychiatric Chief Complaint: follow up HPI Narrative: Pt see for follow up for Bipolar II disorder, and ADHD. Pt has been struggling with multiple issues: back injury with need for surgery January 2025 , recovery from that surgery, onset of hair loss shortly after surgery, limitations due to surgery, depression, mood dysregulation, home and family stress. PHQ9= 5 and GAD7=7. Pt tapered off lamictal due to fears of hair loss. She has seen PCP and started minoxidil. she has dermatology appt pending. Pt went to be part of depressionstuday andmet with a psychiatrist who agreed with current dx but also thought pt likely has CPTSD and BPD. Pt struggling with weight and wanting to take wegovy or ozempic; notinterested in surgery. Pt will follow up with [facility] weight management. Past Psychiatric History: [facility] 22 Subjective Subjective Subjective Medication Compliance: Yes Side effects from medications: No Review of Systems Medical Review of Systems: unchanged Mental Status Exam Mental Status Exam Patient Appearance: Well Grooomed Patient Orientation: Person, Place, Time and Situation Level of Consciousness: Awake Patient Behavior: Appropriate and Cooperative Mood Description: Anxious and Sad Affect Description: Anxious and Sad Patient Cognition Impaired: No Ability to Follow Directions: Good Speech Pattern: Appropriate and Coherent Memory Description: Intact Hallucinations: None Delusions: Not Present Thought Process: Intact Thought Content: positive for Intact Judgement: Good Assessment and Plan Assessment & Plan (1) ADHD (attention deficit hyperactivity disorder), combined type: Status: Acute Code(s): F90.2 - Attention-deficit hyperactivity disorder, combined type (2) Bipolar II disorder major depressive with melancholic features: Status: Acute Code(s): F31.81 - Bipolar II disorder (3) Hair thinning: Status: Acute Code(s): L65.9 - Nonscarring hair loss, unspecified Plan meds as per below labs return in 4 weeks Medications: New lamotrigine (Lamictal) 50 mg (1/2 x 100 mg) PO DAILY 45 tabs 0RF Refilled lisdexamfetamine (Vyvanse) Partial Fill upon patient request. 50 mg PO QAM 30 caps 0RF Orders: Orders Vitamin B12 and Folate Today F381 - Bipolar II disorder, L65.9 - Nonscarring hair loss, unspecified Magnesium Today F3.81 - Bipolar II disorder, K59.00 - Constipation, unspecified, L65.9 - Nonscarring hair loss, unspecified Vitamin B1 Today F3.81 - Bipolar II disorder, L65.9 - Nonscarring hair loss, unspecified Vitamin B6 Today F3.81 - Bipolar II disorder, L65.9 - Nonscarring hair loss, unspecified Vitamin D 25-OH (D2 and D3) Today - Bipolar II disorder Counseling and coordination of Care Details: I spent [] minutes reviewing the record, seeing the patient and documenting in the medical record. Counseling provided to the patient/caregiver as outlined below. Addressed patient/caregiver concerns regarding current medication regime including effective adherence. Addressed patient/caregiver concerns regarding diagnosis and prognosis including accuracy of diagnosis, prognosis over time, impact of diagnosis. Addressed patient/caregiver concerns regarding impact of recent stressors. [facility], [facility] Medical History (Updated 04/29/25 @ 08:32 by Tin Morrison MD) Morbid obesity Allergic rhinitis COVID-19 Tick bite Unplanned unwanted Delivery with history of test positive Polyp of cervix Fibroid, uterine History of uterine fibroid Encounter to establish care Surgical History (Updated 04/13/25 @ 11:49 by Eri Ozuna CMA) Hx of dilation and curettage History of back surgery History of hysterectomy History of colonoscopy History of surgery on right wrist History of delivery Family History Mother No problems noted. Father Mental health disorder Substance use disorder Social History (Updated 04/13/25 @ 11:50 by Eri Ozuna CMA) Household Members: Family Housing: House Do you presently have visiting nurse or other home services: No Alcohol intake: current Alcohol intake frequency: a few times a week Patient Tobacco Use Status: Former Tobacco user Tobacco use type: Cigarette e-Cigarette/Vaping Use: Never Used Second Hand Smoke Exposure: Yes Substance Use Type: Marijuana service: No Current occupational status: employed Current occupational exposures/hazards: No Cognitive needs: Yes (Cane) Hearing needs: No Vision needs: No Social History: lives 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 THC edibles periodically for body pain but causes anxiety so not often. in 20s experimented with opiates, hallucinogens and ketamine Trauma History: childhood Coding Level of Care Code Est Pt Level 4 (43819) Diagnoses ADHD (attention deficit hyperactivity disorder), combined type F90.2 Bipolar II disorder major depressive with melancholic features F31.81 Hair thinning L65.9
--- OUTSIDE RECORDS SUMMARY | 2025-05-02 16:23 | XMS_ITS | Referral Summary ---
Author Organization [facility] Address [address] [place] [address] Care Team Providers Care Citrix Engineer Name Role Phone Preethi Mcintosh Primary Care Provider [phone] Encounters Date Type Department Care Team Description 04/04/2025 Telephone [facility] Neurosurgery [address] [place] [address] [phone] Minerva Atkins MD 04/04/2025 Orders Only [facility] Neurosurgery [address] [place] [address] [phone] Brian Mortensen PA S/P lumbar discectomy (Primary Dx) 04/04/2025 11:30 AM EDT Follow-Up [facility] Neurosurgery [address] [place] [address] [phone] Brian Mortensen PA Status post lumbar discectomy (Primary Dx) 02/22/2025 Orders Only [facility] Neurosurgery [address] [place] [address] [phone] Brian Mortensen PA S/P lumbar discectomy (Primary Dx) 02/22/2025 12:30 PM EDT Follow-Up [facility] Neurosurgery [address] [place] [address] [phone] Brian Mortensen PA Status post lumbar discectomy (Primary Dx) 02/13/2025 myChart Message [facility] Neurosurgery [address] [place] [address] [phone] Brian Mortensen PA Tingling in leg 02/10/2025 Orders Only [facility] Neurosurgery [address] [place] [address] [phone] Bala Oneal PA S/P lumbar discectomy 02/09/2025 Refill [facility] Neurosurgery [address] [place] [address] [phone] Gabby Greer CCMA S/P lumbar discectomy (Primary Dx) 02/09/2025 Erroneous Telephone Encounter [facility] Neurosurgery [address] [place] [address] [phone] Bebe Arriola MA ERRONEOUS ENCOUNTER--DISREGARD (Primary Dx) 02/08/2025 Telephone [facility] Neurosurgery [address] [place] [address] [phone] Bebe Arriola MA 02/04/2025 Refill [facility] Neurosurgery [address] [place] [address] [phone] Brian Mortensen PA 02/04/2025 Orders Only [facility]surgery [address] [place] [address] [phone] Brian Mortensen PA 02/04/2025 Telephone [facility] Neurosurgery [address] [place] [address] [phone] Brian Mortensen PA 02/02/2025 Telephone [facility] Neurosurgery [address] [place] [address] [phone] Minerva Atkins MD 02/01/2025 Telephone [facility] Neurosurgery [address] [place] [address] [phone] Bebe ArriolaBRAWLEY, [place] 01/31/2025 12:15 PM EDT Follow-Up [facility] Neurosurgery [address] [place] [address] Minerva Atkins MD Lumbar disc disease with radiculopathy (Primary Dx) from Last 3 Months Allergies Active Allergy [...] by mouth daily as needed. 5 Active Social History Tobacco Use Types Packs/Day Years [...] Mass Index - - Plan of Treatment Not on file Insurance [facility] MEDICAID Care Teams Citrix Engineer Relationship Specialty Start Date End Date Preethi Mcintosh [address], [place] [phone] PCP - General 04/04/25
== END 2025-05-02 15:30 | disposition home or self-care (01) ==
LOC: HO.HOP 14:39
PROVIDERS: Visit Provider Clinical Nurse Specialist Psychiatric/Mental Health
DX: F90.2 Attention-deficit hyperactivity disorder, combined type (principal); F31.81 Bipolar II disorder; L65.9 Nonscarring hair loss, unspecified
CPT/HCPCS: 99214

== ENCOUNTER 2025-05-10 12:29 | Outpatient (AMB) | payer OTHER, SELFPAY ==
--- NOTE | 2025-05-10 12:39 | A.OFFVIS_ITS ---
VS Expanded 05/10/25 12:40 Height 5 ft 4 in Weight 233 lb 14.567 oz BMI 40.1 Intake Visit Reasons: obesity Allergies morphine (MORPHINE) Allergy (Unknown, Verified 05/23/25 14:17) ANAPHYLAXIS oxycodone (From PERCOCET) Allergy (Unknown, Verified 05/23/25 14:17) RASH strawberry (STRAWBERRY) Allergy (Unknown, Verified 05/23/25 14:17) ANAPHYLAXIS BEES Allergy (Severe, Uncoded 05/23/25 14:17) Anaphylaxis Nutrition Presentation Details: Pt presents for MNT f/u for obesity Pt reports doing ok, working on reducing portion sizes of meals, likes to prepare and try different recipes meals throughout the day including fiber rich foods 10 oatmeal with oatmilk with flaxseed with oatmilk 12 : chicken salad sand on a wrap and welsh yogurt 6pm : kale/cucumber ,chicken potpie participating in farm share and trying new recipes low fat/high fiber GI: vomiting 0-once/week , reports episodes are lessening , eating slowly Pt on vyvanse physical activity: reports walking 30-40 minutes 3 -5 times/week Noted labs from April 2025: b12, b1, b6 wnl, low levels of vit D PFSH Medical History Bronchitis due to Staphylococcus aureus Morbid obesity Allergic rhinitis COVID-19 Tick bite Unplanned unwanted Delivery with history of test positive Polyp of cervix Fibroid, uterine History of uterine fibroid Encounter to establish care Surgical History Hx of dilation and curettage History of back surgery History of hysterectomy History of colonoscopy History of surgery on right wrist History of delivery Family History Mother No problems noted. Father Mental health disorder Substance use disorder Social History Household Members: Family Housing: House Do you presently have visiting nurse or other home services: No Alcohol intake: current Alcohol intake frequency: a few times a week Patient Tobacco Use Status: Former Tobacco user Tobacco use type: Cigarette e-Cigarette/Vaping Use: Never Used Second Hand Smoke Exposure: Yes Substance Use Type: Marijuana service: No Current occupational status: employed Current occupational exposures/hazards: No Cognitive needs: Yes (Cane PRN) Hearing needs: No Vision needs: No Female Reproductive History Menstrual Age of Menarche: 14 Assessment & Plan Assessment & Plan (1) Obesity, morbid, BMI 40.0-49.9: Code(s): E66.01 - Morbid (severe) obesity due to excess calories Category: Medical Plan: Wt: 125 Kg ( 08/10 ), 119.5 (09/09), 114 kg (11/09), 112kg(12/11), 108 kg (03/11), 106 kg(05/11) Est kcal needs as per MSJ: 2000- 2100 (40% carb, 30% protein/fat) Est fluid needs as per 25-30 ml/d: 3200 Est prot per day as per 1 g/kg bw: 100 Recommend fiber intake : 8-10 g per day and gradually increase to 25-28 g per day for women and 35-38 g for men or as tolerated Recommend sodium intake per day : less than 2300 mg Educated patient on: ( R = reviewed V = verbalizes understanding N/R = needs review N/A = not applicable * Food sources of carbohydrate, adequate serving sizes and its role in various health conditions: R * Differences between complex carbohydrates a simple carbohydrates, role of fiber in diet: R * Lean protein sources of foods: R V * Differences between types of fats and role in diet (mono on saturated fat fatty acids, saturated fatty acids, trans fats): R * Food sources of sodium in salt and healthy modifications for heart health in kidney health: R * Vitamins and minerals: R V * Healthy plate method concept: R * Physical activity: Benefits a precaution: R * Patient Instructions: Include sources of vitamin D - 600 IU/day see list of food options continue engaging in physical activity 45 min at least 3 times /wk Coding Level of Care Code Nutr Indiv Subseq (12073) Diagnoses Obesity, morbid, BMI 40.0-49.9 E66.01 Time Spent (min) 20
[2025-05-10 12:40] VITALS: BMI 40.1
--- OUTSIDE RECORDS SUMMARY | 2025-05-10 14:01 | XMS_ITS | Referral Summary ---
Author Organization [facility] Address [address] [place] [address] Care Team Providers Care Precision Farming Coordinator Name Role Phone Preethi Mcintosh Primary Care Provider [phone] Encounters Date Type Department Care Team Description 04/04/2025 Telephone [facility] Neurosurgery [address] [place] [address] [phone] Minerva Atkins MD 04/04/2025 Orders Only [facility] Neurosurgery [address] [place] [address] [phone] Brian Mortensen PA S/P lumbar discectomy (Primary Dx) 04/04/2025 11:30 AM EDT Follow-Up [facility] Neurosurgery [address] [place] [address] [phone] Brian Mortensen PA Status post lumbar discectomy (Primary Dx) 02/22/2025 Orders Only [facility] Neurosurgery [address] [place] [address] [phone] Brian Mortensen PA S/P lumbar discectomy (Primary Dx) 02/22/2025 12:30 PM EDT Follow-Up [facility] Neurosurgery [address] [place] [address] [phone] Brian Mortensen PA Status post lumbar discectomy (Primary Dx) 02/13/2025 myChart Message [facility] Neurosurgery [address] [place] [address] [phone] Brian Mortensen PA Tingling in leg 02/10/2025 Orders Only [facility] Neurosurgery [address] [place] [address] [phone] Bala Oneal PA S/P lumbar discectomy 02/09/2025 Refill [facility] Neurosurgery [address] [place] [address] [phone] Gabby Greer CCMA S/P lumbar discectomy (Primary Dx) 02/09/2025 Erroneous Telephone Encounter [facility] Neurosurgery [address] [place] [address] [phone] Bebe Arriola [place] ERRONEOUS ENCOUNTER--DISREGARD (Primary Dx) 02/08/2025 Telephone [facility] Neurosurgery [address] [place] [address] [phone] Bebe Arriola MA from Last 3 Months Allergies Active Allergy [...] Plan of Treatment Not on file Insurance [place] [phone] Care Teams Precision Farming Coordinator Relationship Specialty Start Date End Date Preethi Mcintosh [address] [place] [address] PCP - General 04/04/25
== END 2025-05-10 13:15 | disposition home or self-care (01) ==
LOC: HO.ENCR 12:29
PROVIDERS: Visit Provider Dietitian, Registered
DX: E66.01 Morbid (severe) obesity due to excess calories (principal)

== ENCOUNTER → 2025-05-10 12:29 | Outpatient (BNVA) | payer OTHER, SELFPAY | PROVIDERS: Visit Provider Dietitian, Registered | DX: E66.01 Morbid (severe) obesity due to excess calories (principal) | CPT/HCPCS: 97803 ==

== ENCOUNTER 2025-05-23 13:57 | Outpatient (AMB) | payer OTHER, SELFPAY ==
--- NOTE | 2025-05-23 13:58 | A.OFFPC_ITS ---
Vital Signs 05/23/25 13:59 Height 5 ft 4 in Weight 239 lb 8 oz BMI 41.1 BP 126/84 Blood Pressure Location Lt brachial Position Sitting Pulse 91 Pulse Source Pulse Oximeter Temp 97.1 F Temp Source Temporal Artery Scan Pulse Oximetry (%) 97 Oxygen Delivery Method Room Air Intake Visit Reasons: f/u obesity Allergies morphine (MORPHINE) Allergy (Unknown, Verified 05/23/25 14:17) ANAPHYLAXIS oxycodone (From PERCOCET) Allergy (Unknown, Verified 05/23/25 14:17) RASH strawberry (STRAWBERRY) Allergy (Unknown, Verified 05/23/25 14:17) ANAPHYLAXIS BEES Allergy (Severe, Uncoded 05/23/25 14:17) Anaphylaxis Medication List - Last Reconciled 05/23/25 by Preethi Mcintosh PA-C albuterol sulfate 2.5 mg (3 mL) inhalation Q4-6H PRN albuterol sulfate 90 mcg/actuation (Ventolin HFA) 2 puffs inhalation Q4-6H PRN cetirizine 10 mg PO DAILY cholecalciferol (vitamin D3) (Vitamin D3) 50 mcg PO DAILY epinephrine (EpiPen) 0.3 mg (0.3 mL) IM Q10M PRN fluticasone propionate 50 mcg/actuation (Flonase Allergy Relief) 1 spray intranasal BID ibuprofen 600 mg PO Q6H PRN lamotrigine (Lamictal) 50 mg (1/2 x 100 mg) PO DAILY lidocaine 5% 1 patch topical DAILY lisdexamfetamine (Vyvanse) 50 mg PO QAM multivitamin 1 tab PO DAILY naloxone 4 mg/actuation (Narcan) 4 mg intranasal Q2M PRN omalizumab (Xolair) 300 mg subcut Q4W omeprazole 40 mg PO DAILY ondansetron 4 mg PO Q8H PRN trazodone take 50mg- 100mg at bedtime as needed for sleep orally bedtime PRN; zafirlukast 20 mg PO BID Tobacco use date assessed: 03/18/25 Dental Screening Dental Screen Date: 05/23/25 Did you have a dental visit in the last 12 months?: Yes Did you have a dental problem in the last 6 months where you did not have access to dental care?: No Was dental information given to patient?: Patient has dentist HPI f/u obesity HPI Details 44-year-old female with past medical his tory of depression, HSV, asthma, diabetes mellitus, generalized anxiety disorder and insomnia last seen 03/2025 coming in for follow up. In review of the notes, patient was seen by outpatient psych 04/2025 started on Lamictal, continued on Vyvanse and labs ordered. Presenting for management of obesity, anxiety, hair loss, asthma, and back pain. The patient reports being referred to a weight management program but had a negative experience with a provider who suggested bariatric surgery without meeting her. She is currently engaging in water aerobics and swimming as part of her exercise routine. The patient experiences anxiety, which is exacerbated by the use of stimulants. She is currently on Vyvanse and has been advised against using phentermine due to potential cardiovascular side effects. The patient is experiencing significant hair loss, which she attributes to medication changes and stress. She is using oral minoxidil combined with biotin and collagen supplements to address this issue. The patient has completed a round of physical therapy for back pain but continues to experience pain and nerve symptoms in her toes. An MRI has been recommended to assess her condition post-surgery. [facility] Medical History Bronchitis due to Staphylococcus aureus Morbid obesity Allergic rhinitis COVID-19 Tick bite Unplanned unwanted Delivery with history of test positive Polyp of cervix Fibroid, uterine History of uterine fibroid Encounter to establish care Surgical History Hx of dilation and curettage History of back surgery History of hysterectomy History of colonoscopy History of surgery on right wrist History of delivery Family History Mother No problems noted. Father Mental health disorder Substance use disorder Social History Household Members: Family Housing: House Do you presently have visiting nurse or other home services: No Alcohol intake: current Alcohol intake frequency: a few times a week Patient Tobacco Use Status: Former Tobacco user Tobacco use type: Cigarette e-Cigarette/Vaping Use: Never Used Second Hand Smoke Exposure: Yes Substance Use Type: Marijuana service: No Current occupational status: employed Current occupational exposures/hazards: No Cognitive needs: Yes (Ramez MYERS) Hearing needs: No Vision needs: No Female Reproductive History Menstrual Age of Menarche: 14 Questionnaire PHQ-9 Over the last 2 weeks, how often have you been bothered by any of the following problems? 1. Little interest or pleasure in doing things: several days 2. Feeling down, depressed, or hopeless: several days 3. Trouble falling or staying asleep, or sleeping too much: not at all 4. Feeling tired or having little energy: several days 5. Poor appetite or overeating: not at all 6. Feeling bad about yourself - or that you are a failure or have let yourself or your family down: not at all 7. Trouble concentrating on things, such as reading the newspaper or watching television: several days 8. Moving or speaking so slowly that other people could have noticed. Or the opposite - being so fidgety or restless that you have been moving around a lot more than usual: not at all 9. Thoughts that you would be better off or of hurting yourself in some way: not at all Total score: 4 Depression Screening Interpretation: Negative Depression Screening Done: Yes Source: Developed by Drs. Vishnu Ashton, Susana Walters, Freddy Og and colleagues, with an educational yaneth from [employer]. Thrive Questionnaire Date Thrive assessed: 05/17/25 I am a: Patient What is your living situation today?: I have a steady place to live Within the past 12 months, did the food you bought not last and you didn't have the money to get more?: Never true Within the past 12 months, did you worry whether your food would run out before you got money to buy more?: Never true Do you have trouble paying for medicines?: No Do you have trouble getting transportation to medical appointments?: No Do you have trouble paying your heating and electricity bill?: No Do you have trouble taking care of your child, family member or friend?: No Do you have trouble with day-to-day activities such as bathing, preparing meals, shopping, managing finances, etc.?: No Are you currently unemployed and looking for a job?: Yes Are you interested in more education?: Yes Please select the resources that you would like help with: Job search/training and Education Currently or been in a relationship where the following occur: No concerns reported THRIVE Score: 0 AUDIT C Alcohol Use Questionnaire (AUDIT-C) 1. How often do you have a drink containing alcohol?: 2-3 times a week 2. How many drinks containing alcohol do you have on a typical day when you are drinking?: 1 or 2 3. How often do you have six or more drinks on one occasion?: Less than monthly Total Score: 4 JASSI-7 AMB Questionnaire JASSI-7 Date JASSI - 7 assessed: 02/11/25 Feeling nervous, anxious, or on edge: 1 = Several days Not being able to stop or control worryin = Not at all Worrying too much about different things: 1 = Several days Trouble relaxin = Several days Being so restless that it is hard to sit still: 1 = Several days Becoming easily annoyed or irritable: 1 = Several days Feeling afraid as if something awful might happen: 1 = Several days Total JASSI-7 score (0-4 normal; 5-9 mild; 10-14 moderate; 15-21 severe): 6 Source: Developed by Drs. Vishnu Ashton, Susana Walters, Freddy Og and colleagues, with an educational yaneth from [employer]. Review of Systems Const Denies body aches, Denies chills, Denies fever(s), Denies headache(s) and Denies poor appetite Eyes Reports no additional complaints ENT Denies dysphagia, Denies dizziness, Denies headache(s) and Denies odynophagia Card Denies chest pain, Denies syncope, Denies edema, Denies irregular heart rhythm, Denies lightheadedness and Denies dyspnea Resp Denies cough and Denies dyspnea GI Denies abdominal pain, Denies constipation, Denies dysphagia, Denies diarrhea, Denies nausea, Denies odynophagia and Denies vomiting Reports no additional complaints Musc Reports no additional complaints and Denies abnormal gait Skin/Breast Reports system reviewed and no additional complaints, except as documented Neuro Denies abnormal gait, Denies dizziness, Denies syncope and Denies headache(s) Psych Reports no additional complaints Physical exam (Primary Care) Vital Signs: Last Vital Signs Temp 97.1 F 05/23/25 13:59 Pulse 91 07/07/25 13:59 BP 126/84 05/23/25 13:59 Pulse Ox 97 05/23/25 13:59 Oxygen Delivery Method Room Air 05/23/25 13:59 BMI result Body Mass Index 41.1 Tobacco/Smoking Status: Tobacco use Status Tobacco use date assessed 03/18/25 05/23/25 14:05 Patient Tobacco Use Status Former Tobacco user 05/23/25 14:05 Tobacco use type Cigarette 05/23/25 14:05 e-Cigarette/Vaping Use Never Used 05/23/25 14:05 PHQ-9: PHQ-9 Score PHQ-9: Total score 4 05/23/25 14:11 Depression Screening Interpretation: Negative Thrive Assessment: Date of Thrive Assessment Date Thrive assessed 05/17/25 05/23/25 14:05 Currently or been in a relationship where the following occur: No concerns reported Const General: cooperative, healthy appearing, comfortable and no acute distress Orientation/consciousness: patient oriented x3 HENMT Head: Yes normocephalic Ears: hearing grossly normal bilaterally General nose exam: Normal external nose present Eyes General: appearance normal, both eyes and all related structures Conjunctivae: conjunctivae normal Neck Neck: Yes full ROM and Yes no lymphadenopathy Resp Effort & Inspection: normal respiratory effort Auscultation: clear to auscultation bilaterally, no crackles, no rales, no rhonchi and no wheezes Cardio Rate: regular rate Rhythm: regular rhythm Skin General skin exam: no rashes or lesions noted Neuro General: patient oriented x3 Gait exam (Neuro): Normal gait present Extrem General: Yes normal to inspection, Yes full ROM and No edema Psych Affect: normal affect Attitude: cooperative Insight: Good insight present (Psych) Judgement: Good judgement present (Psych) Coding Level of Care Code Est Pt Level 3 (32783) Diagnoses Obesity, morbid, BMI 40.0-49.9 E66.01 Hair thinning L65.9 Generalized anxiety disorder F41.1 Moderate depressive disorder F32.A ADHD (attention deficit hyperactivity disorder), combined type F90.2 Moderate persistent asthma J45.40 Assessment & Plan Assessment & Plan (1) Obesity, morbid, BMI 40.0-49.9: Code(s): E66.01 - Morbid (severe) obesity due to excess calories Category: Medical Plan: Healthy diet and regular exercise is encouraged. I updated the referral to weight management to Darian Ellington (2) Hair thinning: Code(s): L65.9 - Nonscarring hair loss, unspecified Category: Medical Plan: Patient is currently on oral minoxidil combination pill with biotin and collagen in has seen in mild improvement. She also has a appointment for dermatology in November. (3) Generalized anxiety disorder: Code(s): F41.1 - Generalized anxiety disorder Category: Medical Plan: Patient is currently following with [facility] outpatient psych clinic and finds this beneficial. Continue on current medication regimen and continue to follow with psych clinic (4) Moderate depressive disorder: Code(s): F32.A - Depression, unspecified Category: Medical Plan: See above (5) ADHD (attention deficit hyperactivity disorder), combined type: Code(s): F90.2 - Attention-deficit hyperactivity disorder, combined type Category: Medical Plan: See above (6) Moderate persistent asthma: Code(s): J45.40 - Moderate persistent asthma, uncomplicated Category: Medical Plan: Asthma currently controlled on present medications. Continue on current inhalers and oral medication.? Avoid triggers such as allergies. Continue to follow with [facility] pulmonology Plan The patient will continue with her current exercise regimen of water aerobics and swimming to manage her weight. She is advised to avoid phentermine due to its stimulant properties and potential cardiovascular risks, especially given her current use of Vyvanse for anxiety management. For hair loss, the patient will continue using oral minoxidil along with biotin and collagen supplements. An MRI has been recommended to further evaluate her back pain and nerve symptoms in her toes, with follow-up care to be coordinated with [facility]. Asthma management will continue with Xolair and montelukast, and the patient is advised to monitor her symptoms closely, especially during periods of poor air quality. This note was constructed using voice recognition software. While every effort has been made to ensure accuracy and public health sanitarian, still areas may have been included sometimes these areas may affect the content or meeting of the given symptoms. Total time spent caring for the patient today was 20 minutes. This includes time spent before the visit reviewing the chart, time spent during the visit, and time spent after the visit and documentation. Orders: Referrals Medical Weight Management Referral E66.01 - Morbid (severe) obesity due to excess calories
[2025-05-23 13:59] VITALS: BP 126/84; PULSE 91; TEMP 36.2; O2SAT 97; BMI 41.1
--- OUTSIDE RECORDS SUMMARY | 2025-05-23 14:24 | XMS_ITS | Referral Summary ---
Author Organization [facility] Address [address] [place] [address] Care Team Providers Care Delivery Consultant Name Role Phone Preethi Mcintosh Primary Care Provider [phone] Encounters Date Type Department Care Team Description 04/04/2025 Telephone [facility] Neurosurgery [address] [place] [address] [phone] Minerva Atkins MD 04/04/2025 Orders Only [facility] Neurosurgery [address] [place] [address] [phone] Brian Mortensen PA S/P lumbar discectomy (Primary Dx) 04/04/2025 11:30 AM EDT Follow-Up [facility] Neurosurgery [address] [place] [address] [phone] Brian Mortensen PA Status post lumbar discectomy (Primary Dx) 02/22/2025 Orders Only [facility] Neurosurgery [address] [place] [address] [phone] Brian Mortensen PA S/P lumbar discectomy (Primary Dx) 02/22/2025 12:30 PM EDT Follow-Up [facility] Neurosurgery [address] [place] [address] [phone] Brian Mortensen PA Status post lumbar discectomy (Primary Dx) from Last 3 Months Allergies [...] Treatment Not on file Insurance [employer] Care Teams Delivery Consultant Relationship Specialty Start Date End Date Preethi Mcintosh [address] [place] [address] PCP - General 04/04/25
--- OUTSIDE RECORDS SUMMARY | 2025-05-23 14:24 | XMS_ITS | Data Portability ---
Author Organization [facility], [place] [address] Care Team Providers Care Collection Supervisor Name Role Phone ALAN HARVEY Primary Care Provider ALAN HARVEY Referring Provider Assessment No assessment recorded. Plan of Treatment Reminders Order Date Submit Date Provider Last Modified By Organization Details Last Modified Time Details Appointments None recorded . Lab culture, tissue (biopsy) 017 12/18/19 17 [email or web address] Not available 18:09:20 Referral None recorded . Procedures None recorded . Surgeries None recorded . Imaging XR, foot 017 12/16/19 17 [email or web address] In-Office Order, Internal Use Only DO Not Attach Compendium DO Not Attach Compendium, Do Not Delete/merge, [id number] 7 17:32:39 Medication Orders None recorded . Patient TargetsNo targets recorded. Patient Instructions Encounter Date Encounter Id Patient Instructions Last Modified By Organization Details Last Modified Time 12/16/2016 [id number] plantar warts: care instructions [email or web address] Not available 12/17/2016 19:18:11 discussed left submet [...] and prognosis Not available 12/17/2016 18:30:22 12/30/2016 [id number] wound healing we ll focal bone with [...] 12/16/19 17 Mass Excision completed Tenzin [facility]vel [facility] 12/17/2016 18:30:58 07/21/20 16 [facility] [employer] [facility] 12/16/2016 15:28:02 11/17/[address] [facility] 12/16/2016 15:28:28 Imaging Results None recorded. Procedure Notes None recorded. Medical Equipment None Reported. Allergies Allergen ID Allergen Name Allergen Category Reaction Reaction Severity Criticality Documentation Date Start Date Code Code System Note Provider Name and Address Organization Details Recorded Time 62662 morphine medicatio n irregular heart rate severe Not available 12/16/[address] [facility] 7 15:26:50 Medications Name Sig Start [...] Details Last Updated DateTime 12/16/2016 162.56 cm 922082.06 g 39.1 kg/m2 [facility] 12/16/2016 15:26:04 Date Recorded Body height Provider Name an d Address Organization Details Last Updated DateTime 12/30/2016 162.56 cm [facility] 12/30/2016 16:09:39 Social History None recorded. Functional Status Question Answer Note LastModified by Organizat ion Details LastModified Time What is your level of alcohol consumption? Occasional sdieng Information not available 12/16/2016 Mental Status None recorded. Family History Relationship [...] Disease N Blood Clots N Pacemaker N Anemia N Edema N Back Pain N Headaches/Migraines N Deep Vein Thrombosis N Varicose Veins N Diabetes N Bleeding Disorder N Seizures/Epilepsy N Arthritis N Tuberculosis N AIDS/HIV N Sterling Bite N Cancer N Stroke N Asthma N Leg or Foot Ulcers N Raynaud's Disease N Substance Abuse N Peripheral Vascular Disease N Polio N Hepatitis N Liver Disease N Organ Transplant N Heart Disease N Rheumatoid Arthritis N Pulmonary Embolism N Foot Deformity N Fibromyalgia N Dialysis N Hypertension N Osteoporosis N Kidney Disease N Gynecological HistoryNo gynecological history recorded. Obstetrics History GPAL:G 0 P 0 0 0 0 Past Encounters Encounter ID Performer Location Encounter Start Date Encounter Closed Date Diagnosis/Indication Diagnosis SNOMED-CT Code Diagnosis ICD10 Code Diagnosis Note [id number] [facility] [address] [place] [address] 12/16/2016 14:47:59 12/16/2016 16:07:55 Hallux valgus 673130222 M20.10 Pain in left foot 477137 5410 80438 M79.672 Foreign body of foot 281 141064 Z18.9 Verruca plantaris 208677 08 B07.0 Mass of soft tissue 4449 18750 R22.9 [id number] [facility] [address] [place] [address] 12/30/2016 15:49:09 12/30/2016 16:41:34 Pain in left foot 1539154807 75569 M79.672 Foreign body of foot 281 167215 Z18.9 Mass of soft tissue 4449 02646 R22.9 Health Concerns Section Related Observation LastModified by Organization Detai ls LastModified Time None Recorded Concern Status LastModified by Organization Details LastModified Time None Recorded Advance Directives Directive None Recorded Payers Insurance Date Sequence Insurance Name Policy Number Policy Calderon Covered Member ID Calderon Member ID Guarantor Name 07/18/2020 1 [employer] - HIP [facility] [id number] Rosalina Ramos [id number] Rosalina Ramos Notes Date Note Type Note Provider [...] has not attempted treatment for the bunions. PETER [facility]ura [facility] 12/17/2016 18:35:02 12/30/2016 text/html present in offic e to follow up for splinter removed from bottom of left foot, pt states that she has not much pain, no swelling, she has been changing the dressing, and soaking it with Epsom salt, and applying bacitracin. PETER Bangura [facility] 12/31/2016 11:29:05 OBGyn Episode No OBEpisode recorded.
== END 2025-05-23 14:41 | disposition home or self-care (01) ==
LOC: HO.HMCH 13:57
DX: J45.40 Moderate persistent asthma, uncomplicated (principal); E66.01 Morbid (severe) obesity due to excess calories; Z68.41 Body mass index [BMI] 40.0-44.9, adult; L65.9 Nonscarring hair loss, unspecified; F41.1 Generalized anxiety disorder; F32.A Depression, unspecified; F90.2 Attention-deficit hyperactivity disorder, combined type

== ENCOUNTER → 2025-05-23 13:57 | Outpatient (BNVA) | payer OTHER, SELFPAY | DX: E66.01 Morbid (severe) obesity due to excess calories (principal); E11.9 Type 2 diabetes mellitus without complications; F41.1 Generalized anxiety disorder; L65.9 Nonscarring hair loss, unspecified; F32.A Depression, unspecified; F90.2 Attention-deficit hyperactivity disorder, combined type; J45.40 Moderate persistent asthma, uncomplicated; Z68.41 Body mass index [BMI] 40.0-44.9, adult | CPT/HCPCS: 99212 ==

== ENCOUNTER 2025-05-30 11:08 | Outpatient (AMB) | payer OTHER, SELFPAY ==
--- NOTE | 2025-05-30 11:14 | MHC.OFFVISPS ---
Intake Intake Visit Reasons: follow up Apartment Manager Required: No Allergies morphine (MORPHINE) Allergy (Unknown, Verified 05/23/25 14:17) ANAPHYLAXIS oxycodone (From PERCOCET) Allergy (Unknown, Verified 05/23/25 14:17) RASH strawberry (STRAWBERRY) Allergy (Unknown, Verified 05/23/25 14:17) ANAPHYLAXIS BEES Allergy (Severe, Uncoded 05/23/25 14:17) Anaphylaxis Medication List - Last Reconciled 05/30/25 by Karol Ellis, BLANKA albuterol sulfate 2.5 mg (3 mL) inhalation Q4-6H PRN albuterol sulfate 90 mcg/actuation (Ventolin HFA) 2 puffs inhalation Q4-6H PRN cetirizine 10 mg PO DAILY cholecalciferol (vitamin D3) (Vitamin D3) 50 mcg PO DAILY epinephrine (EpiPen) 0.3 mg (0.3 mL) IM Q10M PRN fluticasone propionate 50 mcg/actuation (Flonase Allergy Relief) 1 spray intranasal BID ibuprofen 600 mg PO Q6H PRN lamotrigine (Lamictal) 50 mg (1/2 x 100 mg) PO DAILY lidocaine 5% 1 patch topical DAILY lisdexamfetamine (Vyvanse) 50 mg PO QAM multivitamin 1 tab PO DAILY naloxone 4 mg/actuation (Narcan) 4 mg intranasal Q2M PRN omalizumab (Xolair) 300 mg subcut Q4W omeprazole 40 mg PO DAILY ondansetron 4 mg PO Q8H PRN trazodone take 50mg- 100mg at bedtime as needed for sleep orally bedtime PRN; zafirlukast 20 mg PO BID HPI- Psychiatric Chief Complaint: follow up HPI Narrative: Patient is here for follow-up regarding depression,anxiety and ADHD. Patient is tolerating meds she feels that the Lamictal is very hopeful she has no rash she reports no side effects. Her PHQ-9 equals 3 her G A D 7 equals 3. she denies SI or HI. She reports decreased conflict and stress at home she is coping well she continues to have orthopedic pain in his following up with her medical providers. Past Psychiatric History: [facility] 22 Subjective Subjective Subjective Medication Compliance: Yes Side effects from medications: No Review of Systems Medical Review of Systems: unchanged Mental Status Exam Mental Status Exam Patient Appearance: Well Grooomed Patient Orientation: Person, Place, Time and Situation Level of Consciousness: Awake Patient Behavior: Appropriate and Cooperative Mood Description: Anxious and Sad Affect Description: Anxious and Sad Patient Cognition Impaired: No Ability to Follow Directions: Good Speech Pattern: Appropriate and Coherent Memory Description: Intact Hallucinations: None Delusions: Not Present Thought Process: Intact Thought Content: positive for Intact Judgement: Good Assessment and Plan Assessment & Plan (1) Generalized anxiety disorder: Status: Acute Code(s): F41.1 - Generalized anxiety disorder (2) ADHD (attention deficit hyperactivity disorder), combined type: Status: Acute Code(s): F90.2 - Attention-deficit hyperactivity disorder, combined type (3) Bipolar II disorder major depressive with melancholic features: Status: Acute Code(s): F31.81 - Bipolar II disorder Plan medications as per below follow up in 2 months if patient doing well will refer back to PCP Medications: Changed From lamotrigine (Lamictal) 50 mg (1/2 x 100 mg) PO DAILY 45 tabs 0RF To lamotrigine (Lamictal) 100 mg PO DAILY 90 tabs 0RF From trazodone take 50mg- 100mg at bedtime as needed for sleep orally bedtime PRN; 60 tabs 2RF sleep To trazodone 100 mg (2 x 50 mg) PO BEDTIME PRN 60 tabs 2RF sleep Refilled lisdexamfetamine (Vyvanse) Partial Fill upon patient request. 50 mg PO QAM 60 caps 0RF F90.2 - Attention-deficit hyperactivity disorder, combined type Counseling and coordination of Care Pt. Self Management counseling: Maintenance-social rhythm, Mod caffeine/ETOH intake, Nutrition education and improvement, Sleep hygiene, Behavior activation, Cognitive restructuring and General coping skills Medication management counseling: Effectiveness, Side effects, Dosing range, Duration, Drug interaction and Adherence Diagnosis and Prognosis Counseling: Accuracy of diagnosis, Prognosis over time, Impact of diagnosis on life functions, Impact of family relationship, Problematic behaviors secondary to diagnosis and Adequacy of current interventions Details: I spent 45 minutes reviewing the record, seeing the patient and documenting in the medical record. Counseling provided to the patient/caregiver as outlined below. Addressed patient/caregiver concerns regarding current medication regime including effective adherence. Addressed patient/caregiver concerns regarding diagnosis and prognosis including accuracy of diagnosis, prognosis over time, impact of diagnosis. Addressed patient/caregiver concerns regarding impact of recent stressors. [facility] Medical History Bronchitis due to Staphylococcus aureus Morbid obesity Allergic rhinitis COVID-19 Tick bite Unplanned unwanted Delivery with history of test positive Polyp of cervix Fibroid, uterine History of uterine fibroid Encounter to establish care Surgical History Hx of dilation and curettage History of back surgery History of hysterectomy History of colonoscopy History of surgery on right wrist History of delivery Family History Mother No problems noted. Father Mental health disorder Substance use disorder Social History Household Members: Family Housing: House Do you presently have visiting nurse or other home services: No Alcohol intake: current Alcohol intake frequency: a few times a week Patient Tobacco Use Status: Former Tobacco user Tobacco use type: Cigarette e-Cigarette/Vaping Use: Never Used Second Hand Smoke Exposure: Yes Substance Use Type: Marijuana service: No Current occupational status: employed Current occupational exposures/hazards: No Cognitive needs: Yes (Cane PRN) Hearing needs: No Vision needs: No Social History: lives 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 THC edibles periodically for body pain but causes anxiety so not often. in 20s experimented with opiates, hallucinogens and ketamine Trauma History: childhood Coding Level of Care Code Est Pt Level 3 (16683) Therapy 30m w/E&M (33467) Diagnoses Generalized anxiety disorder F41.1 ADHD (attention deficit hyperactivity disorder), combined type F90.2 Bipolar II disorder major depressive with melancholic features F31.81
--- OUTSIDE RECORDS SUMMARY | 2025-05-30 12:14 | XMS_ITS | Referral Summary ---
Author Organization [facility] Address [address] [place] [address] Care Team Providers Care Fur Designer Name Role Phone Preethi Mcintosh Primary Care Provider [phone] Encounters Date Type Department Care Team Description 04/04/2025 Telephone [facility] Neurosurgery [address] [place] [phone] Minerva Atkins MD 04/04/2025 Orders Only [facility] [address] [place] [phone] Brian Mortensen PA S/P lumbar discectomy (Primary Dx) 04/04/2025 11:30 AM EDT Follow-Up [facility] [address] [place] [phone] Brian Mortensen PA Status post lumbar discectomy (Primary Dx) from Last 3 Months Allergies Active Allergy Reactions Criticality Noted Date Comments Morphine Anaphylaxis,Dyspnea, Nausea And Vomiting,Palpitations High 07/04/2014 Medications albuterol 2.5 mg/3 mL (0.083%) nebulizer solution Inhale 2.5 mg by mouth every 6 hours as needed. Active Ventolin HFA 90 mcg/actuation inhaler Inhale 1 puff by mouth once a day. Active fluticasone furoate (Arnuity Ellipta) 200 mcg/actuation [...] Treatment Not on file [place] [address] Care Teams Fur Designer Relationship Specialty Start Date End Date Preethi Mcintosh [address] [place] [id number] PCP - General 04/04/25
--- OUTSIDE RECORDS SUMMARY | 2025-05-30 12:14 | XMS_ITS | Data Portability ---
Author Organization [employer], [place] [address] Care Team Providers Care Parole Or Probation Officer Name Role Phone ALAN HARVEY Primary Care [...] DO Not Attach Compendium, Do Not Delete/merge, 12009 7 17:32:39 Medication Orders None recorded . Patient TargetsNo targets recorded. Patient Instructions Encounter Date Encounter Id Patient Instructions Last Modified By Organization Details Last Modified Time 12/16/2016 [id number] plantar warts: care instructions [email or web address] Not available 12/17/2016 19:18:11 discussed left submet [...] and prognosis Not available 12/17/2016 18:30:22 12/30/2016 [id number] wound healing we ll focal bone with [...] 12/16/19 17 Mass Excision completed Tenzin Jovel [place] [employer] [facility] 12/17/2016 18:30:58 07/21/20 16 [facility] [place] [employer] [facility] 12/16/2016 15:28:02 11/17/19 06 Cystourethroscopy completed [facility] 12/16/2016 15:28:28 Imaging Results None recorded. Procedure Notes None recorded. Medical Equipment None Reported. Allergies Allergen ID Allergen Name Allergen Category Reaction Reaction Severity Criticality Documentation Date Start Date Code Code System Note Provider Name and Address Organization Details Recorded Time 93369 morphine medicatio n irregular heart rate severe Not available 12/16/2016 7052 RxNorm Linus sullivan [facility] 7 15:26:50 Medications Name Sig Start [...] Details Last Updated DateTime 12/16/2016 162.56 cm 259539.06 g 39.1 kg/m2 [facility] 12/16/2016 15:26:04 Date Recorded Body height Provider Name an d Address Organization Details Last Updated DateTime 12/30/2016 162.56 cm [facility] 12/30/2016 16:09:39 Social History None recorded. [...] SNOMED-CT Code Diagnosis ICD10 Code Diagnosis Note [id number] [facility] [address] [place] [address] 12/16/2016 14:47:59 12/16/2016 16:07:55 Hallux valgus 793266410 M20.10 Pain in left foot 530375 6527 25136 M79.672 Foreign body of foot 281 747756 Z18.9 Verruca plantaris 044120 08 B07.0 Mass of soft tissue 4449 40270 R22.9 [id number] [facility] [address] [place] [address] 12/30/2016 15:49:09 12/30/2016 16:41:34 Pain in left foot [id number] 54219 M79.672 Foreign body of foot 281 772371 Z18.9 Mass of soft tissue 4449 05565 R22.9 Health Concerns Section Related Observation LastModified by Organization Detai ls LastModified Time None Recorded Concern Status LastModified by Organization Details LastModified Time None Recorded Advance Directives Directive None Recorded Payers Insurance Date Sequence Insurance Name Policy Number Policy Calderon Covered Member ID Calderon Member ID Guarantor Name 07/18/2020 1 [employer] [facility] [id number] Rosalina Ramos [id number] Rosalina Ramos Notes Date Note Type [...] treatment for the bunions. PETER Bangura [facility], [facility] 12/17/2016 18:35:02 12/30/2016 text/html present in offic e to follow up for splinter removed from bottom of left foot, pt states that she has not much pain, no swelling, she has been changing the dressing, and soaking it with Epsom salt, and applying bacitracin. PETER Bangura [facility], [facility] 12/31/2016 11:29:05 OBGyn Episode No OBEpisode recorded.
== END 2025-05-30 11:41 | disposition home or self-care (01) ==
LOC: HO.HOP 11:08
PROVIDERS: Visit Provider Clinical Nurse Specialist Psychiatric/Mental Health
DX: F41.1 Generalized anxiety disorder (principal); F90.2 Attention-deficit hyperactivity disorder, combined type; F31.81 Bipolar II disorder
CPT/HCPCS: 90833; 99213

== ENCOUNTER → 2025-05-30 11:08 | Outpatient (BNVA) | payer OTHER, SELFPAY | PROVIDERS: Visit Provider Clinical Nurse Specialist Psychiatric/Mental Health | DX: F41.1 Generalized anxiety disorder (principal); F31.81 Bipolar II disorder; F90.2 Attention-deficit hyperactivity disorder, combined type | CPT/HCPCS: 99212 ==

== ENCOUNTER 2025-07-15 11:39 | Outpatient (REF) | payer OTHER, SELFPAY ==
--- OUTSIDE RECORDS SUMMARY | 2022-06-17 13:35 | XMS_ITS | Encounter Summary ---
Author Organization [facility] Address [address] [place] [address] Phone Care Team Providers Care Concert Pianist Name Role Phone Kayla Buchanan MD Primary Care Provider Encounter Details Date Type Department Care Team (Late st Contact Info) Description 06/17/2022 1:35 PM EDT Hospital Encounter [facility] [address] [place] [address] Shereen Arechiga FNP [address] [place] [phone] [email or web address] Social History Tobacco Use Types Packs/Day Years [...] 8:05 AM EDT Ana Garvey RN * [place] Suicide Severity Rating Scale (Screener/Recent Self-Report) Question [...] st Contact Info) Description 08/20/2024 Procedure Pass [address] [address] 08/01/2025 9:30 AM EDT Nurse Only [facility] [address] [place] [address] [place] [address] Ap Arnold MD [address] [place] [address] 2nd floor [place], [place] [id number] 08/03/2025 7:45 AM EDT Appointment [facility] [address] [place] [address] Cody Levy MD [address] [facility], [address] [place] [address] [email or web address] documented as of this encounter Procedures Procedure [...] IMPRESSION: No fracture or dislocation. Shereen Arechiga CANDLE MOLDER IMG XR LOWER EXTREMITY Jazzy l Result documented in this encounter Visit Diagnoses Not on filedocumented in this encounter Additional Health Concerns Infection Onset Date Last Indicated Resolved Time CoV-Risk 03/22/2024 03/22/2024 04/02/2024 1:22 AM EDT documented as of this encounter Care Teams Concert Pianist Relationship Specialty Start Date End Date Kayla Buchanan MD [address] [place] [address], [address] [place] [address] [email or web address] PCP - General Obstetrics and Gynecology 02/15/22 documented as of this encounter Additional Source Comments The information contained in this document represents components of the legal health record. It is not the complete legal health record.[facility]
--- NOTE | ~2025-07-15 | XR_ITS ---
CLINICAL HISTORY: M54.50 - Low back pain, unspecified 3 views lumbar spine Comparison: CR - XR LUMBAR SPINE 2-3V - 01/22/25 09:57 EST Findings: Mild straightening of lumbar lordosis. Otherwise alignment is maintained. Stable mild compression fracture of the superior endplate of L1. Remainder lumbar vertebral bodies maintain normal height. No significant degenerative changes. IMPRESSION: 1. No acute findings. 2. Stable mild compression fracture of the superior endplate of L1. This document has been electronically signed by: Eleanor Vitale MD on 07/15/2025 21:22:09
--- OUTSIDE RECORDS SUMMARY | 2025-07-15 12:39 | XMS_ITS | Encounter Summary ---
Author Organization [facility] Address [address] [place] [phone] Phone Care Team Providers Care Vegetable Vendor Name Role Phone Beti Fu MD Primary Care Provid er Cali Sanchez Primary Care Provider + Preethi Mcintosh Primary Care Provide r Encounter Details Date Type Department Care Team (Late st Contact Info) Description 11/28/2022 Procedure Pass OR Admitting Dept - [facility] Department [address] [place] [phone] Social History Tobacco Use Types Packs/Day Years Used Date Smoking Tobacco: Former Cigarettes Q uit: 2014 Smokeless Tobacco: Never Comments:quit oct 2015 Alcohol Use Standard Drinks/Week Comments Yes 5 (1 standard drink = 0.6 oz pur e alcohol) Comments No Sex and Gender Information Value Date Recorded Sex Assigned at Female 05/29/2022 8:54 PM EDT Legal Sex Female 9:19 PM EDT Gender Identity Female 05/29/2022 8:54 PM EDT Sexual Orientation Queer 09/28/2022 8: 59 AM EST documented as of this encounter Plan of Treatment Upcoming Encounters Date Type Department Care Team (Late st Contact Info) Description 08/20/2024 Procedure Pass [facility], [address] [address] 08/01/2025 9:30 AM EDT Nurse Only [facility] Pulmonary, Allergy and Critical Care Medicine [address] [facility] [place] [address] Ap Arnold MD [address] [facility] 2nd [place] [address] 08/03/2025 7:45 AM EDT Appointment [facility], [facility] [address] [place] [address] Cody Levy MD [address] [facility], [address] [place] [address] [email or web address] documented as of this encounter Visit Diagnoses Not on filedocumented in this encounter Additional Health Concerns Infection Onset Date Last Indicated Resolved Time CoV-Risk 03/22/2024 03/22/2024 04/02/2024 1:22 AM EDT documented as of this encounter Care Teams Vegetable Vendor Relationship Specialty Start Date End Date Beti Fu MD [address] [place] [address] PCP - General 08/08/22 01/20/24 [place] [address] [place] [id number] PCP - General Physician Uncrater 01/21/24 09/05/24 Preethi Mcintosh PA [address] [place] [phone] PCP - General Physician Uncrater 09/06/24 documented as of this encounter Additional Source Comments The information contained in this document represents components of the legal health record. It is not the complete legal health record.[facility]
--- OUTSIDE RECORDS SUMMARY | 2025-07-15 12:39 | XMS_ITS | Encounter Summary ---
Author Organization [facility] Address [address] [place] [address] Phone Care Team Providers Care Plaster Helper Name Role Phone Preethi Mcintosh Primary Care Provide r Encounter Details Date Type Department Care Team ([facility] st Contact Info) Description 02/22/2025 Telephone [facility] Pulmonary, Allergy and Critical Care Medicine [address] [facility] [place] [address] [place] [address] Ap Arnold MD [address] [place] [address] [place] [address] [email or web address] Social History Tobacco Use Types Packs/Day Years [...] st Contact Info) Description 08/20/2024 Procedure Pass [address] [address] 08/01/2025 9:30 AM EDT Nurse Only [facility] Pulmonary, Allergy and Critical Care Medicine [address] [place] [address] Ap Arnold MD [address] [place] [address] 08/03/2025 7:45 AM EDT Appointment [address] [address] Cody Levy MD [address] [place] [address], [address] [address] documented as of this encounter Visit Diagnoses Not on filedocumented in this encounter Care Teams Plaster Helper Relationship Specialty Start Date End Date Preethi Mcintosh PA [address] [place] [address] [place] [address] PCP - General Physician Pathology Secretary 09/06/24 documented as of this encounter Additional Source Comments The information contained in this document represents components of the legal health record. It is not the complete legal health record.[facility]
--- OUTSIDE RECORDS SUMMARY | 2025-07-15 12:39 | XMS_ITS | Encounter Summary ---
Author Organization [facility] Address [address] [place] [address] Phone Care Team Providers Care Fine Arts Chair Name Role Phone Cali Sanchez Primary Care Provider + Preethi Mcintosh Primary Care Provide r Encounter Details Date Type Department Care Team (Late st Contact Info) Description 08/20/2024 Transcribe Orders Virtual Department [address] [place] [address] Cali Sanchez PA [address] [place] [address] Social History Tobacco Use Types Packs/Day Years Used Date Smoking Tobacco: Former Cigarettes 0.3 18.2 1 - 11/08/2015 Smokeless Tobacco: Never Comments:I quit for three ye ars prior to quitting for good Alcohol Use Standard Drinks/Week Comments Yes 5 (1 standard drink = 0.6 oz pur e alcohol) Education Answer Date Recorded Are you interested [...] as food, clothing, or medical care? No 12/27/2022 In the past 12 months have y ou been in a relationship with a person who hurts, threatens, or tries to control you? No 12/27/2022 Are you denied basic needs s uch as food, clothing, or medical care? No 12/27/2022 In the past 12 months have y ou been in a relationship with a person who hurts, threatens, or tries to control you? No 12/27/2022 Comments No Sex and Gender Information Value Date Recorded Sex Assigned at Female 05/29/2022 8:54 PM EDT Legal Sex Female 9:19 PM EDT Gender Identity Female 05/29/2022 8:54 PM EDT Sexual Orientation Queer 09/28/2022 8: 59 AM EST documented as of this encounter Plan of Treatment Upcoming Encounters Date Type Department Care Team (Late st Contact Info) Description 08/20/2024 Procedure Pass [address] [address] 08/01/2025 9:30 AM EDT Nurse Only [facility] Pulmonary, Allergy and Critical Care Medicine [address] [place] [address] Ap Arnold MD [address] [place] [address] 08/03/2025 7:45 AM EDT Appointment [address] [address] Cody Levy MD [address] [place] [address], [address] [address] documented as of this encounter Visit Diagnoses Not on filedocumented in this encounter Care Teams Fine Arts Chair Relationship Specialty Start Date End Date Cali Sanchez PA [address] [place] [phone] PCP - General Physician Vat Operator 01/21/24 09/05/24 Preethi Mcintosh PA [address] [place] [address] [place] [address] PCP - General Physician Vat Operator 09/06/24 documented as of this encounter Additional Source Comments The information contained in this document represents components of the legal health record. It is not the complete legal health record.[facility]
--- OUTSIDE RECORDS SUMMARY | 2025-07-15 12:39 | XMS_ITS | Clinical Summary ---
Author Organization [facility] Address [address] [place] [address] Phone Care Team Providers Care Padder Cushion Name Role Phone Preethi Mcintosh Primary Care Provide r Allergies Active Allergy Reactions Criticality Noted Date Comments Bee Pollen Anaphylaxis High 02/05/2022 HONEY BEE STING Morphine Nausea And Vomiting,Shortness Of Breath,Palpitations High 07/04/2014 Morphine Sulfate Anaphylaxis High 10/02/2020 Other 10/02/2020 Other reaction(s): anaphylaxis [place] Anaphylaxis High 10/02/2020 Venom-Honey Bee Anaphylaxis High 09/30/2022 Medications cetirizine (ZYRTEC) 10 MG tablet Take 10 mg by mouth daily. 01/07/20 22 Active multivitamin per tablet Take 1 tablet by mouth daily. 11/20/19 22 Active EPINEPHrine 0.3 mg/0.3 mL auto-injector Inject 0.3 mg into the muscle as needed for anaphylaxis. Active albuterol 90 mcg/actuation inhaler Inhale 2 puffs into the lungs every 6 (six) hours as needed for wheezing. 8 g 02/14/20 22 Active inhaler spacing device (AEROCHAMBER,BR EATHERITE) Spcr Inhale 1 each into the lungs every 6 (six) hours. 1 each 02/14/20 Active ondansetron (ZOFRAN) 4 MG tablet Take 4 mg by mouth as needed. 08/16/20 22 Active traZODone (DESYREL) 50 MG tablet Take 100 mg by mouth every evening. As needed 03/11/20 Active ibuprofen (ADVIL,MOTRIN) 200 MG tablet Take 3 tablets (600 mg total) by mouth every 6 (six) hours as needed for pain (specific location in comments). 12/11/19 Active omeprazole (PRILOSEC) 20 MG capsule Take 1 capsule by mouth every morning. 12/29/19 24 Active OZEMPIC 0.25 mg or 0.5 mg (2 mg/3 mL) subcutaneous injection pen Inject 0.25 mg under the skin every 7 days. 08/04/20 24 Active VYVANSE 40 mg capsule 40 mg. 10/19/20 Active lamoTRIgine (LAMICTAL) 100 MG IMMEDIATE release tablet 150 mg. 10/05/20 24 Active albuterol 2.5 mg /3 mL (0.083 %) nebulizer solution Take 2.5 mg by nebulization every 6 (six) hours as needed. Active fluticasone furoate (ARNUITY ELLIPTA) 200 mcg/actuation DsDv Inhale 1 puff into the lungs daily. 90 each 3 12/10/19 25 Active umeclidinium-vi lanteroL (ANORO ELLIPTA) 62.5-25 mcg/actuation diskus inhalerIndicati ons:Severe persistent asthma with acute exacerbation Inhale 1 puff into the lungs daily. 180 each 3 12/10/19 Active methocarbamoL (ROBAXIN) 500 MG tablet Take 500 mg by mouth daily as needed. 02/09/20 25 Active lidocaine (LIDODERM) 5 % Place onto the skin daily. 07/26/20 24 Active zafirlukast (ACCOLATE) 20 MG tablet Take 1 tablet (20 mg total) by mouth 2 (two) times a day. 60 tablet 11 03/03/20 25 Active omalizumab (XOLAIR) 300 mg/2 mL subcutaneous auto-injector syringeIndicati ons:Severe persistent asthma without complication Inject 2 mL (300 mg total) under the skin every 28 days. 2 mL 07/08/20 25 Active omalizumab 300 mg/2 mL AtInIndications :Severe persistent asthma without complication Inject 300 mg under the skin every 28 days. 2 mL 12 07/09/202024 Discontinued Hospital, Clinic, or Other Facility Administered Medication Ordered Dose Route Frequency Start Date End Date Status lidocaine (XYLOCAINE) 1% injection 2 mLIndications:Left shoulder pain,Right shoulder pain 2 mL See Adm Inst See admin instructions 10/06/2024 Active triamcinolone acetonide (KENALOG-40) 40 mg/mL injection 40 mgIndications:Left shoulder pain,Right shoulder pain 40 mg IM See admin instructions 10/06/2024 Active Active Problems Problem Noted Date Diagnosed Date Severe persistent asthma with acute exacerbation 12/10/2024 Assessment & Plan (12/10/2024 9:05 AM EST): Ongoing worsening asthma control following COVID-19 infection 1 month ago. Had received 5 days of prednisone and a 5-day course of azithromycin. Discolored sputum has resolved though cough, chest tightness and wheeze persist. Has been off maintenance inhalers as well. Resume maintenance ICS/LABA/LAMA. Prednisone taper, starting at 60 mg daily if tolerates. Will monitor mood carefully. To call back if fails to resolve. Persistent cough 12/10/2024 Assessment & Plan (12/10/2024 9:04 AM EST): Recurrent asthma exacerbation with bronchitic type features. Raises question of underlying airway disorder such as bronchiolitis or bronchiectasis. Will obtain noncontrast chest CT. Recurrent infections 05/19/2024 Assessment & Plan (05/19/2024 4:40 PM EDT): Given history of recurrent infections, will check immunoglobulin levels to rule out hypogammaglobulinemia. If abnormal, would obtain chest CT to rule out chronic airway disease. History of bee sting allergy 03/03/2024 Assessment & Plan (03/03/2025 8:53 AM EDT): Almost at maintenance dose. Continue buildup phase per schedule. Assessment & Plan (12/10/2024 9:07 AM EST): Continue hymenoptera venom immunotherapy. Assessment & Plan (08/26/2024 9:59 AM EDT): Delayed skin test result to yellowjacket. Patient agreeable, will proceed with yellowjacket desensitization. Patient will be scheduled for 15 weekly buildup phase injections followed by maintenance for monthly x 3 years. Given that we are unsure if she may have reactions to other hymenoptera, she should continue to have a up-to-date epinephrine injector. Finally, given her history of anaphylaxis as well as to morphine, will check tryptase level. Assessment & Plan (05/19/2024 4:39 PM EDT): Negative serologic testing but history of anaphylaxis to bee stings. Once patient back on asthma therapy, recommend skin testing for venom. Depending on level of asthma control, either would continue therapy or delay several months until is well-established on Xolair. 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 Will check stinging insect panel today. Once asthma is controlled, would perform skin testing and recommend desensitization. Allergic rhinitis 06/02/2018 Overview (12/10/2024): Allergy skin testing approximately 2017, positive to all pollens, mold, dust mite, and animal dander Aeroallergen testing May 2024: Positive to dust mites and weed pollen Assessment & Plan (03/03/2025 8:53 AM EDT): Generally well-controlled currently. Continues Zyrtec and use Flonase as needed. Resume leukotriene inhibitors as above. Assessment & Plan (12/10/2024 9:07 AM EST): Does well in the winter despite positive testing to dust mites. Continue daily Zyrtec and Flonase as needed. Despite negative testing, reports hayfever in the spring. Consider resuming montelukast then. Assessment & Plan (08/26/2024 9:58 AM EDT): Allergies generally well-controlled. Recommend change nasal steroid to alternative with scent. Continue Zyrtec. Can always resume montelukast if needed. Assessment & Plan (05/19/2024 4:38 PM EDT): Ongoing allergies that recent testing negative for spring pollens. Suggest serum testing given previous positivity. Remains on antihistamines, nasal steroids, and leukotriene inhibitors. Once asthma under better control, patient could consider allergy immunotherapy. Assessment & Plan (03/03/2024 1:41 PM EDT): Active rhinitis on exam with increasing allergy symptoms. Continue Flonase, montelukast and Zyrtec. Hopefully will feel better with course of prednisone. Could consider adding Azelastine. Once current pollen season abates, will have her return for repeat allergy skin testing and likely allergy immunotherapy. Assessment & Plan (01/21/2024 10:47 AM EST): Active rhinitis on exam with only mild symptoms. Monitor for any improvement with montelukast. If inadequate response, consider adding daily nasal steroids back. Continue Zyrtec. Obesity, Class III, BMI 40-49.9 (morbid obesity) 03/05/2018 Abnormal uterine bleeding (AUB) 06/18/2017 Assessment & Plan (02/14/2022 5:17 PM EDT): We discussed the possibility of IUD insertion with upcoming D&C. She tried this previously and notes intense migraines with it thus declines this option. Advised unable to clearly assess endometrium for presence of polyps given ongoing retained POC thus will proceed with D&C and allow cycles to potentially return to normal prior to deciding on intermediate teacher bleeding control plan. She states that her partner is getting a vasectomy thus declines contraception. Migraine without intractable migraine 01/26/2016 Overview (08/21/2022): [x] magnesium 300mg TID for prophylaxis-- good relief Severe persistent asthma without complication Overview (03/03/2025): Exercise-induced asthma. Albuterol prn. Last attack 7 years ago. Hospitalization x 3 in the past (most recently 7 years ago). [x]baseline peak flow - 300 on 02/21 Xolair first dose July 2024 Assessment & Plan (03/03/2025 8:53 AM EDT): Severe persistent asthma with ongoing poor control. Somewhat complicated by severe back pain right now and thus unsure clear asthma activity. Currently remains on Arnuity plus Anoro Ellipta, Xolair and as needed albuterol MDI/nebs. Recommend resume leukotriene inhibitor with either montelukast or can try changing to zafirlukast if prefers. Recommend continue Xolair for several more months and reassess with PFTs. If asthma control remains inadequate and/or PFTs are significantly abnormal, would consider change to Dupixent. Assessment & Plan (12/10/2024 9:06 AM EST): Severe persistent asthma with frequent exacerbations. Will resume maintenance triple inhaler therapy although questionable change in coverage. Patient will call if Anoro Ellipta no longer available. Continue high-dose ICS which Arnuity Ellipta. Continue albuterol MDI/nebs as needed. Hopefully Airsupra will be available option in the near future. Continue Xolair injections monthly. Assessment & Plan (08/26/2024 9:57 AM EDT): Significant improvement in severe persistent asthma on triple inhaler therapy (Anoro and Arnuity), with the addition of Xolair monthly. Now status post 3 injections with significant improvement. Mild increased symptoms likely related to recent URI. Will stop Ventolin and changed to Airsupra. She is off montelukast but if finds increasing allergy symptoms or not is good asthma control, can resume. Assessment & Plan (05/19/2024 4:38 PM EDT): Despite relatively preserved spirometry 3 months ago, ongoing poorly controlled asthma. She has been off her inhalers for 2 weeks likely the cause though even while on was not adequately controlled despite triple inhaler therapy, leukotriene inhibition and treatment of allergies. Therefore, stepup therapy is indicated for severe asthma. Given that she is often triggered by allergens, she is appropriate candidate for Xolair. Recommend 300 mg subcu every 4 weeks. She has an EpiPen that she can bring on appointments. First 2 injections to be administered in office with 2 hours of observation. Patient is in agreement. Assessment & Plan (03/03/2024 1:40 PM EDT): Previous history of mild intermittent persistent asthma with the last almost seizure now of moderate to severe asthma phenotype. Remarkably her PFTs with preserved spirometry but was stable at that time on Breo and montelukast prior to URI and allergies. She has had now 2 to 4 weeks of worsening asthma symptoms primarily with cough with some shortness of breath and wheeze. I believe further assessment of her asthma phenotype is imperative. As well as treating her active symptoms. PLAN: Check labs today including CBC with differential for eosinophil count and total IgE level to assess asthma phenotype Prednisone 60 mg daily for 5 to 10 days Discontinue Breo and start high-dose Trelegy Ellipta. Prior Auth will be sent. Continue montelukast Continue albuterol as needed Depending on how she responds to change in regimen over the next 6 to 8 weeks, and results of her blood work, may need stepup therapy to Biologics. If appropriate, Xolair may be most appropriate. If does not qualify, would then consider Dupixent. Assessment & Plan (01/21/2024 10:50 AM EST): Likely now moderate persistent asthma with inadequate control. Better on medium dose ICS/LAMA versus low-dose ICS alone but incomplete response with active ongoing symptoms. Step up therapy indicated. PLAN: Discontinue Advair START high-dose of Breo Ellipta 1 puff once daily. If not covered, could change to Advair/Wixela 500/51 puff twice daily as an alternative START montelukast 10 mg nightly. Has tolerated before but did review potential side effects and recommendation to discontinue therapy if develops any Continue albuterol as needed Obtain full pulmonary function studies and FeNO testing after 1 month of treatment assess for both asthma control and rule out vocal cord dysfunction on flow- volume loop assessment If persistent poor control, could change to triple inhaler therapy and with that point would assess asthma phenotype. Labs with no evidence of peripheral eosinophilia. Bipolar 1 disorder 12/20/2015 Overview (08/21/2022): Not medicated. S/p social work 01/26/16. Unplanned but desired . Resolved Problems Problem Noted Date Diagnosed Date Resolved Date Bacteremia 05/30/2022 08/21/2022 Assessment & Plan (06/01/2022 2:00 PM EDT): -As part of her work-up in the ED on 05/29 patient had blood cultures drawn, she was called back 05/30 when blood cultures were positive for gram-negative rods -CT of the Abdomen and pelvis performed on 05/30 shows heterogeneous right renal enhancement and stranding. No hydronephrosis or urinary stone. -Negative blood cultures on 05/31 -No leukocytosis and normal lactate -Afebrile -Admits to nausea and sweating -Pain management -Continue IV Rocephin for now -IV fluids -Infectious diseases consult appreciated Will likely send home tomorrow on ciprofloxacin to finish a 10 course of antibiotics UTI (urinary tract infection) 05/30/2022 08/21/2022 Assessment & Plan (05/31/2022 1:49 PM EDT): CT scan consistent with pyelonephritis -Patient had some mild urinary symptoms 1 week prior to admission -Urine culture from 05/29 is positive for E. Coli -UA from 05/30 shows 11-20 WBC -Right CVA tenderness. No current urinary symptoms. No abdominal pain. -Continue IV Rocephin Asthma 05/30/2022 03/03/2024 Assessment & Plan (06/01/2022 11:41 AM EDT): -Productive cough -Continue as needed albuterol IUD (intrauterine device) in place 04/26/2022 12/25/2022 Overview (04/26/2022): Shannan 04/26/22 Retained products of concept ion following 02/14/2022 02/22/2022 Assessment & Plan (02/14/2022 5:18 PM EDT): Given protracted bleeding and persistent suggestion of retained POC despite treatment with misoprostol, recommend D&C. Surgical procedure reviewed including associated risks of bleeding, infection, and uterine perforation. Case request submitted, do not think this needs to be done emergently but will schedule within the next week. Encounters Date Type Department Care Team Description 07/08/2025 Refill [facility] [address] [place] [address] Ap Arnold MD Medication Refill 07/04/2025 11:30 AM EDT Nurse Only [facility] [address] [place] [address] Ap Arnold MD History of bee sting allergy (Primary Dx) 06/06/2025 11:00 AM EDT Nurse Only [facility] [address] [place] [address] Ap Arnold MD History of bee sting allergy (Primary Dx) 05/09/2025 11:30 AM EDT Nurse Only [facility] [address] [place] [address] Ap Arnold MD History of bee sting allergy (Primary Dx) 04/18/2025 10:30 AM EDT Nurse Only [facility] [address] [place] [address] Ap Arnold MD History of bee sting allergy (Primary Dx) from Last 3 Months Immunizations Immunization Administration Dates Next Due INFLUENZA, SPLIT VIRUS, TRIVALENT PF 10/20/2024 INFLUENZA, SPLIT VIRUS, TRIV ALENT W/ PRESERVATIVE IM 12/21/2015 Influenza Quadrivalent Preservative Free IM 03/2020 Tdap 05/07/2016,12/08/2012,11/29/2001 Family History Medical History Relation Comments Ashkenazi Baptist ancestry Daughter Under age 10 Diabetes Father Prostate cancer Father Ashkenazi Baptist ancestry Maternal Grandfather Ashkenazi Baptist ancestry Maternal Grandmother Ashkenazi Baptist ancestry Mother Heart disease Mother Ashkenazi Baptist ancestry Sister Breast cancer Neg Hx Relation Status Comments Daughter Father Maternal Grandfather Maternal Grandmother Mother Sister Social History Tobacco Use Types Packs/Day Years Used Date Smoking Tobacco: Former Cigarettes 0.3 18.2 1 - 11/08/2015 Smokeless Tobacco: Never Tobacco Cessation:Counseling Given: Not Answered Comments:I quit for three years prior to quitting for good Alcohol Use [...] Orientation Queer 09/28/2022 8: 59 AM EST Last Filed Vital Signs Vital Sign Reading Time Taken Comments Blood Pressure 140/90 03/03/2025 8:28 AM EDT Pulse 84 02/10/2025 9:45 AM EDT Temperature 43.3 C (110 F) 03/03/2025 8:28 AM EDT Respiratory Rate 16 02/10/2025 1:00 PM EDT Oxygen Saturation 96% 03/03/2025 8:28 AM EDT Inhaled Oxygen Concentration - - Weight 104.3 kg (230 lb) 03/03/2025 8:28 AM EDT Height 162.6 cm (5' 4 ) 03/03/2025 8:28 AM EDT Body Mass Index 39.48 03/03/2025 8:28 AM EDT Plan of Treatment Upcoming Encounters Date Type Department Care Team (Late st Contact Info) Description 08/20/2024 Procedure Pass [address] [address] 08/01/2025 9:30 AM EDT Nurse Only [facility] [address] [facility] [place] [address] [place] [address] Ap Arnold MD [address] [place] [address] 2nd [place] [address] 08/03/2025 7:45 AM EDT Appointment [address] [address] Cody Levy MD [address] [place] [address], [address] [place] [address] [email or web address] Health Maintenance Due Date Last Done Comments DEPRESSION SCREENING 1994 HEPATITIS C SCREENING 2000 HIV ONE-TIME SCREENING (18-6 5 YEARS) 2000 PNEUMOCOCCAL VACCINES (0-49 years) (1 of 2 - PCV) 2001 PAP SMEAR 2003 COVID-19 VACCINE (2023-2 5 season) 2024 08/30/2021, 01/29/2021, 01/08/2021 INFLUENZA VACCINE (#1) 2025 , 08/21/2020, 12/21/2015 MAMMOGRAM 10/20/2025 10/20/2023 Adult Td,Tdap Booster 05/07/2026 05/07/2016 , 12/08/2012, 11/29/2001 IUD 04/26/2027 04/26/2022 SCREENING FOR DIABETES 02/11/2028 02/10/2025 SMOKING STATUS SCREENING (Every 5 Years) 03/03/2030 03/03/2025 HEPATITIS A VACCINES Aged Out No long er eligible based on patient's age to complete this topic HIB VACCINES Aged Out No longer eligi ble based on patient's age to complete this topic MENINGOCOCCAL VACCINES (ACWY) Aged Out No longer eligible based on patient's age to complete this topic MENINGOCOCCAL VACCINES (B) Aged Out N o longer eligible based on patient's age to complete this topic Medical Devices Implanted Type Area Revenue Officer Device Identifier Shelf Expiration Date Model / Serial / Lot Iud Implanted:08/2022 (Quantity not on file) Intrauterine Device Explanted Type Area Revenue Officer Device Identifier Shelf Expiration Date Model / Serial / Lot Iud Procedures Procedure Name Priority Date/Time Associated Diagnosis Comments BI MAMMOGRAM SCREENING WITH TOMOSYNTHESIS WITH CAD (BILATERAL) Routine 10/20/2023 1:43 PM EST Visit for screening mammogram from Last 3 Months or Most Recently Relevant to Health Maintenance Results * BI MAMMOGRAM SCREENING WITH TOMOSYNTHESIS WITH CAD (BILATERAL) (10/20/2023 1:43 PM EST) Anatomical Region Laterality Modality Breast Left, Breast Right, Breast Bilateral Bila teral Mammography 10/21/2023 4:42 PM EST Impressions 10/21/2023 4:44 PM EST No mammographic evidence of malignancy in either breast. Annual screening mammography is recommended. BI-RADS CATEGORY: 1 - Negative. The patient will be notified of the results and recommendations. Narrative 10/21/2023 4:44 PM EST BI MAMMOGRAM SCREENING WITH TOMOSYNTHESIS WITH CAD (BILATERAL) Additional patient information: Screening. COMPARISON: This is a baseline examination. Breast composition: The breast tissue is almost entirely fat. FINDINGS: No abnormal masses, suspicious calcifications, or other significant findings are identified mammographically in either breast. Procedure Note Kanu Aguiar MD - 10/21/2023 BI MAMMOGRAM SCREENING WITH TOMOSYNTHESIS WITH CAD (BILATERAL) Additional patient information: Screening. COMPARISON: This is a baseline examination. Breast composition: The breast tissue is almost entirely fat. FINDINGS: No abnormal masses, suspicious calcifications, or other significantfindings are identified mammographically in either breast. IMPRESSION: No mammographic evidence of malignancy in either breast. Annual screening mammography is recommended. BI-RADS CATEGORY: 1 - Negative. The patient will be notified of the results and recommendations. Beti Bryant MD IMG MG EXAMS Jazzy l Result from Last 3 Months or Most Recently Relevant to Health Maintenance Insurance [address] [address] [place] [address] [place] [address] [address] [facility] [place] [address] [place] [address] [address] [address] [address] [address] [facility] ACO [facility] ACO [facility] ACO Advance Directives For more information, please contact: [phone] (9AM - 5PM [place], Friday-Friday) * Full Code (Latest Code Status on File) Date Activated Date Inactivated Comments 12/11/2023 9:35 AM Question Answer Comments Code Status Confirmed With: Patient * Full Code Date Activated Date Inactivated Comments 11/28/2022 8:58 AM 12/11/2023 9:35 AM Question Answer Comments Code Status Confirmed With: Patient * Full Code Date Activated Date Inactivated Comments 05/30/2022 4:04 PM 11/28/2022 8:58 AM Question Answer Comments Code Status Confirmed With: Patient * Full Code Date Activated Date Inactivated Comments 02/19/2022 6:09 AM 05/30/2022 4:04 PM Question Answer Comments Code Status Confirmed With: Patient Care Teams Padder Cushion Relationship Specialty Start Date End Date Preethi Mcintosh PA [address] [place] [address] [place] [address] PCP - General Physician Healthcare Customer Service 09/06/24 Additional Source Comments The information contained in this document represents components of the legal health record. It is not the complete legal health record.[facility]
--- OUTSIDE RECORDS SUMMARY | 2025-07-15 12:39 | XMS_ITS | Encounter Summary ---
Author Organization [facility] Address [address] [place] [phone] Phone Care Team Providers Care Performance Improvement Specialist Name Role Phone Beti Fu MD Primary Care Provid er Cali Sanchez Primary Care Provider + Preethi Mcintosh Primary Care Provide r Encounter Details Date Type Department Care Team (Late st Contact Info) Description 08/27/2023 Procedure Pass [facility], [address] [address] Social History Tobacco Use Types Packs/Day Years [...] st Contact Info) Description 08/20/2024 Procedure Pass [address] [address] 08/01/2025 9:30 AM EDT Nurse Only [facility] [address] [place] [address] Ap Arnold MD [address] [place] [id number] [email or web address] 08/03/2025 7:45 AM EDT Appointment [address] [address] Cody Levy MD [address] [place] [address], [address] [address] documented as of this encounter Visit Diagnoses Not on filedocumented in this encounter Additional Health Concerns Infection Onset Date Last Indicated Resolved Time CoV-Risk 03/22/2024 03/22/2024 04/02/2024 1:22 AM EDT documented as of this encounter Care Teams Performance Improvement Specialist Relationship Specialty Start Date End Date Beti Fu MD [address] [place] [address] PCP - General 08/08/22 01/20/24 Cali Sanchez PA [address] [place] [address] PCP - General Physician De Icer [employer] Winder 01/21/24 09/05/24 Preethi Mcintosh PA [address] [place] [id number] PCP - General Physician De Icer [employer] Winder 09/06/24 documented as of this encounter Additional Source Comments The information contained in this document represents components of the legal health record. It is not the complete legal health record.[facility]
--- OUTSIDE RECORDS SUMMARY | 2025-07-15 12:39 | XMS_ITS | Clinical Summary ---
Author Organization [facility] Address [address] [place] [address] Care Team Providers Care Jtac Name Role Phone Preethi Mcintosh Primary Care Provider [phone] Allergies Active Allergy Reactions Criticality Noted Date [...] Mass Index - - Plan of Treatment Health Maintenance Due Date Last Done Comments [...] Drivers of Health [place] ual Screening 11/17/2024 Influenza Vaccine (#1) 2025 , 08/05/2022, 08/21/2020, Additional history exists DTaP,Tdap,and Td Vaccines (4 - Td or Tdap) 05/07/2026 05/07/2016, 12/08/2012, 11/29/2001 Mammogram 02/10/2027 02/10/2025, 12/02/2023, 10/20/2023 RSV Vaccine (60+ years old a nd patients) (1 - 1-dose 75+ series) 2057 Hepatitis C Screening Completed 11/06/2015 Insurance [employer] Care Teams Jtac Relationship Specialty Start Date End Date Preethi Mcintosh [address] [place] [address] PCP - General 04/04/25
--- OUTSIDE RECORDS SUMMARY | 2025-07-15 12:39 | XMS_ITS | Encounter Summary ---
Author Organization [facility] Address [email or web address] [place] [address] Phone Care Team Providers Care Iron Worker Apprentice Name Role Phone Pcp, Unknown Primary Care Provider Kayla Jaime MD Primary Care Provider [phone] Beti Fu MD Primary Care Provid er Cali Sanchez Primary Care Provider + Preethi Mcintosh Primary Care Provide r Encounter Details Date Type Department Care Team (Late st Contact Info) Description 02/13/2022 Procedure Pass [facility], Ct Scan - [address] [address] Social History Tobacco Use Types Packs/Day Years [...] Date of Assessment Author No Risk Indicated 02/13/2022 2:49 PM EDT Carolyn Alonzo, JUSTINO * [place] Suicide Severity Rating Scale (Screener/Recent Self-Report) Question Answer Date of Assessment Author 1. Wish to be (Past 1 Month) No 022 2:49 PM EDT Carolyn Alonzo, JUSTINO 2. Non-Specific Active Suici lonny Thoughts (Past 1 Month) No 02/13/2022 2:49 PM EDT Carolyn Alonzo , JUSTINO 6. Suicidal Behavior (Lifetime) No 2:49 PM EDT Carolyn Alonzo RN documented as of this encounter Plan of Treatment Upcoming Encounters Date Type Department Care Team (Late st Contact Info) Description 08/20/2024 Procedure Pass [address] [address] 08/01/2025 9:30 AM EDT Nurse Only [facility], [facility] [address] [place] [address] Ap Arnold MD [address] [place] [address] [email or web address] 08/03/2025 7:45 AM EDT Appointment [address] [address] Cody Levy MD [address] [place] [address] [email or web address] documented as of this encounter Visit Diagnoses Not on filedocumented in this encounter Additional Health Concerns Infection Onset Date Last Indicated Resolved Time CoV-Risk 02/13/2022 02/13/2022 02/15/2022 2:05 PM EDT CoV-Risk Comment:2 neg covids here for UTI Bacteremia 05/29/2022 05/29/2022 05/31/2022 7:01 AM E DT CoV-Risk 03/22/2024 03/22/2024 04/02/2024 1:22 AM EDT documented as of this encounter Care Teams Iron Worker Apprentice Relationship Specialty Start Date End Date Pcp, Unknown PCP - General 02/13/22 02/14/22 Kayla Buchanan MD [address] [place] [address], [address] [place] [address] [email or web address] PCP - General Obstetrics and Gynecology 02/15/22 Beti Fu MD [address] [place] [address] PCP - General 08/08/22 01/20/24 Cali Sanchez PA [address] [place] [address] PCP - General Physician Mink Farmer 01/21/24 09/05/24 Preethi Mcintosh PA [address] [place] [address] PCP - General Physician Mink Farmer 09/06/24 documented as of this encounter Additional Source Comments The information contained in this document represents components of the legal health record. It is not the complete legal health record.[facility]
--- OUTSIDE RECORDS SUMMARY | 2025-07-15 12:39 | XMS_ITS | Encounter Summary ---
Author Organization [facility] Address [address] [place] [address] Phone Care Team Providers Care Oval Or Circular Glass Cutter Name Role Phone Kayla Buchanan MD Primary Care Provider [phone] Beti Fu MD Primary Care Provid er Cali Sanchez Primary Care Provider + Preethi Mcintosh Primary Care Provide r Encounter Details Date Type Department Care Team (Late st Contact Info) Description 05/30/2022 Procedure Pass [facility], Ct Scan - [address] [address] Social History Tobacco Use Types Packs/Day Years Used Date Smoking Tobacco: Former Smokeless Tobacco: Never Comments:quit oct 2015 Alcohol Use Standard Drinks/Week Comments Yes 1 (1 standard drink = 0.6 oz pur e alcohol) socially Comments No Sex and Gender Information Value Date Recorded Sex Assigned at Female 05/29/2022 8:54 PM EDT Legal Sex Female 9:19 PM EDT Gender Identity Female 05/29/2022 8:54 PM EDT Sexual Orientation Queer 09/28/2022 8: 59 AM EST documented as of this encounter Functional Status * Calculated C-SSRS Risk Score (Lifetime/Recent) Answer Date of Assessment Author No Risk Indicated 05/30/2022 12:19 PM EDT Thao Moya, RN * [place] Suicide Severity Rating Scale (Screener/Recent Self-Report) Question Answer Date of Assessment Author 1. Wish to be (Past 1 Month) No 022 12:19 PM EDT Thao Jackson, RN 2. Non-Specific Active Suici lonny Thoughts (Past 1 Month) No 05/30/2022 12:19 PM EDT Luis Manuel Jackson RN 6. Suicidal Behavior (Lifetime) No 12:19 PM EDT Thao Jackson, RN documented as of this encounter Plan of Treatment Upcoming Encounters Date Type Department Care Team (Late st Contact Info) Description 08/20/2024 Procedure Pass [address] [address] 08/01/2025 9:30 AM EDT Nurse Only [facility], All[facility] Critical [facility] Medicine [address] [place] [address] Ap Arnold MD [address] [place] [address] [email or web address] 08/03/2025 7:45 AM EDT Appointment [address] [address] Cody Levy MD [address] [place] [address] [email or web address] documented as of this encounter Visit Diagnoses Not on filedocumented in this encounter Additional Health Concerns Infection Onset Date Last Indicated Resolved Time CoV-Risk Comment:2 neg covids here for UTI Bacteremia 05/29/2022 05/29/2022 05/31/2022 7:01 AM E DT CoV-Risk 03/22/2024 03/22/2024 04/02/2024 1:22 AM EDT documented as of this encounter Care Teams Oval Or Circular Glass Cutter Relationship Specialty Start Date End Date Kayla Buchanan MD [address] [place] [address] [email or web address] PCP - General Obstetrics and Gynecology 02/15/22 Beti Fu MD [address] [place] [address] PCP - General 08/08/22 01/20/24 [place] [address] [place] [address] PCP - General Physician Heat Treater Head 01/21/24 09/05/24 Preethi Mcintosh PA [address] [place] [address] [place] [address] PCP - General Physician Heat Treater Head 09/06/24 documented as of this encounter Additional Source Comments The information contained in this document represents components of the legal health record. It is not the complete legal health record.[facility]
--- OUTSIDE RECORDS SUMMARY | 2025-07-15 12:39 | XMS_ITS | Encounter Summary ---
Author Organization [facility] Address [email or web address] [place] [address] Phone Care Team Providers Care Aircraft Loadmaster Superintendent Name Role Phone Beti Fu MD Primary Care Provid er Cali Sanchez Primary Care Provider + Preethi Mcintosh Primary Care Provide r Encounter Details Date Type Department Care Team (Late st Contact Info) Description 12/11/2023 Procedure Pass [place] Admitting Dept - Virtual Department [address] [place] [address] Social History Tobacco Use Types Packs/Day Years [...] st Contact Info) Description 08/20/2024 Procedure Pass [address] [address] 08/01/2025 9:30 AM EDT Nurse Only [facility] [address] [place] [address] [place] [address] Ap Arnold MD [address] [place] [address] [email or web address] 08/03/2025 7:45 AM EDT Appointment [address] [address] Cody Levy MD [address] [place] [address], [address] [address] documented as of this encounter Visit Diagnoses Not on filedocumented in this encounter Additional Health Concerns Infection Onset Date Last Indicated Resolved Time CoV-Risk 03/22/2024 03/22/2024 04/02/2024 1:22 AM EDT documented as of this encounter Care Teams Aircraft Loadmaster Superintendent Relationship Specialty Start Date End Date Beti Fu MD [address] [place] [address] PCP - General 08/08/22 01/20/24 Cali Sanchez PA [address] [place] [address] PCP - General Physician Erisa Attorney 01/21/24 09/05/24 Preethi Mcintosh PA [address] [place] [address] PCP - General Physician Erisa Attorney 09/06/24 documented as of this encounter Additional Source Comments The information contained in this document represents components of the legal health record. It is not the complete legal health record.[facility]
--- OUTSIDE RECORDS SUMMARY | 2025-07-15 12:39 | XMS_ITS | Encounter Summary ---
Author Organization [facility] Address [address] [place] [address] Phone Care Team Providers Care Envelope Folding Machine Adjuster Name Role Phone Beti Fu MD Primary Care Provid er Cali Sanchez Primary Care Provider + Preethi Mcintosh Primary Care Provide r Encounter Details Date Type Department Care Team (Late st Contact Info) Description 10/01/2022 Procedure Pass [facility] Endoscopy Admitting Dept Virtual Department [address] [place] [address] Social History Tobacco Use Types Packs/Day Years Used Date Smoking Tobacco: Former Cigarettes Q uit: 2014 Smokeless Tobacco: Never Comments:quit oct 2015 Alcohol Use Standard Drinks/Week Comments Not Currently 5 (1 standard drink = 0.6 oz [...] st Contact Info) Description 08/20/2024 Procedure Pass [facility], [address] [address] 08/01/2025 9:30 AM EDT Nurse Only [facility] Allergy [facility] Critical [facility] 10 [facility] [place] [address] [place] [address] Ap Arnold MD 10 [facility] 2nd [place] [address] 08/03/2025 7:45 AM EDT Appointment [facility], [facility] [address] [place] [address] Cody Levy MD 22 [facility], [address] [place] [address] [email or web address] documented as of this encounter Visit Diagnoses Not on filedocumented in this encounter Additional Health Concerns Infection Onset Date Last Indicated Resolved Time CoV-Risk 03/22/2024 03/22/2024 04/02/2024 1:22 AM EDT documented as of this encounter Care Teams Envelope Folding Machine Adjuster Relationship Specialty Start Date End Date Beti Fu MD [address] [place] [address] PCP - General 08/08/22 01/20/24 [place] [address] [place] [address] PCP - General Physician Ham Doctor 01/21/24 09/05/24 Preethi Mcintosh PA [address] [place] [address] [place] [address] PCP - General Physician Ham Doctor 09/06/24 documented as of this encounter Additional Source Comments The information contained in this document represents components of the legal health record. It is not the complete legal health record.[facility]
--- OUTSIDE RECORDS SUMMARY | 2025-07-15 12:39 | XMS_ITS | Encounter Summary ---
Author Organization [facility] Address [address] [place] [address] Phone Care Team Providers Care Inbound Call Center Agent Name Role Phone Kayla Buchanan MD Primary Care Provider [phone] Beti Fu MD Primary Care Provid er Cali Sanchez Primary Care Provider + Preethi Mcintosh Primary Care Provide r Encounter Details Date Type Department Care Team (Late st Contact Info) Description 02/19/2022 Procedure Pass [place] Admitting Dept - [facility] Department [address] [place] [address] Social History Tobacco Use Types Packs/Day Years [...] st Contact Info) Description 08/20/2024 Procedure Pass [facility] 30 [facility] [place] [address] 08/01/2025 9:30 AM EDT Nurse Only [facility], All[facility] Critical [facility] [address] [place] [address] Ap Arnold MD 10 [facility] 2nd [place] [address] 08/03/2025 7:45 AM EDT Appointment [facility], [facility]- [address] [address] Cody Levy MD [address] [place] [address] [email or web address] documented as of this encounter Visit Diagnoses Not on filedocumented in this encounter Additional Health Concerns Infection Onset Date Last Indicated Resolved Time CoV-Risk Comment:2 neg covids here for UTI Bacteremia 05/29/2022 05/29/2022 05/31/2022 7:01 AM E DT CoV-Risk 03/22/2024 03/22/2024 04/02/2024 1:22 AM EDT documented as of this encounter Care Teams Inbound Call Center Agent Relationship Specialty Start Date End Date Kayla Buchanan MD [address] [place] [address] PCP - General Obstetrics and Gynecology 02/15/22 Beti Fu MD [address] [place] [address] PCP - General 08/08/22 01/20/24 Cali Sanchez PA [address] [place] [address] PCP - General Physician Stunt Person 01/21/24 09/05/24 Preethi Mcintosh PA [address] [place] [address] [place] [address] PCP - General Physician Stunt Person 09/06/24 documented as of this encounter Additional Source Comments The information contained in this document represents components of the legal health record. It is not the complete legal health record.[facility]
--- OUTSIDE RECORDS SUMMARY | 2025-07-15 12:39 | XMS_ITS | Encounter Summary ---
Author Organization [facility] Address [address] [place] [address] Phone Care Team Providers Care Monologist Name Role Phone Beti Fu MD Primary Care Provid er Cali Sanchez Primary Care Provider + Preethi Mcintosh Primary Care Provide r Encounter Details Date Type Department Care Team (Late st Contact Info) Description 12/27/2022 Procedure Pass [facility]oscopy Admitting Dept Virtual Department [address] [place] [address] Social History Tobacco Use Types Packs/Day Years Used Date Smoking Tobacco: Former Cigarettes Q uit: 2014 Smokeless Tobacco: Never Comments:quit oct 2015 Alcohol Use Standard Drinks/Week Comments Yes 5 (1 standard drink = 0.6 oz pur e alcohol) Intimate Partner Violence Answer Date R ecorded [...] st Contact Info) Description 08/20/2024 Procedure Pass [address] [address] 08/01/2025 9:30 AM EDT Nurse Only [facility] [address] [place] [address] [place] [address] Ap Arnold MD [address] [place] [address] 2nd [place] [address] 08/03/2025 7:45 AM EDT Appointment [address] [address] Cody Levy MD [address] [place] [address], [facility] [address] [place] [address] [email or web address] documented as of this encounter Visit Diagnoses Not on filedocumented in this encounter Additional Health Concerns Infection Onset Date Last Indicated Resolved Time CoV-Risk 03/22/2024 03/22/2024 04/02/2024 1:22 AM EDT documented as of this encounter Care Teams Monologist Relationship Specialty Start Date End Date Beti Fu MD [address] [place] [address] PCP - General 08/08/22 01/20/24 Cali Sanchez PA [address] [place] [address] PCP - General Physician Computer Systems Engineer 01/21/24 09/05/24 Preethi Mcintosh PA [address] [place] [address] [place] [address] PCP - General Physician Computer Systems Engineer 09/06/24 documented as of this encounter Additional Source Comments The information contained in this document represents components of the legal health record. It is not the complete legal health record.[facility]
--- OUTSIDE RECORDS SUMMARY | 2025-07-15 12:39 | XMS_ITS | Encounter Summary ---
Author Organization [facility] Address [address] [place] [address] Phone Care Team Providers Care Forensic Analyst Name Role Phone Beti Fu MD Primary Care Provid er Cali Sanchez Primary Care Provider + Preethi Mcintosh Primary Care Provide r Encounter Details Date Type Department Care Team (Late st Contact Info) Description 11/14/2022 Procedure Pass [facility] Endoscopy Admitting Dept Virtual Department [address] [place] [address] Social History Tobacco Use Types Packs/Day Years [...] st Contact Info) Description 08/20/2024 Procedure Pass [facility], [address] [address] 08/01/2025 9:30 AM EDT Nurse Only [facility], Allergy [facility] Critical [facility] Medicine 10 [facility] [place] [address] Ap Arnold MD 10 [facility] 2nd [place] [address] 08/03/2025 7:45 AM EDT Appointment [facility], [facility] [address] [place] [address] Cody Levy MD 22 [place] [facility], [address] [place] [address] [email or web address] documented as of this encounter Visit Diagnoses Not on filedocumented in this encounter Additional Health Concerns Infection Onset Date Last Indicated Resolved Time CoV-Risk 03/22/2024 03/22/2024 04/02/2024 1:22 AM EDT documented as of this encounter Care Teams Forensic Analyst Relationship Specialty Start Date End Date Beti Fu MD [address] [place] [address] PCP - General 08/08/22 01/20/24 [place] [address] [place] [address] PCP - General Physician Nipping Machine Operator 01/21/24 09/05/24 Preethi Mcintosh PA [address] [place] [address] [place] [address] PCP - General Physician Nipping Machine Operator 09/06/24 documented as of this encounter Additional Source Comments The information contained in this document represents components of the legal health record. It is not the complete legal health record.[facility]
--- OUTSIDE RECORDS SUMMARY | 2025-07-15 12:39 | XMS_ITS | Encounter Summary ---
Author Organization [facility] Address [address] [facility] [address] [place] [address] Phone Care Team Providers Care Scientific Informatics Analyst Name Role Phone Preethi Mcintosh Primary Care Provide r Encounter Details Date Type Department Care Team (Late st Contact Info) Description 01/19/2025 Telephone [facility], Allergy [facility] Critical [facility] Medicine [address] [place] [address] Unknown, Unknown, Social History Tobacco Use Types Packs/Day Years [...] as food, clothing, or medical care? No 11/03/2024 In the past 12 months have y ou been in a relationship with a person who hurts, threatens, or tries to control you? No 11/03/2024 Are you denied basic needs s uch as food, clothing, or medical care? No 11/03/2024 In the past 12 months have y ou been in a relationship with a person who hurts, threatens, or tries to control you? No 11/03/2024 Comments No Sex and Gender Information Value Date Recorded Sex Assigned at Female 05/29/2022 8:54 PM EDT Legal Sex Female 9:19 PM EDT Gender Identity Female 05/29/2022 8:54 PM EDT Sexual Orientation Queer 09/28/2022 8: 59 AM EST documented as of this encounter Plan of Treatment Upcoming Encounters Date Type Department Care Team (Late st Contact Info) Description 08/20/2024 Procedure Pass [address] [address] 08/01/2025 9:30 AM EDT Nurse Only [facility] [address] [place] [address] Ap Arnold MD [address] [place] [address] 2nd [place] [address] [email or web address] 08/03/2025 7:45 AM EDT Appointment [address] [address] Cody Levy MD [address] [place] [address], [address] [place] [address] documented as of this encounter Visit Diagnoses Not on filedocumented in this encounter Care Teams Scientific Informatics Analyst Relationship Specialty Start Date End Date Preethi Mcintosh PA [address] [place] [address] Dr Rand [address] [place] [address] PCP - General Physician Natural Resource Technician 09/06/24 documented as of this encounter Additional Source Comments The information contained in this document represents components of the legal health record. It is not the complete legal health record.[facility]
--- OUTSIDE RECORDS SUMMARY | 2025-07-15 12:39 | XMS_ITS | Encounter Summary ---
Author Organization [facility] Address [address] [place] [address] Phone Care Team Providers Care Generator Operator Name Role Phone Preethi Mcintosh Primary Care Provide r Encounter Details Date Type Department Care Team (Late st Contact Info) Description 12/10/2024 Procedure Pass [facility], Ct Scan - [facility] [address] [place] [address] Social History Tobacco Use Types Packs/Day Years [...] st Contact Info) Description 08/20/2024 Procedure Pass [address] [address] 08/01/2025 9:30 AM EDT Nurse Only [facility] Allergy [facility] Critical [facility] Medicine [address] [place] [address] Ap Arnold MD [address] [place] [address] 2nd [place] [address] [email or web address] 08/03/2025 7:45 AM EDT Appointment [address] [address] Cody Levy MD [address] [place] [address], [address] [place] [address] [email or web address] documented as of this encounter Visit Diagnoses Not on filedocumented in this encounter Care Teams Generator Operator Relationship Specialty Start Date End Date Preethi Mcintosh PA [address] [place] [address] [place] [address] PCP - General Physician Laboratory Operations Coordinator 09/06/24 documented as of this encounter Additional Source Comments The information contained in this document represents components of the legal health record. It is not the complete legal health record.[facility]
== END 2025-07-15 11:40 | disposition home or self-care (01) ==
LOC: HO.XRAY 11:39
DX: M54.50 Low back pain, unspecified (principal)
CPT/HCPCS: 72100

== ENCOUNTER → 2025-07-15 11:43 | Outpatient (BNV) | payer OTHER, SELFPAY | PROVIDERS: Visit Provider Specialist | DX: M54.50 Low back pain, unspecified (principal) | CPT/HCPCS: 72100 ==

== ENCOUNTER 2025-07-19 10:41 | Outpatient (AMB) | payer OTHER, SELFPAY ==
--- OUTSIDE RECORDS SUMMARY | 2022-06-17 13:35 | XMS_ITS | Encounter Summary ---
Author Organization [facility] Address [address] [place] [address] Phone Care Team Providers Care Competitive Intelligence Manager Name Role Phone Kayla Buchanan MD Primary Care Provider [phone] Encounter Details Date Type Department Care Team (Late st Contact Info) Description 06/17/2022 1:35 PM EDT Hospital Encounter [facility] [address] [place] [address] Sherene Arechiga FNP [address] [place] [phone] [email or web address] Social History Tobacco Use Types Packs/Day Years Used Date Smoking Tobacco: Former Cigarettes 0.3 18.2 1 - 11/08/2015 Smokeless Tobacco: Never Comments:I quit for three ye ars prior to quitting for good Alcohol Use Standard Drinks/Week Comments Yes 5 (1 standard drink = 0.6 oz pur e alcohol) 5-10 drinks a week Education Answer Date Recorded Are you interested in more education? Not on chin e 03/14/2023 Are you concerned about learning? Not on file 03/14/2023 No 03/14/2023 No 03/14/2023 Digital Access Answer Date Recorded No 04/11/2023 No 04/11/2023 Reliable internet access at home? Not on file 04/11/2023 Device with a working camera? Not on file Intimate Partner Violence Answer Date R ecorded Are you denied basic needs s uch as food, clothing, or medical care? No 02/10/2025 In the past 12 months have y ou been in a relationship with a person who hurts, threatens, or tries to control you? No 02/10/2025 Are you denied basic needs s uch as food, clothing, or medical care? No 02/10/2025 In the past 12 months have y ou been in a relationship with a person who hurts, threatens, or tries to control you? No 02/10/2025 Comments No Sex and Gender Information Value Date Recorded Sex Assigned at Female 05/29/2022 8:54 PM EDT Legal Sex Female 9:19 PM EDT Gender Identity Female 05/29/2022 8:54 PM EDT Sexual Orientation Queer 09/28/2022 8: 59 AM EST documented as of this encounter Functional Status * Calculated C-SSRS Risk Score (Lifetime/Recent) Answer Date of Assessment Author No Risk Indicated 02/10/2025 8:05 AM EDT Ana Garvey RN * [place] Suicide Severity Rating Scale (Screener/Recent Self-Report) Question Answer Date of Assessment Author 1. Wish to be (Past 1 Month) No 025 8:05 AM TODDT Ana Garvey RN 2. Non-Specific Active Suici lonny Thoughts (Past 1 Month) No 02/10/2025 8:05 AM EDT Ana Garvey RN 6. Suicidal Behavior (Lifetime) No 8:05 AM EDT Ana Garvey RN documented as of this encounter Plan of Treatment Upcoming Encounters Date Type Department Care Team (Late st Contact Info) Description 08/20/2024 Procedure Pass [address] [address] 08/01/2025 9:30 AM EDT Nurse Only [facility] [address] [place] [address] [place] [address] Ap Arnold MD [address] [place] [address] 2nd floor [place], [place] [id number] 08/03/2025 7:45 AM EDT Appointment [facility] [address] [place] [address] Cody Levy MD [address] [facility], [address] [place] [address] documented as of this encounter Procedures Procedure Name Priority Date/Time Associated Diagnosis Comments XR KNEE 4 OR MORE VIEWS (RIGHT) Urgent/patient waiting 06/17/2022 1:50 PM EDT Acute pain of right knee documented in this encounter Results * XR KNEE 4 OR MORE VIEWS (RIGHT) (06/17/2022 1:50 PM EDT) Anatomical Region Laterality Modality Knee Right Computed Radiogr aphy 06/17/2022 2:00 PM EDT Impressions 06/17/2022 2:01 PM EDT No fracture or dislocation. Narrative 06/17/2022 2:01 PM EDT XR KNEE 4 OR MORE VIEWS (RIGHT) COMPARISON: None. FINDINGS: Right Knee: No displaced fracture or malalignment. Probable small similar patellar effusion. Procedure Note Jcarlos Oden MD - 06/17/2022 XR KNEE 4 OR MORE VIEWS (RIGHT) COMPARISON: None. FINDINGS: Right Knee: No displaced fracture or malalignment. Probable small similarpatellar effusion. IMPRESSION: No fracture or dislocation. Shereen Arechiga VEGETABLE HANDLER IMG XR LOWER EXTREMITY Jazzy l Result documented in this encounter Visit Diagnoses Not on filedocumented in this encounter Additional Health Concerns Infection Onset Date Last Indicated Resolved Time CoV-Risk 03/22/2024 03/22/2024 04/02/2024 1:22 AM EDT documented as of this encounter Care Teams Competitive Intelligence Manager Relationship Specialty Start Date End Date Kayla Buchanan MD [address] [place] [address], [address] [place] [address] PCP - General Obstetrics and Gynecology 02/15/22 documented as of this encounter Additional Source Comments The information contained in this document represents components of the legal health record. It is not the complete legal health record.[facility]
[2025-07-19 10:50] VITALS: BMI 40.1
--- NOTE | 2025-07-19 10:50 | A.OFFVIS_ITS ---
VS Expanded 07/19/25 10:50 Height 5 ft 4 in Weight 233 lb 11.04 oz BMI 40.1 Intake Visit Reasons: obesity Allergies morphine (MORPHINE) Allergy (Unknown, Verified 05/23/25 14:17) ANAPHYLAXIS oxycodone (From PERCOCET) Allergy (Unknown, Verified 05/23/25 14:17) RASH strawberry (STRAWBERRY) Allergy (Unknown, Verified 05/23/25 14:17) ANAPHYLAXIS BEES Allergy (Severe, Uncoded 05/23/25 14:17) Anaphylaxis Nutrition Presentation Details: Pt presents for MNT f/u for obesity Pt reports feeling well, motivated and strengthened. Reports having a variety of low sugar beverages:about 80-90 oz fluid (coconut water, liquid iv ,water, soups calcium rich foods: yogurts/ hard cheese, spinach, kale/swish chard Pt reports balancing fiber rich foods due to hx of IBS physical activity: water aerobic 4-5 x/wk Pt reports taking vit d supplement PFSH Medical History Bronchitis due to Staphylococcus aureus Morbid obesity Allergic rhinitis COVID-19 Tick bite Unplanned unwanted Delivery with history of test positive Polyp of cervix Fibroid, uterine History of uterine fibroid Encounter to establish care Surgical History Hx of dilation and curettage History of back surgery History of hysterectomy History of colonoscopy History of surgery on right wrist History of delivery Family History Mother No problems noted. Father Mental health disorder Substance use disorder Social History Household Members: Family Housing: House Do you presently have visiting nurse or other home services: No Alcohol intake: current Alcohol intake frequency: a few times a week Patient Tobacco Use Status: Former Tobacco user Tobacco use type: Cigarette e-Cigarette/Vaping Use: Never Used Second Hand Smoke Exposure: Yes Substance Use Type: Marijuana service: No Current occupational status: employed Current occupational exposures/hazards: No Cognitive needs: Yes (Cane PRN) Hearing needs: No Vision needs: No Female Reproductive History Menstrual Age of Menarche: 14 Assessment & Plan Assessment & Plan (1) Obesity, morbid, BMI 40.0-49.9: Code(s): E66.01 - Morbid (severe) obesity due to excess calories Category: Medical Plan: Wt: 125 Kg ( 08/10 ), 119.5 (09/09), 114 kg (11/09), 112kg(12/11), 108 kg (03/11), 106 kg(05/11), (08/11) Est kcal needs as per MSJ: 2000- 2100 (40% carb, 30% protein/fat) Est fluid needs as per 25-30 ml/d: 3200 Est prot per day as per 1 g/kg bw: 100 Recommend fiber intake : 8-10 g per day and gradually increase to 25-28 g per day for women and 35-38 g for men or as tolerated Recommend sodium intake per day : less than 2300 mg Educated patient on: ( R = reviewed V = verbalizes understanding N/R = needs review N/A = not applicable * Food sources of carbohydrate, adequate serving sizes and its role in various health conditions: R * Differences between complex carbohydrates a simple carbohydrates, role of fiber in diet: R * Lean protein sources of foods: R V * Differences between types of fats and role in diet (mono on saturated fat fatty acids, saturated fatty acids, trans fats): R * Food sources of sodium in salt and healthy modifications for heart health in kidney health: R * Vitamins and minerals: R V * Healthy plate method concept: R * Physical activity: Benefits a precaution: R * Patient Instructions: Continue working on balancing meals gradually working on reducing portion sizes, keep physically active goal 150 min/week or as tolerated consider taking a daily multivitamin Coding Level of Care Code Nutr Indiv Subseq (10148) Diagnoses Obesity, morbid, BMI 40.0-49.9 E66.01 Time Spent (min) 20
--- OUTSIDE RECORDS SUMMARY | 2025-07-19 12:11 | XMS_ITS | Encounter Summary ---
Author Organization [facility] Address [address] [place] [address] Phone Care Team Providers Care Technology Professional Name Role Phone Beti Fu MD Primary Care Provid er Cali Sanchez Primary Care Provider + Preethi Mcintosh Primary Care Provide r Encounter Details Date Type Department Care Team (Late st Contact Info) Description 11/14/2022 Procedure Pass [facility] Endoscopy Admitting Dept Virtual Department [address] [place] [id number] Social History Tobacco Use Types Packs/Day Years [...] st Contact Info) Description 08/20/2024 Procedure Pass [facility], [address] [address] 08/01/2025 9:30 AM EDT Nurse Only [facility] Pulmonary, Allergy and Critical Care Medicine 10 [facility] [place] [address] [place] [address] Ap Arnold MD 10 [facility] 2nd [place] [address] 08/03/2025 7:45 AM EDT Appointment [facility], [facility] [address] [place] [address] Cody Levy MD 22 [facility], [address] [place] [address] [email or web address] documented as of this encounter Visit Diagnoses Not on filedocumented in this encounter Additional Health Concerns Infection Onset Date Last Indicated Resolved Time CoV-Risk 03/22/2024 03/22/2024 04/02/2024 1:22 AM EDT documented as of this encounter Care Teams Technology Professional Relationship Specialty Start Date End Date Beti Fu MD [address] [place] [address] PCP - General 08/08/22 01/20/24 [place] [address] [place] [address] PCP - General Physician Reactor Service Operator 01/21/24 09/05/24 Preethi Mcintosh PA [address] [place] [address] [place] [address] PCP - General Physician Reactor Service Operator 09/06/24 documented as of this encounter Additional Source Comments The information contained in this document represents components of the legal health record. It is not the complete legal health record.[facility]
--- OUTSIDE RECORDS SUMMARY | 2025-07-19 12:12 | XMS_ITS | Encounter Summary ---
Author Organization [facility] Address [address] [place] [address] Phone Care Team Providers Care Superintendent Fish Hatchery Name Role Phone Beti Fu MD Primary Care Provid er Cali Sanchez Primary Care Provider + Preethi Mcintosh Primary Care Provide r Encounter Details Date Type Department Care Team (Late st Contact Info) Description 08/27/2023 Procedure Pass [facility], [address] [address] Social History Tobacco Use Types Packs/Day Years [...] st Contact Info) Description 08/20/2024 Procedure Pass [address] [address] 08/01/2025 9:30 AM EDT Nurse Only [facility] [address] [place] [address] Ap Arnold MD [address] [place] [address] [email or web address] 08/03/2025 7:45 AM EDT Appointment [address] [address] Cody Levy MD [address] [place] [address], [address] [address] documented as of this encounter Visit Diagnoses Not on filedocumented in this encounter Additional Health Concerns Infection Onset Date Last Indicated Resolved Time CoV-Risk 03/22/2024 03/22/2024 04/02/2024 1:22 AM EDT documented as of this encounter Care Teams Superintendent [employer]cher[employer] Relationship Specialty Start Date End Date Beti Fu MD [address] [place] [address] PCP - General 08/08/22 01/20/24 Cali Sanchez PA [address] [place] [address] PCP - General Physician Banking Management Consulting Manager 01/21/24 09/05/24 Preethi Mcintosh PA [address] [place] [address] PCP - General Physician Banking Management Consulting Manager 09/06/24 documented as of this encounter Additional Source Comments The information contained in this document represents components of the legal health record. It is not the complete legal health record.[facility]
--- OUTSIDE RECORDS SUMMARY | 2025-07-19 12:12 | XMS_ITS | Encounter Summary ---
Author Organization [facility] Address [address] [place] [address] Phone Care Team Providers Care Certified Paralegal Name Role Phone Beti Fu MD Primary Care Provid er Cali Sanchez Primary Care Provider + Preethi Mcintosh Primary Care Provide r Encounter Details Date Type Department Care Team (Late st Contact Info) Description 12/27/2022 Procedure Pass [facility] Endoscopy Admitting Dept Virtual Department 30 [place] [address] Social History Tobacco Use Types Packs/Day Years [...] Contact Info) Description 08/20/2024 Procedure Pass [address] [address] 08/01/2025 9:30 AM EDT Nurse Only [facility] [address] [place] [address] [place] [address] Ap Arnold MD [address] [place] [address] 2nd [place] [address] 08/03/2025 7:45 AM EDT Appointment [address] [address] Cody Levy MD [address] [place] [address], [facility] [address] [place] [address] [email or web address] documented as of this encounter Visit Diagnoses Not on filedocumented in this encounter Additional Health Concerns Infection Onset Date Last Indicated Resolved Time CoV-Risk 03/22/2024 03/22/2024 04/02/2024 1:22 AM EDT documented as of this encounter Care Teams Certified Paralegal Relationship Specialty Start Date End Date Beti Fu MD [address] [place] [address] PCP - General 08/08/22 01/20/24 Cali Sanchez PA [address] [place] [address] PCP - General Physician Policy Adviser 01/21/24 09/05/24 Preethi Mcintosh PA [address] [place] [address] [place] [address] PCP - General Physician Policy Adviser 09/06/24 documented as of this encounter Additional Source Comments The information contained in this document represents components of the legal health record. It is not the complete legal health record.[facility]
--- OUTSIDE RECORDS SUMMARY | 2025-07-19 12:12 | XMS_ITS | Clinical Summary ---
Author Organization [facility] Address [address] [place] [address] Phone Care Team Providers Care Human Resources Benefits Specialist Name Role Phone Preethi Mcintosh Primary Care Provide r Allergies Active Allergy Reactions Criticality Noted Date Comments Bee Pollen Anaphylaxis High 02/05/2022 HONEY BEE STING Morphine Nausea And Vomiting,Shortness Of Breath,Palpitations High 07/04/2014 Morphine Sulfate Anaphylaxis High 10/02/2020 Other 10/02/2020 Other reaction(s): anaphylaxis Allen Anaphylaxis High 10/02/2020 Venom-Honey Bee Anaphylaxis High [...] return to normal prior to deciding on vermin exterminator bleeding control plan. She states that her [...] Pulmonary, Allergy and Critical Care Medicine 10 [place] [address] Ap Arnold MD Medication Refill 07/04/2025 11:30 AM EDT Nurse Only [facility] 10 [place] [address] Ap Arnold MD History of bee sting allergy (Primary Dx) 06/06/2025 11:00 AM EDT Nurse Only [facility] [address] [place] [address] Ap Arnold MD History of bee sting allergy (Primary Dx) 05/09/2025 11:30 AM EDT Nurse Only [facility] 10 [place] [address] Ap Arnold MD History of bee sting allergy (Primary Dx) 04/18/2025 10:30 AM EDT Nurse Only [facility] 10 [place] [address] Ap Arnold MD History of bee sting allergy (Primary Dx) from Last 3 Months Immunizations Immunization Administration Dates Next Due INFLUENZA, SPLIT VIRUS, TRIVALENT PF 10/20/2024 INFLUENZA, SPLIT VIRUS, TRIV ALENT W/ PRESERVATIVE IM 12/21/2015 Influenza Quadrivalent Preservative Free IM 03/2020 Tdap 05/07/2016,12/08/2012,11/29/2001 Family History Medical History Relation Comments Ashkenazi Religion ancestry Daughter Under age 10 Diabetes Father Prostate cancer Father Ashkenazi Religion ancestry Maternal Grandfather Ashkenazi Religion ancestry Maternal Grandmother Ashkenazi Religion ancestry Mother Heart disease Mother Ashkenazi Religion ancestry Sister Breast cancer Neg Hx Relation [...] st Contact Info) Description 08/20/2024 Procedure Pass [address] [address] 08/01/2025 9:30 AM EDT Nurse Only [facility] 10 [facility] [place] [address] Ap Arnold MD [address] [place] [address] 2nd [place] [address] 08/03/2025 7:45 AM EDT Appointment [address] [address] Cody Levy MD [address] [place] [address], [address] [place] [address] [email or web address] Health Maintenance Due Date Last Done Comments DEPRESSION SCREENING 1994 HEPATITIS C SCREENING 2000 HIV ONE-TIME SCREENING (18-6 5 YEARS) 2000 PNEUMOCOCCAL VACCINES (0-49 years) (1 of 2 - PCV) 2001 PAP SMEAR 2003 INFLUENZA VACCINE (#1) 2025 , 08/21/2020, 12/21/2015 COVID-19 VACCINE ( - 2024-2 6 season) 2025 08/30/2021, 01/29/2021, 01/08/2021 MAMMOGRAM 10/20/2025 10/20/2023 Adult Td,Tdap Booster 05/07/2026 [...] this topic Medical Devices Implanted Type Area Inspector Wire Products Device Identifier Shelf Expiration Date Model / Serial / Lot Iud Implanted:08/2022 (Quantity not on file) Intrauterine Device Explanted Type Area Inspector Wire Products Device Identifier Shelf Expiration Date Model / [...] Most Recently Relevant to Health Maintenance [place] [address] [address] [address] [place] [address] [place] [address] [facility] [facility] [place] [address] [place] [address] [place] [address] [place] [address] [place] [address] [place] [address] [facility] Advance Directives For more information, please contact: [phone] (9AM - 5PM [place], Friday-Friday) * Full [...] Code Status Confirmed With: Patient Care Teams Human Resources Benefits Specialist Relationship Specialty Start Date End Date Preethi Mcintosh PA [address] [place] [address] [place] [address] PCP - General Physician Staff Midwife/Apprenticeship Director 09/06/24 Additional Source Comments The information contained in this document represents components of the legal health record. It is not the complete legal health record.[facility]
--- OUTSIDE RECORDS SUMMARY | 2025-07-19 12:12 | XMS_ITS | Encounter Summary ---
Author Organization [facility] Address [address] [place] [address] Phone Care Team Providers Care Heavy Equipment Service Manager Name Role Phone Cali Sanchez Primary Care Provider + Preethi Mcintosh Primary Care Provide r Encounter Details Date Type Department Care Team (Late st Contact Info) Description 08/20/2024 Transcribe Orders Virtual Department [address] [place] [address] Cali Sanchez PA [address] [place] [address] Social History Tobacco Use Types Packs/Day Years [...] st Contact Info) Description 08/20/2024 Procedure Pass [address] [address] 08/01/2025 9:30 AM EDT Nurse Only [facility] [address] [place] [address] Ap Arnold MD [address] [place] [address] 08/03/2025 7:45 AM EDT Appointment [address] [address] Cody Levy MD [address] [place] [address], [address] [address] documented as of this encounter Visit Diagnoses Not on filedocumented in this encounter Care Teams Heavy Equipment Service Manager Relationship Specialty Start Date End Date Cali Sanchez PA [address] [place] [address] PCP - General Physician Certification Engineer 01/21/24 09/05/24 Preethi Mcintosh PA [address] [place] [address] [place] [address] PCP - General Physician Certification Engineer 09/06/24 documented as of this encounter Additional Source Comments The information contained in this document represents components of the legal health record. It is not the complete legal health record.[facility]
--- OUTSIDE RECORDS SUMMARY | 2025-07-19 12:12 | XMS_ITS | Encounter Summary ---
Author Organization [facility] Address [address] [place] [address] Phone Care Team Providers Care Waiter/Waitress Room Service Name Role Phone Kayla Buchanan MD Primary Care Provider [phone] Beti Fu MD Primary Care Provid er Cali Sanchez Primary Care Provider + Preethi Mcintosh Primary Care Provide r Encounter Details Date Type Department Care Team (Late st Contact Info) Description 05/30/2022 Procedure Pass [facility], Ct Scan - [address] [address] Social History Tobacco Use Types Packs/Day Years [...] 12:19 PM EDT Thao Moya, RN * Mckean Suicide Severity Rating Scale (Screener/Recent Self-Report) Question [...] st Contact Info) Description 08/20/2024 Procedure Pass [address] [address] 08/01/2025 9:30 AM EDT Nurse Only [facility] [address] [place] [address] Ap Arnold MD [address] [place] [address] [email or web address] 08/03/2025 7:45 AM EDT Appointment [address] [address] Cody Levy MD [address] [place] [address] [email or web address] documented as of this encounter Visit Diagnoses Not on filedocumented in this encounter Additional Health Concerns Infection Onset Date Last Indicated Resolved Time CoV-Risk Comment:2 neg covids here for UTI Bacteremia 05/29/2022 05/29/2022 05/31/2022 7:01 AM E DT CoV-Risk 03/22/2024 03/22/2024 04/02/2024 1:22 AM EDT documented as of this encounter Care Teams Waiter/Waitress Room Service Relationship Specialty Start Date End Date Kayla Buchanan MD [address] [place] [address] [email or web address] PCP - General Obstetrics and Gynecology 02/15/22 Beti Fu MD [address] [place] [address] PCP - General 08/08/22 01/20/24 [place] [address] [place] [address] PCP - General Physician [employer] Consultant 01/21/24 09/05/24 Preethi Mcintosh PA [address] [place] [address] [place] [address] PCP - General Physician [employer] Consultant 09/06/24 documented as of this encounter Additional Source Comments The information contained in this document represents components of the legal health record. It is not the complete legal health record.[facility]
--- OUTSIDE RECORDS SUMMARY | 2025-07-19 12:12 | XMS_ITS | Encounter Summary ---
Author Organization [facility] Address [address] [place] [address] Phone Care Team Providers Care Bailer Operators Supervisor Name Role Phone Preethi Mcintosh Primary Care Provide r Encounter Details Date Type Department Care Team (Late st Contact Info) Description 12/10/2024 Procedure Pass [facility], Ct Scan - [facility] [address] [place] [address] Social History Tobacco Use Types Packs/Day Years [...] st Contact Info) Description 08/20/2024 Procedure Pass [address] [address] 08/01/2025 9:30 AM EDT Nurse Only [facility] All[facility] [address] [place] [address] Ap Arnold MD [address] [place] [address] 2nd [place] [address] [email or web address] 08/03/2025 7:45 AM EDT Appointment [address] [address] Cody Levy MD [address] [place] [address], [address] [place] [address] [email or web address] documented as of this encounter Visit Diagnoses Not on filedocumented in this encounter Care Teams Bailer Operators Supervisor Relationship Specialty Start Date End Date Preethi Mcintosh PA [address] [place] [address] [place] [address] PCP - General Physician Dumper Bailer Operator 09/06/24 documented as of this encounter Additional Source Comments The information contained in this document represents components of the legal health record. It is not the complete legal health record.[facility]
--- OUTSIDE RECORDS SUMMARY | 2025-07-19 12:12 | XMS_ITS | Clinical Summary ---
Author Organization [facility] Address [address] [place] [address] Care Team Providers Care Finance Professional Name Role Phone Preethi Mcintosh Primary Care Provider [phone] Allergies Active Allergy Reactions Criticality Noted Date [...] Completed 11/06/2015 Insurance [employer] Care Teams Finance Professional Relationship Specialty Start Date End Date Preethi Mcintosh [address] [place] [address] PCP - General 04/04/25
--- OUTSIDE RECORDS SUMMARY | 2025-07-19 12:12 | XMS_ITS | Encounter Summary ---
Author Organization [facility] Address [address] [place] [address] Phone Care Team Providers Care Cloth Hand Name Role Phone Preethi Mcintosh Primary Care Provide r Encounter Details Date Type Department Care Team ([facility] st Contact Info) Description 02/22/2025 Telephone CD Pulmonary, Allergy and Critical Care Medicine 10 [facility] [place] [address] Ap Arnold MD [address] [place] [address] [place] [address] [email or web address] Social History Tobacco Use Types Packs/Day Years [...] Contact Info) Description 08/20/2024 Procedure Pass [address] [address] 08/01/2025 9:30 AM EDT Nurse Only [facility] [address] [place] [address] Ap Arnold MD [address] [place] [address] 08/03/2025 7:45 AM EDT Appointment [address] [address] Cody Levy MD [address] [place] [address], [address] [address] documented as of this encounter Visit Diagnoses Not on filedocumented in this encounter Care Teams Cloth Hand Relationship Specialty Start Date End Date Preethi Mcintosh PA [address] [place] [address] [place] [address] PCP - General Physician Rn Birthing 09/06/24 documented as of this encounter Additional Source Comments The information contained in this document represents components of the legal health record. It is not the complete legal health record.[facility]
--- OUTSIDE RECORDS SUMMARY | 2025-07-19 12:12 | XMS_ITS | Encounter Summary ---
Author Organization [facility] Address [address] [place] [address] Phone Care Team Providers Care Manager Business Operations Name Role Phone Kayla Buchanan MD Primary Care Provider [phone] Beti Fu MD Primary Care Provid er Cali Sanchez Primary Care Provider + Preethi Mcintosh Primary Care Provide r Encounter Details Date Type Department Care Team (Late st Contact Info) Description 02/19/2022 Procedure Pass OR Admitting Dept - [facility] Department [address] [place] [address] Social History Tobacco Use Types Packs/Day Years [...] st Contact Info) Description 08/20/2024 Procedure Pass [facility] [place] [address] 08/01/2025 9:30 AM EDT Nurse Only [facility] Pulmonary, Allergy and Critical Care Medicine [address] [place] [address] Ap Arnold MD 10 [facility] 2nd [place] [address] 08/03/2025 7:45 AM EDT Appointment [facility], [facility]- [address] [address] Cody Levy MD [address] [place] [address] [email or web address] documented as of this encounter Visit Diagnoses Not on filedocumented in this encounter Additional Health Concerns Infection Onset Date Last Indicated Resolved Time CoV-Risk Comment:2 neg covids here for UTI Bacteremia 05/29/2022 05/29/2022 05/31/2022 7:01 AM E DT CoV-Risk 03/22/2024 03/22/2024 04/02/2024 1:22 AM EDT documented as of this encounter Care Teams Manager Business Operations Relationship Specialty Start Date End Date Kayla Buchanan MD [address] [place] [address] PCP - General Obstetrics and Gynecology 02/15/22 Beti Fu MD [address] [place] [address] PCP - General 08/08/22 01/20/24 Cali Sanchez PA [address] [place] [address] PCP - General Physician Air Conditioning Equipment Mechanic 01/21/24 09/05/24 Preethi Mcintosh PA [address] [place] [address] [place] [address] PCP - General Physician Air Conditioning Equipment Mechanic 09/06/24 documented as of this encounter Additional Source Comments The information contained in this document represents components of the legal health record. It is not the complete legal health record.[facility]
--- OUTSIDE RECORDS SUMMARY | 2025-07-19 12:12 | XMS_ITS | Encounter Summary ---
Author Organization [facility] Address [address] [place] [address] Phone Care Team Providers Care Appointment Specialist Name Role Phone Beti Fu MD Primary Care Provid er Cali Sanchez Primary Care Provider + Preethi Mcintosh Primary Care Provide r Encounter Details Date Type Department Care Team (Late st Contact Info) Description 10/01/2022 Procedure Pass [facility] Endoscopy Admitting Dept Virtual Department [address] [place] [address] Social History Tobacco Use Types Packs/Day Years [...] st Contact Info) Description 08/20/2024 Procedure Pass [facility], [address] [address] 08/01/2025 9:30 AM EDT Nurse Only [facility], Allergy [facility] Critical [facility] Medicine 10 [facility] [place] [address] Ap Arnold MD 10 [facility] 2nd [place] [address] 08/03/2025 7:45 AM EDT Appointment [facility], [facility] 30 [place] [address] Cody Levy MD 22 [facility], [address] [place] [address] [email or web address] documented as of this encounter Visit Diagnoses Not on filedocumented in this encounter Additional Health Concerns Infection Onset Date Last Indicated Resolved Time CoV-Risk 03/22/2024 03/22/2024 04/02/2024 1:22 AM EDT documented as of this encounter Care Teams Appointment Specialist Relationship Specialty Start Date End Date Beti Fu MD 575 [place] [address] PCP - General 08/08/22 01/20/24 [place] [address] [place] [address] PCP - General Physician Supervisor Prop Making 01/21/24 09/05/24 Preethi Mcintosh PA [address] [place] [address] [place] [address] PCP - General Physician Supervisor Prop Making 09/06/24 documented as of this encounter Additional Source Comments The information contained in this document represents components of the legal health record. It is not the complete legal health record.[facility]
--- OUTSIDE RECORDS SUMMARY | 2025-07-19 12:12 | XMS_ITS | Encounter Summary ---
Author Organization [facility] Address [address] [place] [address] Phone Care Team Providers Care Post Acute Care Nurse Name Role Phone Beti Fu MD Primary Care Provid er Cali Sanchez Primary Care Provider + Preethi Mcintosh Primary Care Provide r Encounter Details Date Type Department Care Team (Late st Contact Info) Description 11/28/2022 Procedure Pass OR Admitting Dept - [facility] Department [address] [place] [address] Social History Tobacco Use Types Packs/Day Years [...] st Contact Info) Description 08/20/2024 Procedure Pass [facility], [address] [address] 08/01/2025 9:30 AM EDT Nurse Only [facility], Allergy [facility] Critical [facility] Medicine 10 [facility] [place] [address] Ap Arnold MD 10 [facility] 2nd [place] [address] 08/03/2025 7:45 AM EDT Appointment [facility], [facility] 30 [place] [address] Cody Levy MD 22 [facility], [address] [place] [address] [email or web address] documented as of this encounter Visit Diagnoses Not on filedocumented in this encounter Additional Health Concerns Infection Onset Date Last Indicated Resolved Time CoV-Risk 03/22/2024 03/22/2024 04/02/2024 1:22 AM EDT documented as of this encounter Care Teams Post Acute Care Nurse Relationship Specialty Start Date End Date Beti Fu MD [address] [place] [address] PCP - General 08/08/22 01/20/24 [place] [address] [place] [address] PCP - General Physician Industrial Commercial Groundskeeper 01/21/24 09/05/24 Preethi Mcintosh PA [address] [place] [address] PCP - General Physician Industrial Commercial Groundskeeper 09/06/24 documented as of this encounter Additional Source Comments The information contained in this document represents components of the legal health record. It is not the complete legal health record.[facility]
--- OUTSIDE RECORDS SUMMARY | 2025-07-19 12:12 | XMS_ITS | Encounter Summary ---
Author Organization [facility] Address [address] [place] [address] Phone Care Team Providers Care Poultry Vaccinator Name Role Phone Pcp, Unknown Primary Care Provider Kayla Jaime MD Primary Care Provider [phone] Beti Fu MD Primary Care Provid er Cali Sanchez Primary Care Provider + Preethi Mcintosh Primary Care Provide r Encounter Details Date Type Department Care Team (Late st Contact Info) Description 02/13/2022 Procedure Pass [facility], [facility] Scan - [address] [address] Social History Tobacco Use Types Packs/Day Years [...] 2:49 PM EDT Carolyn Alonzo, JUSTINO * [place] Suicide Severity Rating Scale (Screener/Recent Self-Report) Question [...] st Contact Info) Description 08/20/2024 Procedure Pass [address] [address] 08/01/2025 9:30 AM EDT Nurse Only [facility], Allergy [facility] Critical [facility] Medicine [address] [place] [address] Ap Arnold MD [address] [place] [address] [email or web address] 08/03/2025 7:45 AM EDT Appointment [address] [address] Cody Levy MD [address] [place] [address] [email or web address] documented as of this encounter Visit Diagnoses Not on filedocumented in this encounter Additional Health Concerns Infection Onset Date Last Indicated Resolved Time CoV-Risk 02/13/2022 02/13/2022 02/15/2022 2:05 PM EDT CoV-Risk Comment:2 neg covids here for UTI Bacteremia 05/29/2022 05/29/2022 05/31/2022 7:01 AM E DT CoV-Risk 03/22/2024 03/22/2024 04/02/2024 1:22 AM EDT documented as of this encounter Care Teams Poultry Vaccinator Relationship Specialty Start Date End Date Pcp, Unknown PCP - General 02/13/22 02/14/22 Kayla Buchanan MD [address] [place] [address], [address] [place] [address] [email or web address] PCP - General Obstetrics and Gynecology 02/15/22 Beti Fu MD [address] [place] [address] PCP - General 08/08/22 01/20/24 Cali Sanchez PA [address] [place] [address] PCP - General Physician Casting Tester 01/21/24 09/05/24 Preethi Mcintosh PA [address] [place] [address] PCP - General Physician Casting Tester 09/06/24 documented as of this encounter Additional Source Comments The information contained in this document represents components of the legal health record. It is not the complete legal health record.[facility]
--- OUTSIDE RECORDS SUMMARY | 2025-07-19 12:12 | XMS_ITS | Encounter Summary ---
Author Organization [facility] Address [address] [place] [address] Phone Care Team Providers Care Rubber Cutting Machine Tender Name Role Phone Beti Fu MD Primary Care Provid er Cali Sanchez Primary Care Provider + Preethi Mcintosh Primary Care Provide r Encounter Details Date Type Department Care Team (Late st Contact Info) Description 12/11/2023 Procedure Pass OR Admitting Dept - Virtual Department [address] [place] [address] Social History Tobacco Use Types Packs/Day Years [...] st Contact Info) Description 08/20/2024 Procedure Pass [address] [address] 08/01/2025 9:30 AM EDT Nurse Only [facility] Allergy [facility] Critical [facility] [address] [place] [address] [place] [address] Ap Arnold MD [address] [place] [address] [email or web address] 08/03/2025 7:45 AM EDT Appointment [address] [address] Cody Levy MD [address] [place] [address], [address] [address] documented as of this encounter Visit Diagnoses Not on filedocumented in this encounter Additional Health Concerns Infection Onset Date Last Indicated Resolved Time CoV-Risk 03/22/2024 03/22/2024 04/02/2024 1:22 AM EDT documented as of this encounter Care Teams Rubber Cutting Machine Tender Relationship Specialty Start Date End Date Beti Fu MD [address] [place] [address] PCP - General 08/08/22 01/20/24 Cali Sanchez PA [address] [place] [address] PCP - General Physician Steam Turbine Operator 01/21/24 09/05/24 Preethi Mcintosh PA [address] [place] [address] PCP - General Physician Steam Turbine Operator 09/06/24 documented as of this encounter Additional Source Comments The information contained in this document represents components of the legal health record. It is not the complete legal health record.[facility]
--- OUTSIDE RECORDS SUMMARY | 2025-07-19 12:12 | XMS_ITS | Encounter Summary ---
Author Organization [facility] Address [address] [place] [address] Phone Care Team Providers Care Helicopter Pilot Name Role Phone Preethi Mcintosh Primary Care Provide r Encounter Details Date Type Department Care Team (Late st Contact Info) Description 01/19/2025 Telephone [facility], Allergy and Critical Care Medicine [address] [place] [address] Unknown, Unknown, Social History Tobacco Use Types [...] st Contact Info) Description 08/20/2024 Procedure Pass [address] [address] 08/01/2025 9:30 AM EDT Nurse Only [facility], All[facility] Critical [facility] [address] [place] [address] Ap Arnold MD [address] [place] [address] 2nd [place] [address] [email or web address] 08/03/2025 7:45 AM EDT Appointment [address] [address] Cody Levy MD [address] [place] [address], [address] [place] [address] documented as of this encounter Visit Diagnoses Not on filedocumented in this encounter Care Teams Helicopter Pilot Relationship Specialty Start Date End Date Preethi Mcintosh PA [address] [place] [address] Dr Rand [address] [place] [address] PCP - General Physician Fiberline Supervisor 09/06/24 documented as of this encounter Additional Source Comments The information contained in this document represents components of the legal health record. It is not the complete legal health record.[facility]
== END 2025-07-19 11:17 | disposition home or self-care (01) ==
LOC: HO.ENCR 10:42
PROVIDERS: Visit Provider Dietitian, Registered
DX: E66.01 Morbid (severe) obesity due to excess calories (principal)

== ENCOUNTER → 2025-07-19 10:41 | Outpatient (BNVA) | payer OTHER, SELFPAY | PROVIDERS: Visit Provider Dietitian, Registered | DX: E66.01 Morbid (severe) obesity due to excess calories (principal) | CPT/HCPCS: 97803 ==

== ENCOUNTER 2025-08-04 13:09 | Outpatient (AMB) | payer OTHER, SELFPAY ==
--- OUTSIDE RECORDS SUMMARY | 2022-06-17 13:35 | XMS_ITS | Encounter Summary ---
Author Organization [facility] Address [address] [place] [phone] Phone Care Team Providers Care Printing Table Worker Name Role Phone Kayla Buchanan MD Primary Care Provider Encounter Details Date Type Department Care Team (Late st Contact Info) Description 06/17/2022 1:35 PM EDT Hospital Encounter [facility] [address] [place] [phone] Shereen Arechiga FNP [address] [place] [phone] [email or web address] Social History Tobacco Use Types Packs/Day Years Used Date Smoking Tobacco: Former Cigarettes 0.3 21.1 1 - 11/08/2015 Smokeless Tobacco: Never Comments:I [...] 8:05 AM EDT Ana Garvey RN * [place] Suicide Severity Rating Scale (Screener/Recent Self-Report) Question Answer Date of Assessment Author 1. Wish to be (Past 1 Month) No 025 8:05 AM TODDT Ana Garvey RN 2. Non-Specific Active Suici lonny Thoughts (Past 1 Month) No 02/10/2025 8:05 AM TODDT Ana Garvey RN 6. Suicidal Behavior (Lifetime) No 8:05 AM EDT Ana Garvey RN documented as of this encounter Plan of Treatment Upcoming Encounters Date Type Department Care Team (Late st Contact Info) Description 08/03/2025 Procedure Pass [address] [address] 08/26/2025 2:00 PM EDT Appointment [address] [address] Cody Levy MD [address] [place] [address], [address] [address] [email or web address] 08/26/2025 2:30 PM EDT Appointment [facility] [address] [place] [address] Cody Levy MD [address] [facility], [address] [place] [address] [email or web address] 08/30/2025 9:30 AM EDT Nurse Only [facility] [address] [place] [address] [place] [address] Ap Arnold MD [address] [place] [address] 2nd [place] [address] [email or web address] documented as of this encounter Procedures Procedure [...] IMPRESSION: No fracture or dislocation. Shereen Arechiga MANUFACTURING ENGINEER IMG XR LOWER EXTREMITY Jazzy l Result documented in this encounter Visit Diagnoses Not on filedocumented in this encounter Additional Health Concerns Infection Onset Date Last Indicated Resolved Time CoV-Risk 03/22/2024 03/22/2024 04/02/2024 1:22 AM EDT documented as of this encounter Care Teams Printing Table Worker Relationship Specialty Start Date End Date Kayla Buchanan MD [address] [place] [address], [address] [place] [id number] [email or web address] PCP - General Obstetrics and Gynecology 02/15/22 documented as of this encounter Additional Source Comments The information contained in this document represents components of the legal health record. It is not the complete legal health record.[facility]
--- OUTSIDE RECORDS SUMMARY | 2025-08-01 09:30 | XMS_ITS | Encounter Summary ---
Author Organization [facility] Address [address] [place] [address] Phone Care Team Providers Care Needle Maker Name Role Phone Preethi Mcintosh Primary Care Provide r Encounter Details Date Type Department Care Team ([facility] st Contact Info) Description 08/01/2025 9:30 AM EDT Nurse Only [facility]monary, Allergy and Critical Care Medicine [address] [place] [address] [place] [address] Ap Arnold MD [address] [place] [address] [email or web address] History of bee sting allergy (Primary Dx) Social History Tobacco Use Types [...] AM EST documented as of this encounter Progress Notes * Yue Hagen RN - 08/01/2025 9:30 AM EDT Diagnosis: Z91.030 History of bee sting allergy Dosing: Maintenance An antihistamine was taken prior to today's visit. No new or worsening allergy or asthma symptoms reported. No changes in medications noted. Skin clean, dry, and intact. Site cleansed with alcohol prep. Office-supplied serum subcutaneously administered as follows: Yellow Jacket 100 mcg/mL. 1 mL into CYNTHIA Expires 09/29/2025 There were no immediate reactions to today's injections. Patient agreed to wait in the lobby for 30minutes after today's injection. documented in this encounter Plan of Treatment Upcoming Encounters Date Type Department Care Team (Late st Contact Info) Description 08/03/2025 Procedure Pass [address] [address] 08/26/2025 2:00 PM EDT Appointment [address] [address] Cody Levy MD 22 [facility], [address] [address] 08/26/2025 2:30 PM EDT Appointment [facility], [address] [address] Cody Levy MD 22 [facility], [address] [address] 08/30/2025 9:30 AM EDT Nurse Only [facility]monary, Allergy and Critical Care Medicine [address] [place] [address] Ap Arnold MD [address] [place] [address] [email or web address] documented as of this encounter Visit Diagnoses Diagnosis History of bee sting allergy- Primary documented in this encounter Care Teams Needle Maker Relationship Specialty Start Date End Date Preethi Mcintosh PA [address] [place] [address] [place] [address] PCP - General Physician Table Setter 09/06/24 documented as of this encounter Additional Source Comments The information contained in this document represents components of the legal health record. It is not the complete legal health record.[facility]
--- OUTSIDE RECORDS SUMMARY | 2025-08-03 07:28 | XMS_ITS | Encounter Summary ---
Author Organization [facility] Address [address] [facility] [address] [place] [address] Phone Care Team Providers Care Virtual Office Assistant Name Role Phone Preethi Mcintosh Primary Care Provide r Encounter Details Date Type Department Care Team (Latest Contact Info) Description 08/03/2025 7:28 AM EDT - 08/03/2025 11:59 PM EDT Hospital Encounter [facility] [address] [place] [address] Cody Levy MD 22 [facility], [address] [place] [address] [email or web address] Arrived Discharge Disposition: Home or Self Care Social History Tobacco Use Types Packs/Day Years Used Date Smoking Tobacco: Former Cigarettes 0.3 21.1 1 - 11/08/2015 Smokeless Tobacco: Never Tobacco [...] AM EST documented as of this encounter Medications at Time of Discharge albuterol 2.5 mg /3 mL (0.083 %) nebulizer solution Take 2.5 mg by nebulization every 6 (six) hours as needed. albuterol 90 mcg/actuation inhaler Inhale 2 puffs into the lungs every 6 (six) hours as needed for wheezing. 8 g 02/13/2022 cetirizine (ZYRTEC) 10 MG tablet Take 10 mg by mouth daily. 01/07/2022 EPINEPHrine 0.3 mg/0.3 mL auto-injector Inject 0.3 mg into the muscle as needed for anaphylaxis. ibuprofen (ADVIL,MOTRIN) 200 MG tablet Take 3 tablets (600 mg total) by mouth every 6 (six) hours as needed for pain (specific location in comments). 12/11/2023 inhaler spacing device (AEROCHAMBER,RICH THERITE) Spcr Inhale 1 each into the lungs every 6 (six) hours. 1 each 02/13/2022 lamoTRIgine (LAMICTAL) 100 MG IMMEDIATE release tablet 150 mg. 10/05/2024 lidocaine (LIDODERM) 5 % Place onto the skin daily. 07/26/2024 methocarbamoL (ROBAXIN) 500 MG tablet Take 500 mg by mouth daily as needed. 02/08/2025 omeprazole (PRILOSEC) 20 MG capsule Take 1 capsule by mouth every morning. 12/29/2023 ondansetron (ZOFRAN) 4 MG tablet Take 4 mg by mouth as needed. 07/02/2022 traZODone (DESYREL) 50 MG tablet Take 100 mg by mouth every evening. As needed 03/11/2023 VYVANSE 40 mg capsule 40 mg. 10/19/2024 fluticasone furoate (ARNUITY ELLIPTA) 200 mcg/actuation DsDv Inhale 1 puff into the lungs daily. 90 each 3 07/25/2025 multivitamin per tablet Take 1 tablet by mouth daily. 11/20/2021 omalizumab (XOLAIR) 300 mg/2 mL subcutaneous auto-injector syringeIndication s:Severe persistent asthma without complication Inject 2 mL (300 mg total) under the skin every 28 days. 2 mL 12 07/25/2025 OZEMPIC 0.25 mg or 0.5 mg (2 mg/3 mL) subcutaneous injection pen Inject 0.25 mg under the skin every 7 days. 08/04/2024 umeclidinium-neelam nteroL (ANORO ELLIPTA) 62.5-25 mcg/actuation diskus inhalerIndication s:Severe persistent asthma with acute exacerbation Inhale 1 puff into the lungs daily. 180 each 3 07/25/2025 zafirlukast (ACCOLATE) 20 MG tablet Take 1 tablet (20 mg total) by mouth 2 (two) times a day. 60 tablet 11 03/03/2025 documented as of this encounter Plan of Treatment Upcoming Encounters Date Type Department Care Team (Late st Contact Info) Description 08/03/2025 Procedure Pass [address] [address] 08/26/2025 2:00 PM EDT Appointment [address] [address] Cody Levy MD [address] [place] [address], [address] [place] [address] 08/26/2025 2:30 PM EDT Appointment [facility], [facility] [address] [place] [address] Cody Levy MD 22 [facility], [address] [place] [address] 08/30/2025 9:30 AM EDT Nurse Only [facility], Allergy and Critical Care Medicine [address] [place] [address] [place] [address] Ap Arnold MD [address] [place] [address] 2nd [place] [address] [email or web address] documented as of this encounter Procedures Procedure Name Priority Date/Time Associated Diagnosis Comments BI MAMMOGRAM SCREENING WITH TOMOSYNTHESIS WITH CAD (BILATERAL) Routine 08/03/2025 7:56 AM EDT Breast screening documented in this encounter Results * (ABNORMAL) BI MAMMOGRAM SCREENING WITH TOMOSYNTHESIS WITH CAD (BILATERAL) (08/03/2025 7:56 AM EDT) Anatomical Region Laterality Modality Breast Left, Breast Right, Breast Bilateral Bila teral Mammography 08/03/2025 10:5 3 AM EDT Impressions 08/03/2025 11:12 AM EDT 1. Additional imaging recommended for focal asymmetry in the upper outer right breast.. 2. No mammographic evidence of malignancy in the left breast. BI-RADS 0 INCOMPLETE Needs additional imaging evaluation The patient will be notified of the results and recommendations. The mammography department will contact the patient to arrange for the additional imaging. Narrative 08/03/2025 11:12 AM EDT BI MAMMOGRAM SCREENING WITH TOMOSYNTHESIS WITH CAD (BILATERAL) Additional patient information: Screening. COMPARISON: Comparison is made with relevant prior imaging. Breast composition: There are scattered areas of fibroglandular density. FINDINGS: Right Focal asymmetry in the upper outer right breast, more conspicuous on the cc view. No architectural distortion. No suspicious microcalcifications. Left No abnormal masses, suspicious calcifications, or other significant findings are identified mammographically in the left breast. Procedure Note Woodrow Link MD - 08/03/2025 BI MAMMOGRAM SCREENING WITH TOMOSYNTHESIS WITH CAD (BILATERAL) Additional patient information: Screening. COMPARISON: Comparison is made with relevant prior imaging. Breast composition: There are scattered areas of fibroglandular density. FINDINGS: Right Focal asymmetry in the upper outer right breast, more conspicuous on thecc view. No architectural distortion. No suspicious microcalcifications. Left No abnormal masses, suspicious calcifications, or other significantfindings are identified mammographically in the left breast. IMPRESSION: 1. Additional imaging recommended for focal asymmetry in the upper outerright breast.. 2. No mammographic evidence of malignancy in the left breast. BI-RADS 0 INCOMPLETE Needs additional imaging evaluation The patient will be notified of the results and recommendations. Themammography department will contact the patient to arrange for theadditional imaging. Cody Levy MD IM MG EXAMS Final Result documented in this encounter Visit Diagnoses Diagnosis Breast screening Breast screening, unspecified documented in this encounter Care Teams Virtual Office Assistant Relationship Specialty Start Date End Date Preethi Mcintosh PA [address] [place] [address] Dr Rand [address] [place] [phone] PCP - General Physician Research Laboratory Specialist 09/06/24 documented as of this encounter Additional Source Comments The information contained in this document represents components of the legal health record. It is not the complete legal health record.[facility]
--- NOTE | 2025-08-04 13:13 | A.OFFPSYCH_ITS ---
Intake Intake Visit Reasons: f/u consultation Licensed Clinical Psychologist Required: No Allergies morphine (MORPHINE) Allergy (Unknown, Verified 05/23/25 14:17) ANAPHYLAXIS oxycodone (From PERCOCET) Allergy (Unknown, Verified 05/23/25 14:17) RASH strawberry (STRAWBERRY) Allergy (Unknown, Verified 05/23/25 14:17) ANAPHYLAXIS BEES Allergy (Severe, Uncoded 05/23/25 14:17) Anaphylaxis Medication List - Last Reconciled 08/04/25 by Karol Ellis, BLANKA albuterol sulfate 2.5 mg (3 mL) inhalation Q4-6H PRN albuterol sulfate 90 mcg/actuation (Ventolin HFA) 2 puffs inhalation Q4-6H PRN cetirizine 10 mg PO DAILY cholecalciferol (vitamin D3) (Vitamin D3) 50 mcg PO DAILY epinephrine (EpiPen) 0.3 mg (0.3 mL) IM Q10M PRN fluticasone propionate 50 mcg/actuation (Flonase Allergy Relief) 1 spray intranasal BID ibuprofen 600 mg PO Q6H PRN lamotrigine (Lamictal) 100 mg PO DAILY lidocaine 5% 1 patch topical DAILY lisdexamfetamine (Vyvanse) 50 mg PO QAM multivitamin 1 tab PO DAILY naloxone 4 mg/actuation (Narcan) 4 mg intranasal Q2M PRN omalizumab (Xolair) 300 mg subcut Q4W omeprazole 40 mg PO DAILY ondansetron 4 mg PO Q8H PRN trazodone 100 mg (2 x 50 mg) PO BEDTIME PRN zafirlukast 20 mg PO BID HPI- Psychiatric Chief Complaint: f/u consultation HPI Narrative: Patient is here for follow-up regarding depression,anxiety and ADHD. Patient is tolerating meds she feels that the Lamictal is very hopeful she has no rash she reports no side effects. Her PHQ-9 equals 5 her GAD7 equals 4. she denies SI or HI. She reports increased conflict and stress at home; she is coping well she continues to have orthopedic pain in his following up with her medical providers. Past Psychiatric History: [facility] 22 Subjective Subjective Subjective Medication Compliance: Yes Side effects from medications: No Review of Systems Medical Review of Systems: unchanged Mental Status Exam Mental Status Exam Patient Appearance: Well Grooomed Patient Orientation: Person, Place, Time and Situation Level of Consciousness: Awake Patient Behavior: Appropriate and Cooperative Mood Description: Anxious and Sad Affect Description: Anxious and Sad Patient Cognition Impaired: No Ability to Follow Directions: Good Speech Pattern: Appropriate and Coherent Memory Description: Intact Hallucinations: None Delusions: Not Present Thought Process: Intact Thought Content: positive for Intact Judgement: Good Assessment and Plan Assessment & Plan (1) Generalized anxiety disorder: Status: Acute Code(s): F41.1 - Generalized anxiety disorder (2) ADHD (attention deficit hyperactivity disorder), combined type: Status: Acute Code(s): F90.2 - Attention-deficit hyperactivity disorder, combined type (3) Bipolar II disorder major depressive with melancholic features: Status: Acute Code(s): F31.81 - Bipolar II disorder Plan medications as per below patient doing well and will refer back to PCP Medications: Refilled lamotrigine (Lamictal) 100 mg PO DAILY 90 tabs 1RF lisdexamfetamine (Vyvanse) Partial Fill upon patient request. 50 mg PO QAM 60 caps 0RF F90.2 - Attention-deficit hyperactivity disorder, combined type trazodone 100 mg (2 x 50 mg) PO BEDTIME PRN 60 tabs 4RF sleep Counseling and coordination of Care Pt. Self Management counseling: Maintenance-social rhythm, Mod caffeine/ETOH intake, Nutrition education and improvement, Sleep hygiene, Behavior activation, Cognitive restructuring and General coping skills Medication management counseling: Effectiveness, Side effects, Dosing range, Duration, Drug interaction and Adherence Diagnosis and Prognosis Counseling: Accuracy of diagnosis, Prognosis over time, Impact of diagnosis on life functions, Impact of family relationship, Problematic behaviors secondary to diagnosis and Adequacy of current interventions Details: I spent 40 minutes reviewing the record, seeing the patient and documenting in the medical record. Counseling provided to the patient/caregiver as outlined below. Addressed patient/caregiver concerns regarding current medication regime including effect miguel a adherence. Addressed patient/caregiver concerns regarding diagnosis and prognosis including accuracy of diagnosis, prognosis over time, impact of diagnosis. Addressed patient/caregiver concerns regarding impact of recent stressors. [facility] Medical History Bronchitis due to Staphylococcus aureus Morbid obesity Allergic rhinitis COVID-19 Tick bite Unplanned unwanted Delivery with history of test positive Polyp of cervix Fibroid, uterine History of uterine fibroid Encounter to establish care Surgical History Hx of dilation and curettage History of back surgery History of hysterectomy History of colonoscopy History of surgery on right wrist History of delivery Family History Mother No problems noted. Father Mental health disorder Substance use disorder Social History Household Members: Family Housing: House Do you presently have visiting nurse or other home services: No Alcohol intake: current Alcohol intake frequency: a few times a week Patient Tobacco Use Status: Former Tobacco user Tobacco use type: Cigarette e-Cigarette/Vaping Use: Never Used Second Hand Smoke Exposure: Yes Substance Use Type: Marijuana service: No Current occupational status: employed Current occupational exposures/hazards: No Cognitive needs: Yes (Cane PRN) Hearing needs: No Vision needs: No Social History: lives 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 THC edibles periodically for body pain but causes anxiety so not often. in 20s experimented with opiates, hallucinogens and ketamine Trauma History: childhood Coding Level of Care Code Est Pt Level 4 (90722) Diagnoses Generalized anxiety disorder F41.1 ADHD (attention deficit hyperactivity disorder), combined type F90.2 Bipolar II disorder major depressive with melancholic features F31.81
--- OUTSIDE RECORDS SUMMARY | 2025-08-04 15:10 | XMS_ITS | Encounter Summary ---
Author Organization [facility] Address [address] [place] [address] Phone Care Team Providers Care Lead Software Engineer Name Role Phone Kayla Buchanan MD Primary Care Provider [phone] Beti Fu MD Primary Care Provid er Cali Sanchez Primary Care Provider + Preethi Mcintosh Primary Care Provide r Encounter Details Date Type Department Care Team (Late st Contact Info) Description 02/19/2022 Procedure Pass OR Admitting Dept - [facility] Department [address] [place] [address] Social History Tobacco Use Types Packs/Day Years [...] st Contact Info) Description 08/03/2025 Procedure Pass [address] [place] [address] 08/26/2025 2:00 PM EDT Appointment [facility], Mammography- [address] [address] Cody Levy MD [address] [place] [address] 08/26/2025 2:30 PM EDT Appointment [address] [address] Cody Levy MD [address] [place] [address] 08/30/2025 9:30 AM EDT Nurse Only [facility] All[facility] [address] [place] [address] Ap Arnold MD [address] [place] [address] [email or web address] documented as of this encounter Visit Diagnoses Not on filedocumented in this encounter Additional Health Concerns Infection Onset Date Last Indicated Resolved Time CoV-Risk Comment:2 neg covids here for UTI Bacteremia 05/29/2022 05/29/2022 05/31/2022 7:01 AM E DT CoV-Risk 03/22/2024 03/22/2024 04/02/2024 1:22 AM EDT documented as of this encounter Care Teams Lead Software Engineer Relationship Specialty Start Date End Date Kyala Buchanan MD [address] [place] [address] PCP - General Obstetrics and Gynecology 02/15/22 Beti Fu MD [address] [place] [address] PCP - General 08/08/22 01/20/24 Cali Sanchez PA [address] [place] [address] PCP - General Physician Vice President Industrial Relations 01/21/24 09/05/24 Preethi Mcintosh PA [address] [place] [address] PCP - General Physician Vice President Industrial Relations 09/06/24 documented as of this encounter Additional Source Comments The information contained in this document represents components of the legal health record. It is not the complete legal health record.[facility]
--- OUTSIDE RECORDS SUMMARY | 2025-08-04 15:10 | XMS_ITS | Encounter Summary ---
Author Organization [facility] Address [address] [place] [address] Phone Care Team Providers Care Transmitter Supervisor Name Role Phone Beti Fu MD Primary Care Provid er Cali Sanchez Primary Care Provider + Preethi Mcintosh Primary Care Provide r Encounter Details Date Type Department Care Team (Late st Contact Info) Description 11/28/2022 Procedure Pass OR Admitting Dept - [facility] Department [address] [place] [address] Social History Tobacco Use Types Packs/Day Years [...] st Contact Info) Description 08/03/2025 Procedure Pass [facility], [address] [address] 08/26/2025 2:00 PM EDT Appointment [facility], Mammography- [address] [address] Cody Levy MD [address] [place] [address], [address] [address] 08/26/2025 2:30 PM EDT Appointment [facility], Ultrasound - [address] [address] Cody Levy MD [address] [place] [address], [address] [address] 08/30/2025 9:30 AM EDT Nurse Only [facility] [address] [place] [address] Ap Arnold MD [address] [place] [address] [email or web address] documented as of this encounter Visit Diagnoses Not on filedocumented in this encounter Additional Health Concerns Infection Onset Date Last Indicated Resolved Time CoV-Risk 03/22/2024 03/22/2024 04/02/2024 1:22 AM EDT documented as of this encounter Care Teams Transmitter Supervisor Relationship Specialty Start Date End Date Beti Fu MD [address] [place] [address] PCP - General 08/08/22 01/20/24 [place] [address] [place] [address] PCP - General Physician Field Crop Farmworker 01/21/24 09/05/24 Preethi Mcintosh PA [address] [place] [address] [place] [address] PCP - General Physician Field Crop Farmworker 09/06/24 documented as of this encounter Additional Source Comments The information contained in this document represents components of the legal health record. It is not the complete legal health record.[facility]
--- OUTSIDE RECORDS SUMMARY | 2025-08-04 15:10 | XMS_ITS | Encounter Summary ---
Author Organization [facility] Address [address] [place] [address] Phone Care Team Providers Care Mortgage Operations Manager Name Role Phone Btei Fu MD Primary Care Provid er Cali Sanchez Primary Care Provider + Preethi Mcintosh Primary Care Provide r Encounter Details Date Type Department Care Team (Late st Contact Info) Description 08/27/2023 Procedure Pass [facility], [address] [address] Social History Tobacco Use Types Packs/Day Years [...] st Contact Info) Description 08/03/2025 Procedure Pass [address] [address] 08/26/2025 2:00 PM EDT Appointment [address] [address] Cody Levy MD [address] [place] [address] 08/26/2025 2:30 PM EDT Appointment [address] [address] Cdoy Levy MD [address] [place] [address] 08/30/2025 9:30 AM EDT Nurse Only [facility] [address] [place] [address] [place] [address] Ap Arnold MD [address] [place] [address] [address] [place] [address] [email or web address] documented as of this encounter Visit Diagnoses Not on filedocumented in this encounter Additional Health Concerns Infection Onset Date Last Indicated Resolved Time CoV-Risk 03/22/2024 03/22/2024 04/02/2024 1:22 AM EDT documented as of this encounter Care Teams Mortgage Operations Manager Relationship Specialty Start Date End Date Beti Fu MD [address] [place] [address] PCP - General 08/08/22 01/20/24 [place] [address] [place] [address] PCP - General Physician Salesperson Stereo Equipment 01/21/24 09/05/24 Preethi Mcintosh PA [address] [place] [address] PCP - General Physician Salesperson Stereo Equipment 09/06/24 documented as of this encounter Additional Source Comments The information contained in this document represents components of the legal health record. It is not the complete legal health record.[facility]
--- OUTSIDE RECORDS SUMMARY | 2025-08-04 15:10 | XMS_ITS | Clinical Summary ---
Author Organization [facility] Address [address] [place] [address] Care Team Providers Care Fish Housekeeper Name Role Phone Preethi Mcintosh Primary Care Provider [phone] Allergies Active Allergy Reactions Criticality Noted Date [...] Years) (1 of 2 - PCV) 2001 Alcohol/Substance Use Screening 11/17/2024 Depression Screening and Follow-Up 11/17/2024 Social Drivers of Health [place] ual Screening 11/17/2024 COVID-19 Vaccine (1 - 2023-2 5 season) 2025 Influenza Vaccine (#1) 2025 , 08/05/2022, 08/21/2020, Additional history exists DTaP,Tdap,and Td Vaccines (4 - Td or Tdap) 05/07/2026 05/07/2016, 12/08/2012, 11/29/2001 Mammogram 02/10/2027 02/10/2025, 12/02/2023, 10/20/2023 RSV Vaccine (60+ years old a nd patients) (1 - 1-dose 75+ series) 2057 Hepatitis C Screening Completed 11/06/2015 Insurance [employer] Care Teams Fish Housekeeper Relationship Specialty Start Date End Date Preethi Mcintosh [address] [place] [address] PCP - General 04/04/25
--- OUTSIDE RECORDS SUMMARY | 2025-08-04 15:10 | XMS_ITS | Encounter Summary ---
Author Organization [facility] Address [address] [place] [address] Phone Care Team Providers Care Commercial Real Estate Manager Name Role Phone Preethi Mcintosh Primary Care Provide r Encounter Details Date Type Department Care Team ([facility] st Contact Info) Description 01/19/2025 Telephone [facility], Allergy and Critical [facility] Medicine [address] [place] [address] Unknown, Unknown, Social History Tobacco Use Types [...] st Contact Info) Description 08/03/2025 Procedure Pass [address] [address] 08/26/2025 2:00 PM EDT Appointment [address] [address] Cody Levy MD [address] [place] [address] 08/26/2025 2:30 PM EDT Appointment [address] [address] Cody Levy MD [address] [place] [address] 08/30/2025 9:30 AM EDT Nurse Only [facility] [address] [place] [address] Ap Arnold MD [address] [place] [address] documented as of this encounter Visit Diagnoses Not on filedocumented in this encounter Care Teams Commercial Real Estate Manager Relationship Specialty Start Date End Date Preethi Mcintosh PA [address] [place] [address] [place] [address] PCP - General Physician Sql Engineer 09/06/24 documented as of this encounter Additional Source Comments The information contained in this document represents components of the legal health record. It is not the complete legal health record.[facility]
--- OUTSIDE RECORDS SUMMARY | 2025-08-04 15:10 | XMS_ITS | Encounter Summary ---
Author Organization [facility] Address [address] [place] [address] Phone Care Team Providers Care Laboratory Coordinator Name Role Phone Beti Fu MD Primary Care Provid er Cali Sanchez Primary Care Provider + Preethi Mcintosh Primary Care Provide r Encounter Details Date Type Department Care Team (Late st Contact Info) Description 12/27/2022 Procedure Pass [facility] Endoscopy Admitting Dept Virtual Department [address] [place] [address] Social History Tobacco Use Types Packs/Day Years [...] st Contact Info) Description 08/03/2025 Procedure Pass [address] [address] 08/26/2025 2:00 PM EDT Appointment [address] [address] Cody Levy MD [address] [place] [address] 08/26/2025 2:30 PM EDT Appointment [address] [address] Cody Levy MD [address] [place] [address] 08/30/2025 9:30 AM EDT Nurse Only [facility] [address] [place] [address] Ap Arnold MD [address] [place] [address] documented as of this encounter Visit Diagnoses Not on filedocumented in this encounter Additional Health Concerns Infection Onset Date Last Indicated Resolved Time CoV-Risk 03/22/2024 03/22/2024 04/02/2024 1:22 AM EDT documented as of this encounter Care Teams Laboratory Coordinator Relationship Specialty Start Date End Date Beti Fu MD [address] [place] [address] PCP - General 08/08/22 01/20/24 Cali Sanchez PA [address] [place] [address] PCP - General Physician Nurse Emergency 01/21/24 09/05/24 Preethi Mcintosh PA [address] [place] [address] PCP - General Physician Nurse Emergency 09/06/24 documented as of this encounter Additional Source Comments The information contained in this document represents components of the legal health record. It is not the complete legal health record.[facility]
--- OUTSIDE RECORDS SUMMARY | 2025-08-04 15:10 | XMS_ITS | Encounter Summary ---
Author Organization [facility] Address [address] [place] [address] Phone Care Team Providers Care Ferruler Name Role Phone Kayla Buchanan MD Primary Care Provider [phone] Beti Fu MD Primary Care Provid er Cali Sanchez Primary Care Provider + Preethi Mcintosh Primary Care Provide r Encounter Details Date Type Department Care Team (Late st Contact Info) Description 05/30/2022 Procedure Pass [facility], Ct Scan - [address] [address] Social History Tobacco Use Types Packs/Day Years [...] Indicated 05/30/2022 12:19 PM EDT Thao Moya, JUSTINO * [place] Suicide Severity Rating Scale (Screener/Recent Self-Report) Question Answer Date of Assessment Author 1. Wish to be (Past 1 Month) No 022 12:19 PM EDT Thao Jackson, RN 2. Non-Specific Active Suici lonny Thoughts (Past 1 Month) No 05/30/2022 12:19 PM EDT Luis Manuel Jackson RN 6. Suicidal Behavior (Lifetime) No 12:19 PM EDT Thao Jackson RN documented as of this encounter Plan of Treatment Upcoming Encounters Date Type Department Care Team (Late st Contact Info) Description 08/03/2025 Procedure Pass [address] [address] 08/26/2025 2:00 PM EDT Appointment [address] [address] Cody Levy MD [address] [place] [address] [email or web address] 08/26/2025 2:30 PM EDT Appointment [address] [address] Cody Levy MD [address] [place] [address] 08/30/2025 9:30 AM EDT Nurse Only [facility] [address] [place] [address] Ap Arnold MD [address] [place] [address] documented as of this encounter Visit Diagnoses Not on filedocumented in this encounter Additional Health Concerns Infection Onset Date Last Indicated Resolved Time CoV-Risk Comment:2 neg covids here for UTI Bacteremia 05/29/2022 05/29/2022 05/31/2022 7:01 AM E DT CoV-Risk 03/22/2024 03/22/2024 04/02/2024 1:22 AM EDT documented as of this encounter Care Teams Ferruler Relationship Specialty Start Date End Date Kayla Buchanan MD [address] [facility] [place] [address] [email or web address] PCP - General Obstetrics and Gynecology 02/15/22 Beti Fu MD [address] [place] [address] PCP - General 08/08/22 01/20/24 [place] [address] [place] [address] PCP - General Physician Extension Forester 01/21/24 09/05/24 Preethi Mcintosh PA [address] [place] [address] PCP - General Physician Extension Forester 09/06/24 documented as of this encounter Additional Source Comments The information contained in this document represents components of the legal health record. It is not the complete legal health record.[facility]
--- OUTSIDE RECORDS SUMMARY | 2025-08-04 15:10 | XMS_ITS | Encounter Summary ---
Author Organization [facility] Address [address] [place] [address] Phone Care Team Providers Care Transfer And Line Up Worker Name Role Phone Pcp, Unknown Primary Care Provider Kayla Jaime MD Primary Care Provider [phone] Beti Fu MD Primary Care Provid er Cali Sanchez Primary Care Provider + Preethi Mcintosh Primary Care Provide r Encounter Details Date Type Department Care Team (Late st Contact Info) Description 02/13/2022 Procedure Pass [facility], Ct Scan - [address] [address] Social History Tobacco Use Types Packs/Day Years [...] 2:49 PM EDT Carolyn Alonzo, JUSTINO * [place] Suicide Severity Rating Scale (Screener/Recent Self-Report) Question [...] st Contact Info) Description 08/03/2025 Procedure Pass [address] [address] 08/26/2025 2:00 PM EDT Appointment [address] [address] Cody Levy MD [address] [place] [address] 08/26/2025 2:30 PM EDT Appointment [address] [address] Cody Levy MD [address] [place] [address] 08/30/2025 9:30 AM EDT Nurse Only [facility] [address] [place] [address] Ap Arnold MD [address] [place] [address] [address] [place] [address] documented as of this encounter Visit Diagnoses Not on filedocumented in this encounter Additional Health Concerns Infection Onset Date Last Indicated Resolved Time CoV-Risk 02/13/2022 02/13/2022 02/15/2022 2:05 PM EDT CoV-Risk Comment:2 neg covids here for UTI Bacteremia 05/29/2022 05/29/2022 05/31/2022 7:01 AM E DT CoV-Risk 03/22/2024 03/22/2024 04/02/2024 1:22 AM EDT documented as of this encounter Care Teams Transfer And Line Up Worker Relationship Specialty Start Date End Date Pcp, Unknown PCP - General 02/13/22 02/14/22 Kayla Buchanan MD [address] [facility] [place] [address] [email or web address] PCP - General Obstetrics and Gynecology 02/15/22 Beit Fu MD [address] [place] [address] PCP - General 08/08/22 01/20/24 [place] [address] [place] [address] PCP - General Physician Compounding Scaler 01/21/24 09/05/24 Preethi Mcintosh PA [address] [place] [address] PCP - General Physician Compounding Scaler 09/06/24 documented as of this encounter Additional Source Comments The information contained in this document represents components of the legal health record. It is not the complete legal health record.[facility]
--- OUTSIDE RECORDS SUMMARY | 2025-08-04 15:10 | XMS_ITS | Encounter Summary ---
Author Organization [facility] Address [address] [place] [address] Phone Care Team Providers Care Shrinker Name Role Phone Preethi Mcintosh Primary Care Provide r Encounter Details Date Type Department Care Team (Late st Contact Info) Description 12/10/2024 Procedure Pass [facility], [facility] [address] [place] [address] Social History Tobacco Use Types Packs/Day Years [...] st Contact Info) Description 08/03/2025 Procedure Pass [address] [address] 08/26/2025 2:00 PM EDT Appointment [address] [address] Coyd Levy MD [address] [place] [phone] [email or web address] 08/26/2025 2:30 PM EDT Appointment [address] [address] Cody Levy MD [address] [place] [address] [email or web address] 08/30/2025 9:30 AM EDT Nurse Only [facility] Pul[facility], Allergy [facility] Critical [facility] Medicine [address] [place] [address] Ap Arnold MD [address] [place] [address] documented as of this encounter Visit Diagnoses Not on filedocumented in this encounter Care Teams Shrinker Relationship Specialty Start Date End Date Preethi Mcintosh PA [address] [place] [address] Dr Kwon, LISBETH [address] PCP - General Physician Roll Capper 09/06/24 documented as of this encounter Additional Source Comments The information contained in this document represents components of the legal health record. It is not the complete legal health record.[facility]
--- OUTSIDE RECORDS SUMMARY | 2025-08-04 15:10 | XMS_ITS | Encounter Summary ---
Author Organization [facility] Address [address] [place] [address] Phone Care Team Providers Care Sewer Cleaner Name Role Phone Beti Fu MD Primary Care Provid er Cali Sanchez Primary Care Provider + Preethi Mcintosh Primary Care Provide r Encounter Details Date Type Department Care Team (Late st Contact Info) Description 10/01/2022 Procedure Pass [facility] Endoscopy Admitting Dept Virtual Department [address] [place] [address] Social History Tobacco Use Types Packs/Day Years [...] st Contact Info) Description 08/03/2025 Procedure Pass [facility], [address] [address] 08/26/2025 2:00 PM EDT Appointment [facility], Mammography- [address] [address] Cody Levy MD [address] [place] [address], [address] [address] 08/26/2025 2:30 PM EDT Appointment [facility], Ultrasound - [address] [address] Cody Levy MD [address] [place] [address] 08/30/2025 9:30 AM EDT Nurse Only [facility] Pulmonary, Allergy and Critical Care Medicine [address] [place] [address] Ap Arnold MD [address] [place] [address] [email or web address] documented as of this encounter Visit Diagnoses Not on filedocumented in this encounter Additional Health Concerns Infection Onset Date Last Indicated Resolved Time CoV-Risk 03/22/2024 03/22/2024 04/02/2024 1:22 AM EDT documented as of this encounter Care Teams Sewer Cleaner Relationship Specialty Start Date End Date Beti Fu MD [address] [place] [address] PCP - General 08/08/22 01/20/24 Cali Sanchez PA [address] [place] [address] PCP - General Physician Training And Development Officer 01/21/24 09/05/24 Preethi Mcintosh PA [address] [place] [address] [place] [address] PCP - General Physician Training And Development Officer 09/06/24 documented as of this encounter Additional Source Comments The information contained in this document represents components of the legal health record. It is not the complete legal health record.[facility]
--- OUTSIDE RECORDS SUMMARY | 2025-08-04 15:10 | XMS_ITS | Encounter Summary ---
Author Organization [facility] Address [address] [place] [address] Phone Care Team Providers Care Boilermaker Assembly And Erection Name Role Phone Preethi Mcintosh Primary Care Provide r Encounter Details Date Type Department Care Team ([facility] st Contact Info) Description 02/22/2025 Telephone [facility] Pulmonary, Allergy and Critical Care Medicine [address] [facility] [place] [address] [place] [address] Ap Arnold MD [address] [place] [address] [place] [address] [email or web address] Social History Tobacco Use Types Packs/Day Years [...] st Contact Info) Description 08/03/2025 Procedure Pass [address] [address] 08/26/2025 2:00 PM EDT Appointment [address] [address] Cody Levy MD [address] [place] [address] 08/26/2025 2:30 PM EDT Appointment [address] [address] Cody Levy MD [address] [place] [address] 08/30/2025 9:30 AM EDT Nurse Only [facility] Pulmonary, Allergy and Critical Care Medicine [address] [place] [address] [place] [address] Ap Arnold MD [address] [place] [address] [email or web address] documented as of this encounter Visit Diagnoses Not on filedocumented in this encounter Care Teams Boilermaker Assembly And Erection Relationship Specialty Start Date End Date Preethi Mcintosh PA [address] [place] [address] [place] [address] PCP - General Physician Compensation Programs Manager 09/06/24 documented as of this encounter Additional Source Comments The information contained in this document represents components of the legal health record. It is not the complete legal health record.[facility]
--- OUTSIDE RECORDS SUMMARY | 2025-08-04 15:10 | XMS_ITS | Encounter Summary ---
Author Organization [facility] Address [address] [place] [address] Phone Care Team Providers Care Chess Instructor Name Role Phone Beti Fu MD Primary Care Provid er Cali Sanchez Primary Care Provider + Preethi Mcintosh Primary Care Provide r Encounter Details Date Type Department Care Team (Late st Contact Info) Description 11/14/2022 Procedure Pass [facility] Endoscopy Admitting Dept Virtual Department [address] [place] [address] Social History Tobacco Use Types Packs/Day Years [...] st Contact Info) Description 08/03/2025 Procedure Pass [facility], [address] [address] 08/26/2025 2:00 PM EDT Appointment [facility], Mammography- [address] [address] Cody Levy MD [address] [place] [address], [address] [address] 08/26/2025 2:30 PM EDT Appointment [facility], Ultrasound - [address] [address] Cody Levy MD [address] [place] [address] 08/30/2025 9:30 AM EDT Nurse Only [facility] Pulmonary, Allergy [facility] Critical [facility] Medicine [address] [place] [address] Ap Arnold MD [address] [place] [address] [email or web address] documented as of this encounter Visit Diagnoses Not on filedocumented in this encounter Additional Health Concerns Infection Onset Date Last Indicated Resolved Time CoV-Risk 03/22/2024 03/22/2024 04/02/2024 1:22 AM EDT documented as of this encounter Care Teams Chess Instructor Relationship Specialty Start Date End Date Beti Fu MD [address] [place] [address] PCP - General 08/08/22 01/20/24 Cali Sanchez PA [address] [place] [address] PCP - General Physician Smoking Pipes Cleaner 01/21/24 09/05/24 Preethi Mcintosh PA [address] [place] [address] [place] [address] PCP - General Physician Smoking Pipes Cleaner 09/06/24 documented as of this encounter Additional Source Comments The information contained in this document represents components of the legal health record. It is not the complete legal health record.[facility]
--- OUTSIDE RECORDS SUMMARY | 2025-08-04 15:11 | XMS_ITS | Encounter Summary ---
Author Organization [facility] Address [address] [place] [address] Phone Care Team Providers Care Stave Bolt Equalizer Name Role Phone Preethi Mcintosh Primary Care Provide r Encounter Details Date Type Department Care Team (Late st Contact Info) Description 08/03/2025 Ancillary Orders [facility], [facility] [address] [place] [address] Cody Levy MD [address] [facility] [place] [address] [email or web address] Abnormal mammogram (Primary Dx) Social History Tobacco Use Types [...] st Contact Info) Description 08/03/2025 Procedure Pass [address] [address] 08/26/2025 2:00 PM EDT Appointment [address] [address] Cody Levy MD [address] [place] [address] 08/26/2025 2:30 PM EDT Appointment [address] [address] Cody Levy MD [address] [place] [address] 08/30/2025 9:30 AM EDT Nurse Only [facility] Pul[facility], Allergy [facility] Critical [facility] Medicine [address] [place] [address] Ap Arnold MD [address] [place] [address] [email or web address] Scheduled Orders Name Type Priority Associated Diagnoses Orde r Schedule Mammogram Diagnostic Call Back (Right) Imaging Routine Abnormal mammogram Expected: 08/03/2025, Expires: 08/03/2026 US Breast (Right) Imaging Routine Abnormal mammogram Expected: 08/03/2025, Expires: 08/03/2026 documented as of this encounter Visit Diagnoses Diagnosis Abnormal mammogram- Primary Abnormal mammogram, unspecified documented in this encounter Care Teams Stave Bolt Equalizer Relationship Specialty Start Date End Date Preethi Mcintosh PA [address] [place] [address] [place] [address] PCP - General Physician Cementer Oil Well 09/06/24 documented as of this encounter Additional Source Comments The information contained in this document represents components of the legal health record. It is not the complete legal health record.[facility]
--- OUTSIDE RECORDS SUMMARY | 2025-08-04 15:11 | XMS_ITS | Encounter Summary ---
Author Organization [facility] Address [address] [place] [address] Phone Care Team Providers Care Strike Plate Attacher Name Role Phone Preethi Mcintosh Primary Care Provide r Reason for Visit * Reason Onset Date Comments Medication Prior Authorization 07/27/2025 P A for umeclidinium-vilanteroL (ANORO ELLIPTA) 62.5-25 mcg/actuation diskus inhaler Encounter Details Date Type Department Care Team (Late st Contact Info) Description 07/27/2025 Telephone [facility] Pulmonary, Allergy and Critical Care Medicine [address] [place], [place] [phone] Fidelia Smith [address] [place] [address] [email or web address] Medication Prior Authorization (PA for umeclidinium-vilanteroL (ANORO ELLIPTA) 62.5-25 mcg/actuation diskus inhaler/) Social History Tobacco Use Types Packs/Day Years [...] as of this encounter Progress Notes * Zulema Pichardo - 07/27/2025 1:22 PM EDT Initiated ePA for umeclidinium-vilanteroL (ANORO ELLIPTA) 62.5-25 mcg/actuation diskus inhaler * Fidelia Smith - 07/27/2025 10:35 AM EDT Rcvd CoverMyMeds Anora Ellipta PA request- importing to [employer] and routing to [facility]. documented in this encounter Plan of Treatment Upcoming Encounters Date Type Department Care Team (Late st Contact Info) Description 08/03/2025 Procedure Pass [facility], [address] [address] 08/26/2025 2:00 PM EDT Appointment [facility], Mammography- [address] [address] Cody Levy MD [address] [place] [address], [address] [address] 08/26/2025 2:30 PM EDT Appointment [facility], Ultrasound - [address] [address] Cody Levy MD [address] [place] [address] 08/30/2025 9:30 AM EDT Nurse Only [facility] Pulmonary, Allergy and Critical Care Medicine [address] [place] [address] Ap Arnold MD [address] [place] [address] [email or web address] documented as of this encounter Visit Diagnoses Not on filedocumented in this encounter Care Teams Strike Plate Attacher Relationship Specialty Start Date End Date Preethi Mcintosh PA [address] [place] [address] [place] [address] PCP - General Physician Laser Beam Trim Operator 09/06/24 documented as of this encounter Additional Source Comments The information contained in this document represents components of the legal health record. It is not the complete legal health record.[facility]
--- OUTSIDE RECORDS SUMMARY | 2025-08-04 15:11 | XMS_ITS | Encounter Summary ---
Author Organization [facility] Address [address] [place] [address] Phone Care Team Providers Care Real Estate Broker Name Role Phone Cali Sanchez Primary Care Provider + Preethi Mcintosh Primary Care Provide r Encounter Details Date Type Department Care Team (Late st Contact Info) Description 08/20/2024 Procedure Pass [facility], [address] [address] Social History Tobacco Use Types Packs/Day Years [...] st Contact Info) Description 08/03/2025 Procedure Pass [address] [address] 08/26/2025 2:00 PM EDT Appointment [address] [address] Cody Levy MD [address] [place] [address] 08/26/2025 2:30 PM EDT Appointment [address] [address] Cody Levy MD [address] [place] [address] 08/30/2025 9:30 AM EDT Nurse Only [facility] Pulmonary, Allergy and Critical [facility] Medicine [address] [place] [address] Ap Arnold MD [address] [place] [address] documented as of this encounter Visit Diagnoses Not on filedocumented in this encounter Care Teams Real Estate Broker Relationship Specialty Start Date End Date Cali Sanchez PA [address] [place] [address] PCP - General Physician Inter Com Servicer 01/21/24 09/05/24 Preethi Mcintosh PA [address] [place] [address] PCP - General Physician Inter Com Servicer 09/06/24 documented as of this encounter Additional Source Comments The information contained in this document represents components of the legal health record. It is not the complete legal health record.[facility]
--- OUTSIDE RECORDS SUMMARY | 2025-08-04 15:11 | XMS_ITS | Encounter Summary ---
Author Organization [facility] Address [address] [place] [address] Phone Care Team Providers Care Conveyor Attendant Name Role Phone Cali Sanchez Primary Care Provider + Preethi Mcintosh Primary Care Provide r Encounter Details Date Type Department Care Team (Late st Contact Info) Description 08/20/2024 Transcribe Orders Virtual Department [address] [place] [address] Cali Sanchez PA [address] [place] [address] Social History Tobacco Use Types Packs/Day Years [...] st Contact Info) Description 08/03/2025 Procedure Pass [address] [address] 08/26/2025 2:00 PM EDT Appointment [address] [address] Cody Levy MD [address] [place] [address] 08/26/2025 2:30 PM EDT Appointment [address] [address] Cody Levy MD [address] [place] [address] 08/30/2025 9:30 AM EDT Nurse Only [facility] Pulmonary, Allergy and Critical Care Medicine [address] [place] [address] [place], [place] [phone] Ap Arnold MD [address] [place] [address] [email or web address] documented as of this encounter Visit Diagnoses Not on filedocumented in this encounter Care Teams Conveyor Attendant Relationship Specialty Start Date End Date Cali Sanchez PA [address] [place] [address] PCP - General Physician Ophthalmic Surgeon 01/21/24 09/05/24 Preethi Mcintosh PA [address] [place] [address] PCP - General Physician Ophthalmic Surgeon 09/06/24 documented as of this encounter Additional Source Comments The information contained in this document represents components of the legal health record. It is not the complete legal health record.[facility]
== END 2025-08-04 13:48 | disposition home or self-care (01) ==
LOC: HO.HOP 13:09
PROVIDERS: Visit Provider Clinical Nurse Specialist Psychiatric/Mental Health
DX: F41.1 Generalized anxiety disorder (principal); F90.2 Attention-deficit hyperactivity disorder, combined type; F31.81 Bipolar II disorder
CPT/HCPCS: 99214

== ENCOUNTER → 2025-08-04 13:09 | Outpatient (BNVA) | payer OTHER, SELFPAY | PROVIDERS: Visit Provider Clinical Nurse Specialist Psychiatric/Mental Health | DX: F31.81 Bipolar II disorder (principal); F41.1 Generalized anxiety disorder; F90.2 Attention-deficit hyperactivity disorder, combined type | CPT/HCPCS: 99212 ==

== ENCOUNTER 2025-08-24 14:00 | Outpatient (REF) | payer OTHER, SELFPAY ==
--- NOTE | ~2025-08-24 | XR_ITS ---
EXAMINATION: XR CHEST 2 VIEWS HISTORY: R05.9 - Cough, unspecified COMPARISON: Comparison is made with the prior examination dated 10/29/2023. FINDINGS: PA and lateral views of the chest are submitted. The lungs are expanded and clear. There is no pleural effusion, pneumothorax, or pulmonary vascular congestion. The heart is normal in size. The bones are intact. XR/XR chest 2V IMPRESSION: No acute cardiopulmonary abnormality. Electronically signed by: Vishnu Verdugo MD 08/24/2025 02:21 PM EDT
== END 2025-08-24 14:01 | disposition home or self-care (01) ==
LOC: HO.XRAY 14:00
DX: R05.9 Cough, unspecified (principal)
CPT/HCPCS: 71046

== ENCOUNTER → 2025-08-24 14:05 | Outpatient (BNV) | payer OTHER, SELFPAY | PROVIDERS: Visit Provider Radiology Diagnostic Radiology | DX: R05.9 Cough, unspecified (principal) | CPT/HCPCS: 71046 ==

== ENCOUNTER → 2025-09-07 13:07 | Outpatient (RCR) | payer OTHER, SELFPAY ==
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
== END | disposition home or self-care (01) ==
LOC: HO.PTCHIC 07-06 10:51 → HO.PT 08-05 08:00
PROVIDERS: PCP Internal Medicine; Visit Provider Internal Medicine
DX: M54.2 Cervicalgia (principal)
CPT/HCPCS: 97110; 97140; 97161; 97164

== ENCOUNTER 2025-10-27 11:09 | Outpatient (AMB) | payer OTHER, SELFPAY ==
--- NOTE | 2025-10-27 11:20 | A.OFFPC_ITS ---
Vital Signs 10/27/25 11:21 Height 5 ft 4 in Weight 239 lb 2 oz BMI 41.0 BP 120/80 Blood Pressure Location Lt brachial Position Sitting Respiration 18 Pulse 95 Pulse Source Pulse Oximeter Temp Source Temporal Artery Scan Pulse Oximetry (%) 99 Oxygen Delivery Method Room Air Intake Visit Reasons: pe Quality Process Auditor Required: No Accompanied by: Self / Same As Patient Allergies morphine (MORPHINE) Allergy (Unknown, Verified 10/27/25 11:26) ANAPHYLAXIS oxycodone (From PERCOCET) Allergy (Unknown, Verified 10/27/25 11:26) RASH strawberry (STRAWBERRY) Allergy (Unknown, Verified 10/27/25 11:26) ANAPHYLAXIS BEES Allergy (Severe, Uncoded 10/27/25 11:26) Anaphylaxis Medication List - Last Reconciled 10/27/25 by Preethi Mcintosh PA-C albuterol sulfate 2.5 mg (3 mL) inhalation Q4-6H PRN albuterol sulfate 90 mcg/actuation (Ventolin HFA) 2 puffs inhalation Q4-6H PRN cetirizine 10 mg PO DAILY cholecalciferol (vitamin D3) (Vitamin D3) 50 mcg PO DAILY epinephrine (EpiPen) 0.3 mg (0.3 mL) IM Q10M PRN fluticasone propionate 50 mcg/actuation (Flonase Allergy Relief) 1 spray intranasal BID ibuprofen 600 mg PO Q6H PRN lamotrigine (Lamictal) 100 mg PO DAILY lidocaine 5% 1 patch topical DAILY lisdexamfetamine (Vyvanse) 50 mg PO QAM multivitamin 1 tab PO DAILY naloxone 4 mg/actuation (Narcan) 4 mg intranasal Q2M PRN omalizumab (Xolair) 300 mg subcut Q4W omeprazole 40 mg PO DAILY ondansetron 4 mg PO Q8H PRN trazodone 100 mg (2 x 50 mg) PO BEDTIME PRN zafirlukast 20 mg PO BID Tobacco use date assessed: 10/27/25 Dental Screening Dental Screen Date: 10/27/25 Did you have a dental visit in the last 12 months?: Yes Did you have a dental problem in the last 6 months where you did not have access to dental care?: No Was dental information given to patient?: Patient has dentist HPI pe HPI Details 44-year-old female with past medical his tory of depression, HSV, asthma, diabetes mellitus, generalized anxiety disorder and insomnia last seen 06/10 coming in for annual exam. In review of the notes she was stabilized on Lamictal, Vyvanse and trazodone by Psychiatry and was referred back to our practice. Presenting for an annual wellness visit with additional concerns. She reports persistent lower back pain with associated nerve pain, for which she recently had an MRI on Friday ordered by her physical therapist at [facility]. On days with severe pain, she has difficulty getting out of bed and has used ibuprofen, Tylenol, ice, and heat with limited relief. She has been using leftover lidocaine patches and has previously taken methocarbamol. The patient has a persistent cough following a cold, which is typical for her. She is producing clear to whitish sputum, which is an improvement from a previous color. She denies any fevers. She has been self-treating with a vapor steamer, humidifier, albuterol inhaler, and leftover prednisone from a previous illness, which was prescribed by her barrel loader and cleaner. For the past few months, she has had an intermittent rash on her hand, and a rash on her neck appeared a few weeks ago. She has been using [id number] cortisone and Gold Lemus eczema lotion without resolution. She uses Free and Clear laundry detergent and denies any new detergents. The patient inquired about Kofi-Danlos syndrome at the suggestion of friends, citing her symptoms of hypermobility, stretchy skin, and GI issues, which have been present for years. The patient reported hair loss last winter, which she associated with a higher dose of lamotrigine. She reports feeling in a slump, especially during the winter, and is currently taking lamotrigine 100 mg, which she feels may not be sufficient. mammogram: 07/2025 colonoscopy: 2022 [facility] pap smear: UTD [facility] vaccines: TDAP given today [facility] Medical History Bronchitis due to Staphylococcus aureus Morbid obesity Allergic rhinitis COVID-19 Tick bite Unplanned unwanted Delivery with history of test positive Polyp of cervix Fibroid, uterine History of uterine fibroid Encounter to establish care Surgical History Hx of dilation and curettage History of back surgery History of hysterectomy History of colonoscopy History of surgery on right wrist History of delivery Family History Mother No problems noted. Father Mental health disorder Substance use disorder Social History Household Members: Family Housing: House Do you presently have visiting nurse or other home services: No Alcohol intake: current Alcohol intake frequency: a few times a week Patient Tobacco Use Status: Former Tobacco user Tobacco use type: Cigarette e-Cigarette/Vaping Use: Never Used Second Hand Smoke Exposure: Yes Substance Use Type: Marijuana service: No Current occupational status: employed Current occupational exposures/hazards: No Cognitive needs: Yes (Cane PRN) Hearing needs: No Vision needs: No Female Reproductive History Menstrual Age of Menarche: 14 Questionnaire Thrive Questionnaire Date Thrive assessed: 10/27/25 I am a: Patient What is your living situation today?: I have a steady place to live Within the past 12 months, did the food you bought not last and you didn't have the money to get more?: Never true Within the past 12 months, did you worry whether your food would run out before you got money to buy more?: Never true Do you have trouble paying for medicines?: No Do you have trouble getting transportation to medical appointments?: No Do you have trouble paying your heating and electricity bill?: No Do you have trouble taking care of your child, family member or friend?: No Do you have trouble with day-to-day activities such as bathing, preparing meals, shopping, managing finances, etc.?: No Are you currently unemployed and looking for a job?: Yes Are you interested in more education?: Yes Currently or been in a relationship where the following occur: No concerns reported THRIVE Score: 0 JASSI-7 AMB Questionnaire JASSI-7 Date JASSI - 7 assessed: 02/11/25 Source: Developed by Drs. Vishnu Ashton, Susana Walters, Freddy Og and colleagues, with an educational yaneth from [employer]. Review of Systems Const Denies body aches, Denies fatigue, Denies fever(s), Denies frequent falls, Denies headache(s) and Denies weakness Eyes Reports no additional complaints and Denies change in vision ENT Denies dysphagia, Denies dizziness, Denies facial pain, Denies headache(s), Denies nasal congestion and Denies odynophagia Card Denies chest pain, Denies syncope, Denies irregular heart rhythm, Denies leg edema, Denies lightheadedness and Denies dyspnea Resp Denies cough and Denies dyspnea GI Denies constipation, Denies dysphagia, Denies dyspepsia, Denies diarrhea, Denies nausea, Denies odynophagia and Denies vomiting Denies urinary frequency, Denies dysuria, Denies urinary hesitancy and Denies urinary urgency Musc Reports as per HPI, Reports back pain and Denies myalgias Skin/Breast Reports system reviewed and no additional complaints, except as documented Neuro Denies dizziness, Denies syncope, Denies frequent falls, Denies headache(s) and Denies weakness Psych Reports no additional complaints Endo Denies fatigue Physical exam (Primary Care) Vital Signs: Last Vital Signs Pulse 95 10/27/25 11:21 Resp 18 10/27/25 11:21 BP 120/80 10/27/25 11:21 Pulse Ox 99 10/27/25 11:21 Oxygen Delivery Method Room Air 10/27/25 11:21 BMI result Body Mass Index 41.0 Tobacco/Smoking Status: Tobacco use Status Tobacco use date assessed 10/27/25 10/27/25 11:26 Patient Tobacco Use Status Former Tobacco user 10/27/25 11:26 Tobacco use type Cigarette 10/27/25 11:26 e-Cigarette/Vaping Use Never Used 10/27/25 11:26 Thrive Assessment: Date of Thrive Assessment Date Thrive assessed 10/27/25 10/27/25 11:26 Currently or been in a relationship where the following occur: No concerns reported Const General: cooperative, healthy appearing, comfortable and no acute distress Orientation/consciousness: patient oriented x3 HENMT Head: Yes normocephalic Ears: hearing grossly normal bilaterally, external ears normal, TM's normal bilaterally and EAC's normal General nose exam: Normal external nose present Face and sinus: Yes normal facial exam and Yes sinuses nontender Mouth: Normal oral and palatal mucosa present and tongue normal Throat: Yes posterior oropharynx normal Eyes General: appearance normal, both eyes and all related structures Conjunctivae: conjunctivae normal Pupils: Equal, round and reactive pupils present EOM: EOMs intact bilaterally and No Nystagmus present Neck Neck: Yes normal visual inspection, Yes full ROM and Yes no lymphadenopathy Chest Chest palpation & inspection: normal inspection of the chest Resp Effort & Inspection: normal respiratory effort Auscultation: clear to auscultation bilaterally, no crackles, no rales, no rhonchi, no wheezes and breath sounds present Cardio Rate: regular rate Rhythm: regular rhythm Peripheral pulses: radial pulses present and dorsalis pedis present GI Inspection: Yes normal to inspection and No Abdominal wall edema Palpation (GI): Soft to palpation, not firm and nontender Auscultation: normal bowel sounds Rectal Exam - Female: deferred General: Yes no CVA tenderness Back/Spine/Pelvis Back: no CVA tenderness Skin General skin exam: no rashes or lesions noted Neuro General: patient oriented x3 Cranial nerves: Yes Equal, round and reactive pupils present, Yes Midline tongue present, Yes Ability to bilaterally elevate shoulders present and No Nystagmus present Gait exam (Neuro): Normal gait present Extrem General: Yes normal to inspection, Yes full ROM, No no pedal edema and No edema Psych Speech and movement: Normal speech and movement present Affect: normal affect Insight: Good insight present (Psych) Judgement: Good judgement present (Psych) Immunizations Boostrix Tdap 2.5 Lf unit-8 mcg-5 Lf/0.5 mL intramuscular syringe Performing Provider: Preethi Mcintosh PA-C [facility] [place] [facility] Administered by: Jacqui Dorsey LPN on 10/27/25 12:21 Dose Route Admin Location Dispensed Lot Number Expiration Date [facility] Seed Trucker 0.5 mL IM Left Deltoid 0.5 mL [id number] 05/02/28 81232-070-87 [facility] Total Dispensed Waste 0.5 mL 0 % VIS Given Date VIS Provided VIS Publication Date 10/27/25 Single Vaccine 21 Eligibility Eligibility Date Funding Source Not [facility] Eligible 10/27/25 Private Coding Level of Care Code Est Pt Prev Care 40-64y(02211) Diagnoses Adult general medical exam Z00.00 Moderate depressive disorder F32.A Generalized anxiety disorder F41.1 ADHD (attention deficit hyperactivity disorder), combined type F90.2 Bipolar II disorder major depressive with melancholic features F31.81 Obesity, morbid, BMI 40.0-49.9 E66.01 Acid reflux K21.9 History of loop electrical excision procedure (LEEP) Z98.890 Intermittent asthma J45.20 Insomnia G47.00 Low back pain M54.50 Dermatitis L30.9 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 Code(s): Z00.00 - Encounter for general adult medical examination without abnormal findings Category: Medical Plan: Patient is up-to-date on all recommended routine screenings and vaccinations for her age. I did ordered for updated blood work to be completed prior to next visit. Plan to follow up in 4 months or sooner as needed. (2) Moderate depressive disorder: Code(s): F32.A - Depression, unspecified Category: Medical Plan: Continue on current medication regimen at this time. Patient is currently working to establish with a new counselor (3) Generalized anxiety disorder: Code(s): F41.1 - Generalized anxiety disorder Category: Medical Plan: See above (4) ADHD (attention deficit hyperactivity disorder), combined type: Code(s): F90.2 - Attention-deficit hyperactivity disorder, combined type Category: Medical Plan: Continue on Vyvanse as she finds this beneficial (5) Bipolar II disorder major depressive with melancholic features: Code(s): F31.81 - Bipolar II disorder Category: Medical Plan: The patient reports feeling in a slump, particularly during the winter, and feels her current lamotrigine 100 mg dose is insufficient. She has previously been on higher doses of 150 mg or 200 mg. The plan is to increase her lamotrigine to 150 mg daily. The dose can be adjusted further if needed. The importance of finding a new counselor was also discussed. (6) Obesity, morbid, BMI 40.0-49.9: Code(s): E66.01 - Morbid (severe) obesity due to excess calories Category: Medical Plan: Healthy diet and regular exercise is encouraged. Continue with water aerobics (7) Acid reflux: Code(s): K21.9 - Gastro-esophageal reflux disease without esophagitis Category: Medical Plan: Avoid trigger foods such as citrus, tomato products, soda, caffeine, spicy foods and other foods that may be irritating to your stomach. Avoid laying flat 3-4 hours after eating and elevate the head of the bed 30 degrees to prevent acid from moving into the esophagus. (8) History of loop electrical excision procedure (LEEP): Comment: 01/04/2022 Pap equals negative with negative HPV positive coccobacilli Code(s): Z98.890 - Other specified postprocedural states Category: Medical Plan: Continue to follow with [facility] gynecology and has upcoming appointment next year. (9) Intermittent asthma: Code(s): J45.20 - Mild intermittent asthma, uncomplicated Category: Medical Plan: The patient presents with a persistent cough and wheezing on exam. Although she reports her symptoms are improving, significant wheezing was noted in the lower lung rivera without rhonchi or crackles. She has been using leftover 5 mg prednisone tablets, which is an insufficient dose. A new prescription for a prednisone 10 mg taper over 8 days will be sent to the pharmacy. The patient was advised to stop her current prednisone and start the new taper. She was also advised to use her albuterol inhaler when she gets home. If the cough worsens or fails to improve, a chest x-ray will be considered. (10) Insomnia: Code(s): G47.00 - Insomnia, unspecified Category: Medical Plan: Continue on trazodone as needed (11) Low back pain: Code(s): M54.50 - Low back pain, unspecified Category: Medical Plan: The patient reports ongoing lower back pain with radicular symptoms, which is severe at times. She recently had an MRI and is waiting to review the results with her physical therapist. For acute pain episodes, methocarbamol, a muscle relaxer that tends to cause less drowsiness, will be prescribed. The patient was counseled not to drive while taking this medication. A refill for lidocaine patches was also sent. (12) Dermatitis: Code(s): L30.9 - Dermatitis, unspecified Category: Medical Plan: The patient reports intermittent rashes on her hand and neck. The hand rash appears to be eczema, while the neck rash is likely a contact irritation. A stronger steroid cream will be prescribed. The patient will monitor the rashes and report if they change or worsen. (13) Benign joint hypermobility: Code(s): M35.7 - Hypermobility syndrome Category: Medical Plan: The patient inquired about a possible diagnosis of Kofi-Danlos syndrome due to her symptoms of hypermobility, skin characteristics, and GI issues. It was discussed that diagnosis and management are challenging, as treatment is symptomatic and providers are scarce in the area. A referral for genetic testing and consultation can be placed to a provider at [facility] in the [place] area if the patient provides the specific provider's name. Plan This note was constructed using voice recognition software. While every effort has been made to ensure accuracy and intelligence officer, still areas may have been included sometimes these areas may affect the content or meeting of the given symptoms. Total time spent caring for the patient today was 30 minutes. This includes time spent before the visit reviewing the chart, time spent during the visit, and time spent after the visit and documentation. Patient was informed and verbally consented to the use of an ambient scribe for clinic note documentation during this visit. Orders: Orders TDaP Immunization Today Z23 - Encounter for immunization TSH reflex Free T4 Today Z13.29 - Encounter for screening for other suspected endocrine disorder Vitamin B12 and Folate Today Z13.21 - Encounter for screening for nutritional disorder Vitamin D 25-OH Total Today Z13.21 - Encounter for screening for nutritional disorder Comprehensive Met. Panel Today E66.01 - Morbid (severe) obesity due to excess calories, K21.9 - Gastro-esophageal reflux disease without esophagitis Lipid Panel Today E78.00 - Pure hypercholesterolemia, unspecified Complete Blood Count Auto Diff Today Z13.0 - Encounter for screening for diseases of the blood and blood-forming organs and certain disorders involving the immune mechanism UA CC w/rflx Micro + Cult Today R35.89 - Other polyuria Medications: New methocarbamol 500 mg PO TID PRN 30 tabs 0RF muscle pain prednisone Take 4 tablets on days 1-2, take 3 tablets on days 3-4, take 2 tablets on days 5-6, take 1 tablet on days 7-8. 10 mg PO DIRECTED 20 tabs 0RF triamcinolone acetonide 0.5% 1 appl topical DAILY 15 grams 0RF lamotrigine (Lamictal) 150 mg PO DAILY 90 tabs 0RF Refilled lidocaine 5% leave on most painful area for up to 12 hrs 1 patch topical DAILY 15 ea 0RF Discontinued lamotrigine (Lamictal) Discontinued Reason: Patient no longer taking 100 mg PO DAILY 90 tabs 1RF
[2025-10-27 11:21] VITALS: BP 120/80; PULSE 95; RESP 18; O2SAT 99; BMI 41.0
== END 2025-10-27 12:11 | disposition home or self-care (01) ==
LOC: HO.HMCH 11:10
DX: Z00.00 Encounter for general adult medical examination without abnormal findings (principal); F31.81 Bipolar II disorder; E66.01 Morbid (severe) obesity due to excess calories; Z68.41 Body mass index [BMI] 40.0-44.9, adult; F32.A Depression, unspecified; F41.1 Generalized anxiety disorder; F90.2 Attention-deficit hyperactivity disorder, combined type; K21.9 Gastro-esophageal reflux disease without esophagitis; Z98.890 Other specified postprocedural states; J45.20 Mild intermittent asthma, uncomplicated; G47.00 Insomnia, unspecified; M54.50 Low back pain, unspecified; L30.9 Dermatitis, unspecified; M35.7 Hypermobility syndrome; Z23 Encounter for immunization

== ENCOUNTER → 2025-10-27 11:09 | Outpatient (BNVA) | payer OTHER, SELFPAY | DX: Z00.00 Encounter for general adult medical examination without abnormal findings (principal); F41.1 Generalized anxiety disorder; F90.2 Attention-deficit hyperactivity disorder, combined type; F31.81 Bipolar II disorder; E66.01 Morbid (severe) obesity due to excess calories; K21.9 Gastro-esophageal reflux disease without esophagitis; J45.20 Mild intermittent asthma, uncomplicated; M54.50 Low back pain, unspecified; G47.00 Insomnia, unspecified; L30.9 Dermatitis, unspecified; M35.7 Hypermobility syndrome; Z23 Encounter for immunization | CPT/HCPCS: 90471; 90715; 99396 ==